=== PATIENT | male | born 1945 | race Caucasian/White ===

== ENCOUNTER 2019-04-24 16:11 | Inpatient (IN) ==
[2019-04-24] MEDS ORDERED: HYDROmorphone INJ 0.5 MG/0.5 ML SYR IV STA ×2 (16:27→18:51)
[2019-04-24 16:53] LABS: Basophils # (auto) 0.01 K/uL (0-0.2); Basophils % (auto) 0.1 %; Eosinophils # (auto) 0.07 K/uL (0-0.5); Eosinophils % (auto) 0.7 %; Hematocrit (blood only) 47.3 % (42-52); Hemoglobin 16.4 g/dL (14.0-18.0); Immature Granulocytes # (auto) 0.03 K/uL (0.00-0.02); Immature Granulocytes % (auto) 0.3 %; Lymphocytes # (auto) 2.04 K/uL (1.2-3.4); Lymphocytes % (auto) 20.6 %; Mean Corpuscular Hgb Conc 34.7 g/dL (32-36); Mean Corpuscular Volume 97.9 fL (80-100); Mean Platelet Volume 10.4 fL (7.4-10.4); Monocytes # (auto) 0.98 K/uL (0.11-0.59); Monocytes % (auto) 9.9 %; Neutrophils # (auto) 6.79 K/uL (1.4-6.5); Neutrophils % (auto) 68.4 %; Platelet Count 263 K/uL (130-400); RDW Coefficient of Variation 13.1 % (11.5-14.5); Red Blood Count 4.83 M/uL (4.7-6.1); White Blood Count 9.92 K/uL (4.8-10.8)
[2019-04-24 17:03] LABS: INR 3.4 (0.9-1.1); Prothrombin Time 32.1 Seconds (9.0-12.0)
[2019-04-24 17:20] LABS: Albumin Level 3.5 gm/dl (3.4-5.0); BUN Creatinine Ratio 12.8 (10-20); Calcium 8.7 mg/dl (8.5-10.1); Creatinine Clr Calc Pharmacy 84.3 ml/min; Est GFR (African American) 99.2; Est GFR (Non-African American) 85.6; Potassium 4.1 mmol/L (3.5-5.1)
[2019-04-24 17:25] LABS: Bilirubin,Total 0.5 mg/dl (0.2-1); Globulin 3.5 gm/dl (2.5-4.0); Troponin I 0.016 ng/ml (0-0.045)
--- NOTE | 2019-04-24 17:52 | XRay Report ---
XR ribs LT min 3V w CXR1V CLINICAL HISTORY: Left rib fractures. Left rib pain. COMPARISON STUDY: Chest CT 04/22/2019. FINDINGS: There are low lung volumes. No pneumothorax. Trace left pleural effusion. Bibasilar linear densities. The heart is mildly enlarged. The upper lung zones remain clear. Left anterior third throu gh sixth nondisplaced rib fractures are noted. IMPRESSION: 1. Left anterior third through sixth nondisplaced rib fractures are again noted. 2. No pneumothorax. 3. Trace left pleural effusion. 4. Low lung volume with bibasilar linear densities. This favors subsegmental atelectasis. Electronically signed by: Jesus Bae M.D. 04/24/2019 5:51 PM
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
[2019-04-24 20:43] LABS: Magnesium 2.2 mg/dl (1.8-2.4)
[2019-04-24] MEDS ORDERED: POLYETHYLENE (MIRALAX) 17 GM PACK PO STA (21:10)
[2019-04-24] MEDS ORDERED: NICOTINE 14 MG/24 HR PATCH TD SCH (21:15)
[2019-04-24] MEDS ORDERED: LORazepam 0.25 MG/0.5 ML VIAL IV PRN (22:13)
[2019-04-24] MEDS ORDERED: MoRPHine SULFATE 4 MG/ML 1 ML CARP\\VIAL IV PRN (22:13)
[2019-04-24] MEDS ORDERED: PROMETHAZINE HCL 12.5 MG in SODIUM CHLORIDE 0.9% 50 ML IV PRN (22:13)
[2019-04-24] MEDS ORDERED: NITROGLYCERIN SL 0.4 MG/TAB TAB SL PRN (22:13)
[2019-04-24] MEDS ORDERED: ACETAMINOPHEN 325 MG TAB PO PRN (22:13)
[2019-04-24] MEDS: LIDOCAINE 5% 1 PATCH TD SCH (22:31)
[2019-04-24] MEDS: METOPROLOL TARTRATE 50 MG TAB PO SCH (22:36)
[2019-04-24] MEDS: NICOTINE 14 MG/24 HR PATCH TD SCH (22:36)
[2019-04-24] MEDS: ATORVASTATIN 40 MG TAB PO SCH (22:37)
[2019-04-24] MEDS: DOCUSATE SODIUM/SENNA 50/8.6MG TAB PO SCH (22:38)
[2019-04-24] MEDS: CLOPIDOGREL BISULFATE 75 MG TAB PO SCH (22:38)
[2019-04-25] MEDS: OXYCODONE/ACETAMINOPHEN 5mg/325mg TAB PO PRN ×5 (00:04→20:00)
[2019-04-25 07:31] LABS: Basophils # (auto) 0.01 K/uL (0-0.2); Basophils % (auto) 0.1 %; Eosinophils # (auto) 0.12 K/uL (0-0.5); Eosinophils % (auto) 1.2 %; Hematocrit (blood only) 44.7 % (42-52); Immature Granulocytes # (auto) 0.02 K/uL (0.00-0.02); Immature Granulocytes % (auto) 0.2 %; Lymphocytes # (auto) 2.35 K/uL (1.2-3.4); Lymphocytes % (auto) 24.3 %; Mean Corpuscular Hgb Conc 33.6 g/dL (32-36); Mean Corpuscular Volume 99.3 fL (80-100); Mean Platelet Volume 10.4 fL (7.4-10.4); Monocytes % (auto) 11.4 %; Neutrophils # (auto) 6.06 K/uL (1.4-6.5); Neutrophils % (auto) 62.8 %; Platelet Count 247 K/uL (130-400); RDW Coefficient of Variation 13.3 % (11.5-14.5); RDW Standard Deviation 48.1 fL (36.4-46.3); White Blood Count 9.66 K/uL (4.8-10.8)
[2019-04-25 07:45] LABS: INR 2.8 (0.9-1.1); Prothrombin Time 26.6 Seconds (9.0-12.0)
[2019-04-25] MEDS: CEROVITE ADV FORMULA TAB PO SCH (08:03)
[2019-04-25] MEDS: PANTOprazole 40 MG TAB PO SCH (08:03)
[2019-04-25] MEDS: METOPROLOL TARTRATE 50 MG TAB PO SCH ×2 (08:04→20:34)
[2019-04-25] MEDS: LISINOPRIL 20 MG TAB PO SCH (08:04)
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
[2019-04-25] MEDS: POLYETHYLENE (MIRALAX) 17 GM PACK PO PRN (10:47)
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
[2019-04-25] MEDS ORDERED: MAGNESIUM CITRATE 296 ML/BTL PO PRN (15:17)
[2019-04-25] MEDS ORDERED: MAGNESIUM HYDROXIDE SUSP 30 ML UDC PO PRN (15:39)
[2019-04-25] MEDS ORDERED: WARFARIN SOD 5 MG TAB PO SCH (16:00)
[2019-04-25] MEDS: HYDROmorphone INJ 0.5 MG/0.5 ML SYR IV PRN (20:25)
[2019-04-25] MEDS: CLOPIDOGREL BISULFATE 75 MG TAB PO SCH (20:34)
[2019-04-25] MEDS: ATORVASTATIN 40 MG TAB PO SCH (20:34)
[2019-04-25] MEDS: LIDOCAINE 5% 1 PATCH TD SCH (20:35)
[2019-04-25] MEDS: DOCUSATE SODIUM/SENNA 50/8.6MG TAB PO SCH (20:36)
[2019-04-26] MEDS: HYDROmorphone INJ 0.5 MG/0.5 ML SYR IV PRN ×2 (01:10→05:32)
[2019-04-26] MEDS: OXYCODONE/ACETAMINOPHEN 5mg/325mg TAB PO PRN ×3 (04:54→13:00)
[2019-04-26 06:42] LABS: INR 2.8 (0.9-1.1); Prothrombin Time 26.4 Seconds (9.0-12.0)
[2019-04-26] MEDS ORDERED: DOCUSATE SODIUM 100 MG CAP PO SCH (09:00)
[2019-04-26] MEDS: NICOTINE 14 MG/24 HR PATCH TD SCH (09:07)
[2019-04-26] MEDS: METOPROLOL TARTRATE 50 MG TAB PO SCH (09:09)
[2019-04-26] MEDS: PANTOprazole 40 MG TAB PO SCH (09:09)
[2019-04-26] MEDS: LISINOPRIL 20 MG TAB PO SCH (09:09)
[2019-04-26] MEDS: CEROVITE ADV FORMULA TAB PO SCH (09:09)
[2019-04-26] MEDS: POLYETHYLENE (MIRALAX) 17 GM PACK PO PRN (09:15)
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
[2019-04-26] MEDS ORDERED: WARFARIN SOD 10 MG TAB PO SCH (16:00)
== END 2019-04-26 15:14 | disposition home or self-care (01) | DRG 185 ==
LOC: ED 16:11 → 2W 21:01

== ENCOUNTER 2020-10-16 10:19 | Inpatient (IN) ==
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
[2020-10-16 10:59] LABS: Basophils # (auto) 0.02 K/uL (0-0.2); Basophils % (auto) 0.2 %; Eosinophils # (auto) 0.07 K/uL (0-0.5); Eosinophils % (auto) 0.7 %; Hematocrit (blood only) 40.4 % (42-52); Hemoglobin 13.4 g/dL (14.0-18.0); Immature Granulocytes # (auto) 0.02 K/uL (0.00-0.02); Immature Granulocytes % (auto) 0.2 %; Lymphocytes # (auto) 0.81 K/uL (1.2-3.4); Lymphocytes % (auto) 7.5 %; Mean Corpuscular Hemoglobin 32.1 pg (25-34); Mean Corpuscular Hgb Conc 33.2 g/dL (32-36); Mean Corpuscular Volume 96.9 fL (80-100); Mean Platelet Volume 9.8 fL (7.4-10.4); Monocytes # (auto) 1.09 K/uL (0.11-0.59); Monocytes % (auto) 10.1 %; Neutrophils # (auto) 8.75 K/uL (1.4-6.5); Neutrophils % (auto) 81.3 %; Platelet Count 462 K/uL (130-400); RDW Coefficient of Variation 12.7 % (11.5-14.5); RDW Standard Deviation 44.6 fL (36.4-46.3); Red Blood Count 4.17 M/uL (4.7-6.1); White Blood Count 10.76 K/uL (4.8-10.8)
[2020-10-16 11:18] LABS: Alanine Aminotransferase 21 U/L (12-78); Albumin Level 2.6 gm/dl (3.4-5.0); Aspartate Aminotransferase 18 U/L (15-37); BUN Creatinine Ratio 11.6 (10-20); Blood Urea Nitrogen 12 mg/dl (7-18); Calcium 8.4 mg/dl (8.5-10.1); Carbon Dioxide 27 mmol/L (21-32); Chloride 106 mmol/L (98-107); Creatinine Clr Calc Pharmacy 74.6 ml/min; Est GFR (African American) 83.1; Est GFR (Non-African American) 71.7; Glucose 168 mg/dl (70-99); Lipase 76 U/L (73-393); Partial Thromboplastin Ratio 1.9; Potassium 3.7 mmol/L (3.5-5.1); Prothrombin Time 67.6 Seconds (9.0-12.0); Sodium 138 mmol/L (136-145)
[2020-10-16 11:22] LABS: INR 7.1 (0.9-1.1); Partial Thromboplastin Time 52.1 Seconds (21.0-31.0)
[2020-10-16 11:23] LABS: Albumin Globulin Ratio 0.6 (0.9-2); Alkaline Phosphatase 115 U/L (45-117); Bilirubin,Total 0.7 mg/dl (0.2-1); Creatine Kinase 78 U/L (39-308); Creatine Kinase MB 1.5 ng/ml (0.5-3.6); Globulin 4.3 gm/dl (2.5-4.0); Total Protein 6.9 gm/dl (6.4-8.2); Troponin I < 0.015 ng/ml (0-0.045)
--- NOTE | 2020-10-16 11:32 | Electrocardiogram Report ---
Test Reason : Blood Pressure : / mmHG Vent. Rate : 082 BPM Atrial Rate : 082 BPM P-R Int : 144 ms QRS Dur : 086 ms QT Int : 354 ms P-R-T Axes : 046 -02 094 degrees QTc Int : 413 ms Normal sinus rhythm Nonspecific T wave abnormality Abnormal ECG When compared with ECG of 24-APR-2019 16:36, Nonspecific T wave abnormality now evident in Inferior leads Nonspecific T wave abnormality, worse in Lateral leads Confirmed by Donald Ascencio ([id number]) on 10/16/2020 11:32:00 AM Referred By: Garry Reyes Confirmed By:Maury Ascencio
[2020-10-16] MEDS ORDERED: PHYTONADIONE 5 MG in SODIUM CHLORIDE 0.9% 50 ML IV ONE (12:05)
[2020-10-16] MEDS ORDERED: COLCHICINE 0.6 MG TAB PO STA (12:41)
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
[2020-10-16 14:14] LABS: Influenza A virus by PCR Negative (Negative); Influenza B virus by PCR Negative (Negative)
[2020-10-16] MEDS ORDERED: GLUCOSE 10 TABS/TUBE PO PRN (17:02)
[2020-10-16] MEDS ORDERED: DEXTROSE 50% 50 ML SYRINGE IV PRN (17:02)
[2020-10-16] MEDS ORDERED: GLUCAGON FOR INJ 1 MG VIAL SQ PRN (17:02)
[2020-10-16] MEDS ORDERED: GLUCOSE 40% GEL 15 GM TUBE PO PRN (17:02)
[2020-10-16] MEDS ORDERED: MAGNESIUM HYDROXIDE SUSP 30 ML UDC PO PRN (17:02)
[2020-10-16] MEDS ORDERED: ACETAMINOPHEN 325 MG TAB PO PRN (17:02)
[2020-10-16] MEDS ORDERED: ONDANSETRON INJ 2 MG/ML 2 ML VIAL IV PRN (17:02)
[2020-10-16] MEDS ORDERED: INSULIN ASPART 100 UNITS/ML 3 ML PEN SC SCH (17:02)
[2020-10-16] MEDS ORDERED: ALUMINUM/MAGNESIUM SUSP 30 ML UDC PO PRN (17:02)
[2020-10-16] MEDS ORDERED: CARBOHYDRATES FOR HYPOGLYCEMIA PO PRN (17:02)
[2020-10-16] MEDS ORDERED: POLYETHYLENE (MIRALAX) 17 GM PACK PO PRN (17:02)
[2020-10-16 18:06] LABS: Prothrombin Time 29.5 Seconds (9.0-12.0)
[2020-10-16] MEDS: ATORVASTATIN 40 MG TAB PO SCH (20:05)
[2020-10-16] MEDS: TAMSULOSIN HCL 0.4 MG CAP PO SCH (20:06)
[2020-10-16] MEDS: METOPROLOL TARTRATE 50 MG TAB PO SCH (20:06)
[2020-10-16 20:33] LABS: Appearance Urine Clear (Clear); Bacteria Urine Automated Negative (Negative); Blood Urine Negative (Negative); Color Urine Dark Yellow; Epithelial Cell Urine Auto >30 /lpf (0-5); Glucose Urine UA Negative (Negative); Ketones Urine Trace (Negative); Leukocyte Esterase Urine Negative (Negative); Nitrite Urine Negative (Negative); Protein Urine Trace (Negative); RBC Urine Automated 0-4 /hpf (0-4); Specific Gravity Urine 1.029 (1.000-1.030); Urobilinogen Urine Negative (Negative); pH Urine 5.5 (4.5-7.5)
[2020-10-16 20:59] LABS: Bilirubin Urine 1+ (Negative)
[2020-10-16 21:18] LABS: Amorphous Sediment Urine Present (None Prsent); Mucus Urine Present (None Prsent)
[2020-10-16] MEDS: COLCHICINE 0.6 MG TAB PO SCH (23:27)
[2020-10-17 05:36] LABS: Basophils # (auto) 0.01 K/uL (0-0.2); Basophils % (auto) 0.1 %; Eosinophils # (auto) 0.14 K/uL (0-0.5); Eosinophils % (auto) 1.8 %; Hematocrit (blood only) 34.7 % (42-52); Hemoglobin 11.5 g/dL (14.0-18.0); Immature Granulocytes # (auto) 0.01 K/uL (0.00-0.02); Immature Granulocytes % (auto) 0.1 %; Lymphocytes # (auto) 1.66 K/uL (1.2-3.4); Lymphocytes % (auto) 21.3 %; Mean Corpuscular Hemoglobin 32.2 pg (25-34); Mean Corpuscular Hgb Conc 33.1 g/dL (32-36); Mean Corpuscular Volume 97.2 fL (80-100); Mean Platelet Volume 9.6 fL (7.4-10.4); Monocytes # (auto) 1.19 K/uL (0.11-0.59); Monocytes % (auto) 15.3 %; Neutrophils # (auto) 4.78 K/uL (1.4-6.5); Neutrophils % (auto) 61.4 %; Platelet Count 398 K/uL (130-400); RDW Coefficient of Variation 12.5 % (11.5-14.5); RDW Standard Deviation 44.5 fL (36.4-46.3); Red Blood Count 3.57 M/uL (4.7-6.1); White Blood Count 7.79 K/uL (4.8-10.8)
[2020-10-17 05:58] LABS: INR 1.6 (0.9-1.1); Prothrombin Time 16.4 Seconds (9.0-12.0)
[2020-10-17 06:17] LABS: Albumin Level 2.3 gm/dl (3.4-5.0); BUN Creatinine Ratio 12.5 (10-20); Calcium 8.6 mg/dl (8.5-10.1); Creatinine Clr Calc Pharmacy 94.1 ml/min; Est GFR (African American) 101.7; Est GFR (Non-African American) 87.7; Magnesium 1.8 mg/dl (1.8-2.4); Potassium 3.4 mmol/L (3.5-5.1)
[2020-10-17 06:20] LABS: Albumin Globulin Ratio 0.6 (0.9-2); Bilirubin,Total 0.8 mg/dl (0.2-1); Globulin 3.7 gm/dl (2.5-4.0)
[2020-10-17] MEDS: FINASTERIDE 5 MG TAB PO SCH (08:37)
[2020-10-17] MEDS: METOPROLOL TARTRATE 50 MG TAB PO SCH ×2 (08:38→20:37)
[2020-10-17] MEDS: lisinopril 20 MG TAB PO SCH (08:38)
[2020-10-17] MEDS: COLCHICINE 0.6 MG TAB PO SCH ×2 (08:38→20:37)
[2020-10-17] MEDS: ASPIRIN 81 MG ECTAB PO SCH (08:38)
[2020-10-17] MEDS: PANTOprazole 40 MG TAB PO SCH (08:38)
[2020-10-17] MEDS ORDERED: POTASSIUM CHLORIDE CRTAB 20 MEQ TABCR PO ONE (08:45)
--- NOTE | 2020-10-17 11:25 | Cardiology Progress Note ---
Date of Service October 17, 2020 Assessment & Plan (1) Pericarditis: (2) Pericardial effusion without cardiac tamponade: (3) CAD (coronary artery disease): (4) LV (left ventricular) mural thrombus following NM: Continue colchicine 0.6 mg twice daily. Warfarin will remain on hold. INR is subtherapeutic today. Culture results pending at this time. Hold off on corticosteroid treatment for the time being. Continue telemetry monitoring. Admission and Anticipated Discharge Date Admission Date: October 16, 2020 Subjective Patient seen and examined the bedside. Denies chest pain or unusual shortness of breath. No fevers overnight. Telemetry demonstrates sinus rhythm. Denies orthopnea, PND, or edema. Describes right-sided pleuritic chest discomfort beg inning approximately 3 weeks ago. No recent chest pain or unusual shortness of breath. CT performed as an outpatient demonstrates a moderate to large circumferential pericardial effusion. Echocardiogram confirms moderate circumferential pericardial effusion without tamponade. Supratherapeutic INR noted on admission. Patient treated with vitamin K. Warfarin currently on hold. No signs/symptoms of GI/ blood loss. Blood cultures pending at this time. Review of Systems Review of Systems: All systems reviewed & are unremarkable except as noted in Subjective Physical Exam Constitutional: well nourished and + ill appearing Eyes: PERRL, conjunctivae normal, anicteric sclerae Respiratory: normal respiratory effort; no respiratory distress and no labored breathing Auscultation: lungs clear to auscultation bilaterally and + breath sounds absent; no diminished lung sounds, no crackles, no rales, no rhonchi, no wheezes and no pleural rub Cardiovascular: Rate/Rhythm: regular rate and regular rhythm Heart Sounds: normal S1 and normal S2; no murmur Vessels: no JVD and no carotid bruit Extremities: no edema Gastrointestinal (Abdomen): Inspection/Auscultation: normal bowel sounds Percussion/Palpation: abdomen soft; abdomen nontender, no guarding and abdomen not rigid Neurologic: CN's II-XI intact bilaterally; no focal motor deficits Motor/Sensory: no tremor Psychiatric: A+Ox3, euthymic affect Results & Data ([facility]) Vital Signs (Past 12 Hours) Vital Signs Temp Pulse Resp BP BP Pulse Ox 10/17/20 08:05 36.4 C L 94 H 20 137/69 97 10/17/20 04:55 36.6 C 82 22 119/74 96 10/16/20 23:26 92 (1) Pericarditis Chronicity: unspecified Pericarditis type: unspecified type Qualified Code(s): I31.9 - Disease of pericardium, unspecified
[2020-10-17 16:56] LABS: Influenza A virus by PCR Negative (Neg); Influenza B virus by PCR Negative (Neg); RSV by PCR Negative (Neg); SARS CoV2 RNA(COVID-19) InHosp NEGATIVE (Negative)
--- NOTE | 2020-10-17 18:02 | Hospitalist Progress Note ---
Date of Service October 17, 2020 Assessment & Plan (1) Pericarditis: (2) Pleural effusion: 75 yr old M who has significant PMH of Pre DM, CAD with hx of angioplasty in past, hx of LV mural thrombus on warfarin, HTN, HLD, GERD, barrets esophagus, BPH, COPD of emphysema type, hx of tobacco abuse, hx of prostate was sent to the ER for abnormal outpt testing. Mostly viral etiology CT chest showed Increased size of a moderate to large pericardial effusion with diffuse pericardial enhancement, concerning for pericarditis. ESR was 40, CRP 155 and RF 14, AGATHA < 40 and Lyme screen negative COVID 19 negative x4 Echo showed moderate size ventral pericardial effusion. No evidence of tamponad e. Cardiology on board recommended to continue colchicine 0.6mg BID and continue to hold coumadin Continue monitor in tele (3) Viral syndrome: COVID 19 negative ID on board Will check for Quantifero Gold, Coxsackie Will d/c isolation (4) Supratherapeutic INR: Received vit K INR 1.6 today Continue to hold coumadin as per cardiology (5) CAD (coronary artery disease): continue asa, statin, metoprolol, and lisinopril Stable (6) Pre-diabetes: Hba1c 6.2 on 10/15/19 novolog per protocol Continue monitor BS (7) LV (left ventricular) mural thrombus following PR: Coumadin on hold FULL CODE Dvt ppx: scd Admission and Anticipated Discharge Date Admission Date: October 16, 2020 Subjective Pt was seen and examined for follow up of pericarditis Lying in bed with no distress Pt said that he feels a lot better He said that cough improves Denies any chest pain, palpitation, dizziness and fever Physical Exam Physical Exam: General- No acute distress Head- atraumatic Eyes- PERRL, EOMI, ENT- oropharynx clear Neck- supple, no JVD Lungs- clear to auscultation Heart- regular rhythm; no murmur Abdomen- normal bowel sounds, soft, nontender Extremities- no calf tenderness Neuro- alert, oriented x 3; PERRL, EOMI; no facial palsy; no dysarthria Skin- warm & dry Results & Data Results & Data ([facility]) Vital Signs (Past 12 Hours) Vital Signs Temp Pulse Resp BP Pulse Ox 10/17/20 15:34 37.0 C 74 20 170/83 H 96 10/17/20 11:26 36.7 C 66 18 155/85 H 91 10/17/20 08:05 36.4 C L 94 H 20 137/69 97 (1) Pericarditis Chronicity: unspecified Pericarditis type: unspecified type Qualified Code(s): I31.9 - Disease of pericardium, unspecified
[2020-10-17] MEDS: ATORVASTATIN 40 MG TAB PO SCH (20:37)
[2020-10-17] MEDS: TAMSULOSIN HCL 0.4 MG CAP PO SCH (20:48)
[2020-10-18 06:42] LABS: Basophils # (auto) 0.01 K/uL (0-0.2); Basophils % (auto) 0.1 %; Eosinophils # (auto) 0.02 K/uL (0-0.5); Eosinophils % (auto) 0.2 %; Hemoglobin 11.8 g/dL (14.0-18.0); Immature Granulocytes # (auto) 0.03 K/uL (0.00-0.02); Immature Granulocytes % (auto) 0.2 %; Lymphocytes # (auto) 0.93 K/uL (1.2-3.4); Lymphocytes % (auto) 7.7 %; Mean Corpuscular Hgb Conc 32.8 g/dL (32-36); Mean Corpuscular Volume 97.6 fL (80-100); Mean Platelet Volume 9.8 fL (7.4-10.4); Monocytes # (auto) 1.45 K/uL (0.11-0.59); Monocytes % (auto) 12.1 %; Neutrophils # (auto) 9.57 K/uL (1.4-6.5); Neutrophils % (auto) 79.7 %; Platelet Count 386 K/uL (130-400); RDW Coefficient of Variation 12.6 % (11.5-14.5); RDW Standard Deviation 44.3 fL (36.4-46.3); Red Blood Count 3.69 M/uL (4.7-6.1); White Blood Count 12.01 K/uL (4.8-10.8)
[2020-10-18 06:49] LABS: INR 1.9 (0.9-1.1); Prothrombin Time 19.1 Seconds (9.0-12.0)
[2020-10-18 07:07] LABS: Albumin Level 2.3 gm/dl (3.4-5.0); BUN Creatinine Ratio 10.1 (10-20); Calcium 8.8 mg/dl (8.5-10.1); Creatinine Clr Calc Pharmacy 88.6 ml/min; Est GFR (African American) 99.2; Est GFR (Non-African American) 85.6; Potassium 3.5 mmol/L (3.5-5.1)
[2020-10-18 07:10] LABS: Albumin Globulin Ratio 0.6 (0.9-2); Bilirubin,Total 0.9 mg/dl (0.2-1); Globulin 3.7 gm/dl (2.5-4.0)
[2020-10-18] MEDS: PANTOprazole 40 MG TAB PO SCH (08:36)
[2020-10-18] MEDS: lisinopril 20 MG TAB PO SCH (08:37)
[2020-10-18] MEDS: FINASTERIDE 5 MG TAB PO SCH (08:38)
[2020-10-18] MEDS: METOPROLOL TARTRATE 50 MG TAB PO SCH ×2 (08:39→19:59)
[2020-10-18] MEDS: COLCHICINE 0.6 MG TAB PO SCH ×2 (08:39→19:59)
[2020-10-18] MEDS: ASPIRIN 81 MG ECTAB PO SCH (08:39)
--- NOTE | 2020-10-18 10:21 | Cardiology Progress Note ---
Date of Service October 18, 2020 Assessment & Plan (1) Pericarditis: (2) Pericardial effusion without cardiac tamponade: (3) CAD (coronary artery disease): (4) LV (left ventricular) mural thrombus following [place]: Coxsackie viral titer and tuberculosis testing pending at this time. Peripheral smear ordered. Appreciate infectious disease input. Blood cultures negative x24 hours. Outpatient blood and urine cultures drawn 10/15/2020 with no growth. Review of other lab studies demonstrates a negative Lyme screen and urinalysis. Rheumatoid factor borderline elevated, 14. AGATHA negative. Elevated ESR and CRP noted. Covid testing negative x3. Continue colchicine 0.6 mg twice daily. Warfarin will remain on hold. INR is subtherapeutic today, however, trending upward. Recommend slow, low-dose corticosteroid taper. Prednisone 20 mg daily tapering down to 2.5 mg daily over 4-6-weeks. Admission and Anticipated Discharge Date Admission Date: October 16, 2020 Subjective Patient seen and examined at the bedside. Low-grade fever noted overnight. Reports pleuritic upper chest discomfort with deep inspiration and cough. Feeling fatigued and weak. No orthopnea, PND, or lower extremity edema. Denies signs/symptoms of GI/ blood loss. No palpitations, lightheadedness, dizziness, syncope, or near syncope. INR trending upward. Offers no other concerns/complaints at this time. Review of Systems Review of Systems: All systems reviewed & are unremarkable except as noted in Subjective Physical Exam Constitutional: well nourished and + ill appearing Eyes: PERRL, conjunctivae normal, anicteric sclerae Respiratory: normal respiratory effort; no respiratory distress and no labored breathing Auscultation: lungs clear to auscultation bilaterally and + breath sounds absent; no diminished lung sounds, no crackles, no rales, no rhonchi, no wheezes and no pleural rub Cardiovascular: Rate/Rhythm: regular rate and regular rhythm Heart Sounds: normal S1 and normal S2; no murmur Vessels: no JVD and no carotid bruit Extremities: no edema Gastrointestinal (Abdomen): Inspection/Auscultation: normal bowel sounds Percussion/Palpation: abdomen soft; abdomen nontender, no guarding and abdomen not rigid Neurologic: CN's II-XI intact bilaterally; no focal motor deficits Motor/Sensory: no tremor Psychiatric: A+Ox3, euthymic affect Results & Data ([facility]) Vital Signs (Past 12 Hours) Vital Signs Temp Pulse Pulse Resp BP BP Pulse Ox 10/18/20 08:34 36.4 C L 86 20 118/69 93 10/18/20 04:00 36.7 C 81 20 130/78 91 10/17/20 23:31 36.6 C 81 20 113/68 95 10/17/20 23:00 76 (1) Pericarditis Chronicity: unspecified Pericarditis type: unspecified type Qualified Code(s): I31.9 - Disease of pericardium, unspecified
--- NOTE | 2020-10-18 10:22 | Electrocardiogram Report ---
Test Reason : Blood Pressure : / mmHG Vent. Rate : 095 BPM Atrial Rate : 095 BPM P-R Int : 144 ms QRS Dur : 082 ms QT Int : 348 ms P-R-T Axes : 066 019 055 degrees QTc Int : 437 ms Normal sinus rhythm Low voltage QRS Nonspecific T wave abnormality Abnormal ECG When compared with ECG of 17-OCT-2020 10:47, No significant change was found Confirmed by Donald Ascencio ([id number]) on 10/18/2020 10:21:55 AM Referred By: Garry Reyes Confirmed By:Maury Ascencio
[2020-10-18] MEDS: predniSONE 20 MG TAB PO SCH (12:10)
--- NOTE | 2020-10-18 17:39 | Hospitalist Progress Note ---
Date of Service October 18, 2020 Assessment & Plan (1) Pericarditis: (2) Pleural effusion: 75 yr old M who has significant PMH of Pre DM, CAD with hx of angioplasty in past, hx of LV mural thrombus on warfarin, HTN, HLD, GERD, barrets esophagus, BPH, COPD of emphysema type, hx of tobacco abuse, hx of prostate was sent to the ER for abnormal outpt testing. Mostly viral etiology CT chest showed Increased size of a moderate to large pericardial effusion with diffuse pericardial enhancement, concerning for pericarditis. ESR was 40, CRP 155 and RF 14, AGATHA < 40 and Lyme screen negative COVID 19 negative x4 Echo showed moderate size ventral pericardial effusion. No evidence of tamponad e. Cardiology on board recommended to continue colchicine 0.6mg BID and continue to hold coumadin Case discussed with cardiology and starting on low dose prednisone, then taper in the next 4-6 weeks Continue monitor in tele (3) Viral syndrome: COVID 19 negative ID on board Quantiferon Gold, Coxsackie ab pending Continue monitor closely (4) Supratherapeutic INR: Received vit K INR 1.9 today Continue to hold coumadin as per cardiology (5) CAD (coronary artery disease): continue asa, statin, metoprolol, and lisinopril Stable (6) Pre-diabetes: Hba1c 6.2 on 10/15/19 novolog per protocol Continue monitor BS (7) LV (left ventricular) mural thrombus following [place]: Coumadin on hold FULL CODE Dvt ppx: scd Admission and Anticipated Discharge Date Admission Date: October 16, 2020 Subjective Pt was seen and examined for follow up pericarditis Sitting in chair with no distress Pt said that head a low grade fever this morning He said that he continues to have pleuritic chest discomfort with deep breathing Continue to require oxygen supplement Denies any chest pain, palpitation, dizziness and SOB Physical Exam Physical Exam: General- No acute distress Head- atraumatic Eyes- PERRL, EOMI, ENT- oropharynx clear Neck- supple, no JVD Lungs- clear to auscultation Heart- regular rhythm; no murmur Abdomen- normal bowel sounds, soft, nontender Extremities- no calf tenderness Neuro- alert, oriented x 3; PERRL, EOMI; no facial palsy; no dysarthria Skin- warm & dry Results & Data Results & Data ([facility]) Vital Signs (Past 12 Hours) Vital Signs Temp Pulse Resp BP Pulse Ox 10/18/20 15:49 36.7 C 90 18 133/81 93 10/18/20 11:57 37 C 88 18 155/88 H 93 10/18/20 08:34 36.4 C L 86 20 118/69 93 (1) Pericarditis Chronicity: unspecified Pericarditis type: unspecified type Qualified Code(s): I31.9 - Disease of pericardium, unspecified
[2020-10-18] MEDS: ATORVASTATIN 40 MG TAB PO SCH (19:59)
[2020-10-18] MEDS: TAMSULOSIN HCL 0.4 MG CAP PO SCH (19:59)
[2020-10-19] MEDS: predniSONE 20 MG TAB PO SCH (07:51)
[2020-10-19] MEDS: ASPIRIN 81 MG ECTAB PO SCH (07:52)
[2020-10-19] MEDS: METOPROLOL TARTRATE 50 MG TAB PO SCH (07:52)
[2020-10-19] MEDS: FINASTERIDE 5 MG TAB PO SCH (07:53)
[2020-10-19] MEDS: lisinopril 20 MG TAB PO SCH (07:53)
[2020-10-19] MEDS: COLCHICINE 0.6 MG TAB PO SCH (07:54)
[2020-10-19] MEDS: PANTOprazole 40 MG TAB PO SCH (07:54)
[2020-10-19 08:54] LABS: Hemoglobin 13.5 g/dL (14.0-18.0); Mean Corpuscular Hemoglobin 32.1 pg (25-34); Mean Corpuscular Hgb Conc 32.9 g/dL (32-36); Mean Corpuscular Volume 97.4 fL (80-100); Mean Platelet Volume 9.7 fL (7.4-10.4); Platelet Count 515 K/uL (130-400); RDW Coefficient of Variation 12.7 % (11.5-14.5); RDW Standard Deviation 45.2 fL (36.4-46.3); Red Blood Count 4.21 M/uL (4.7-6.1)
[2020-10-19 09:08] LABS: Prothrombin Time 20.1 Seconds (9.0-12.0)
--- NOTE | 2020-10-19 10:02 | Cardiology Progress Note ---
Date of Service October 19, 2020 Assessment & Plan (1) Pericarditis: (2) Pericardial effusion without cardiac tamponade: (3) CAD (coronary artery disease): (4) LV (left ventricular) mural thrombus following [place]: Coxsackie viral titer and tuberculosis testing pending at this time. No evidence of atypical cell per peripheral smear. Appreciate infectious disease input. Blood cultures negative x24 hours. Outpatient blood and urine cultures drawn 10/15/2020 with no growth. Review of o ther lab studies demonstrates a negative Lyme screen and urinalysis. Rheumatoid factor borderline elevated, 14. AGATHA negative. Elevated ESR and CRP noted. Covid testing negative x3. Continue colchicine 0.6 mg twice daily. Warfarin will remain on hold until follow up in one week. INR is 2.0 today. Continue slow, low-dose corticosteroid taper. Prednisone 20 mg daily x 5 days tapering down to 2.5 mg daily over 4-6-weeks. Repeat limited echo today. If pericardial is stable, patient may be discharged with close, 1 week, hospital follow up. Admission and Anticipated Discharge Date Admission Date: October 16, 2020 Subjective Patient seen and examined at the bedside. Feeling better today. Pleuritic chest pain has resolved. Denies orthopnea, PND, or palpiations. +fatigue. No cough or SOB. Requesting discharge if possible. Review of Systems Review of Systems: All systems reviewed & are unremarkable except as noted in Subjective Physical Exam Constitutional: well nourished and + ill appearing Eyes: PERRL, conjunctivae normal, anicteric sclerae Respiratory: normal respiratory effort; no respiratory distress and no labored breathing Auscultation: lungs clear to auscultation bilaterally; no diminished lung sounds, no crackles, no rales, no rhonchi, no wheezes and no pleural rub Cardiovascular: Rate/Rhythm: regular rate and regular rhythm Heart Sounds: normal S1 and normal S2; no murmur Vessels: no JVD and no carotid bruit Extremities: no edema Gastrointestinal (Abdomen): Inspection/Auscultation: normal bowel sounds Percussion/Palpation: abdomen soft; abdomen nontender, no guarding and abdomen not rigid Neurologic: CN's II-XI intact bilaterally; no focal motor deficits Motor/Sensory: no tremor Psychiatric: A+Ox3, euthymic affect Results & Data ([facility]) Vital Signs (Past 12 Hours) Vital Signs Temp Pulse Pulse Resp BP BP Pulse Ox 10/19/20 07:48 36.9 C 88 18 129/80 93 10/19/20 04:16 36.5 C 85 20 122/63 95 10/19/20 00:22 78 10/18/20 23:35 36.9 C 75 22 112/73 93 (1) Pericarditis Chronicity: unspecified Pericarditis type: unspecified type Qualified Code(s): I31.9 - Disease of pericardium, unspecified
[2020-10-19 15:44] VITALS: PULSE 87; TEMP 98.1; O2SAT 93
--- NOTE | 2020-10-19 16:30 | Hospitalist Progress Note ---
Date of Service October 19, 2020 Assessment & Plan (1) Pericarditis: (2) Pleural effusion: 75 yr old M who has significant PMH of Pre DM, CAD with hx of angioplasty in past, hx of LV mural thrombus on warfarin, HTN, HLD, GERD, barrets esophagus, BPH, COPD of emphysema type, hx of tobacco abuse, hx of prostate was sent to the ER for abnormal outpt testing. Mostly viral etiology CT chest showed Increased size of a moderate to large pericardial effusion with diffuse pericardial enhancement, concerning for pericarditis. ESR was 40, CRP 155 and RF 14, AGATHA < 40 and Lyme screen negative COVID 19 negative x4 Echo showed moderate size ventral pericardial effusion. No evidence of tamponad e. Cardiology on board recommended to continue colchicine 0.6mg BID and continue to hold coumadin Continue low dose prednisone 20mg x 5 days then taper by 2.5 mg weekly for 4-6 weeks Repeat echo showed moderate circumferential pericardial effusion with moderate of fluid posteriorly. effusion is moderately organized in the apical and right lateral position. There are no echocardiographic indication of cardiac tamponade. Poor candidate for Pericardiocentesis due to fluid position and organization. Ok from cardiology standpoint to discharge home Follow up with cardiology next week (3) Viral syndrome: COVID 19 negative ID on board Quantiferon Gold, Coxsackie ab pending Continue monitor closely (4) Supratherapeutic INR: Received vit K INR 2 today Continue to hold coumadin until reeval by cardiology next week (5) CAD (coronary artery disease): continue asa, statin, metoprolol, and lisinopril Stable (6) Pre-diabetes: Hba1c 6.2 on 10/15/19 novolog per protocol Continue monitor BS (7) LV (left ventricular) mural thrombus following [place]: Coumadin on hold FULL CODE Dvt ppx: scd Disposition Will discharge home today Follow up with cardiology next week Admission and Anticipated Discharge Date Admission Date: October 16, 2020 Subjective Pt was seen and examined for follow up of the pericarditis Sitting in chair with no distress reading in his tablet. Pt said that he feels fine He said that he does not have any chest discomfort when he takes any deep breath he would like to go home today Denies any chest pain, palpitation, dizziness and SOB Physical Exam Physical Exam: General- No acute distress Head- atraumatic Eyes- PERRL, EOMI, ENT- oropharynx clear Neck- supple, no JVD Lungs- clear to auscultation Heart- regular rhythm; no murmur Abdomen- normal bowel sounds, soft, nontender Extremities- no calf tenderness Neuro- alert, oriented x 3; PERRL, EOMI; no facial palsy; no dysarthria Skin- warm & dry Results & Data Results & Data ([facility]) Vital Signs (Past 12 Hours) Vital Signs Temp Pulse Resp BP Pulse Ox 10/19/20 15:42 36.7 C 87 20 128/73 93 10/19/20 12:21 36.6 C 68 20 129/74 91 10/19/20 07:48 36.9 C 88 18 129/80 93 (1) Pericarditis Chronicity: unspecified Pericarditis type: unspecified type Qualified Code(s): I31.9 - Disease of pericardium, unspecified
[2020-10-19 17:35] VITALS: BP 122/63
--- NOTE | 2020-10-21 08:29 | Discharge Summary ---
Date of Service October 19, 2020 Admission HPI Per Admitting Provider This is a 75 yr old M who has significant PMH of Pre DM, CAD with hx of angioplasty in past, hx of LV mural thrombus on warfarin, HTN, HLD, GERD, barrets esophagus, BPH, COPD of emphysema type, hx of tobacco abuse, hx of prostate ca who presents to ED 2/2 to referred to ED due to abnormal outpt testing. Sx initially started 09/23 with flu like symptoms and pain with deep breathing. The chest pain would worse with deep breathing and cough and this lasted 2-3 days and resolved, but flu like sx persisted. Overall did not feel well. Had a covid screen 09/23 which was negative. Sx persisted so he saw PCP and was prescribed doxycycline w/o improvement. He had another covid screen 10/03 and again negative. 2 days ago fever 102, chills, and continuing to feel worse. Saw CHET Murphy 10/15 and sent for lab work and images. Images concerning for pericardial effusion and pericarditis and was referred to ED. He denies being tested for flu. He further complains of fatigue, BAUMAN x 1 yesterday, sinus congestion, post nasal drip, productive plegm, sob with significant exertion, decreased appetite and generalized weakness. Has lost 6 lbs in past 12 days. Denies dizziness, lightheaded, chest pain, sob at rest, orthopnea, PND, hemoptysis, n/v/d, abdominal pain, constipation, dysuria, increased urgency with urination, melena, and hematochezia. He does complain of nocturia but this is not new. Has had a TURP in past and is on medications for this. Follows Dr. Weber. In ED he has remained hemodynamically stable. He was seen and evaluated by flake miller helper Dr. Cheek. A bedside echo was performed which revealed moderate pleural effusion with out evidence of tamponade. It is felt pt experiencing sx 2/2 to Pericarditis. Despite 3 negative covid tests suspicion still remains for this airborne illness Labs reveal h/h 13.4/40.4, wbc 10.76k, plt 462, INR 7.1, bun 12, cr 1.03, glucose 168, alb 2.6. CXR 1. Moderate cardiomegaly. Pulmonary vascular congestion. 2. Trace left pleural effusion with mild left basilar opacity. He received 5mg IV vitamin K in ED as well as 0.6mg of colchicine. Admission Exam Per Admitting Provider Physical exam was unremarkable Principal Diagnosis (1) Pericarditis: (2) Pleural effusion: (3) Viral syndrome: (4) Supratherapeutic INR: (5) CAD (coronary artery disease): (6) Pre-diabetes: (7) LV (left ventricular) mural thrombus following [place]: Discharge Exam General- No acute distress Head- atraumatic Eyes- PERRL, EOMI, ENT- oropharynx clear Neck- supple, no JVD Lungs- clear to auscultation Heart- regular rhythm; no murmur Abdomen- normal bowel sounds, soft, nontender Extremities- no calf tenderness Neuro- alert, oriented x 3; PERRL, EOMI; no facial palsy; no dysarthria Skin- warm & dry Discharge Data Allergies Allergy/AdvReac Type Severity Reaction Status Date / Time No Known Allergies Allergy Verified 10/16/20 11:20 Consultations 10/16/20 12:02 Consult Cardiology Stat 10/16/20 12:39 ED Decision to Admit Stat 10/16/20 17:02 Consult Infectious Diseases Routine Ordered Studies XR chest 1V portable CLINICAL HISTORY: Chest pain. COMPARISON STUDY: Chest CT April 22, 2019. Chest radiograph April 24, 2019. FINDINGS: Moderate cardiomegaly is noted. There is pulmonary vascular congestion. Trace left pleural effusion is noted. There is no pneumothorax. No consolidation is identified. Several calcified pleural plaques are incidentally noted. IMPRESSION: 1. Moderate cardiomegaly. Pulmonary vascular congestion. 2. Trace left pleural effusion with mild left basilar opacity. ACT 112: Negative or not required by law. Electronically signed by: Janes Torres M.D. 10/16/2020 10:49 AM Dictated: 10/16/20 1045Transcribed: 10/16/20 1045 Hospital Course (1) Pericarditis: (2) Pleural effusion: 75 yr old M who has significant PMH of Pre DM, CAD with hx of angioplasty in past, hx of LV mural thrombus on warfarin, HTN, HLD, GERD, barrets esophagus, BPH, COPD of emphysema type, hx of tobacco abuse, hx of prostate was sent to the ER for abnormal outpt testing. Mostly viral etiology CT chest showed Increased size of a moderate to large pericardial effusion with diffuse pericardial enhancement, concerning for pericarditis. ESR was 40, CRP 155 and RF 14, AGATHA < 40 and Lyme screen negative COVID 19 negative x4 Echo showed moderate size ventral pericardial effusion. No evidence of tamponade. Cardiology on board recommended to continue colchicine 0.6mg BID and continue to hold coumadin Continue low dose prednisone 20mg x 5 days then taper by 2.5 mg weekly for 4-6 weeks Repeat echo showed moderate circumferential pericardial effusion with moderate of fluid posteriorly. effusion is moderately organized in the apical and right lateral position. There are no echocardiographic indication of cardiac tamponade. Poor candidate for Pericardiocentesis due to fluid position and organization. Ok from cardiology standpoint to discharge home Follow up with cardiology next week (3) Viral syndrome: COVID 19 negative ID on board Quantiferon Trisha Brown ab pending Continue monitor closely (4) Supratherapeutic INR: Received vit K INR 2 today Continue to hold coumadin until reeval by cardiology next week (5) CAD (coronary artery disease): continue asa, statin, metoprolol, and lisinopril Stable (6) Pre-diabetes: Hba1c 6.2 on 10/15/19 novolog per protocol Continue monitor BS (7) LV (left ventricular) mural thrombus following [place]: Coumadin on hold FULL CODE Dvt ppx: scd Disposition Will discharge home today Follow up with cardiology next week Total Time Total Time Spent Total Time Spent (In Minutes): 35 minutes Total Time Includes: Examination of the Patient, Discharge Planning, Medication Reconciliation, Communication With Other Providers and Other Discharge Plan Discharge Items Patient Disposition: Home - Self-Care Reason For Visit: PERICARDITIS, MODERATE PERICADIAL EFFUSION Discharge Diagnosis: (1) Pericarditis: (2) Pleural effusion: (3) Viral syndrome: (4) Supratherapeutic INR: (5) CAD (coronary artery disease): (6) Pre-diabetes: (7) LV (left ventricular) mural thrombus following GA: Activity: Resume your previous activity Non-emergency contact: Primary Care Provider and Automatic Grinding 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 Call non-emergency contact if: you have any medication questions Follow-up/Referrals: Garry Reyes MD [Primary Care Provider] - 10/24/20 12:00 pm Diet: Heart Healthy Addtl Attending Provider Instructions: Follow up with your primary care provider Dr. Reyes on 10/24/20 @ 12:00 PM Follow up with cardiology next week to evaluate for the pericarditis (Office will call you for the appointment) Follow up with the coumadin clinic once your coumadin resumes Hold coumadin for now until seeing by flake miller helper next week Continue slow prednisone taper Seek medical attention if you develop chest pain and shortness of breath Your physician will review the result of QuantiFeron and Coxsackie markers with you at your next appointment Pending Studies at Discharge: Yes Stand-Alone Forms: [facility], Smoking Cessation Medications and DC Order Prescriptions: New colchicine [Colcrys] 0.6 mg Tablet 0.6 mg PO BID 30 Days Qty: 60 RF: 0 prednisone 5 mg tablet 5 mg PO UD Qty: 90 RF: 0 Continued omeprazole 40 mg Capsule,Delayed Release(Dr/Ec) 40 mg PO QAM RF: 0 multivitamin with minerals [Men's One Daily] Tablet 1 tab PO QAM RF: 0 atorvastatin [Lipitor] 80 mg tablet 80 mg PO HS RF: 0 lisinopril [Zestril] 20 mg tablet 20 mg PO QAM RF: 0 metoprolol tartrate [Lopressor] 50 mg tablet 50 mg PO BID RF: 0 nitroglycerin [Nitrostat] 0.4 mg tablet, sublingual 0.4 mg Sublingual UD PRN (Reason: Chest Pain) RF: 0 warfarin 5 mg tablet 5 mg PO MOTUWETHFRSA RF: 0 warfarin 5 mg tablet 10 mg PO LEI RF: 0 aspirin 81 mg Tablet,Delayed Release (Dr/Ec) 81 mg PO DAILY RF: 0 tamsulosin 0.4 mg capsule 0.4 mg PO HS RF: 0 finasteride 5 mg tablet 5 mg PO QAM RF: 0 Discharge Orders: Discharge Order (Routine); Ordered 10/19/20 Ordered By: Marilee Barrow Admission Data Admit Date/Time: 10/16/20 12:46 Attending Provider: Marilee Barrow Admit Provider: Liliya Carrillo I. Primary Care Provider: Garry Reyes Other Providers: Eugene Cheek ; Liliya Carrillo I. ; Joshua Lam ; Gianfranco Bone ; Sebastian Alvarado I. ; Micah Arora II ; Deborah Wright. ; Vicente Jasso Other Interventions: Discharge Summary Assessment (RN) Last Done: 10/19/20 17:33
[2020-10-21 18:22] LABS: Coxsackie A10 <1:8; Coxsackie A16 <1:8; Coxsackie A2 <1:8; Coxsackie A4 <1:8; Coxsackie A7 <1:8; Coxsackie A9 <1:8
[2020-10-22 14:07] LABS: Quantiferon Mitogen-NIL 2.04 IU/mL; Quantiferon NIL 0.03 IU/mL; Quantiferon TB Gold Plus NEGATIVE (NEGATIVE)
== END 2020-10-19 18:41 | disposition home or self-care (01) | DRG 315 ==
LOC: ED 10:19 → 2S 12:46 → SUATTDRO 12:46 → 2S 16:33

== ENCOUNTER 2024-07-29 13:54 | Inpatient (IN) ==
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
[2024-07-29 14:34] LABS: Appearance Urine Clear (Clear); Bacteria Urine Automated None Seen (None Seen); Bilirubin Urine Negative (Negative); Blood Urine Negative (Negative); Cast Urine Automated 0-2 /lpf (0-2); Color Urine Dark Yellow; Epithelial Cell Urine Auto 0-2 /hpf (0-2); Glucose Urine UA Negative (Negative); Ketones Urine Negative (Negative); Leukocyte Esterase Urine Trace (Negative); Nitrite Urine Negative (Negative); Protein Urine Negative (Negative); RBC Urine Automated 0-2 /hpf (0-2); Specific Gravity Urine 1.018 (1.000-1.030); Urobilinogen Urine Negative (Negative); WBC Urine Automated 0-5 /hpf (0-5); pH Urine 5.5 (4.5-7.5)
[2024-07-29 14:50] LABS: Albumin Globulin Ratio 1.4 (0.9-2); Albumin Level 4.1 gm/dl (3.4-5.0); BUN Creatinine Ratio 15.2 (10-20); Bilirubin,Total 0.8 mg/dl (0.2-1.0); Calcium 9.3 mg/dl (8.6-10.3); Creatinine Clr Calc Pharmacy 70.6 ml/min; Potassium 3.5 mmol/L (3.5-5.1); Total Protein 7.1 gm/dl (6.0-8.3)
[2024-07-29 14:56] LABS: Troponin I High Sensitivity 28.1 pg/ml (0-20)
[2024-07-29 14:58] LABS: INR 1.4 (0.9-1.1)
[2024-07-29] MEDS: fentaNYL citrate PF 100 MCG/2 ML VIAL IV STA (14:59)
[2024-07-29 15:07] LABS: Basophils # (auto) 0.02 K/uL (0.00-0.20); Basophils % (auto) 0.2 %; Eosinophils % (auto) 1.2 %; Hemoglobin 14.3 g/dl (14.0-18.0); Immature Granulocytes # (auto) 0.01 K/uL (0.01-0.20); Immature Granulocytes % (auto) 0.1 %; Lymphocytes % (auto) 12.3 %; Mean Corpuscular Hemoglobin 32.6 pg (25.0-34.0); Mean Corpuscular Hgb Conc 33.3 g/dL (32.0-36.0); Mean Corpuscular Volume 98.2 fL (80.0-100.0); Mean Platelet Volume 10.5 fL (9.4-12.4); Monocytes # (auto) 0.23 K/uL (0.11-0.59); Monocytes % (auto) 2.8 %; Neutrophils # (auto) 6.76 K/uL (1.40-6.50); Neutrophils % (auto) 83.4 %; Platelet Count 269 K/uL (130-400); RDW Standard Deviation 46.8 fL (36.4-46.3); Red Blood Count 4.38 M/uL (4.70-6.10); White Blood Count 8.12 K/ul (4.8-10.8)
[2024-07-29] MEDS: OPTIRAY 320 100ml IV ONE (15:18)
--- NOTE | 2024-07-29 15:47 | CT Scan Report ---
CT OF THE ABDOMEN AND PELVIS WITH CONTRAST CLINICAL HISTORY: Diffuse abdominal pain; bridging coumadin to lovenox. COMPARISON STUDY: CT of the abdomen and pelvis April 22, 2019. TECHNIQUE: Following IV administration of 91 mL of Optiray, axial images of the abdomen and pelvis we re obtained from the lung bases to the proximal femurs. Images were reviewed in the axial, sagittal, and coronal planes. IV contrast was administered without complication. Automated exposure control wa s utilized for the study. A dose lowering technique was utilized adhering to the principles of ALARA . CT DOSE: 1364.85 mGy.cm FINDINGS: No pneumatosis, free air or portal venous gas is present. The liver, spleen, adrenal glands , kidneys and pancreas are unremarkable. There is no biliary or pancreatic ductal dilatation. There i s no hydronephrosis. No peripancreatic or pericholecystic infiltration is present. There is no eviden ce for acute appendicitis. Prominent fluid-filled small bowel loops measure up to 3.1 cm in caliber. No transition point is identified. There is extensive colonic diverticulosis. There is an inflamed di verticulum of the mid sigmoid colon. There is moderate inflammation adjacent to the mid sigmoid colon . No free air or abscess is present. There is mild wall thickening. A 6.2 cm right posterior lateral bladder diverticulum is unchanged. IMPRESSION: 1. Findings consistent with acute sigmoid diverticulitis. Moderate pericolonic inflammation with no f ree air or abscess. 2. A few loops of mildly dilated fluid-filled small bowel. This is of doubtful significance although could reflect a mild ileus related to diverticulitis. A partial small bowel obstruction is considered less likely. ACT 112: Negative or not required by law. Electronically signed by: Janes Torres M.D. 07/29/2024 3:45 PM
--- NOTE | 2024-07-29 15:48 | Electrocardiogram Report ---
Test Reason : Blood Pressure : */* mmHG Vent. Rate : 73 BPM Atrial Rate : 73 BPM P-R Int : 176 ms QRS Dur : 82 ms QT Int : 374 ms P-R-T Axes : 16 -22 23 degrees QTcB Int : 412 ms Normal sinus rhythm Poor R wave progression, consider anterior OK vs. lead placement vs. LVH Abnormal ECG When compared with ECG of 29-Aug-2023 07:11, Nonspecific T wave abnormality now evident in Inferior leads Confirmed by Markos Maldonado ([id number]) on 07/29/2024 3:48:22 PM Referred By: REFERRED SELF Confirmed By: Markos Maldonado
[2024-07-29] MEDS: PIPERACILLIN/TAZOBACTAM 4.5 GM/100 ML BAG IV ONE (16:12)
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
[2024-07-29] MEDS: ACETAMINOPHEN 1,000 MG/100 ML VIAL IV STA (17:38)
[2024-07-29] MEDS: diphenhydrAMINE 50 MG/ML VIAL IV STA ×2 (18:17→20:04)
[2024-07-29] MEDS: metroNIDAZOLE 500 MG/100 ML BAG IV SCH (18:50)
[2024-07-29] MEDS ORDERED: GLUCOSE 40% GEL 15 GM TUBE PO PRN (19:16)
[2024-07-29] MEDS ORDERED: CARBOHYDRATES FOR HYPOGLYCEMIA PO PRN (19:16)
[2024-07-29] MEDS ORDERED: DEXTROSE 50% 50 ML SYRINGE IV PRN (19:16)
[2024-07-29] MEDS ORDERED: GLUCOSE 10 TAB/TUBE PO PRN (19:16)
[2024-07-29] MEDS ORDERED: GLUCAGON FOR INJ 1 MG VIAL SQ PRN (19:16)
[2024-07-29] MEDS: CIPROFLOXACIN / D5W 400 MG/200 ML BAG IV SCH (20:02)
[2024-07-29] MEDS: WARFARIN SOD 10 MG TAB PO ONE (21:26)
[2024-07-29] MEDS: ENOXAPARIN 100 MG/1ML SYR SQ SCH (21:27)
[2024-07-29] MEDS: ATORVASTATIN 40 MG TAB PO SCH (21:28)
[2024-07-29] MEDS: carvediloL 6.25 MG TAB PO SCH (21:29)
[2024-07-29] MEDS: INSULIN ASPART PER UNIT CHARGE SC SCH (21:41)
[2024-07-29] MEDS: TAMSULOSIN HCL 0.4 MG CAP PO SCH (21:53)
[2024-07-29] MEDS: LACTATED RINGER'S 1,000 ML IV SCH (21:58)
--- OUTSIDE RECORDS SUMMARY | 2024-07-29 23:45 | External Medical Summary | Summary of Care ---
Author Name Unknown Organization [facility] Address [address] [place] [address] Phone [phone] Care Team Providers Care Shake Out Worker Name Role Phone Garry Reyes MD Primary Care Provider + Reason for Visit * Reason Comments Outpatient Testing Encounter Details Date Type Department Care Team (Late st Contact Info) Description 07/18/2024 10:50 AM EDT Laboratory Laboratory [facility] [address] [place] [address] [facility] [address] [address] BPH with obstruction/lower urinary tract symptoms; Nocturia; Retention of urine; Malignant neoplasm of prostate (HCC); Type 2 diabetes mellitus with hemoglobin A1c goal of less than 8.0% ([facility]) Allergies No known active allergiesdocumented as of this encounter (statuses as of 07/18/2024) Medications Medication Sig Dispensed Refills Start Date End Date Status Multiple Vitamins-Minerals (DAILY MULTIVITAMIN) CAPS Take 1 Tablet by mouth in the morning. Active Magnesium Hydroxide 400 MG/5ML Oral Suspension Take 30 mL by mouth daily as needed for Constipation. Active Aspirin 81 MG Tablet Take 1 Tablet by mouth every evening. Active Nitroglycerin 0.4 MG Sublingual Tablet Sublingual (Nitrostat) Place 1 Tablet under the tongue every 5 minutes as needed for Pain, Chest. 25 Tablet 2 3 Active Baclofen 10 MG Oral Tablet (Lioresal)Indicatio ns:Spasm of muscle,Spondylosis of thoracic region without myelopathy or radiculopathy,Acute right-sided thoracic back pain Take 1 Tablet by mouth 2 times a day as needed for Pain, Breakthrough. 90 Tablet 3 Active Warfarin Sodium 5 MG Oral Tablet (Coumadin)Indicatio ns:LV (left ventricular) mural thrombus following [place] (HCC) TAKE 2 TABLETS TUESDAYS & SATURDAYS, 1 TABLET ALL OTHER DAYS OR DIRECTED 120 Tablet 3 3 Active Additional Information Patient taking differently: Oral Q-1999, As directed by Anticoagulation Clinic, Informant: Spouse, Reported on 08/31/2023 CPAP Use as directed at bedtime. Active Omeprazole 40 MG Oral Capsule Delayed Release (PriLOSEC)Indicatio ns:GERD (gastroesophageal reflux disease) TAKE 1 CAPSULE BY MOUTH EVERY DAY 90 Capsule 3 4 Active Levothyroxine Sodium 175 MCG Oral Tablet (Levoxyl)Indication s:Follicular thyroid cancer (HCC),Postoperative hypothyroidism 1 tab Thursday to Thursday, half tab on Sundays. 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,LV (left ventricular) mural thrombus following [place] (HCC),HTN, goal below 140/90,Ischemic cardiomyopathy,Hist ory of TIA (transient ischemic attack),Dyslipidemi a, goal LDL below 70,Old myocardial infarct,Essential hypertension with goal blood pressure less than 140/90 TAKE 1 TABLET BY MOUTH IN THE MORNING AND BEFORE BEDTIME 180 Tablet 3 4 Active Finasteride 5 MG Oral Tablet (Proscar) TAKE 1 TABLET BY MOUTH EVERY DAY IN THE MORNING 90 Tablet 3 4 Active Tamsulosin HCl 0.4 MG Oral Capsule (Flomax) TAKE 1 CAPSULE BY MOUTH BEFORE BEDTIME 90 Capsule 2 4 Active Atorvastatin Calcium 80 MG Oral Tablet (Lipitor)Indication s:Dyslipidemia, goal LDL below 100,Old myocardial infarct Take 1 Tablet by mouth daily. 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 90 Tablet 3 4 Active Chlorthalidone 25 MG Oral Tablet (Hygroton)Indicatio ns:Hypotension due to drugs Take 0.5 Tablets by mouth in the morning. 45 Tablet 3 4 Active Dicyclomine HCl 10 MG Oral Capsule (Bentyl) Take 1 Capsule by mouth 4 times a day as needed (abdominal pain). For abdominal pain 120 Capsule 4 Active documented as of this encounter (statuses as of 07/18/2024) Active Problems Problem Noted Date Diagnosed Date Abdominal cramping 07/16/2024 Irritable bowel syndrome 07/16/2024 Follicular thyroid cancer 01/08/2024 Type 2 diabetes mellitus wit h hemoglobin A1c goal of less than 8.0% 07/02/2023 FRANCES on CPAP 07/02/2023 Carotid stenosis, non-symptomatic, bilateral History of TIA (transient ischemic attack) 05/06 Vertebral artery occlusion, right 05/06/2023 Pericardial effusion 05/15/2021 Overview: 2020 History of prostate cancer 07/03/2020 Aortic dilatation 12/12/2019 Mediastinal adenopathy 10/27/2019 History of tobacco use 08/25/2019 Monge's esophagus 05/26/2019 Coronary artery disease invo lving jena coronary artery of jena heart without angina pectoris 02/15/2019 Old myocardial infarct 08/31/2018 Presence of drug coated stent in LAD coronary ar kari 08/31/2018 LV (left ventricular) mural thrombus following M I 08/09/2018 Umbilical hernia 01/17/2015 BPH without obstruction/lower urinary tract symp toms 09/08/2013 Mixed hyperlipidemia 08/30/2009 Overview: Per Lipid Taxonomy. Essential hypertension with goal blood pressure less than 140/90 08/08/2009 Overview: Modified per HTN protocol #16. Esophageal reflux 06/13/2008 documented as of this encounter (statuses as of 07/18/2024) Resolved Problems Problem Noted Date Diagnosed Date Resolved Date Acute airway obstruction 08/29/202308/2023 Hematoma 08/29/2023 09/01/2023 Neck swelling 08/29/2023 09/01/2023 Difficulty breathing 08/29/2023 023 Post-operative complication 08/29/2023 09/01/2023 Prediabetes 07/04/2020 07/02/2023 Centrilobular emphysema 06/25/202011/20 Lung nodule 08/25/2019 01/08/2024 Overview: In Check dial performed to assess inhaler technique: 10/27/19 Name of inhaler Albuterol Pass: Yes at 60L/min. Encouraged to take deep breath and use aero chamber. Test performed by [facility] Thyroid nodule 05/26/2019 01/08/[address] elevation myocardia l infarction (STEMI) involving left anterior descending (LAD) coronary artery 08/03/2018 08/31/2018 Prostate cancer 02/26/2018 07/03/2020 Overview: t1a prostate cancer low grade, thea 3+3, <1% of chips Found incidentally at [facility] January 2018. Goiter 03/02/2007 08/25/2019 Overview: Thyroid bx 02/26/2007 Thyroid adenoma Will need repeat thyroid ultrsound 02/2008 ADVANCE DIRECTIVE INFORMATION 09/18/2005 07/02/2023 Overview: Yes, Patient instructed to provide copy of advance directive for provider to review and to be scanned into Electronic Medical Record Tobacco use disorder 09/18/2005 019 Other voice and resonance disorders 09/18/2005 04/27/2017 Overview: ENT Consult: 09/26 784.49 Voice disturbance nec (primary encounter diagnosis) PLAN: Physical exam findings were discussed with the patient. No lesions of concern are identified on todays examination. He would benefit from smoking cessation to remove irritation of the laryngeal mucosa. We also discussed CHEVY as an aggravating factor. Follow up: Return if symptoms worsen or fail to improve. CONTRACTED PALMAR FASCIA 02/02/200303/2017 SCREEN MAL NEOP-RECTUM 02/02/200304/27 Overview: Normal colonoscopy 03/27/[address] rodney--repeat 10 years Findings: 10/21/06 Multiple large-mouthed diverticula were found in the sigmoid colon. Impression: - Moderate diverticulosis. - The exam was otherwise normal to the cecum. Recommendation: - Repeat colonoscopy in 10 years for screening purposes. PURE HYPERCHOLESTEROLEM 08/21 Overview: Per Lipid Taxonomy. IMPOTENCE, ORGANIC ORIGN ASCVD 12/07/2017 HYPERTENSION NOS 08/09/2009 Overview: Modified per HTN protocol #16. Allergic rhinitis 05/12/2018 documented as of this encounter (statuses as of 07/18/2024) Immunizations Name Administration Dates Next Due COVID-19 mRNA, LNP-s, No Pre serve, 2-Dose Series (Element Robot) 05/22/2021,12/13/2020,11/15/2020 COVID-19, LNP-s, No Preserve , Yanick-sucrose, Ages 12+ (Pfizer) 12/27/2021 COVID-19, MRNA-LNP, 23-24, P F, 30 MCG/0.3 mL, 12 YRS AND ABOVE, IM (PFIZER-Comirnaty) 06/15/2023 Covid-19, Mrna, Lnp-s, Pf, B ivalent, 30 Mcg, IM, 12 yrs and above (Pfizer) 06/13/2022 Pneumococcal Conjugate Vacc, 13 Valent (Prevnar) 04/27/2017 Pneumococcal Polysaccharide PPV23 (Pneumovax) 05/12/2018,10/12/2007 RSV Vac., Bivalent, Perfusio n F, Pf,0.5 Ml (Abrysvo) 09/28/2023 Seasonal Influenza Vac., MDV , IM, 0.5 mL (Fluzone) 07/10/2014,06/04/2013,10/30/2011,10/05,12/11/2008,10/12/2007 Seasonal Influenza Virus Vac cine, Unspecified Formulation 06/08/2021,06/09/2020,06/07/2019,06/10,06/11/2017,06/11/2016,07/10/2014 ,06/04/2013,10/30/2011,10/05/2009,11/20,10/12/2007 Seasonal Influenza, High Dos e, Trivalent, PF, IM (Fluzone HD) 06/04/2024 Seasonal Influenza, PF, 6 M & above, IM , (FluLaval or Fluzone) 06/09/2020,06/07/2019,06/10/2018,06/11 Seasonal Influenza, Quadriva lent Hd (Fluzone Hd) 06/06/2023,06/07/2022,06/08/2021 Seasonal Influenza, Quadriva lent, No Preserve, IM 06/11/2016 TDAP, Age 7 and older, IM (Adacel) 12/20/2010 Zoster Vaccine Recombinant (Shingrix) 03/05/2022 documented as of this encounter Social History Tobacco Use Types Packs/Day Years Used Date Smoking Tobacco: Former Cigarettes 1 30 0 05/02/1989 - 05/02/2019 Smokeless Tobacco: Former Alcohol Use Standard Drinks/Week Comments Not Currently 0 (1 standard drink = 0.6 oz pure alcohol) heavy at one time but now occasional- rare now AUDIT-C Answer Date Recorded Frequency of Alcohol Consumption Never 05/03/2020 Average Number of Drinks Not on file 020 Frequency of Binge Drinking Not on file 04/21 PHQ-2 Answer Date Recorded PHQ Adult Total Score 0 12/17/2022 Hunger Vital Sign Answer Date Recorded Within the past 12 months, y ou worried that your food would run out before you got the money to buy more. Never true 12/18/19 23 Within the past 12 months, t he food you bought just didn't last and you didn't have money to get more. Never true 12/17/2022 Personal Safety Answer Date Recorded Do you feel unsafe or have concerns for your saf ety? No 08/26/2023 Do you have concerns for you r family's safety? (Household - for ages 0-17 years) Not on file 08/26/2023 Utilities Answer Date Recorded Do you have trouble paying y our heating, water, or electric bill? No 08/26/2023 Is your family able to pay t he heat, water, or electric bill? (Household - for ages 0-17 years) Not on file 08/26/2023 Does your family have access to good internet? (Household - for ages 0-17 years) Not on file 08/26/2023 Social Connections Answer Date Recorded How often do you feel lonely or isolated from those around you? (Adult - for ages 18 years and over) Not on file 03/08/2024 Transportation Needs Answer Date Record ed READ ONLY Do you have troubl e getting a ride to medical visits or work? Never True 08/26/2023 Does your family have a hard time getting a ride to doctors visits? (Household - for ages 0-17 years) Not on file 08/26/2023 Has lack of transportation k ept you from medical appointments, meetings, work, or from getting things needed for daily living? Check all that apply. (Adult - for ages 18 years and over) Not on file 08/26/2023 Do you (or your family) have trouble finding or paying for a ride (transportation)? (Household - for ages 0-17 years) Not on file 08/26/2023 Housing Stability Answer Date Recorded Do you currently live in a s helter or have no steady place to sleep at night? (Adult - for ages 18 years and over) Not on file 08/26/2023 READ ONLY Do you think you a re at risk of becoming homeless? No 08/26/2023 Does your family worry about paying for your home or becoming homeless? (Household - for ages 0-17 years) Not on file 1 10/27/2022 Are you homeless or worried that you might be in the future? (Adult - for ages 18 years and over) Not on file Are you (or your family) jarret eless or worried that you might be in the future? (Household - for ages 0-17 years) Not on file Food Insecurity Answer Date Recorded Do you need food for this week? No 08/26/2023 Are you able to get enough f ood for your family? (Household - for ages 0-17 years) Not on file 08/26/2023 Does your family need food t his week? (Household - for ages 0-17 years) Not on file 08/26/2023 Do you always have enough fo od for your family? (Household - for ages 0-17 years) Not on file 08/26/2023 Sex and Gender Information Value Date Recorded Sex Assigned at Male 05/03/2019 10:41 AM EDT Gender Identity Male 05/03/2019 10:41 AM EDT Sexual Orientation Straight 05/03/2019 10 :41 AM EDT Job Start Date Occupation Industry Not on file Not on file Not on file documented as of this encounter Functional Status Functional Status Response Date of Assess ment Are you deaf or do you have serious difficulty h earing? No 08/26/2023 Are you blind or do you have serious difficulty seeing, even when wearing glasses? No 08/26/2023 Do you have serious difficul ty walking or climbing stairs? (5 years old or older) No 08/26/2023 Do you have difficulty dress ing or bathing? (5 years old or older) Yes 08/26/2023 Because of a physical, menta l, or emotional condition, do you have difficulty doing errands alone such as visiting a doctor s office or shopping? (15 years old or older) No 08/26/20 Cognitive Status Response Date of Assessm ent Because of a physical, menta l, or emotional condition, do you have serious difficulty concentrating, remembering, or making decisions? (5 years old or older) No 08/26/2023 documented as of this encounter Plan of Treatment Upcoming Encounters Date Type Department Care Team (Late st Contact Info) Description 08/01/2024 8:30 AM EST Laboratory [facility] [address] [place] [phone] Baron Lockwood [address] [address] 08/02/2024 10:15 AM EST Office Visit Urology, [facility] [address] [place], [place] [address] Mac Hook MD [address] [place] [address] 08/05/2024 8:50 AM EST Anticoagulation Pharmacy, [facility] [address] [place] [address] Pharmacist1, [facility] [address] [facility] [address] [address] 08/05/2024 9:00 AM EST Office Visit General Internal Medicine [facility] [address] [facility] [place] [address] Garry Reyes MD [address], [place] [address] 10/21/2024 10:40 AM EST Telemedicine Endocrinology [address], [place] [address] Jalyn Ladd MD [address] [facility], [place] [id number] 12/29/2024 9:45 AM EDT Office Visit Dermatology [facility] [address] [place], [place] [address] Garry Ryan MD [address] [facility] [address] [place], [place] [address] 01/26/2025 8:30 AM EDT Office Visit Cardiology, [facility] [address] [facility] [place] [address] Tomasz Avelar, DO [address] [facility] [place] [address] 02/21/2025 11:20 AM EDT Office Visit Sleep Disorders [facility] [address] [facility] [place] [phone] Maris Lucero, DO [address] [place] [address] Pending Results Name Type Priority Associated Diagnoses Date /Time PSA Lab Routine BPH with obstruction/lower urinary tract symptoms Nocturia Retention of urine Malignant neoplasm of prostate (HCC) 07/18/2024 10:54 AM EDT HEMOGLOBIN A1C Lab Routine Type 2 diabetes mellitus with hemoglobin A1c goal of less than 8.0% (HCC) 07/18/2024 10:54 AM EDT Scheduled Procedures Name Priority Associated Diagnoses Date/Ti me COLONOSCOPY FLEXIBLE PROXIMAL DIAGNOSTIC Recall History of colon polyps Health Maintenance Due Date Last Done Comments Diabetic Eye Exam 1965 Diabetic Foot Exam 1965 DTap/Tdap Vaccines (2 - Td or Tdap) 12/20/2020 12/20/2010, 02/02/2003 Zoster Vaccines (2 of 2) 04/30/2022 03/05/2022 Monge's Esophagus Surveilance 06/14/2022 06/14/2019, 07/10/2016, 07/10/2016, Additional history exists Adult Wellness Visit 07/18/2022 07/18/2021 Colonoscopy 08/02/2023 08/02/2018, 07/22, 07/06/2015, Additional history exists Depression Screening 12/18/2023 12/17/2022 HbA1c 07/09/2024 01/08/2024, 0 10/2023, 06/18/2023, Additional history exists Albumin/Creatinine Ratio 01/07/2025 01/08/2024, 11/20 GFR 01/07/2025 01/08/2024, 0 10/2023, 09/01/2023, Additional history exists TSH 07/01/2025 07/01/2024, 03/21, 12/16/2023, Additional history exists Pneumococcal Vaccine: 65+ Years Completed 05/12/2018, 04/27/2017, 10/12/2007 RETIRED - COLONOSCOPY-EVERY 5 YRS AGES 18-100 Discontinued 08/02/2018, 08/02/2018, 07/06/2015, Additional history exists COVID-19 Vaccine Completed 05/21/2024, , 06/13/2022, Additional history exists Influenza Vaccine (FLU shot) Completed 06/04/2024, 06/04/2024, 06/06/2023, Additional history exists Lung Cancer Screening Completed 06/30/2024 , 06/29/2023, 06/26/2022, Additional history exists HPV (Gardasil) Vaccine Aged Out No lo nger eligible based on patient's age to complete this topic Hepatitis B Vaccine Aged Out No longe r eligible based on patient's age to complete this topic MENINGOCOCCAL (MENACTRA/MENVEO) Aged Out No longer eligible based on patient's age to complete this topic documented as of this encounter Medical Devices Implanted Type Area Forest Aide Device Identifier Shelf Expiration Date Model / Serial / Lot Hernia Patch Lrg/Providence W/Strp - [id number] Implanted:Qty: 1 on 07/17/2015 by Vicente Sandoval MD at OR [facility] N/A: Abdomen CR BARD : DAVOL 07/21/2016 [id number] / / [id number] Lens Intraoc 20.0 - [id number] - [id number] Implanted:Qty: 1 on 01/22/2021 by Lui Hardy MD at OR [facility] Left: Eye [employer] 08/20/2025 [id number] / [id number] / Lens Intraoc 20.0 - [id number] - [id number] Implanted:Qty: 1 on 02/05/2021 by Lui Hardy MD at OR [facility] Right: Eye [employer]OM[employer] 10/21/2025 [id number] / [id number] / [id number] documented as of this encounter Visit Diagnoses Diagnosis BPH with obstruction/lower urinary tract symptoms Hypertrophy of prostate with urinary obstruction and other lower urinary tract symptoms (LUTS) Nocturia Retention of urine Retention of urine, unspecified Malignant neoplasm of prostate (HCC) Malignant neoplasm of prostate Type 2 diabetes mellitus with hemoglobin A1c goal of less than 8.0% (HCC) documented in this encounter Advance Directives * Full Code (Latest Code Status on File) Date Activated Date Inactivated Comments 08/29/2023 11:07 AM 09/01/2023 7:55 PM This order reflects the patients wishes and were consensually agreed upon. Question Answer Comments Discussion of Advance Direct asim occurred with: Not Discussed due to patient's condition * Full Code Date Activated Date Inactivated Comments 08/26/2023 12:57 PM 08/27/2023 1:46 PM This order reflects the patients wishes and were consensually agreed upon. Question Answer Comments Discussion of Advance Direct asim occurred with: Not Discussed due to patient's condition * Full Code Date Activated Date Inactivated Comments 08/03/2018 2:19 AM 08/04/2018 11:16 PM This orde r reflects the patients wishes and were consensually agreed upon. Question Answer Comments Discussion of Advance Directives occurred with: Patient * Full Code Date Activated Date Inactivated Comments 01/29/2018 8:43 AM 01/29/2018 6:10 PM This order r eflects the patients wishes and were consensually agreed upon. Care Teams Shake Out Worker Relationship Specialty Start Date End Date Garry Reyes MD [address] [facility] [place] [address] PCP - General Internal Medicine 02/25/19 documented as of this encounter
--- OUTSIDE RECORDS SUMMARY | 2024-07-29 23:45 | External Medical Summary ---
Author Name Unknown Address Unknown Organization K01:[facility] - [address] [place] [address] Laboratory Report Ordering Provider Test Date Status DONNIE CAMILO 07/18/2024 10:54:17 Final Observation Date Value Abnormality Reference (Units ) Status PSA 07/18/2024 10:54:17 0.06 <4.10 (ng/ mL) Final Performing Location [facility] - [address] [place] [id number]
--- OUTSIDE RECORDS SUMMARY | 2024-07-29 23:45 | External Medical Summary | Summary of Care ---
Author Name Unknown Organization [facility] Address [address] [place] [address] Phone [phone] Care Team Providers Care Heel Seam Rubber Name Role Phone Garry Reyes MD Primary Care Provider + Reason for Visit * Reason Comments Follow Up Encounter Details Date Type Department Care Team (Late st Contact Info) Description 06/29/2024 3:30 PM EDT Office Visit [facility], [facility] [address] [facility] [place] [address] Debbi Nolan PA-C [address] [place] [address] Coronary artery disease involving [place] coronary artery of [place] heart without angina pectoris*; Old myocardial infarct; Essential hypertension with goal blood pressure less than 140/90; 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 25 Tablet 2 05/08/20 23 Active Baclofen 10 MG Oral Tablet (Lioresal)Indicati ons:Spasm of muscle,Spondylosis of thoracic region without myelopathy or radiculopathy,Acut e right-sided thoracic back pain Take 1 Tablet by mouth 2 times a day as needed for Pain, Breakthrough. 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 Active Omeprazole 40 MG Oral Capsule Delayed Release (PriLOSEC)Indicati ons:GERD (gastroesophageal reflux disease) TAKE 1 CAPSULE BY MOUTH EVERY DAY 90 Capsule 3 02/01/20 24 Active Levothyroxine Sodium 175 MCG Oral Tablet (Levoxyl)Indicatio ns:Follicular thyroid cancer (HCC),Postoperativ e hypothyroidism 1 tab Thursday to Thursday, half tab on Sundays. 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),HTN, goal below 140/90,Ischemic cardiomyopathy,His tory of TIA (transient ischemic attack),Dyslipidem ia, goal LDL below 70,Old myocardial infarct,Essential hypertension with goal blood pressure less than 140/90 TAKE 1 TABLET BY MOUTH IN THE MORNING AND BEFORE BEDTIME 180 Tablet 3 05/02/20 24 Active Finasteride 5 MG Oral Tablet (Proscar) TAKE 1 TABLET BY MOUTH EVERY DAY IN THE MORNING 90 Tablet 3 05/02/20 24 Active Tamsulosin HCl 0.4 MG Oral Capsule (Flomax) TAKE 1 CAPSULE BY MOUTH BEFORE BEDTIME 90 Capsule 2 09/06/20 24 Active Atorvastatin Calcium 80 MG Oral Tablet (Lipitor)Indicatio ns:Dyslipidemia, goal LDL below 100,Old myocardial infarct Take 1 Tablet by mouth daily. 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 90 Tablet 3 05/27/20 24 Active Chlorthalidone 25 MG Oral Tablet (Hygroton)Indicati ons:Hypotension due to drugs Take 0.5 Tablets by mouth in the morning. 45 Tablet 3 06/26/20 24 Active Erythromycin 5 MG/GM Ophthalmic Ointment Apply .25 inch ribbon to right lower eyelid incision 4 times daily for 14 days then daily at bedtime. 3.5 g 3 04/13/20 24 024 Discontinued documented as of this encounter (statuses as of 07/17/2024) Active Problems Problem Noted Date Diagnosed Date [...] esophagus 05/26/2019 Coronary artery disease invo lving [place] coronary artery of [place] heart without angina pectoris 02/15/2019 Old myocardial [...] as of this encounter (statuses as of 07/17/2024) Resolved Problems Problem Noted Date Diagnosed Date [...] use aero chamber. Test performed by [facility]DOWN PERSON CPFT Thyroid nodule 05/26/2019 01/08/[address] [...] as of this encounter (statuses as of 07/17/2024) Immunizations Name Administration Dates Next Due COVID-19 mRNA, LNP-s, No Pre serve, 2-Dose Series ([employer]) 05/22/2021,12/13/2020,11/15/2020 COVID-19, LNP-s, No Preserve , Yanick-sucrose, Ages 12+ (Pfizer) 12/27/2021 COVID-19, MRNA-LNP, 23-24, P F, 30 MCG/0.3 mL, 12 YRS AND ABOVE, IM ([facility]) 06/15/2023 Covid-19, Mrna, Lnp-s, Pf, B ivalent, 30 Mcg, IM, 12 yrs and above ([employer]) 06/13/2022 Pneumococcal Conjugate Vacc, 13 Valent (Prevnar) [...] 0 05/02/1989 - 05/02/2019 Smokeless Tobacco: Former Tobacco Cessation:Counseling Given: Not Answered Alcohol Use Standard Drinks/Week Comments Not Currently [...] on file documented as of this encounter Last Filed Vital Signs Vital Sign Reading Time Taken Comments Blood Pressure 150/82 06/29/2024 3:25 PM EDT Pulse 66 06/29/2024 3:25 PM EDT Temperature - - Respiratory Rate - - Oxygen Saturation 95% 06/29/2024 3:25 PM EDT Inhaled Oxygen Concentration - - Weight 103.9 kg (229 lb) 06/29/2024 3:25 PM EDT Height - - Body Mass Index 33.82 02/22/2024 9:48 AM EDT documented in this encounter Functional Status Functional Status Response [...] No 08/26/2023 documented as of this encounter Progress Notes * Debbi Nolan PA-C - 06/29/2024 3:48 PM EDT Cardiology Outpatient Visit Primary Data Warehousing Specialist: Dr. Avelar Past medical history: CAD with history of NSTEMI status post ESPINZOA x2 to the LAD, 08/03/2018 Recurrent NSTEMI 08/08/2018 with repeat cardiac catheterization demonstrating patent ESPINOZA to the LADand otherwise nonobstructive disease. Cardio embolic events suspected secondary to LV thrombus Laminar apical LV thrombus, resolved per echo 12/2018, 07/2019, 09/23/2021, however, substrate for recurrent thrombus (apical dyskinesis) present. Remains on warfarin Dyslipidemia with hypertriglyceridemia Hypertension History of moderate pericardial effusion secondary to presumed viral pericarditis, 09/2020. Resolved per echo 09/23/2021 Former tobacco use GERD Prostate carcinoma TIA in the setting of a subtherapeutic INR and Hypertensive crisis, 05/02/2023 ([facility]) Follicular thyroid cancer, history of neck hematoma following thyroidectomy on 10/27/2022. Patient required intubation and evacuation of the hematoma on 08/29/2024. HPI Very pleasant 79-year-old male presenting to the cardiology office today in routine follow-up. Was last evaluated approximately 6 months ago. Patient presents today feeling well. Denies acute cardiac complaints or concerns. BP controlled. Taking meds as prescribed. No interim hospitalizations. No chest pain, shortness of breath, palpitations, dizziness, syncope or near syncope. No orthopnea,PND, or increased lower extremity edema. No fever, chills, cough, hematochezia, melena, or hemoptysis. Review of Systems: See HPI for pertinent positives. All others negative, other than those noted in HPI. 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 Presence of drug coated stent in LAD coronary artery Coronary artery disease involving [place] coronary artery of [place] heart without angina pectoris Monge's esophagus History of tobacco use Mediastinal adenopathy Aortic dilatation (HCC) History of prostate cancer Pericardial effusion Carotid stenosis, non-symptomatic, bilateral History of TIA (transient ischemic attack) Vertebral artery occlusion, right Type 2 diabetes mellitus with hemoglobin A1c goal of less than 8.0% (HCC) FRANCES on CPAP Follicular thyroid cancer (HCC) Abdominal cramping Irritable bowel syndrome Social History Tobacco Use Smoking status: Former Current packs/day: 0.00 Average packs/day: 1 pack/day for 30.0 years (30.0 ttl pk-yrs) Types: Cigarettes Start date: 05/02/1989 Quit date: 05/02/2019 Years since quittin.2 Smokeless tobacco: Former Vaping Use Vaping status: Never Used Substance Use Topics Alcohol use: Not Currently Comment: heavy at one time but now occasional- rare now Drug use: No Review of patient's allergies indicates: No Known Allergies Current Outpatient Medications Medication Sig Dispense Refill Multiple Vitamins-Minerals (DAILY MULTIVITAMIN) CAPS Take 1 Tablet by mouth in the morning. Magnesium Hydroxide 400 MG/5ML Oral Suspension Take 30 mL by mouth daily as needed for Constipation. Aspirin 81 MG Tablet Take 1 Tablet by mouth every evening. Baclofen 10 MG Oral Tablet (Lioresal) Take 1 Tablet by mouth 2 times a day as needed for Pain, Breakthrough. 90 Tablet 0 Warfarin Sodium 5 MG Oral Tablet (Coumadin) TAKE 2 TABLETS TUESDAYS & SATURDAYS, 1 TABLET ALL OTHER DAYS OR DIRECTED (Patient taking differently: Take by mouth every evening. As directed by Anticoagulation Clinic) 120 Tablet 3 CPAP Use as directed at bedtime. Omeprazole 40 MG Oral Capsule Delayed Release (PriLOSEC) TAKE 1 CAPSULE BY MOUTH EVERY DAY 90 Capsule 3 Levothyroxine Sodium 175 MCG Oral Tablet (Levoxyl) 1 tab Thursday to Thursday, half tab on Sundays. (at least 30 min prior to breakfast or other meds) 90 Tablet 3 Carvedilol 6.25 MG Oral Tablet (Coreg) TAKE 1 TABLET BY MOUTH IN THE MORNING AND BEFORE BEDTIME 180Tablet 3 Finasteride 5 MG Oral Tablet (Proscar) TAKE 1 TABLET BY MOUTH EVERY DAY IN THE MORNING 90 Tablet 3 Tamsulosin HCl 0.4 MG Oral Capsule (Flomax) TAKE 1 CAPSULE BY MOUTH BEFORE BEDTIME 90 Capsule 2 Atorvastatin Calcium 80 MG Oral Tablet (Lipitor) Take 1 Tablet by mouth daily. 90 Tablet 3 Lisinopril 40 MG Oral Tablet Take 1 Tablet by mouth in the morning. 90 Tablet 3 Chlorthalidone 25 MG Oral Tablet (Hygroton) Take 0.5 Tablets by mouth in the morning. 45 Tablet 3 Nitroglycerin 0.4 MG Sublingual Tablet Sublingual (Nitrostat) Place 1 Tablet under the tongue every5 minutes as needed for Pain, Chest. (Patient not taking: Reported on 06/29/2024) 25 Tablet 2 No current facility-administered medications for this visit. Physical Exam BP 150/82 | Pulse 66 | Wt 103.9 kg (229 lb) | SpO2 95% | BMI 33.82 kg/m | BSA 2.25 m 132/72 on my repeat General: No acute distress. A+Ox3. HEENT: Normocephalic. Atraumatic. Conjunctiva and sclera clear. NECK: No carotid bruits. No JVD. Carotid upstrokes are brisk. Heart: RRR. S1 and S2 noted without murmur, rubs, gallops. PMI non displaced. Lungs: Clear to auscultation. No wheezes, rhonchi, rales. Abdomen: Normal bowel sounds. Soft. Nontender. No masses or organomegaly. No abdominal bruits. Extremities: No ankle edema. No clubbing or cyanosis. Pulses: radial=2/4, posterior tibial=2/4, dorsalis pedis = 2/4. NEURO: No focal deficits. PSYCH: Normal. Lab data/imaging study review: EKG performed today and reviewed personally: Normal sinus rhythm Normal ECG When compared with ECG of 26-Aug-2023 08:50, No significant change was found Echo report reviewed dated May 2024: Interpretation Summary The examination is adequate to evaluate the referral indication. The qualitative LV ejection fraction is 60-64% (normal). The wall thickness is mildly increased in segments with normal wall motion. There is a small, discrete apical wall motion abnormality with akinesis and mild dyskinesis of the inferior and inferoseptal apex. The left ventricular diastolic function is mildly abnormal (grade I). There is moderate mitral annular calcification. Mild aortic valve sclerosis is present. The ascending aorta is mildly enlarged, 4.0 cm. Compared to prior study of 05/13/2023, there is no significant change. Echo 05/13/2023 The examination is adequate to evaluate the referral indication. The left ventricular cavity size is normal. The wall thickness is mildly increased in segments with normal wall motion. There is a small, discrete apical wall motion abnormality with akinesis and mild dyskinesis of the inferior and inferoseptal apex The qualitative LV ejection fraction is 60-64% (normal). There is no left ventricular mural thrombus. Moderate aortic valve sclerosis is present. There is moderate mitral annular calcification. No pericardial effusion is noted. Compared to prior study of September 23, 2021, there is no significant change. Limited echo September 23, 2021: The left ventricular cavity size is normal. The wall thickness is mildly increased in segments with normal wall motion. There is a small, discrete apical wall motion abnormality with akinesis and mild dyskinesis of the inferior and inferoseptal apex The qualitative LV ejection fraction is 55-59% (normal). No pericardial effusion is noted. Constrictive phenomena are not present There is no significant valvular disease Limited echo December 25, 2020: Limited relevant views were therefore obtained. The examination is adequate to evaluate the referral indication. Small, focal anterior pericardial effusion is present with significant stranding to suggest chronicity. Tamponade physiology is absent. Limited echo report 07/2019: The qualitative LV ejection fraction is 50-54% (normal). There is no definite evidence of a left ventricular mural thrombus. Apical trabeculations are noted. There is a small sized apical wall motion abnormality with hypokinesis to dyskinesis of the segments. Probably a small diverticulum of the LV apex. 2D echocardiogram report January 03, 2019: The wall thickness is mildly increased in segments with normal wall motion. There is a small sized apical wall motion abnormality with hypokinesis to dyskinesis of the segments. Calculated LV ejection Fraction = 53% (bi-plane method of discs). There is no definite evidence a left ventricular mural thrombus. Apical trabeculations are noted. There is an echodensity adherent to the lateral wall of the right atrium in the apical 4 chamber view. This had been better visualized on the prior study dated 09/22/2018 and appears consistent with a prominent eustachian valve. There is moderate mitral annular calcification. Mitral stenosis is absent. Significant mitral regurgitation is absent. Compared to the prior study dated 09/22/2018, there has been interval subtle improvement in the overall size of the previously noted apical wall motion abnormality. The previously noted left ventricular apical mural thrombus has resolved, however substrate for recurrent thrombus remains present with focal apical wall motion abnormality noted. 2D echocardiogram report September 22, 2018: The LV wall thickness is mildly increased (concentric). There is a moderate sized apical wall motion abnormality with hypokinesis to dyskinesis of the segments. The qualitative LV ejection fraction is 50-54% (normal). There is a small laminar apical left ventricular mural thrombus. The left ventricular diastolic function is mildly abnormal (grade I). Mild mitral regurgitation is present. There is no evidence of pulmonary hypertension. The aortic root is normal sized. The proximal ascending thoracic aorta is mildly enlarged. The images of the prior study performed at [facility] on 08/08/2018 are not available for direct comparison. Impression/Plan: This is a 79 year old male who is being evaluated in the cardiology office for ongoing care/risk management for the below diagnoses. 1. Coronary artery disease involving [place] coronary artery of [place] heart without angina pectoris 2. Ischemic cardiomyopathy 3. Dyslipidemia, LDL goal below 70 -CAD with history of NSTEMI status post ESPINOZA x2 to the LAD, 08/03/2018 -Recurrent NSTEMI 08/08/2018 with repeat cardiac catheterization demonstrating patent ESPINOZA to the LAD and otherwise nonobstructive disease. Cardio embolic events suspected secondary to LV thrombus -LDL 56, controlled. 1. Continue aspirin and statin as ordered. 4. 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 Remains on warfarin -Echo dated 04/2023 with preserved LVEF (60-64%), Small discrete apical wall motion abnormality withakinesis and mild dyskinesis of the inferior inferior septal apex. No evidence of LV mural thrombus-- Stable echo compared to prior 04/2023, stable 05/2024 1. Continue Coumadin, INR goal between 2-3, follows with anticoagulation clinic 5. HTN, goal below 140/90 -elevated on arrival, improved on my repeat. Patient reports controlled readings at home 6. History of TIA (transient ischemic attack) -TIA in the setting of a subtherapeutic INR and Hypertensive crisis, 05/02/2023 ([facility]) -BP controlled on 3 drug regimen, home cuff verified and accurate. 1. Continue lisinopril 40 mg daily 2. Continue chlorthalidone 12.5 mg daily 3. Continue carvedilol 6.25 mg twice daily The patient is to continue all current medications as listed above. No changes were made at today'svisit. Patient is being evaluated in the cardiology office for ongoing care/risk management for CAD; HTN; dyslipidemia. I spent a total of 30 minutes on the date of service in preparation, delivery, and documentation ofthe care provided to Sky Peralta excluding any time spent in the performance of separately billed services. The patient agrees to the above plan and will call with additional questions or concerns. ER with all emergencies advised. Follow-up: Return in about 6 months (around 12/28/2024). | Check-out note: Dr. Avelar or Ovidio Nolan PA-C Department of Cardiology Text in this note was generated using an ambient documentation service. I discussed the use of a device to record and summarize our discussion today. All persons present during the encounter consented to its use. This chart was completed in part utilizing [employer] Speech Voice Recognition Software. Grammatical errors, random word insertions, prounoun errors, and incomplete sentences are an occasional consequence of this system due to software limitations, ambient noise, and hardware issues. Any formal questions or concerns about the content, text, or information contained within the body of this dictation should be directly addressed to the provider for clarification. documented in this encounter Procedure Notes * Vazquez Can MD - 06/29/2024 3:36 PM EDTAssociated Order(s): EKG REASON FOR STUDY: routine;routine CONCLUSIONS: Normal sinus rhythm Normal ECG When compared with ECG of 26-Aug-2023 08:50, No significant change was found Ventricular Rate: 64 Atrial Rate: 64 NV Interval: 180 QRS Duration: 88 QT/QTc: 418/431 ms P-R-T Mellen: 29 : -14 : 28 degrees documented in this encounter Nursing Notes * Ros Gruber CMA - 06/29/2024 3:24 PM EDT Examination Room: 1 Name: Sky Peralta Date of : (1945) Reason for Visit: 6m Interim Hospitalization(s): none Problems/Concerns: denied Chest Pain/SOB: denied [facility] is a way you can talk to your provider online through e-mail. Would you like to sign up? I can activate it for you? ALREADY ACTIVE Patient was instructed to not get up on the exam table until directed and assisted by their provider; patient is to remain seated in the chair/ wheelchair/ exam table for fall prevention and safety reasons. Patient is aware to have assistance to step down off exam table with personnel. Patient voiced full comprehension of instructions. documented in this encounter Plan of Treatment Upcoming Encounters Date Type Department Care Team (Late st Contact Info) Description 08/01/2024 8:30 AM EST Laboratory Laboratory [facility] [address] [place] [id number] Mandie Lab [facility] [address] [place] [address] 08/02/2024 10:15 AM EST Office Visit Urology, [facility] [address] [facility] [place] [address] Mac Hook MD [address] [place] [address] 08/05/2024 8:50 AM EST Anticoagulation Pharmacy, [facility] [place] [address] [place] [address] Pharmacist1, [facility] [address] [place] [address] 08/05/2024 9:00 AM EST Office Visit General Internal Medicine [facility] [place] [address] [place] [address] Garry Reyes MD [address] [place] [address] 10/21/2024 10:40 AM EST Telemedicine Endocrinology [address] [place] [address] Jalyn Ladd MD [address] [facility] [place] [id number] 12/29/2024 9:45 AM EDT Office Visit Dermatology [facility] [address] [place], [place] [address] Garry Ryan MD [address] [place], [place] [address] 01/26/2025 8:30 AM EDT Office Visit Cardiology, [facility] [address] [place] [address] Tomasz Avelar, DO [address] [place] [address] 02/21/2025 11:20 AM EDT Office Visit Sleep Disorders [facility] [address] [facility] [place] [phone] Maris Lucero, DO [address] [place] [address] Scheduled Procedures Name Priority Associated Diagnoses Date/Ti [...] this encounter Medical Devices Implanted Type Area Carpentry Specialist Device Identifier Shelf Expiration Date Model / Serial / Lot Hernia Patch Lrg/[place] W/Strp - [id number] Implanted:Qty: 1 on 07/17/2015 by Vicente Sandoval MD at [facility] N/A: Abdomen CR BARD : DAVOL 07/21/2016 [id number] / / [id number] Lens Intraoc 20.0 - [id number] - [id number] Implanted:Qty: 1 on 01/22/2021 by Lui Hardy MD at [facility] Left: Eye [employer] 08/20/2025 [id number] / [id number] / Lens Intraoc 20.0 - [id number] - [id number] Implanted:Qty: 1 on 02/05/2021 by Lui Hardy MD at [facility] Right: Eye [employer] 10/21/2025 [id number] / [id number] / [id number] documented as of this encounter Procedures Procedure Name Priority Date/Time Associated Diagnosis Comments NV ECG ROUTINE ECG W/LEAST 12 LDS W/I&R Routine 06/29/2024 3:36 PM EDT Old myocardial infarct Essential hypertension with goal blood pressure less than 140/90 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) Pericardial effusion documented in this encounter Results * EKG (06/29/2024 3:36 PM EDT) 06/29/2024 3:36 PM EDT Narrative Procedure Note Vazquez Can MD - 06/29/2024 3:36 PM EDT REASON FOR STUDY: routine;routine CONCLUSIONS: Normal sinus rhythm Normal ECG When compared with ECG of 26-Aug-2023 08:50, No significant change was found Ventricular Rate: 64 Atrial Rate: 64 NV Interval: 180 QRS Duration: 88 QT/QTc: 418/431 ms P-R-T Mellen: 29 : -14 : 28 degrees Debbi Nolan PA-C [facility]KG [facility] documented in this encounter Visit Diagnoses Diagnosis Coronary artery disease involving [place] coronary artery of [place] heart without angina pectoris- Primary Old myocardial infarct Old myocardial infarction Essential hypertension with goal blood pressure less than 140/90 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 Care Teams Heel Seam Rubber Relationship Specialty Start Date End Date Garry Reyes MD [address] [place] [address] PCP - General Internal Medicine 02/25/19 documented as of this encounter"
--- OUTSIDE RECORDS SUMMARY | 2024-07-29 23:45 | External Medical Summary | Summary of Care ---
Author Name Unknown Organization [facility] Address [address] [place] [address] Phone [phone] Care Team Providers Care Rubber Cutter And Shape Carver Name Role Phone Garry Reyes MD Primary Care Provider + Reason for Visit * Reason Onset Date Comments Appointment 07/17/2024 Colonosopy Encounter Details Date Type Department Care Team (Late st Contact Info) Description 07/17/2024 Telephone Gastroenterology, [place] [address] [place] [address] Jennifer Valladares No Resource [address] [place] [address] Appointment (Colonosopy ) Allergies No known active allergiesdocumented as of this encounter (statuses as of 07/19/2024) Medications Medication Sig Dispensed Refills Start Date [...] (Coumadin)Indicatio ns:LV (left ventricular) mural thrombus following [place] (HCC) TAKE 2 TABLETS TUESDAYS & SATURDAYS, [...] Oral Tablet (Coreg)Indications: Coronary artery disease involving [place] coronary artery of [place] heart without angina pectoris,LV (left ventricular) mural thrombus following [place] (HCC),HTN, goal below 140/90,Ischemic cardiomyopathy,Hist ory of [...] TabletIndications:O ld myocardial infarct,Coronary artery disease involving [place] coronary artery of [place] heart without angina pectoris,LV (left ventricular) mural thrombus following [place] (HCC),HTN, goal below 140/90,Ischemic cardiomyopathy,Hist ory of [...] as of this encounter (statuses as of 07/19/2024) Active Problems Problem Noted Date Diagnosed Date [...] esophagus 05/26/2019 Coronary artery disease invo lving [place] coronary artery of [place] heart without angina pectoris 02/15/2019 Old myocardial [...] as of this encounter (statuses as of 07/19/2024) Resolved Problems Problem Noted Date Diagnosed Date Resolved Date Acute airway obstruction 08/29/202308/2023 Hematoma 08/29/2023 09/01/2023 Neck swelling 08/29/2023 09/01/2023 Difficulty breathing 08/29/2023 023 Post-operative complication 08/29/2023 09/01/2023 Prediabetes 07/04/2020 07/02/2023 Centrilobular emphysema 06/25/2020 03/2 05/2023 Lung nodule 08/25/2019 01/08/2024 Overview: In Check dial performed to assess inhaler technique: 10/27/19 Name of inhaler Albuterol Pass: Yes at 60L/min. Encouraged to take deep breath and use aero chamber. Test performed by Celi MAMMAL KEEPER CPFT Thyroid nodule 05/26/2019 01/08/[address] [...] as of this encounter (statuses as of 07/19/2024) Immunizations Name Administration Dates Next Due COVID-19 mRNA, LNP-s, No Pre serve, 2-Dose Series ([employer]) 05/22/2021,12/13/2020,11/15/2020 COVID-19, LNP-s, No Preserve , Yanick-sucrose, Ages 12+ (Pfizer) 12/27/2021 COVID-19, MRNA-LNP, 23-24, P F, 30 MCG/0.3 mL, 12 YRS AND ABOVE, IM ([facility]) 06/15/2023 Covid-19, Mrna, Lnp-s, Pf, B ivalent, 30 Mcg, IM, 12 yrs and above ([employer]) 06/13/2022 Pneumococcal Conjugate Vacc, 13 Valent (Prevnar) [...] No 08/26/2023 documented as of this encounter Miscellaneous Notes * Telephone Encounter - Diane Dickens OSA - 07/19/2024 9:36 AM EDT Checking with PAT if pt can be done at . * Telephone Encounter - Brigette Decker OSA - 07/17/2024 6:35 PM EDT Order COLONOSCOPY, GI REFERRAL OP [[id number]] (Order [id number]) Ulises Hdez 07/16/2024 2:20 PM Office Visit Description: 79 year old male Provider: DAVID Maldonado Department: [facility] Order Information Date and Time Department Ordering/Authorizing 07/16/2024 12:18 PM [facility] Bryanna Tran Michelle Tang CRNP Order Providers Authorizing Provider Encounter Provider ([id number]) Michelle Tang CRNP ([id number]) Michelle Tang CRNP Supervision Information Encounter Supervising Provider Type of Supervision ([id number]) Marcin Méndez MD General Priority and Order Details Priority Class Within 30 days (routine) Referral Quantity Ordering Quantity 1 Collection Information Visit Disposition Dispositions Return if symptoms worsen or fail to improve. Comments ALERT: Do not order for pediatric patients (18 years or younger). Cancel off screen and order PEDS GASTROENTEROLOGY CONSULT (Type: 1 visit only-Evaluate and Treat) The following Pt. Instructions are available: - Gastro Colonoscopy Prep Instructions [81713] - Gastro Colonoscopy Prep Instructions (Bangladeshi Version) [[id number]] Go to the Pt. Instructions section within the Visit Navigator to access. Colonoscopy ASGE Guidelines: Average risk screening (begin at age 50, 10 year intervals) and Postadenoma resection: 1-2 tubular adenomas of less than 1 cm (5 yr intervals) ADDITIONAL INFORMATION 1. Is the patient on Coumadin? Yes--Coumadin can be stopped for 5 days 2. Is the patient on Pradaxa? No Order Questions Question Answer Referral Priority Within 30 days (routine) Where should this appointment be scheduled? Shayna Referral (Authorized) ID: [id number] Created on: 07/16/2024 Referred by Referred to Michelle Tang CRNP Gastroenterology Reason: Ancillary Services Required Priority: Within 30 days (routine) Type: Ancillary Services Visits Requested: 999 Decision Date: 07/16/2024 Start Date: 07/16/2024 Related Appointments None Associated Diagnoses Abdominal cramping [R10.9] - Primary Irritable bowel syndrome, unspecified type [K58.9] Encounter View Encounter Reprint Requisition COLONOSCOPY, GI REFERRAL OP (Order #[id number]) on 07/16/24 Detailed Information Priority and Order Details Reference Links Neighborly Acct Guarantor Acct Type [id number] ULISES HDEZ Personal/Family [1] [id number] Worker's Comp [101] [id number] ULISES HDEZ Personal/Family [1] Service Location Name Address Phone [address] [place] [phone] Currently Active Insurance Payor Plan Subscriber Member ID GHP GOLD GHP GOLD PREFERRED ENHANCED MP-DD ULISES HDEZ [id number] GENERIC WORKER'S COMP GENERIC WORKER'S COMP ULISES HDEZ documented in this encounter Plan of Treatment Upcoming Encounters Date Type Department Care Team (Late st Contact Info) Description 08/01/2024 8:30 AM EST Laboratory Laboratory [facility] [address] [phone] Baron Lockwood [facility] [address] [place] [address] [address] 08/02/2024 10:15 AM EST Office Visit Urology, [facility] [address] [facility] [place] [address] Mac Hook MD [address] [place] [address] 08/05/2024 8:50 AM EST Anticoagulation Pharmacy, [facility] [address] [place] [address] [address] Pharmacist1, [facility] [address] [facility] [place] [address] 08/05/2024 9:00 AM EST Office Visit General Internal Medicine [facility] [address] [place] [address] [address] Garry Reyes MD [address] [place] [address] [address] 10/21/2024 10:40 AM EST Telemedicine Endocrinology [address] [place] [place] [phone] Jalyn Ladd MD [address] [place] [facility] [address] 12/29/2024 9:45 AM EDT Office Visit Dermatology [facility] [address] [facility] [place] [address] Garry Ryan MD 200 [facility] [place] [address] 01/26/2025 8:30 AM EDT Office Visit Cardiology, [facility] [address] [facility] [place] [address] Tomasz Avelar, DO [address] [place] [address] 02/21/2025 11:20 AM EDT Office Visit Sleep Disorders Ctr [facility] [address] [place] [phone] Maris Lucero, DO [address] [place] [address] Scheduled Procedures Name Priority Associated Diagnoses Date/Ti [...] Additional history exists Depression Screening 12/18/2023 12/17/2022 Albumin/Creatinine Ratio 01/07/2025 01/08/2024, 11/20 GFR 01/07/2025 01/08/2024, 10/2023, 09/01/2023, Additional history exists HbA1c 01/16/2025 07/18/2024, 12/20, 09/22/2023, Additional history exists TSH 07/01/2025 07/01/2024, 03/21, [...] this encounter Medical Devices Implanted Type Area Sanitation Technician Device Identifier Shelf Expiration Date Model / Serial / Lot Hernia Patch Lrg/Kaw W/Strp - [id number] Implanted:Qty: 1 on 07/17/2015 by Vicente Sandoval MD at OR [facility] N/A: Abdomen CR BARD : DAVOL 07/21/2016 [id number] / / [id number] Lens Intraoc 20.0 - [id number] - [id number] Implanted:Qty: 1 on 01/22/2021 by Lui Hardy MD at OR [facility] Left: Eye BAUSCH & LOMB 08/20/2025 [id number] / [id number] / Lens Intraoc 20.0 - [id number] - [id number] Implanted:Qty: 1 on 02/05/2021 by Lui Hardy MD at OR [facility] Right: Eye BAUSCH & LOMB 10/21/2025 [id number] / [id number] / [id number] documented as of this encounter Advance Directives * Full Code [...] and were consensually agreed upon. Care Teams Rubber Cutter And Shape Carver Relationship Specialty Start Date End Date Garry Reyes MD [address] [facility] [place] [address] PCP - General Internal Medicine 02/25/19 documented as of this encounter
--- OUTSIDE RECORDS SUMMARY | 2024-07-29 23:45 | External Medical Summary | Summary of Care ---
Author Name Unknown Organization [facility] Address [address] [place] [address] Phone [phone] Care Team Providers Care State Fire Marshal Name Role Phone Garry Reyes MD Primary Care Provider + Reason for Visit * Reason Onset Date Comments Appointment 07/17/2024 Colonosopy Encounter Details Date Type Department Care Team (Late st Contact Info) Description 07/17/2024 Telephone Gastroenterology, [place] [address] [place] [address] Jennifer Valladares No Resource [address] [place] [address] Appointment (Colonosopy ) Allergies No [...] (Coumadin)Indicatio ns:LV (left ventricular) mural thrombus following [place] (HCC) TAKE 2 TABLETS TUESDAYS & SATURDAYS, [...] Oral Tablet (Coreg)Indications: Coronary artery disease involving [place] coronary artery of [place] heart without angina pectoris,LV (left ventricular) mural thrombus following [place] (HCC),HTN, goal below 140/90,Ischemic cardiomyopathy,Hist ory of [...] TabletIndications:O ld myocardial infarct,Coronary artery disease involving [place] coronary artery of [place] heart without angina pectoris,LV (left ventricular) mural thrombus following [place] (HCC),HTN, goal below 140/90,Ischemic cardiomyopathy,Hist ory of [...] esophagus 05/26/2019 Coronary artery disease invo lving [place] coronary artery of [place] heart without angina pectoris 02/15/2019 Old myocardial [...] use aero chamber. Test performed by Celi BEHAVIOR INTERVENTIONIST CPFT Thyroid nodule 05/26/2019 01/08/[address] [...] mRNA, LNP-s, No Pre serve, 2-Dose Series ([employer]) 05/22/2021,12/13/2020,11/15/2020 COVID-19, LNP-s, No Preserve , Yanick-sucrose, Ages 12+ (Pfizer) 12/27/2021 COVID-19, MRNA-LNP, 23-24, P F, 30 MCG/0.3 mL, 12 YRS AND ABOVE, IM ([facility]) 06/15/2023 Covid-19, Mrna, Lnp-s, Pf, B ivalent, 30 Mcg, IM, 12 yrs and above ([employer]) 06/13/2022 Pneumococcal Conjugate Vacc, 13 Valent (Prevnar) [...] Influenza, Quadriva lent, No Preserve, IM 06/11/2016 TD - Tetanus/Diptheria (ADULT) 02/02/2003 TDAP, Age 7 and older, IM ([employer]) [...] Dickens OSA - 07/19/2024 9:36 AM EDT Ok for GW per Opal (DARWIN). Spoke to pt, meredith'd 08/01/24. * Telephone Encounter - Brigette Decker OSA - 07/17/2024 6:35 PM EDT Order COLONOSCOPY, GI REFERRAL OP [[id number]] (Order [id number]) Ulises Hdez 07/16/2024 2:20 PM Office Visit Description: 79 year old male Provider: DAVID Maldonado Department[facility] Order Information Date and Time Department Ordering/Authorizing 07/16/2024 12:18 PM [facility] Michelle Tang CRNP Order Providers Authorizing Provider Encounter Provider ([id number]) Michelle Tang CRNP ([id number]) Michelle Tang CRNP Supervision Information Encounter Supervising [...] are available: - Gastro Colonoscopy Prep Instructions [[id number]] - Gastro Colonoscopy Prep Instructions (Slovak Version) [[id number]] Go to the Pt. Instructions section within [...] appointment be scheduled? Shayna Referral (Authorized) ID: [id number] Created on: 07/16/2024 Referred by Referred to Michelle Tang CRNP Gastroenterology Reason: Ancillary Services Required Priority: Within 30 days (routine) Type: Ancillary Services Visits Requested: 999 Decision Date: 07/16/2024 Start Date: 07/16/2024 Related Appointments None Associated Diagnoses Abdominal cramping [R10.9] - Primary Irritable bowel syndrome, unspecified type [K58.9] Encounter View Encounter Reprint Requisition COLONOSCOPY, GI REFERRAL OP (Order #[id number]) on 07/16/24 Detailed Information Priority and Order Details Reference Links Neighborly Acct Guarantor Acct Type [id number] ULISES HDEZ Anders Personal/Family [1] [id number] Worker's Comp [101] [id number] TIMBONAVYAULISES ZAVALA Personal/Family [1] Service Location Name Address Phone [address] [place] [phone] Currently Active Insurance Payor Plan Subscriber Member ID GHP GOLD GHP GOLD PREFERRED ENHANCED MP-DD LEMUELULISES Anders [id number] GENERIC WORKER'S COMP GENERIC WORKER'S COMP ULISES HDEZ documented in this encounter Plan of Treatment Upcoming Encounters Date Type Department Care Team (Latest Contact Info) Description 08/01/2024 8:00 AM EST Hospital Encounter ENDO [facility], Endoscopy Room [facility] [address] [place] [phone] Ttaiana Green, DO [facility] [place] [address] 08/01/2024 8:00 AM EST - 08/01/2024 8:30 AM EST Surgery ENDO [facility], Endoscopy Room [facility] [address] [place] [phone] Tatiana Green, DO [address] [place] [address] COLONOSCOPY FLEXIBLE PROXIMAL DIAGNOSTIC 08/01/2024 8:30 AM EST Laboratory Laboratory [facility] [address] [place] [phone] [facility] [address] [place] [address] 08/02/2024 10:15 AM EST Office Visit Urology, [facility] [address] [place] [address] Mac Hook MD [address] [place] [address] 08/05/2024 8:50 AM EST Anticoagulation Pharmacy, [facility] [address] [facility] [place] [address] Pharmacist1, [facility] [address] [facility] [place], [place] [address] 08/05/2024 9:00 AM EST Office Visit General Internal Medicine [facility] [address] [facility] [place], [place] [address] Garry Reyes MD [address] [facility] [place], [place] [address] 10/21/2024 10:40 AM EST Telemedicine Endocrinology [address] [place] [address] [place] [address] Jalyn Ladd MD [address] [place] [address] 12/29/2024 9:45 AM EDT Office Visit Dermatology [facility] [address] [facility] [place], [place] [address] Garry Ryan MD [address] [facility] [place], [place] [address] 01/26/2025 8:30 AM EDT Office Visit Cardiology, [facility] [address] [place] [address] Tomasz Avelar, DO [address] [place] [address] 02/21/2025 11:20 AM EDT Office Visit Sleep Disorders Ctr [facility] [address] [place] [phone] Maris Lucero, DO [address] [place] [address] Scheduled Procedures Name Priority Associated Diagnoses Date/Ti me COLONOSCOPY FLEXIBLE PROXIMAL DIAGNOSTIC Recall Abdominal cramping IBS (irritable bowel syndrome) History of colonic polyps 08/01/2024 8:00 AM EST Health Maintenance Due Date Last Done Comments [...] this encounter Medical Devices Implanted Type Area Library Attendant Device Identifier Shelf Expiration Date Model / Serial / Lot Hernia Patch Lrg/Mechoopda W/Strp - [id number] Implanted:Qty: 1 on 07/17/2015 by Vicente Sandoval MD at OR [facility] N/A: Abdomen CR BARD : DAVOL 07/21/2016 [id number] / / [id number] Lens Intraoc 20.0 - [id number] - [id number] Implanted:Qty: 1 on 01/22/2021 by Lui Hardy MD at OR [facility] Left: Eye BAUSCH & LOMB 08/20/2025 [id number] / [id number] / Lens Intraoc 20.0 - [id number] - [id number] Implanted:Qty: 1 on 02/05/2021 by Lui Hardy MD at OR [facility] Right: Eye BAUSCH & LOMB 10/21/2025 [id number] / [id number] / [id number] documented as of this encounter Advance Directives [...] and were consensually agreed upon. Care Teams State Fire Marshal Relationship Specialty Start Date End Date Garry Reyes MD [address] [place] [address] PCP - General Internal Medicine 02/25/19 documented as of this encounter
--- OUTSIDE RECORDS SUMMARY | 2024-07-29 23:45 | External Medical Summary ---
Author Name Unknown Address Unknown Organization K01:[facility] - [address] [place] [address] Laboratory Report Ordering Provider Test Date Status KELLY RENDON 07/01/2024 11:07:44 Final Observation Date Value Abnormality Reference (Units ) Status TSH 07/01/2024 11:07:44 0.18 Below low normal 0.2 7-4.20 (uIU/mL) Final Performing Location [facility] [place] - [address] [place] [address]
--- OUTSIDE RECORDS SUMMARY | 2024-07-29 23:45 | External Medical Summary | Summary of Care ---
Author Name Unknown Organization [facility] Address [address] [place] [address] Phone [phone] Care Team Providers Care Computer Forensic Examiner Name Role Phone Garry Reyes MD Primary Care Provider + Reason for Visit * Reason Comments Outpatient Testing Encounter Details Date Type Department Care Team (Late st Contact Info) Description 07/01/2024 11:10 AM EDT Laboratory Laboratory [facility] [address] [place] [phone] [facility] [address] [place] [address] Follicular thyroid cancer (HCC); Postoperative hypothyroidism Allergies No known active allergiesdocumented as of this encounter (statuses as of 07/01/2024) Medications Medication Sig Dispensed Refills Start Date [...] needed for Pain, Chest. 25 Tablet 2 05/08/2023 Active Additional Information Patient not taking.Informant: Spouse, Reported on 06/29/2024 Baclofen 10 MG Oral Tablet (Lioresal)Indicatio ns:Spasm of muscle,Spondylosis of thoracic region without myelopathy or radiculopathy,Acute right-sided thoracic back pain Take 1 Tablet by mouth 2 times a day as needed for Pain, Breakthrough. 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 Active Omeprazole 40 MG Oral Capsule Delayed Release (PriLOSEC)Indicatio ns:GERD (gastroesophageal reflux disease) TAKE 1 CAPSULE BY MOUTH EVERY DAY 90 Capsule 3 02/01/2024 Active Levothyroxine Sodium 175 MCG Oral Tablet (Levoxyl)Indication s:Follicular thyroid cancer (HCC),Postoperative hypothyroidism 1 tab Thursday to Thursday, half tab on Sundays. (at least 30 min prior to breakfast or other meds) 90 Tablet 3 04/04/2024 Active Carvedilol 6.25 MG Oral Tablet (Coreg)Indications: Coronary artery disease involving [place] coronary artery of [place] heart without angina pectoris,LV (left ventricular) mural thrombus following AK (HCC),HTN, goal below 140/90,Ischemic cardiomyopathy,Hist ory of TIA (transient ischemic attack),Dyslipidemi a, goal LDL below 70,Old myocardial infarct,Essential hypertension with goal blood pressure less than 140/90 TAKE 1 TABLET BY MOUTH IN THE MORNING AND BEFORE BEDTIME 180 Tablet 3 05/02/2024 Active Finasteride 5 MG Oral Tablet (Proscar) TAKE 1 TABLET BY MOUTH EVERY DAY IN THE MORNING 90 Tablet 3 05/02/2024 Active Tamsulosin HCl 0.4 MG Oral Capsule (Flomax) TAKE 1 CAPSULE BY MOUTH BEFORE BEDTIME 90 Capsule 2 05/27/2024 Active Atorvastatin Calcium 80 MG Oral Tablet (Lipitor)Indication s:Dyslipidemia, goal LDL below 100,Old myocardial infarct Take 1 Tablet by mouth daily. 90 Tablet 3 05/27/2024 Active Lisinopril 40 MG Oral TabletIndications:O ld myocardial infarct,Coronary artery disease involving [place] coronary artery of [place] heart without angina pectoris,LV (left ventricular) mural thrombus following AK (HCC),HTN, goal below 140/90,Ischemic cardiomyopathy,Hist ory of TIA (transient ischemic attack),Dyslipidemi a, goal LDL below 70,Essential hypertension with goal blood pressure less than 140/90 Take 1 Tablet by mouth in the morning. 90 Tablet 3 05/27/2024 Active Chlorthalidone 25 MG Oral Tablet (Hygroton)Indicatio ns:Hypotension due to drugs Take 0.5 Tablets by mouth in the morning. 45 Tablet 3 06/26/2024 Active documented as of this encounter (statuses as of 07/01/2024) Active Problems Problem Noted Date Diagnosed Date Follicular thyroid cancer 01/08/2024 Type 2 diabetes [...] esophagus 05/26/2019 Coronary artery disease invo lving [place] coronary artery of [place] heart without angina pectoris 02/15/2019 Old myocardial [...] as of this encounter (statuses as of 07/01/2024) Resolved Problems Problem Noted Date Diagnosed Date Resolved Date Acute airway obstruction 08/29/202308/2023 Hematoma 08/29/2023 09/01/2023 Neck swelling 08/29/2023 09/01/2023 Difficulty breathing 08/29/2023 023 Post-operative complication 08/29/2023 09/01/2023 Prediabetes 07/04/2020 07/02/2023 Centrilobular emphysema 06/25/2020/05/2023 Lung nodule 08/25/2019 01/08/2024 Overview: In Check dial performed to assess inhaler technique: 10/27/19 Name of inhaler Albuterol Pass: Yes at 60L/min. Encouraged to take deep breath and use aero chamber. Test performed by [facility] TELEMETRY REGISTERED NURSE CPFT Thyroid nodule 05/26/2019 01/08/[address] [...] disorders 09/18/2005 04/27/2017 Overview: ENT Consult: 09/26 062. Voice disturbance nec (primary encounter diagnosis) PLAN: [...] as of this encounter (statuses as of 07/01/2024) Immunizations Name Administration Dates Next Due COVID-19 mRNA, LNP-s, No Pre serve, 2-Dose Series ([employer]) 05/22/2021,12/13/2020,11/15/2020 COVID-19, LNP-s, No Preserve , Yanick-sucrose, Ages 12+ ([employer]) 12/27/2021 COVID-19, MRNA-LNP, 23-24, P F, 30 MCG/0.3 mL, 12 YRS AND ABOVE, IM ([facility]) 06/15/2023 Covid-19, Mrna, Lnp-s, Pf, B ivalent, 30 Mcg, IM, 12 yrs and above ([employer]) 06/13/2022 Pneumococcal Conjugate Vacc, 13 Valent (Prevnar) [...] Description 08/01/2024 8:30 AM EST Laboratory Laboratory [facility] [address] [place] [phone] Baron Lockwood [facility] [address] [place] [address] 08/02/2024 10:15 AM EST Office Visit Urology, [facility] [address] [facility] [place] [address] Mac Hook MD [address] [place] [address] 08/05/2024 8:50 AM EST Anticoagulation Pharmacy, [facility] 200 [facility] [place], [place] [address] Pharmacist1, [facility] 200 [facility], [place] [address] 08/05/2024 9:00 AM EST Office Visit General Internal Medicine [facility] 200 [facility] [place], [place] [address] Garry Reyes MD 200 [facility] [place] [address] 10/21/2024 10:40 AM EST Telemedicine Endocrinology [address] [place] [address] Jalyn Ladd MD [address] [facility], [place] [id number] 12/29/2024 9:45 AM EDT Office Visit Dermatology [facility] 200 [facility] [place], [place] [address] Garry Ryan MD 200 [facility] [place], [place] [address] 01/26/2025 8:30 AM EDT Office Visit Cardiology, [facility] [address] [facility] [place] [address] Tomasz Avelar, DO [address] [facility] [place] [address] 02/21/2025 11:20 AM EDT Office Visit Sleep Disorders Ctr [facility] [address] [facility] [place] [phone] Maris Lucero, DO [facility] [place] [address] Pending Results Name Type Priority Associated Diagnoses Date /Time THYROGLOBULIN AND THYROGLOBULIN ANTIBODY FOR TUMOR MONITORING Lab Routine Follicular thyroid cancer (HCC) Postoperative hypothyroidism 07/01/2024 11:07 AM EDT TSH WITH FREE T4 IF INDICATED Lab Routine Follicular thyroid cancer (HCC) Postoperative hypothyroidism 07/01/2024 11:07 AM EDT THYROGLOBULIN ANTIBODY TUMOR MONITORING Lab Routine Follicular thyroid cancer (HCC) Postoperative hypothyroidism 07/01/2024 11:07 AM EDT QN THYROGLOBULIN WITHOUT THYROGLOBULIN ANTIBODY Lab Routine Follicular thyroid cancer (HCC) Postoperative hypothyroidism 07/01/2024 11:07 AM EDT Scheduled Procedures Name Priority Associated [...] Depression Screening 12/18/2023 12/17/2022 HbA1c 07/09/2024 01/08/2024, 010 10/2023, 06/18/2023, Additional history exists Albumin/Creatinine Ratio 01/07/2025 01/08/2024, 11/20 GFR 01/07/2025 01/08/2024, 01/0 10/2023, 09/01/2023, Additional history exists TSH 04/01/2025 04/01/2024, 032 03/2024, 11/21/2023, Additional history exists Pneumococcal Vaccine: 65+ Years Completed 05/12/2018, 04/27/2017, 10/12/2007 RETIRED - COLONOSCOPY-EVERY 5 YRS AGES 18-100 Discontinued 08/02/2018, 08/02/2018, 07/06/2015, Additional history exists Lung Cancer Screening Completed 06/29/2023 , 06/26/2022, 06/25/2021, Additional history exists COVID-19 Vaccine Completed 05/21/2024, , 06/13/2022, Additional history exists Influenza Vaccine (FLU shot) Completed 06/04/2024, 06/04/2024, 06/06/2023, Additional history exists HPV (Gardasil) Vaccine Aged Out No lo nger eligible based on patient's age to complete this topic Hepatitis B Vaccine Aged Out No longe r eligible based on patient's age to complete this topic MENINGOCOCCAL (MENACTRA/MENVEO) Aged Out No longer eligible based on patient's age to complete this topic documented as of this encounter Medical Devices Implanted Type Area City Wellness Coordinator Device Identifier Shelf Expiration Date Model / Serial / Lot Hernia Patch Lrg/Kashia W/Strp - [id number] Implanted:Qty: 1 on 07/17/2015 by Vicente Sandoval MD at OR [facility] N/A: Abdomen CR BARD : DAVOL 07/21/2016 [id number] / / [id number] Lens Intraoc 20.0 - [id number] - [id number] Implanted:Qty: 1 on 01/22/2021 by Lui Hardy MD at OR [facility] Left: Eye BAUSCH [employer] LOMB 08/20/2025 [id number] / [id number] / Lens Intraoc 20.0 - [id number] - [id number] Implanted:Qty: 1 on 02/05/2021 by Lui Hardy MD at OR [facility] Right: Eye BAUSCH & LOMB 10/21/2025 [id number] / [id number] / [id number] documented as of this encounter Visit Diagnoses Diagnosis Follicular thyroid cancer (HCC) Malignant neoplasm of thyroid gland Postoperative hypothyroidism Postsurgical hypothyroidism documented in this encounter Advance Directives * [...] and were consensually agreed upon. Care Teams Computer Forensic Examiner Relationship Specialty Start Date End Date Garry Reyes MD [address] [place] [address] PCP - General Internal Medicine 02/25/19 documented as of this encounter
--- OUTSIDE RECORDS SUMMARY | 2024-07-29 23:45 | External Medical Summary | Summary of Care ---
Author Name Unknown Organization [facility] Address [address] [place] [address] Phone [phone] Care Team Providers Care Lens Polisher Hand Name Role Phone Garry Reyes MD Primary Care Provider + Reason for Visit * Reason Comments Dosage Adjustment Via Phone (anticoag Cl inic) Encounter Details Date Type Department Care Team (Late st Contact Info) Description 07/25/2024 5:10 PM EST Anticoagulation Pharmacy Hermilo Lin [address] [place] [address] Hermilo [facility] [address] [place] [address] Anticoagulation management encounter*; LV (left ventricular) mural thrombus following NM (HCC); History of TIA (transient ischemic attack) Allergies No known active allergiesdocumented as of this encounter (statuses as of 07/25/2024) Medications Medication Sig Dispensed Refills Start Date [...] Pain, Chest. 25 Tablet 2 3 Active Additional Information Patient not taking.Informant: Spouse, Reported on 07/25/2024 Baclofen 10 MG Oral Tablet (Lioresal)Indicatio ns:Spasm of muscle,Spondylosis of thoracic region without myelopathy or radiculopathy,Acute right-sided thoracic back pain Take 1 Tablet by mouth 2 times a day as needed for Pain, Breakthrough. 90 Tablet 3 Active Warfarin Sodium 5 MG Oral Tablet (Coumadin)Indicatio ns:LV (left ventricular) mural thrombus following NM (HCC) TAKE 2 TABLETS TUESDAYS & SATURDAYS, [...] Oral Tablet (Coreg)Indications: Coronary artery disease involving [place] coronary artery of [place] heart without angina pectoris,LV (left ventricular) mural thrombus following NM (HCC),HTN, goal below 140/90,Ischemic cardiomyopathy,Hist ory of [...] mouth daily. 90 Tablet 3 4 Active Additional Information Patient taking differently:80 mg OralHS, Reported on 07/25/2024 Lisinopril 40 MG Oral TabletIndications:O ld myocardial infarct,Coronary artery disease involving [place] coronary artery of [place] heart without angina pectoris,LV (left ventricular) mural thrombus following NM (HCC),HTN, goal below 140/90,Ischemic cardiomyopathy,Hist ory of [...] For abdominal pain 120 Capsule 4 Active Enoxaparin Sodium 100 MG/ML Injection Solution Prefilled Syringe (Lovenox)Indication s:Anticoagulation management encounter,LV (left ventricular) mural thrombus following NM (HCC),History of TIA (transient ischemic attack) Inject 100 mg under the skin in the morning and 100 mg before bedtime. 10 mL 4 Active documented as of this encounter (statuses as of 07/25/2024) Active Problems Problem Noted Date Diagnosed Date [...] esophagus 05/26/2019 Coronary artery disease invo lving [place] coronary artery of [place] heart without angina pectoris 02/15/2019 Old myocardial [...] as of this encounter (statuses as of 07/25/2024) Resolved Problems Problem Noted Date Diagnosed Date [...] use aero chamber. Test performed by [facility] LABOR DELIVERY RN CPFT Thyroid nodule 05/26/2019 01/08/[address] [...] as of this encounter (statuses as of 07/25/2024) Immunizations Name Administration Dates Next Due COVID-19 mRNA, LNP-s, No Pre serve, 2-Dose Series ([employer]) 05/22/2021,12/13/2020,11/15/2020 COVID-19, LNP-s, No Preserve , Yanick-sucrose, Ages 12+ ([employer]) 12/27/2021 COVID-19, MRNA-LNP, PF, 30 M CG/0.3 mL, 12 YRS AND ABOVE, IM ([employer]) 06/15/2023 Covid-19, Mrna, Lnp-s, Pf, B ivalent, [...] as of this encounter Progress Notes * Stuck, Anyi N, RPh - 07/25/2024 4:07 PM EST Images from the original note were not included. Patient is having a colonoscopy on 08/01. Patient has history of TIA and requires Lovenox bridging.Patient used Lovenox before in July for 2022. See letters section for specific lovenox bridge instructions. Patient then gave a verbal and actual demonstration of technique & 10 step process, alternationof injection site, side effects and understanding of dosing calendar, and disposal of syringes & needles. Patient self-administered own LMWH injection in clinic without incident. No ADR reported. Actual Body Weight 97.5 kg Nebo Body Weight 71 kg Adjusted Body Weight 81 kg Labs Drawn on 09/22/23 - GFR = 65, Cr - 1.2, calculated CrCl - 71 Creatinine clearance cannot be calculated (Patient's most recent lab result is older than the maximum 180 days allowed.) Hemoglobin Results: Recent Labs Units 04/01/24 0839 01/08/24 0939 09/22/23 0920 HGB g/dL 14.2 14.3 13.5* Platelets: Recent Labs Units 04/01/24 0839 01/08/24 0939 09/22/23 0920 PLT K/uL 207 174 298 Lovenox Dose: 100 mg every 12 hours Electronically sent Lovenox to [id number] [address] [facility] Sent instructions to patient via [facility] message. Patient requesting to keep INR fingerstick check on 08/05 that was previously scheduled. Anyi Carbajal RPh Clinical Pharmacist Medication Therapy Disease Management 07/25/2024, 4:07 PM documented in this encounter Plan of Treatment Upcoming Encounters Date Type Department Care Team (Latest Contact Info) Description 08/01/2024 8:00 AM EST Hospital Encounter ENDO [facility], Endoscopy Room [facility] [address] [place] [address] Tatiana Green, [address] [place] [address] 08/01/2024 8:00 AM EST - 08/01/2024 8:30 AM EST Surgery ENDO [facility], Endoscopy Room [facility] [address] [place] [phone] Tatiana Green, DO [address] [place] [address] COLONOSCOPY FLEXIBLE PROXIMAL DIAGNOSTIC 08/02/2024 10:15 AM EST Office Visit Urology, [facility] [address] [facility] [place] [address] Mac Hook MD [address] [facility] [place] [address] 08/05/2024 8:50 AM EST Anticoagulation Pharmacy, [facility] [address] [facility] [place] [address] Pharmacist1, [facility] [address] [facility] [place] [address] 08/05/2024 9:00 AM EST Office Visit General Internal Medicine [facility] [address] [facility] [place] [address] Garry Reyes MD [address] [facility] [address] [facility] [place] [address] 10/21/2024 10:40 AM EST Telemedicine Endocrinology [address] [place] [address] Jalyn Ladd MD [address] [facility] [place] [id number] 12/29/2024 9:45 AM EDT Office Visit Dermatology [facility] [address] [place] [address] Garry Ryan MD [address] [facility] [address] [facility] [place] [address] 01/26/2025 8:30 AM EDT Office Visit Cardiology, [facility] [address] [place] [address] Tomasz Avelar, DO [address] [place] [address] 02/21/2025 11:20 AM EDT Office Visit Sleep Disorders Ctr [facility] [address] [place] [phone] Maris Lucero, DO [address] [place] [address] Scheduled Procedures Name Priority Associated Diagnoses Date/Ti [...] Additional history exists Depression Screening 12/18/2023 12/17/2022 COVID-19 Vaccine ( season) 2024 05/21/2024, 06/15/2023, 06/13/2022, Additional history exists Albumin/Creatinine Ratio 01/07/2025 01/08/2024, 11/20 GFR 01/07/2025 01/08/2024, 10/2023, 09/01/2023, Additional history exists HbA1c 01/16/2025 07/18/2024, 12/20, 09/22/2023, Additional history exists TSH 07/01/2025 07/01/2024, 03/21, 12/16/2023, Additional history exists Pneumococcal Vaccine: 65+ Years Completed 05/12/2018, 04/27/2017, 10/12/2007 RETIRED - COLONOSCOPY-EVERY 5 YRS AGES 18-100 Discontinued 08/02/2018, 08/02/2018, 07/06/2015, Additional history exists Influenza Vaccine (FLU shot) [...] this encounter Medical Devices Implanted Type Area Student Counsellor Device Identifier Shelf Expiration Date Model / Serial / Lot Hernia Patch Lrg/[place] W/Strp - [id number] Implanted:Qty: 1 on 07/17/2015 by Vicente Sandoval MD at OR [facility] N/A: Abdomen CR BARD : DAVOL 07/21/2016 [id number] / / [id number] Lens Intraoc 20.0 - [id number] - [id number] Implanted:Qty: 1 on 01/22/2021 by Lui Hardy MD at OR [facility] Left: Eye BAUSCH & LOMB 08/20/2025 [id number] / [id number] / Lens Intraoc 20.0 - [id number] - [id number] Implanted:Qty: 1 on 02/05/2021 by Lui Hardy MD at OR [facility] Right: Eye BAUSCH & LOMB 10/21/2025 [id number] / [id number] / [id number] documented as of this encounter Visit Diagnoses Diagnosis Anticoagulation management encounter- Primary Encounter for therapeutic drug monitoring LV (left ventricular) mural thrombus following NM (HCC) Other certain sequelae of myocardial infarction, not elsewhere classified History of TIA (transient ischemic attack) Transient ischemic attack (TIA), and cerebral infarction without residual deficits Abdominal cramping Abdominal pain, unspecified site IBS (irritable bowel syndrome) Irritable bowel syndrome History of colonic polyps Personal history of colonic polyps documented in this encounter Advance Directives * [...] and were consensually agreed upon. Care Teams Lens Polisher Hand Relationship Specialty Start Date End Date Garry Reyes MD [address] [place] [address] PCP - General Internal Medicine 02/25/19 documented as of this encounter
--- OUTSIDE RECORDS SUMMARY | 2024-07-29 23:45 | External Medical Summary ---
Author Name Unknown Address Unknown Organization [id number]:[facility] [place] [address] [place] [address] Laboratory Report Ordering Provider Test Date Status KELLY RENDON 07/01/2024 11:07:44 Final Observation Date Value Abnormality Reference (Units ) Status T4, Free 07/01/2024 11:07:44 1.8 Above high normal 0. 9-1.7 (ng/dL) Final Performing Location LABORATORY [facility] - [address] [place] [address]
--- OUTSIDE RECORDS SUMMARY | 2024-07-29 23:45 | External Medical Summary | Summary of Care ---
Author Name Unknown Organization [facility] Address [address] [place] [address] Phone [phone] Care Team Providers Care Prenatal Teacher Name Role Phone Garry Reyes MD Primary Care Provider + Reason for Referral * Ancillary Services (Within 30 days (routine)) - Authorized Specialty Diagnoses / Procedures Referred By Mitchell vega Referred To Contact Gastroenterology Diagnoses Abdominal cramping Irritable bowel syndrome, unspecified type Michelle Tang CRNP [address] [place] [address] Referral ID Status Reason Start Date Expiration Date Visits Requested Visits Authorized [id number] Authorized Ancillary Services Required 4 [phone] Question Answer Referral Priority Within 30 days (routine) Where should this appointment be scheduled? [facility] Comments ALERT: Do not order for pediatric patients (18 years or younger). Cancel off screen and order PEDS GASTROENTEROLOGY CONSULT (Type: 1 visit only-Evaluate and Treat) The following Pt. Instructions are available: - Gastro Colonoscopy Prep Instructions [[id number]] - Gastro Colonoscopy Prep Instructions (Mauritian Version) [[id number]] Go to the Pt. Instructions section within the Visit Navigator to access. Colonoscopy ASGE Guidelines: Average risk screening (begin at age 50, 10 year intervals) and Postadenoma resection: 1-2 tubular adenomas of less than 1 cm (5 yr intervals) ADDITIONAL INFORMATION 1. Is the patient on Coumadin? Yes--Coumadin can be stopped for 5 days 2. Is the patient on Pradaxa? No Reason for Visit * Reason Comments Stomach Cramps HAS HAD STOMACH ACHE OFF/ON EVERY 6 MONTH, CAN BE ASSOCIATED WITH CONSTIPATION, SOMETIMES DIARRHEA AND SOMETIMES NAUSEA. HAD BEEN OUT OF STATE RECENTLY, DIET WAS DIFFERENT, SO THAT AGGRAVATED THINGS. Encounter Details Date Type Department Care Team (Late st Contact Info) Description 07/16/2024 2:20 PM EDT Office Visit Family Practice [facility] [address] [place] [address] Michelle Tang CRNP [address] [place] [address] Abdominal cramping*; Irritable bowel syndrome, unspecified type Allergies No known active allergiesdocumented as of this encounter (statuses as of 07/16/2024) Medications Medication Sig Dispensed Refills Start Date [...] (Coumadin)Indicatio ns:LV (left ventricular) mural thrombus following [place] (HCC) TAKE 2 TABLETS TUESDAYS & SATURDAYS, [...] Oral Tablet (Coreg)Indications: Coronary artery disease involving [place] coronary artery of [place] heart without angina pectoris,LV (left ventricular) mural thrombus following [place] (HCC),HTN, goal below 140/90,Ischemic cardiomyopathy,Hist ory of [...] TabletIndications:O ld myocardial infarct,Coronary artery disease involving [place] coronary artery of [place] heart without angina pectoris,LV (left ventricular) mural thrombus following [place] (HCC),HTN, goal below 140/90,Ischemic cardiomyopathy,Hist ory of [...] as of this encounter (statuses as of 07/16/2024) Active Problems Problem Noted Date Diagnosed Date [...] esophagus 05/26/2019 Coronary artery disease invo lving [place] coronary artery of [place] heart without angina pectoris 02/15/2019 Old myocardial [...] as of this encounter (statuses as of 07/16/2024) Resolved Problems Problem Noted Date Diagnosed Date [...] use aero chamber. Test performed by [facility] [employer] Thyroid nodule 05/26/2019 01/08/[address] [...] as of this encounter (statuses as of 07/16/2024) Immunizations Name Administration Dates Next Due COVID-19 mRNA, LNP-s, No Pre serve, 2-Dose Series ([address]) 05/22/2021,12/13/2020,11/15/2020 COVID-19, LNP-s, No Preserve , Yanick-sucrose, Ages 12+ (Pfizer) 12/27/2021 COVID-19, MRNA-LNP, 23-24, P F, 30 MCG/0.3 mL, 12 YRS AND ABOVE, IM ([employer]) 06/15/2023 Covid-19, Mrna, Lnp-s, Pf, B ivalent, 30 Mcg, IM, 12 yrs and above ([address]) 06/13/2022 Pneumococcal Conjugate Vacc, 13 Valent (Prevnar) [...] Sign Reading Time Taken Comments Blood Pressure 110/60 07/16/2024 11:46 AM EDT Pulse 81 07/16/2024 11:46 AM EDT Temperature - - Respiratory Rate - - Oxygen Saturation - - Inhaled Oxygen Concentration - - Weight 102.7 kg (226 lb 7 oz) 07/16/2024 11:46 A M EDT Height - - Body Mass Index 33.44 02/22/2024 9:48 AM EDT documented in this [...] as of this encounter Progress Notes * Michelle Tang CRNP - 07/16/2024 11:57 AM EDT Acute Family Medicine Visit CC: Chief Complaint Patient presents with Stomach Cramps HAS HAD STOMACH ACHE OFF/ON EVERY 6 MONTH, CAN BE ASSOCIATED WITH CONSTIPATION, SOMETIMES DIARRHEA AND SOMETIMES NAUSEA. HAD BEEN OUT OF STATE RECENTLY, DIET WAS DIFFERENT, SO THAT AGGRAVATED THINGS. History of Present Illness: Sky Peralta is a 79 year old male presenting for complaints with chronic abdominal pain x 4-5 years. Comes and goes every 2-3 months. Recently abdominal pain seemed worse. He has been following bland diet. The last 2 weeks he has lower abdominal pain. Feels like continuous dull ache. On Thursday he got nausea and vomiting. Denies food trigger. Denies current constipation or diarrhea. Denies blood in stool. Stools black after pepto bismol. He notes he was in [place] x 6 day trip- Got constipated. Took Milk of mag that fixed it. Last egd was reassuring. 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 Tobacco Use Smoking status: Former Current packs/day: 0.00 Average packs/day: 1 pack/day for 30.0 years (30.0 ttl pk-yrs) Types: Cigarettes Start date: 05/02/1989 Quit date: 05/02/2019 Years since quittin.2 Smokeless tobacco: Former Vaping Use Vaping status: Never Used Substance and Sexual Activity Alcohol use: Not Currently Comment: heavy at one time but now occasional- rare now Drug use: No Sexual activity: Yes Partners: Female Comment: sexual dysfunction Other Topics Concern Not on file Social History Narrative Not on file Social Determinants of Health Financial Resource Strain: Not on file Food Insecurity: No Food Insecurity (08/26/2023) Food Insecurity Do you need food for this week? (Adult - for ages 18 years and over): No Are you able to get enough food for your family? (Household - for ages 0-17 years): Not on file Does your family need food this week? (Household - for ages 0-17 years): Not on file Do you always have enough food for your family? (Household - for ages 0-17 years): Not on file Transportation Needs: No Transportation Needs (08/26/2023) Transportation Needs Do you have trouble getting a ride to medical visits or work? (Adult - for ages 18 years and over):Never True Does your family have a hard time getting a ride to doctors visits? (Household - for ages 0-17 years): Not on file Has lack of transportation kept you from medical appointments, meetings, work, or from getting things needed for daily living? Check all that apply. (Adult - for ages 18 years and over): Not on file Do you (or your family) have trouble finding or paying for a ride (transportation)? (Household - for ages 0-17 years): Not on file Social Connections: Unknown (03/08/2024) Social Connections How often do you feel lonely or isolated from those around you? (Adult - for ages 18 years and over): Not on file Housing Stability: Low Risk (08/26/2023) Housing Stability Do you currently live in a custodial or have no steady place to sleep at night? (Adult - for ages 18 years and over): Not on file Do you think you are at risk of becoming homeless? (Adult - for ages 18 years and over): No Does your family worry about paying for your home or becoming homeless? (Household - for ages 0-17 years): Not on file Are you homeless or worried that you might be in the future? (Adult - for ages 18 years and over): Not on file Are you (or your family) homeless or worried that you might be in the future? 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 08/31/2018 Prediabetes 07/04/2020 Presence of drug coated stent in LAD coronary artery 08/31/2018 Sleep apnea, obstructive TIA (transient ischemic attack) Type 2 diabetes mellitus with hemoglobin A1c goal of less than 8.0% ([facility]) 07/02/2023 Past Surgical History: Procedure Laterality Date CARDIAC ANGIOPLASTY, PERCUTANEOUS, 1 ARTERY 08/03/2018 PTCA, CARDIAC ANGIOPLASTY, PERCUTANEOUS, 1 ARTERY performed by Pavan Ridley, DO at CARDIAC [facility] CATHETERIZE LEFT HEART THRU SKIN ?2004 Cardiac Catheterization, Left Heart COLONOSCOPY 03/27/2003 normal colonoscopy--repeat 10 years COLONOSCOPY, DIAGNOSTIC (RECTUM) 07/06/2015 adenomatous polyps, diverticulosis, repeat 3 yrs/COLONOSCOPY FLEXIBLE PROXIMAL DIAGNOSTIC performedby Tatiana Green, DO at ENDOSCOPY [facility] COLONOSCOPY, DIAGNOSTIC (RECTUM) 08/02/2018 hyperplastic polyps, diverticulosis, repeat 5 yrs/COLONOSCOPY FLEXIBLE PROXIMAL DIAGNOSTIC performed by Tatiana Green, DO at ENDOSCOPY [facility] EGD, FLEXIBLE, DIAGNOSTIC 07/06/2015 reflux, repeat 1 yr/ESOPHAGOGASTRODUODENOSCOPY (EGD), FLEXIBLE, TRANSORAL, DIAGNOSTIC performed by Tatiana Green DO at ENDOSCOPY [facility] EGD, FLEXIBLE, DIAGNOSTIC 07/10/2016 Barretts, repeat 3 yrs/ESOPHAGOGASTRODUODENOSCOPY (EGD), FLEXIBLE, TRANSORAL, DIAGNOSTIC performed by Tatiana Green DO at ENDOSCOPY [facility] EGD, FLEXIBLE,W/ENDOSCOPIC US 06/14/2019 gastritis / [facility] INCISION AND DRAINAGE,HEMATOMA/SEROMA/FLUID N/A 08/29/2023 INCISION AND DRAINAGE HEMATOMA OR SEROMA performed by Meek Del Valle MD at OR [facility] MISCELLANEOUS ORDER ([facility] ONLY) left shoulder, bicep tendon and rotator cuff REMOVAL OF PROSTATE (TURP) N/A 01/29/2018 TRANSURETHRAL RESECTION PROSTATE ELECTROSURGICAL performed by Twila Weber MD at OR [facility] REMOVAL OF THYROID GLAND N/A 08/26/2023 THYROIDECTOMY COMPLETE performed by Humza Rock MD at [facility] REMOVAL OF TONSILS, UNDER AGE 12 Tonsils Removal,<12 Y/O REMOVE CATARACT, INSERT LENS PROSTH Left 01/22/2021 LEFT EXTRACAPSULAR CATARACT REMOVAL WITH INTRAOCULAR LENS performed by Lui Hardy MD at OR [facility] REMOVE CATARACT, INSERT LENS PROSTH Right 02/05/2021 RIGHT EXTRACAPSULAR CATARACT REMOVAL WITH INTRAOCULAR LENS performed by Lui Hardy MD at OR [facility] SUTURE REPAIR OF ENTROPION Right 04/13/2024 Dr. Ryan-entropion repair RLL UMBIL HERNIA REPAIR (REDUCIBLE) AGE 5+YR N/A 07/17/2015 07/17/2015 REPAIR UMBILICAL HERNIA AGE 5 AND OVER performed by Vicente Sandoval MD at OR [facility] Current Outpatient Medications Medication Sig Dispense Refill Chlorthalidone 25 MG Oral Tablet (Hygroton) Take 0.5 Tablets by mouth in the morning. 45 Tablet 3 Atorvastatin Calcium 80 MG Oral Tablet (Lipitor) Take 1 Tablet by mouth daily. 90 Tablet 3 Lisinopril 40 MG Oral Tablet Take 1 Tablet by mouth in the morning. 90 Tablet 3 Tamsulosin HCl 0.4 MG Oral Capsule (Flomax) TAKE 1 CAPSULE BY MOUTH BEFORE BEDTIME 90 Capsule 2 Carvedilol 6.25 MG Oral Tablet (Coreg) TAKE 1 TABLET BY MOUTH IN THE MORNING AND BEFORE BEDTIME 180Tablet 3 Finasteride 5 MG Oral Tablet (Proscar) TAKE 1 TABLET BY MOUTH EVERY DAY IN THE MORNING 90 Tablet 3 Levothyroxine Sodium 175 MCG Oral Tablet (Levoxyl) 1 tab Thursday to Thursday, half tab on Sundays. (at least 30 min prior to breakfast or other meds) 90 Tablet 3 Omeprazole 40 MG Oral Capsule Delayed Release (PriLOSEC) TAKE 1 CAPSULE BY MOUTH EVERY DAY 90 Capsule 3 CPAP Use as directed at bedtime. Warfarin Sodium 5 MG Oral Tablet (Coumadin) TAKE 2 TABLETS TUESDAYS & SATURDAYS, 1 TABLET ALL OTHER DAYS OR DIRECTED (Patient taking differently: Take by mouth every evening. As directed by Anticoagulation Clinic) 120 Tablet 3 Baclofen 10 MG Oral Tablet (Lioresal) Take 1 Tablet by mouth 2 times a day as needed for Pain, Breakthrough. 90 Tablet 0 Nitroglycerin 0.4 MG Sublingual Tablet Sublingual (Nitrostat) Place 1 Tablet under the tongue every5 minutes as needed for Pain, Chest. 25 Tablet 2 Aspirin 81 MG Tablet Take 1 Tablet by mouth every evening. Magnesium Hydroxide 400 MG/5ML Oral Suspension Take 30 mL by mouth daily as needed for Constipation. Multiple Vitamins-Minerals (DAILY MULTIVITAMIN) CAPS Take 1 Tablet by mouth in the morning. No current facility-administered medications for this visit. Review of patient's allergies indicates: No Known Allergies Most Recent Immunizations Administered Date(s) Administered COVID-19 mRNA, LNP-s, No Preserve, 2-Dose Series ([address]) 05/22/2021 COVID-19, LNP-s, No Preserve, Yanick-sucrose, Ages 12+ (Pfizer) 12/27/2021 COVID-19, MRNA-LNP, 23-24, PF, 30 MCG/0.3 mL, 12 YRS AND ABOVE, IM ([employer] Comirnaty) 06/15/2023 Covid-19, Mrna, Lnp-s, Pf, Bivalent, 30 Mcg, IM, 12 yrs and above (Pfizer) 06/13/2022 Pneumococcal Conjugate Vacc, 13 Valent (Prevnar) 04/27/2017 Pneumococcal Polysaccharide PPV23 (Pneumovax) 05/12/2018 RSV Vac., Bivalent, Perfusion F, Pf,0.5 Ml (Abrysvo) 09/28/2023 Seasonal Influenza Vac., MDV, IM, 0.5 mL (Fluzone) 07/10/2014 Seasonal Influenza Virus Vaccine, Unspecified Formulation 06/08/2021 Seasonal Influenza, High Dose, Trivalent, PF, IM (Fluzone HD) 06/04/2024 Seasonal Influenza, PF, 6 M & above, IM , (FluLaval or Fluzone) 06/09/2020 Seasonal Influenza, Quadrivalent Hd (Fluzone Hd) 06/06/2023 Seasonal Influenza, Quadrivalent, No Preserve, IM 06/11/2016 TD - Tetanus/Diptheria (ADULT) 02/02/2003 TDAP, Age 7 and older, IM (Adacel) 12/20/2010 Zoster Vaccine Recombinant (Shingrix) 03/05/2022 Review of Systems: Review of Systems Constitutional: Negative for appetite change, chills, diaphoresis, fatigue and fever. Respiratory: Negative for shortness of breath. Cardiovascular: Negative for chest pain. Gastrointestinal: Positive for abdominal pain, constipation, nausea and vomiting. Negative for abdominal distention and diarrhea. Genitourinary: Negative for difficulty urinating and hematuria. Musculoskeletal: Negative for back pain. Physical Exam: BP 110/60 | Pulse 81 | Wt 102.7 kg (226 lb 7 oz) | BMI 33.44 kg/m | BSA 2.24 m Physical Exam HENT: Head: Normocephalic. Cardiovascular: Rate and Rhythm: Normal rate and regular rhythm. Pulmonary: Effort: Pulmonary effort is normal. Breath sounds: Normal breath sounds. Abdominal: General: Bowel sounds are normal. Palpations: Abdomen is soft. Tenderness: There is no abdominal tenderness. Neurological: General: No focal deficit present. Mental Status: He is alert and oriented to person, place, and time. Psychiatric: Mood and Affect: Mood normal. Behavior: Behavior normal. Thought Content: Thought content normal. Judgment: Judgment normal. Assessment and Plan: 1. Abdominal cramping NO PAIN ON EXAM TODAY ADD DICYCLOMINE RECOMMEND FOLLOW UP WITH PCP IF NOT IMPROVED BLAND DIET Thyroid appears oversupplemented but endocrine is adjusting meds. 2. Irritable bowel syndrome, unspecified type SUSPECTED I have advised the patient to call our office incase of any worsening or new symptoms. I spent a total of 20-29 minutes (exact time 25 mins) on the date of service in preparation, delivery, and documentation of the care provided to Sky Peralta excluding any time spent in the performance of separately billed services. Zuleima, MSN, DAVID [facility] documented in this encounter Plan of Treatment Upcoming Encounters Date Type Department Care Team (Late st Contact Info) Description 08/01/2024 8:30 AM EST Laboratory Laboratory [facility] [address] [facility] [place] [phone] [facility] [address] [facility] [place] [id number] 08/02/2024 10:15 AM EST Office Visit Urology, [facility] [address] [facility] [place] [address] Mac Hook MD [address] [facility] [place] [address] 08/05/2024 8:50 AM EST Anticoagulation Pharmacy, [facility] [address] [facility] [place] [address] Pharmacist1, [place] [facility] [address] [facility] [place] [address] 08/05/2024 9:00 AM EST Office Visit General Internal Medicine [facility] [address] [facility] [place] [address] Garry Reyes MD [address] [facility] RE[facility] [place] [address] 10/21/2024 10:40 AM EST Telemedicine Endocrinology [address] [place] [phone] Jalyn Ladd MD [address] [facility] [place] [address] 12/29/2024 9:45 AM EDT Office Visit Dermatology [facility] [address] [facility] [place] [address] [address] Garry Ryan MD [address] [facility] [place] [address] 01/26/2025 8:30 AM EDT Office Visit Cardiology, [facility] [address] [facility] [place] [address] Tomasz Avelar, DO [address] [place] [address] 02/21/2025 11:20 AM EDT Office Visit Sleep Disorders Ctr [facility] [address] [place] [phone] Maris Lucero, DO [address] [place] [address] Scheduled Procedures Name Priority Associated Diagnoses Date/Ti me COLONOSCOPY FLEXIBLE PROXIMAL DIAGNOSTIC Recall History of colon polyps Scheduled Referrals Name Type Priority Associated Diagnoses Orde r Schedule COLONOSCOPY, GI REFERRAL OP Referral Within 30 days (routine) Abdominal cramping Irritable bowel syndrome, unspecified type Ordered: 07/16/2024 Health Maintenance Due Date Last Done Comments Diabetic Eye Exam 1965 Diabetic Foot Exam 1965 DTap/Tdap Vaccines (2 - Td or Tdap) 12/20/2020 12/20/2010, 02/02/2003 Zoster Vaccines (2 of 2) 04/30/2022 03/05/2022 Monge's Esophagus Surveilance 06/14/2022 06/14/2019, 07/10/2016, 07/10/2016, Additional history exists Adult Wellness Visit 07/18/2022 07/18/2021 Colonoscopy 08/02/2023 08/02/2018, 07/22, 07/06/2015, Additional history exists Depression Screening 12/18/2023 12/17/2022 HbA1c 07/09/2024 01/08/2024, 01/0 10/2023, 06/18/2023, Additional history exists Albumin/Creatinine Ratio 01/07/2025 01/08/2024, 11/20 GFR 01/07/2025 01/08/2024, 10/2023, 09/01/2023, Additional history exists TSH 07/01/2025 [...] this encounter Medical Devices Implanted Type Area Otm Consultant Device Identifier Shelf Expiration Date Model / Serial / Lot Hernia Patch Lrg/[place] W/Strp - [id number] Implanted:Qty: 1 on 07/17/2015 by Vicente Sandoval MD at OR [facility] N/A: Abdomen CR BARD : DAVOL 07/21/2016 [id number] / / [id number] Lens Intraoc 20.0 - [id number] - [id number] Implanted:Qty: 1 on 01/22/2021 by Lui Hardy MD at OR [facility] Left: Eye [employer]OM[employer] 08/20/2025 [id number] / [id number] / Lens Intraoc 20.0 - [id number] - [id number] Implanted:Qty: 1 on 02/05/2021 by Lui Hardy MD at OR [facility] Right: Eye [employer] 10/21/2025 [id number] / [id number] / [id number] documented as of this encounter Visit Diagnoses Diagnosis Abdominal cramping- Primary Abdominal pain, unspecified site Irritable bowel syndrome, unspecified type documented in this encounter Advance Directives * [...] and were consensually agreed upon. Care Teams Prenatal Teacher Relationship Specialty Start Date End Date Garry Reyes MD [address] [facility] [place], [place] [address] PCP - General Internal Medicine 02/25/19 documented as of this encounter"
--- OUTSIDE RECORDS SUMMARY | 2024-07-29 23:45 | External Medical Summary ---
Author Name Unknown Address Unknown Organization K01:LABORATORY [facility] - [address] [facility] [address] Laboratory Report Ordering Provider Test Date Status TAMMI ESPINAL 07/18/2024 10:54:17 Final Observation Date Value Abnormality Reference (Units ) Status HbA1C 07/18/2024 10:54:17 6.7 Above high normal 4. 0-5.6 (%) Final The use of HbA1c to monitor glycemic status is based on normal hemoglobin and HbA composition. This test should not be used in patients with abnormal hemoglobin that affects the half life of the red blood cell or the in vivo glycation rates. Glucose, estimated average 07/18/2024 10:54:17 146 Above high normal <126 (mg/dL) Cordell campo Performing Location LABORATORY [facility] - [address] [facility] [address]
--- OUTSIDE RECORDS SUMMARY | 2024-07-29 23:45 | External Medical Summary | Summary of Care ---
Author Name Unknown Organization [facility] Address [address] [place] [address] Phone [phone] Care Team Providers Care Terra Cotta Mold Maker Name Role Phone Garry Reyes MD Primary Care Provider + Reason for Visit * Reason Onset Date Comments FYI 07/25/2024 Encounter Details Date Type Department Care Team (Late st Contact Info) Description 07/25/2024 Telephone Centralized Clinical Pharmacy Services, Hesham Hoffman [address] [place] [address] [place] [address] Pharmacist1, [facility] [address] [place] [address] FYI Allergies No known active allergiesdocumented as of [...] (Coumadin)Indicatio ns:LV (left ventricular) mural thrombus following DE (HCC) TAKE 2 TABLETS TUESDAYS & SATURDAYS, [...] Oral Tablet (Coreg)Indications: Coronary artery disease involving [place] coronary artery of [place] heart without angina pectoris,LV (left ventricular) mural thrombus following DE (HCC),HTN, goal below 140/90,Ischemic cardiomyopathy,Hist ory of [...] TabletIndications:O ld myocardial infarct,Coronary artery disease involving [place] coronary artery of [place] heart without angina pectoris,LV (left ventricular) mural thrombus following DE (HCC),HTN, goal below 140/90,Ischemic cardiomyopathy,Hist ory of [...] esophagus 05/26/2019 Coronary artery disease invo lving [place] coronary artery of [place] heart without angina pectoris 02/15/2019 Old myocardial [...] use aero chamber. Test performed by Celi KEG WASHER CPFT Thyroid nodule 05/26/2019 01/08/[address] [...] mRNA, LNP-s, No Pre serve, 2-Dose Series (KOJI Drinks) 05/22/2021,12/13/2020,11/15/2020 COVID-19, LNP-s, No Preserve , Yanick-sucrose, Ages 12+ (Pfizer) 12/27/2021 COVID-19, MRNA-LNP, PF, 30 M CG/0.3 mL, 12 YRS AND ABOVE, IM (PFIZER-Comirnaty) 06/15/2023 Covid-19, Mrna, Lnp-s, Pf, B ivalent, 30 Mcg, IM, 12 yrs and above (KOJI Drinks) 06/13/2022 Pneumococcal Conjugate Vacc, 13 Valent (Prevnar) [...] encounter Miscellaneous Notes * Telephone Encounter - Anyi Carbajal RPh - 07/25/2024 4:04 PM EST Called patient to confirm procedure is scheduled on 08/01 and will send Spinomixhart message to patient with warfarin/Lovenox instructions. Patient verbalized understanding of this plan. Anyi Carbajal PharmD Clinical Pharmacist Medication Therapy Management Clinic 07/25/24, 4:05 PM * Telephone Encounter - Travelece, Marly M, control area operator - 07/25/2024 3:29 PM EST Caller's name: Sky Peralta call back number(OFFICE NUMBER FOR ): [phone] Reason for call: Patient calling in to inform [facility] he will be having a colonoscopy done on 08/01/2024. Thank you, Marly Arnett Stretcher Drier Operator Centralized Clinical Pharmacy Services ([facility]) 07/25/2024,3:29 PM documented in this encounter Plan of Treatment Upcoming Encounters Date Type Department Care Team (Latest Contact Info) Description 07/25/2024 5:10 PM EST Anticoagulation Pharmacy Hermilo Lin [address] [place] [address] Hermilo [facility] [address] [place] [address] Anticoagulation management encounter*; LV (left ventricular) mural thrombus following DE (HCC); History of TIA (transient ischemic attack) 08/01/2024 8:00 AM EST Hospital Encounter ENDO OSSC, Endoscopy Room [facility] [address] [place] [address] Tatiana Green, DO [address] [place] [address] 08/01/2024 8:00 AM EST - 08/01/2024 8:30 AM EST Surgery ENDO OSS, Endoscopy Room [facility] [address] [place] [phone] Tatiana Green, DO [address] [place] [address] COLONOSCOPY FLEXIBLE PROXIMAL DIAGNOSTIC 08/02/2024 10:15 AM EST Office Visit Urology, [facility] [address] [place] [address] Mac Hook MD [address] [place] [address] 08/05/2024 8:50 AM EST Anticoagulation Pharmacy, [facility] [address] [place] [address] Pharmacist1, [facility] 200 [facility] [place], [place] [address] 08/05/2024 9:00 AM EST Office Visit General Internal Medicine [facility] [address] [place] [address] Garry Reyes MD 200 [facility] [place] [address] 10/21/2024 10:40 AM EST Telemedicine Endocrinology [address] [place] [address] Jalyn Ladd MD [address] [place], [place] [id number] 12/29/2024 9:45 AM EDT Office Visit Dermatology [facility] [address] [place], [place] [address] Garry Ryan MD 200 [facility] [place] [address] 01/26/2025 8:30 AM EDT Office Visit Cardiology, [facility] [address] [facility] [place] [address] Tomasz Avelar, DO [address] [place] [address] 02/21/2025 11:20 AM EDT Office Visit Sleep Disorders Ctr [facility] [address] [place] [phone] Maris Lucero, DO [address] [place] [address] Scheduled Procedures Name Priority Associated Diagnoses Date/Ti [...] this encounter Medical Devices Implanted Type Area Winder Helper Device Identifier Shelf Expiration Date Model / Serial / Lot Hernia Patch Lrg/Tulalip W/Strp - [id number] Implanted:Qty: 1 on 07/17/2015 by Vicnete Sandoval MD at OR [facility] N/A: Abdomen CR BARD : DAVOL 07/21/2016 [id number] / / [id number] Lens Intraoc 20.0 - [id number] - [id number] Implanted:Qty: 1 on 01/22/2021 by Lui Hardy MD at OR [facility] Left: Eye BAUSCH & LOMB 08/20/2025 [id number] / [id number] / Lens Intraoc 20.0 - [id number] - [id number] Implanted:Qty: 1 on 02/05/2021 by Lui Hardy MD at OR [facility] Right: Eye BAUSCH & LOMB 10/21/2025 [id number] / [id number] / [id number] documented as of this encounter Visit Diagnoses Diagnosis LV (left ventricular) mural thrombus following DE (HCC)- Primary Other certain sequelae of myocardial infarction, not elsewhere classified Anticoagulation management encounter- Primary Encounter for therapeutic drug monitoring LV (left ventricular) mural thrombus following DE (HCC) Other certain sequelae of myocardial infarction, [...] and were consensually agreed upon. Care Teams Terra Cotta Mold Maker Relationship Specialty Start Date End Date Garry Reyes MD 200 [facility] [place] [address] PCP - General Internal Medicine 02/25/19 documented as of this encounter
--- OUTSIDE RECORDS SUMMARY | 2024-07-29 23:46 | External Medical Summary | Summary of Care ---
Author Name Unknown Organization [facility] Address [address] [place] [address] Phone [phone] Care Team Providers Care Basketball Player Name Role Phone Garry Reyes MD Primary Care Provider + Reason for Visit * Reason Comments Dosage Adjustment In Person (Anticoag Cl inic) Encounter Details Date Type Department Care Team (Latest Contact Info) Description 05/30/2024 8:30 AM EDT Anticoagulation Pharmacy, [facility] [address] [place] [address] Pharmacist1, [facility] [address] [place] [address] Anticoagulation management encounter*; LV (left ventricular) mural thrombus following MS (HCC); History of TIA (transient ischemic attack) Allergies No known active allergiesdocumented as of this encounter (statuses as of 05/30/2024) Medications Medication Sig Dispensed Refills Start Date [...] Pain, Chest. 25 Tablet 2 05/08/2023 Active Baclofen 10 MG Oral Tablet (Lioresal)Indicatio ns:Spasm of muscle,Spondylosis of thoracic region without myelopathy or radiculopathy,Acute right-sided thoracic back pain Take 1 Tablet by mouth 2 times a day as needed for Pain, Breakthrough. 90 Tablet 06/23/2023 Active Warfarin Sodium 5 MG Oral Tablet (Coumadin)Indicatio ns:LV (left ventricular) mural thrombus following MS (HCC) TAKE 2 TABLETS TUESDAYS & SATURDAYS, 1 TABLET ALL OTHER DAYS OR DIRECTED 120 Tablet 3 08/17/2023 Active Additional Information Patient taking differently: Oral Q-1999, As directed by Anticoagulation Clinic, Informant: Spouse, Reported on 08/31/2023 CPAP Use as directed at bedtime. Active Chlorthalidone 25 MG Oral Tablet (Hygroton)Indicatio ns:Hypotension due to drugs Take 0.5 Tablets by mouth in the morning. 09/23/2023 Active Omeprazole 40 MG Oral Capsule Delayed Release (PriLOSEC)Indicatio ns:GERD (gastroesophageal reflux disease) TAKE 1 CAPSULE BY MOUTH EVERY DAY 90 Capsule 3 02/01/2024 Active Levothyroxine Sodium 175 MCG Oral Tablet (Levoxyl)Indication s:Follicular thyroid cancer (HCC),Postoperative hypothyroidism 1 tab Thursday to Thursday, half tab on Sundays. (at least 30 min prior to breakfast or other meds) 90 Tablet 3 04/04/2024 Active Erythromycin 5 MG/GM Ophthalmic Ointment Apply .25 inch ribbon to right lower eyelid incision 4 times daily for 14 days then daily at bedtime. 3.5 g 3 04/13/2024 Active Carvedilol 6.25 MG Oral Tablet (Coreg)Indications: Coronary artery disease involving mentasta coronary artery of mentasta heart without angina pectoris,LV (left ventricular) mural thrombus following MS (HCC),HTN, goal below 140/90,Ischemic cardiomyopathy,Hist ory of [...] TabletIndications:O ld myocardial infarct,Coronary artery disease involving [place] coronary artery of [place]asta heart without angina pectoris,LV (left ventricular) mural thrombus following MS (HCC),HTN, goal below 140/90,Ischemic cardiomyopathy,Hist ory of TIA (transient ischemic attack),Dyslipidemi a, goal LDL below 70,Essential hypertension with goal blood pressure less than 140/90 Take 1 Tablet by mouth in the morning. 90 Tablet 3 05/27/2024 Active documented as of this encounter (statuses as of 05/30/2024) Active Problems Problem Noted Date Diagnosed Date [...] esophagus 05/26/2019 Coronary artery disease invo lving mentasta coronary artery of mentasta heart without angina pectoris 02/15/2019 Old myocardial [...] as of this encounter (statuses as of 05/30/2024) Resolved Problems Problem Noted Date Diagnosed Date [...] use aero chamber. Test performed by Celi HOTEL ROOM ATTENDANT CPFT Thyroid nodule 05/26/2019 01/08/[address] [...] as of this encounter (statuses as of 05/30/2024) Immunizations Name Administration Dates Next Due COVID-19 mRNA, LNP-s, No Pre serve, 2-Dose Series (ecomom) 05/22/2021,12/13/2020,11/15/2020 COVID-19, LNP-s, No Preserve , Yanick-sucrose, Ages 12+ (Pfizer) 12/27/2021 COVID-19, MRNA-LNP, 23-24, P F, 30 MCG/0.3 mL, 12 YRS AND ABOVE, IM ([facility]) 06/15/2023 Covid-19, Mrna, Lnp-s, Pf, B ivalent, 30 Mcg, IM, 12 yrs and above (ecomom) 06/13/2022 Pneumococcal Conjugate Vacc, 13 Valent (Prevnar) 04/27/2017 Pneumococcal Polysaccharide PPV23 (Pneumovax) 05/12/2018,10/12/2007 RSV Vac., Bivalent, Perfusio n F, Pf,0.5 Ml (Abrysvo) 09/28/2023 Seasonal Influenza Virus Vac cine, Unspecified Formulation 06/08/2021,06/09/2020,06/07/2019,06/10,06/11/2017,06/11/2016,07/10/2014 ,06/04/2013,10/30/2011,10/05/2009,11/20,10/12/2007 Seasonal Influenza, PF, 6 M & above, IM , (FluLaval or Fluzone) 06/09/2020,06/07/2019,06/10/2018,06/11 Seasonal Influenza, Quadriva lent Hd (Fluzone Hd) 06/06/2023,06/07/2022,06/08/2021 Seasonal Influenza, Quadriva lent, No Preserve, IM 06/11/2016 Seasonal Influenza, Trivalen t, (IIV3), with Preserv, (Fluzone) 07/10/2014,06/04/2013,10/30/2011,10/05,12/11/2008,10/12/2007 TDAP, Age 7 and older, IM (Adacel) [...] as of this encounter Progress Notes * Salvador Nance [facility] - 05/30/2024 8:33 AM EDT Images from the original note were not included. Medication Therapy Disease Management - Anticoagulation Sky Peralta 1945 Current Warfarin Dose As of 05/30/2024 Warfarin maintenance plan: 10 mg (5 mg x 2) every Mon; 5 mg (5 mg x 1) all other days Patient Findings Negatives: Signs/symptoms of thrombosis, Signs/symptoms of bleeding, Change in health, Change in alcohol use, Change in activity, Upcoming invasive procedure, Missed doses, Extra doses, Change in medications, Change in diet/appetite, Bruising INR Result As of 05/30/2024 INR goal: 2.0-3.0 INR used for dosin.4 (05/30/2024) Warfarin Plan As of 05/30/2024 Full warfarin instructions: 10 mg every Mon; 5 mg all other days Next INR check: 06/20/2024 Repeat PT/INR in 3 week(s) Weekly dose: not changed I spent a total of 10-19 minutes (exact time 16 mins) on the date of service in preparation, delivery, and documentation of the care provided to Sky Peralta excluding any time spent in the performance of separately billed services or time spent by another provider/QHP. Salvador Hough RPh, CACP, CDE Clinical Pharmacist Medication Therapy Management [facility] 05/30/2024 8:38 AM documented in this encounter Plan of Treatment Upcoming Encounters Date Type Department Care Team (Late st Contact Info) Description 05/30/2024 11:00 AM EDT Cardiac Studies Cardiac Studies, [facility] [address] [address] 06/20/2024 8:50 AM EDT Anticoagulation Pharmacy, [facility] 200 [facility] [place] [address] Pharmacist1, [facility] 200 [facility] [place] [address] 06/29/2024 3:30 PM EDT Office Visit Cardiology, [facility] [address] [place] [address] Debbi Nolan PA-C [address] [place] [address] 06/30/2024 10:00 AM EDT Imaging Radiology [facility] [address] [place] [address] 07/01/2024 9:30 AM EDT Imaging Radiology [facility] [address] [place] [address] 08/01/2024 8:30 AM EST Laboratory Laboratory [facility] [address] [place] [address] [place], [facility] [address] [place] [address] 08/02/2024 10:15 AM EST Office Visit Urology, [facility] 132 [facility] [place] [address] Mac Hook MD [address] [place] [address] 08/05/2024 9:00 AM EST Office Visit General Internal Medicine [facility] [address] [place] [address] Garry Reyes MD 200 [facility] [place] [address] 10/21/2024 10:40 AM EST Telemedicine Endocrinology [address] [place] [address] Jalyn Ladd MD [address] [place] [address] 12/29/2024 9:45 AM EDT Office Visit Dermatology [facility] [address] [place] [address] Garry Ryan MD 200 [place] [address] 02/21/2025 11:20 AM EDT Office Visit Sleep Disorders Ctr [facility] 132 [facility] [place] [phone] Maris Lucero DO 132 [facility] [place] [address] Scheduled Procedures Name Priority Associated Diagnoses Date/Ti [...] Additional history exists Depression Screening 12/18/2023 12/17/2022 Influenza Vaccine (FLU shot) (#1) 2024 06/06/2023, 06/07/2022, 06/08/2021, Additional history exists HbA1c 07/09/2024 01/08/2024, 01/0 10/2023, 06/18/2023, Additional history exists COVID-19 Vaccine (2022- season) 2024 05/21/2024, 06/15/2023, 06/13/2022, Additional history exists Albumin/Creatinine Ratio 01/07/2025 01/08/2024, 11/20 GFR 01/07/2025 01/08/2024, 010 10/2023, 09/01/2023, Additional history exists TSH 04/01/2025 04/01/2024, 11/20, 11/21/2023, Additional history exists Pneumococcal Vaccine: 65+ Years Completed 05/12/2018, 04/27/2017, 10/12/2007 RETIRED - COLONOSCOPY-EVERY 5 YRS AGES 18-100 Discontinued 08/02/2018, 08/02/2018, 07/06/2015, Additional history exists Lung Cancer Screening Completed 06/29/2023 , 06/26/2022, 06/25/2021, Additional history exists HPV (Gardasil) Vaccine Aged Out No lo nger eligible based on patient's age to complete this topic Hepatitis B Vaccine Aged Out No longe r eligible based on patient's age to complete this topic MENINGOCOCCAL (MENACTRA/MENVEO) Aged Out No longer eligible based on patient's age to complete this topic documented as of this encounter Medical Devices Implanted Type Area Marketing Campaign Analyst Device Identifier Shelf Expiration Date Model / Serial / Lot Hernia Patch Lrg/Cheesh-Na W/Strp - [id number] Implanted:Qty: 1 on 07/17/2015 by Vicente Sandoval MD at OR [facility] N/A: Abdomen CR BARD : DAVOL 07/21/2016 [id number] / / [id number] Lens Intraoc 20.0 - [id number] - [id number] Implanted:Qty: 1 on 01/22/2021 by Lui Hardy MD at OR [facility] Left: Eye BAUSCH & LOMB 08/20/2025 [id number] / [id number] / Lens Intraoc 20.0 - [id number] - [id number] Implanted:Qty: 1 on 02/05/2021 by Lui Hardy MD at OR [facility] Right: Eye BAUSCH & LOMB 10/21/2025 [id number] / [id number] / [id number] documented as of this encounter Procedures Procedure Name Priority Date/Time Associated Diagnosis Comments INR FINGERSTICK, POINT OF CARE STAT 05/30/2024 8:35 AM EDT History of TIA (transient ischemic attack) LV (left ventricular) mural thrombus following MS (HCC) Anticoagulation management encounter documented in this encounter Results * INR FINGERSTICK, POINT OF CARE (05/30/2024 8:35 AM EDT) Fingerstick INR 1.4 INR 8:36 AM EDT [facility] 56-02 Blood 05/30/2024 8:35 AM EDT 05/30/2024 8:36 AM EDT Narrative [facility] 56-02 - 05/30/2024 8:36 AM EDT Therapeutic ranges for non-operative patients: Prophylaxsis/treatment of DVT: (Range:2.0-3.0) Treatment of pulmonary embolism:(Range:2.0-3.0) Prevention of systemic embolism from: -tissue heart valves -acute myocardial infarction -valvular heart disease -atrial fibrillation (Range: 2.0-3.0) Mechanical prosthetic valves: (Range: 2.5-3.5) Salvador Hough V, [facility] LAB POINT OF CARE TE ST DOCKED DEVICE UNSOLICITED RESULTS [facility] 56-02 200 [place] [address] documented in this encounter Visit Diagnoses Diagnosis Anticoagulation management encounter- Primary Encounter for therapeutic drug monitoring LV (left ventricular) mural thrombus following MS (HCC) Other certain sequelae of myocardial infarction, not elsewhere classified History of TIA (transient ischemic attack) Transient ischemic attack (TIA), and cerebral infarction without residual deficits documented in this encounter Advance Directives * [...] and were consensually agreed upon. Care Teams Basketball Player Relationship Specialty Start Date End Date [facility]ry Reyes MD [address] [facility] [address] PCP - General Internal Medicine 02/25/19 documented as of this encounter
--- OUTSIDE RECORDS SUMMARY | 2024-07-29 23:46 | External Medical Summary ---
Author Name Unknown Address Unknown Organization : Laboratory Report Ordering Provider Test Date Status KELLY RENDON 07/01/2024 11:07:44 Final Observation Date Value Abnormality Reference (Units ) Status Thyroglobulin 07/01/2024 11:07:44 0.1 Below low normal 2.8-40.9 (ng/mL) Final Intact Thyroid: 2.8-40.9 ng/ mL
Athyrotic: <0.1 ng/mL
Note: Abnormal flagging is based upon the reference
interval for patients with intact thyroid.
This test was performed using the [employer]
chemiluminescent method. Values obtained from
different assay methods cannot be used inter-
changeably. Thyroglobulin levels, regardless
of value, should not be interpreted as absolute
evidence of the presence or absence of disease. comment 07/01/2024 11:07:44 SEE BELOW Final Thyroglobulin antibodies (TG AB) interfere with
thyroglobulin (TG) assays; therefore, TGAB assay
should always be performed in conjunction with a
TG assay.
For additional information, please refer to
https://education.[employer].com/faq/JTK272
(This link is being provided for informational/
educational purposes only.)

Test Performed at:
[facility]
[address] [facility]
[place] [address]
Jesus Summers M.D., Ph.D.,Director of Laboratories Performing Location
--- OUTSIDE RECORDS SUMMARY | 2024-07-29 23:46 | External Medical Summary ---
Author Name Unknown Address Unknown Organization K01:[facility]ATORY [facility] - [address] [place] [address] Laboratory Report Ordering Provider Test Date Status KELLY RENDON 07/01/2024 11:07:44 Final Observation Date Value Abnormality Reference (Units ) Status Thyroglobulin Ab 07/01/2024 11:07:44 11.9 <22 .0 (IU/mL) Final Performing Location LABORATORY [facility] - [address] [place] [address]
--- OUTSIDE RECORDS SUMMARY | 2024-07-29 23:46 | External Medical Summary ---
Author Name Unknown Address Unknown Organization K09:[facility] [place] [address] Laboratory Report Ordering Provider Test Date Status ANKUSH VILLALOBOS V 05/30/2024 08:35:41 Final Therapeutic ranges for non-o perative patients:
Prophylaxsis/treatment of DVT: (Range:2.0-3.0)
Treatment of pulmonary embolism:(Range:2.0-3.0)
Prevention of systemic embolism from:
-tissue heart valves
-acute myocardial infarction
-valvular heart disease
-atrial fibrillation
(Range: 2.0-3.0)
Mechanical prosthetic valves: (Range: 2.5-3.5) Observation Date Value Abnormality Reference (Units ) Status INR in Capillary blood by Coagulation assay 05/30/2024 08:35:41 1.4 (INR) Final Performing Location [facility] [place] [address]
--- OUTSIDE RECORDS SUMMARY | 2024-07-29 23:46 | External Medical Summary ---
Author Name Unknown Address Unknown Organization K09:[facility] [place] [address] Laboratory Report Ordering Provider Test Date Status ANKUSH VILLALOBOS V 06/20/2024 08:52:27 Final Therapeutic ranges for non-o perative patients:
Prophylaxsis/treatment of DVT: (Range:2.0-3.0)
Treatment of pulmonary embolism:(Range:2.0-3.0)
Prevention of systemic embolism from:
-tissue heart valves
-acute myocardial infarction
-valvular heart disease
-atrial fibrillation
(Range: 2.0-3.0)
Mechanical prosthetic valves: (Range: 2.5-3.5) Observation Date Value Abnormality Reference (Units ) Status INR in Capillary blood by Coagulation assay 06/20/2024 08:52:27 2.5 (INR) Final Performing Location [facility]ATORY [facility] [place] [address]
--- OUTSIDE RECORDS SUMMARY | 2024-07-29 23:46 | External Medical Summary | Summary of Care ---
Author Name Unknown Organization [facility] Address [address] [place] [address] Phone [phone] Care Team Providers Care Survey Research Center Director Name Role Phone Garry Reyes MD Primary Care Provider + Reason for Visit * Reason Onset Date Comments Health Maintenance 05/18/2024 Encounter Details Date Type Department Care Team (Late st Contact Info) Description 05/18/2024 Telephone General Internal Medicine [facility] [address] [place] [address] Garry Reyes MD [address] [place] [address] Health Maintenance Allergies No known active allergiesdocumented as of this encounter (statuses as of 05/18/2024) Medications Medication Sig Dispensed Refills Start Date End Date Status Multiple Vitamins-Minerals (DAILY MULTIVITAMIN) CAPS Take 1 Tablet by mouth in the morning. Active Magnesium Hydroxide 400 MG/5ML Oral Suspension Take 30 mL by mouth daily as needed for Constipation. Active Aspirin 81 MG Tablet Take 1 Tablet by mouth every evening. Active Atorvastatin Calcium 80 MG Oral Tablet (Lipitor)Indication s:Dyslipidemia, goal LDL below 100,Old myocardial infarct TAKE 1 TABLET BY MOUTH EVERY DAY IN THE AFTERNOON 90 Tablet 3 04/06/2023 Active Lisinopril 40 MG Oral TabletIndications:C oronary artery disease involving wyandotte coronary artery of wy[place]otte heart without angina pectoris,LV (left ventricular) mural thrombus following SD (HCC),HTN, goal below 140/90,Ischemic cardiomyopathy,Hist ory of TIA (transient ischemic attack),Dyslipidemi a, goal LDL below 70,Old myocardial infarct,Essential hypertension with goal blood pressure less than 140/90 Take 1 Tablet by mouth in the morning. 90 Tablet 3 05/07/2023 Active Nitroglycerin 0.4 MG Sublingual Tablet Sublingual [...] (Coumadin)Indicatio ns:LV (left ventricular) mural thrombus following SD (HCC) TAKE 2 TABLETS TUESDAYS & SATURDAYS, 1 TABLET ALL OTHER DAYS OR DIRECTED 120 Tablet 3 08/17/2023 Active Additional Information Patient taking differently: Oral QPM-1999, As directed by Anticoagulation Clinic, Informant: Spouse, Reported on 08/31/2023 CPAP Use as directed at bedtime. Active Tamsulosin HCl 0.4 MG Oral Capsule (Flomax) Take 1 Capsule by mouth in the morning. 30 Capsule 1 09/02/2023 Active Chlorthalidone 25 MG Oral Tablet (Hygroton)Indicatio [...] Oral Tablet (Coreg)Indications: Coronary artery disease involving wyandotte coronary artery of wyandotte heart without angina pectoris,LV (left ventricular) mural thrombus following SD (HCC),HTN, goal below 140/90,Ischemic cardiomyopathy,Hist ory of TIA (transient ischemic attack),Dyslipidemi a, goal LDL below 70,Old myocardial infarct,Essential hypertension with goal blood pressure less than 140/90 TAKE 1 TABLET BY MOUTH IN THE MORNING AND BEFORE BEDTIME 180 Tablet 3 05/02/2024 Active Finasteride 5 MG Oral Tablet (Proscar) TAKE 1 TABLET BY MOUTH EVERY DAY IN THE MORNING 90 Tablet 3 05/02/2024 Active documented as of this encounter (statuses as of 05/18/2024) Active Problems Problem Noted Date Diagnosed Date [...] esophagus 05/26/2019 Coronary artery disease invo lving wyandotte coronary artery of wyand[place] heart without angina pectoris 02/15/2019 Old myocardial [...] as of this encounter (statuses as of 05/18/2024) Resolved Problems Problem Noted Date Diagnosed Date [...] use aero chamber. Test performed by [facility] SENIOR INFORMATION SECURITY ENGINEER CPFT Thyroid nodule 05/26/2019 01/08/[address] [...] as of this encounter (statuses as of 05/18/2024) Immunizations Name Administration Dates Next Due COVID-19 mRNA, LNP-s, No Pre serve, 2-Dose Series ([employer]) 05/22/2021,12/13/2020,11/15/2020 COVID-19, LNP-s, No Preserve , Yanick-sucrose, Ages 12+ ([employer]) 12/27/2021 COVID-19, MRNA-LNP, 23-24, P F, 30 MCG/0.3 mL, 12 YRS AND ABOVE, IM ([facility] 06/15/2023 Covid-19, Mrna, Lnp-s, Pf, B ivalent, 30 Mcg, IM, 12 yrs and above ([employer]) 06/13/2022 Pneumococcal Conjugate Vacc, 13 Valent (Prevnar) 04/27/2017 Pneumococcal Polysaccharide PPV23 (Pneumovax) 05/12/2018,10/12/2007 RSV Vac., Bivalent, Perfusio n F, Pf,0.5 Ml (Abrysvo) 09/28/2023 Seasonal Influenza Virus Vac cine, Unspecified Formulation 06/08/2021,06/09/2020,06/07/2019,06/10,06/11/2017,06/11/2016,07/10/2014 ,06/04/2013,10/30/2011,10/05/2009,11/20,10/12/2007 Seasonal Influenza, PF, 6 M & above, IM , (FluLaval or Fluzone) 06/09/2020,06/07/2019,06/10/2018,06/11 Seasonal Influenza, Quadriva lent Hd (Fluzone Hd) 06/06/2023,06/07/2022,06/08/2021 Seasonal Influenza, Quadriva lent, No Preserve, IM 06/11/2016 Seasonal Influenza, Split, I IV3, With Preserve, Inj 07/10/2014,06/04/2013,10/30/2011,10/05,12/11/2008,10/12/2007 TDAP, Age 7 and older, IM [...] 18 years and over) Not on file 3 Are you (or your family) jarret eless [...] encounter Miscellaneous Notes * Telephone Encounter - Yaneli VarnerMARTÍNEZ - 05/18/2024 9:17 AM EDT Care Gaps Comprehensive Care Outreach Last Office/Telemedicine Visit: 01/08/2024 (in office), Visit date not found (telemedicine) Next Office Visit: 08/05/2024 Hemoglobin AIC Results: Lab Results Component Value Date/Time HEMOGLOBIN A1C - [facility] 7.0 (H) 01/08/2024 09:39 AM HEMOGLOBIN A1C - [facility] 6.3 (H) 09/22/2023 09:20 AM HEMOGLOBIN A1C - [facility] 6.6 (H) 06/18/2023 08:52 AM HEMOGLOBIN A1C - [facility] 6.2 (H) 10/15/2020 02:12 PM HEMOGLOBIN A1C - [facility] 6.4 (H) 07/04/2020 07:42 AM HEMOGLOBIN A1C - [facility] 5.7 (H) 08/03/2018 02:39 AM BP Readings from Last 1 Encounters: 02/22/24 144/78 Reviewed Health Maintenance below: Health Maintenance Topic Date Due Diabetic Eye Exam Never done Diabetic Foot Exam Never done DTap/Tdap Vaccines (2 - Td or Tdap) 12/20/2020 Zoster Vaccines (2 of 2) 04/30/2022 Monge's Esophagus Surveilance 06/14/2022 Adult Wellness Visit 07/18/2022 Colonoscopy 08/02/2023 COVID-19 Vaccine ( season) 2023 Depression Screening 12/18/2023 Influenza Vaccine (FLU shot) (1) 05/22/2024 HbA1c 07/09/2024 [facility] already scheduled Colon defer with pcp due to cancer treatment Care Gap Outreach Action Taken: Spoke to patient documented in this encounter Plan of Treatment Upcoming Encounters Date Type Department Care Team (Late st Contact Info) Description 05/30/2024 8:30 AM EDT Anticoagulation Pharmacy, [facility] 200 [facility] [place] [address] Pharmacist1, [facility] 200 [facility] [place] [address] 05/30/2024 11:00 AM EDT Cardiac Studies Cardiac Studies, [facility] 132 [facility] [place] [address] 06/06/2024 11:20 AM EDT Office Visit Ophthalmology, [facility] [address] [place] [address] Jimi Ryan T, DO 16 [facility] [place] [address] 06/29/2024 3:30 PM EDT Office Visit Cardiology, [facility] [address] [place] [address] Debbi Nolan, PAFrankyC 132 [facility] [place] [address] 06/30/2024 10:00 AM EDT Imaging Radiology [facility] 1st [facility] 132 [facility] [place] [address] 07/01/2024 9:30 AM EDT Imaging Radiology [facility] 132 [facility] [place] [address] 08/01/2024 8:30 AM EST Laboratory Laboratory [facility] [address] [place] [phone] [facility] [address] [place] [address] 08/02/2024 10:15 AM EST Office Visit Urology, [facility] 132 [facility] [place] [address] Mac Hook MD [address] [place] [address] 08/05/2024 9:00 AM EST Office Visit General Internal Medicine [facility] [address] [place] [address] Garry Reyes MD [address] [place] [address] 10/21/2024 10:40 AM EST Telemedicine Endocrinology [address] [place] [phone] Jalyn Ladd MD [address] [facility] [place] [address] 12/29/2024 9:45 AM EDT Office Visit Dermatology [facility] [address] [place] [address] Garry Ryan MD [address] [place] [address] 02/21/2025 11:20 AM EDT Office Visit Sleep Disorders Ctr [facility] [address] [place] [phone] Maris Lucero, [address] [place] [address] Scheduled Procedures Name Priority Associated Diagnoses Date/Ti [...] 08/02/2023 08/02/2018, 07/22, 07/06/2015, Additional history exists COVID-19 Vaccine (2022- season) 2023 06/15/2023, 06/13/2022, 12/27/2021, Additional history exists Depression Screening 12/18/2023 12/17/2022 Influenza Vaccine (FLU shot) (#1) 2024 06/06/2023, 06/07/2022, 06/08/2021, Additional history exists HbA1c 07/09/2024 01/08/2024, 010 10/2023, 06/18/2023, Additional [...] this encounter Medical Devices Implanted Type Area Aerospace Mechanic Device Identifier Shelf Expiration Date Model / Serial / Lot Hernia Patch Lrg/[place] W/Strp - [id number] Implanted:Qty: 1 on 07/17/2015 by Vicente Sandoval MD at OR [facility] N/A: Abdomen CR BARD : DAVOL 07/21/2016 [id number] / / [id number] Lens Intraoc 20.0 - [id number] - [id number] Implanted:Qty: 1 on 01/22/2021 by Lui Hardy MD at OR [facility] Left: Eye BAUSCH & LOMB 08/20/2025 [id number] / [id number] / Lens Intraoc 20.0 - [id number] - [id number] Implanted:Qty: 1 on 02/05/2021 by Lui Hardy MD at OR [facility] Right: Eye BAUSCH & LOMB 10/21/2025 [id number] / [id number] / [id number] documented as of this encounter Advance Directives [...] and were consensually agreed upon. Care Teams Survey Research Center Director Relationship Specialty Start Date End Date Garry Reyes MD 200 [facility] [place], [place] [address] PCP - General Internal Medicine 02/25/19 documented as of this encounter
--- OUTSIDE RECORDS SUMMARY | 2024-07-29 23:46 | External Medical Summary | Summary of Care ---
Author Name Unknown Organization [facility] Address [address] [place] [address] Phone [phone] Care Team Providers Care Detective Bowling Alley Name Role Phone Garry Reyes MD Primary Care Provider + Reason for Visit * Reason Comments Dosage Adjustment In Person (Anticoag Cl inic) Encounter Details Date Type Department Care Team (Latest Contact Info) Description 06/20/2024 8:50 AM EDT Anticoagulation Pharmacy, [facility] [address] [place] [address] Pharmacist1, [facility] [address] [place] [address] LV (left ventricular) mural thrombus following [place] (HCC)*; History of TIA (transient ischemic attack); Anticoagulation management encounter Allergies No known active allergiesdocumented as of this encounter (statuses as of 06/20/2024) Medications Medication Sig Dispensed Refills Start Date [...] (Coumadin)Indicatio ns:LV (left ventricular) mural thrombus following [place] (HCC) TAKE 2 TABLETS TUESDAYS & SATURDAYS, [...] Tablet (Coreg)Indications: Coronary artery disease involving big sandy coronary artery of big sandy heart without angina pectoris,LV (left ventricular) mural thrombus following [place] (HCC),HTN, goal below 140/90,Ischemic cardiomyopathy,Hist ory of [...] ld myocardial infarct,Coronary artery disease involving big sandy coronary artery of big sandy heart without angina pectoris,LV (left ventricular) mural thrombus following [place] (HCC),HTN, goal below 140/90,Ischemic cardiomyopathy,Hist ory of TIA (transient ischemic attack),Dyslipidemi a, goal LDL below 70,Essential hypertension with goal blood pressure less than 140/90 Take 1 Tablet by mouth in the morning. 90 Tablet 3 05/27/2024 Active documented as of this encounter (statuses as of 06/20/2024) Active Problems Problem Noted Date Diagnosed Date [...] 05/26/2019 Coronary artery disease invo lving big sandy coronary artery of big sandy heart without angina pectoris 02/15/2019 Old myocardial [...] as of this encounter (statuses as of 06/20/2024) Resolved Problems Problem Noted Date Diagnosed Date [...] use aero chamber. Test performed by Celi SORORITY MOTHER CPFT Thyroid nodule 05/26/2019 01/08/[address] [...] as of this encounter (statuses as of 06/20/2024) Immunizations Name Administration Dates Next Due COVID-19 mRNA, LNP-s, No Pre serve, 2-Dose Series ([facility]) 05/22/2021,12/13/2020,11/15/2020 COVID-19, LNP-s, No Preserve , Yanick-sucrose, Ages 12+ ([employer]) 12/27/2021 COVID-19, MRNA-LNP, 23-24, P F, 30 MCG/0.3 mL, 12 YRS AND ABOVE, IM ([facility]) 06/15/2023 Covid-19, Mrna, Lnp-s, Pf, B ivalent, 30 Mcg, IM, 12 yrs and above ([facility]) 06/13/2022 Pneumococcal Conjugate Vacc, 13 Valent (Prevnar) [...] this encounter Progress Notes * Salvador Nance RPh - 06/20/2024 8:49 AM EDT Medication Therapy Disease Management - Anticoagulation Sky Peralta 1945 Current Warfarin Dose As of 06/20/2024 Warfarin maintenance plan: 10 mg (5 mg x 2) every Mon; 5 mg (5 mg x 1) all other days Patient Findings Negatives: Signs/symptoms of thrombosis, Signs/symptoms of bleeding, Change in health, Change in alcohol use, Change in activity, Upcoming invasive procedure, Missed doses, Extra doses, Change in medications, Change in diet/appetite, Bruising INR Result As of 06/20/2024 INR goal: 2.0-3.0 INR used for dosin.5 (06/20/2024) Warfarin Plan As of 06/20/2024 Full warfarin instructions: 10 mg every Mon; 5 mg all other days No change documented: Salvador Nance RPh Next INR check: 08/05/2024 Repeat PT/INR in 6 week(s) Weekly dose: not changed I spent a total of 10-19 minutes (exact time 13 mins) on the date of service in preparation, delivery, and documentation of the care provided to Sky Peralta excluding any time spent in the performance of separately billed services or time spent by another provider/QHP. Salvador Hough RPh, CACP, CDE Clinical Pharmacist Medication Therapy Management Clinic 06/20/2024 8:54 AM documented in this encounter Plan of Treatment Upcoming Encounters Date Type Department Care Team (Late st Contact Info) Description 06/29/2024 3:30 PM EDT Office Visit Cardiology, [facility] [address] [place] [address] Debbi Nolan PA-C [address] [place] [address] 06/30/2024 10:00 AM EDT Imaging Radiology [facility] 1st [facility] [address] [place] [address] 07/01/2024 9:30 AM EDT Imaging Radiology [facility] [address] [place] [address] 08/01/2024 8:30 AM EST Laboratory Laboratory [facility] [address] [place] [address] [place], Lab Scenery [address] [facility] [place] [address] 08/02/2024 10:15 AM EST Office Visit Urology, [facility] 132 [facility] [place] [address] Mac Hook MD [address] [place] [address] 08/05/2024 8:50 AM EST Anticoagulation Pharmacy, [facility] [address] [place] [address] Pharmacist1, [facility] 200 [facility] [place] [address] 08/05/2024 9:00 AM EST Office Visit General Internal Medicine [facility] 200 [facility] [place] [address] Garry Reyes MD 200 [facility] [place] [address] 10/21/2024 10:40 AM EST Telemedicine Endocrinology [address] [place] [phone] Jalyn Ladd MD [address] [facility] [place] [address] 12/29/2024 9:45 AM EDT Office Visit Dermatology [facility] [address] [place] [address] Garry Ryan MD 200 [place] [address] 02/21/2025 11:20 AM EDT Office Visit Sleep Disorders Ctr [facility] 132 [facility] [place] [phone] Maris Lucero DO 132 [facility] [place] [address] Scheduled Procedures Name Priority Associated Diagnoses Date/Ti [...] 09/01/2023, Additional history exists TSH 04/01/2025 04/01/2024, 2 03/2024, 11/21/2023, Additional history exists Pneumococcal Vaccine: 65+ Years Completed 05/12/2018, 04/27/2017, 10/12/2007 RETIRED - COLONOSCOPY-EVERY 5 YRS AGES 18-100 Discontinued 08/02/2018, 08/02/2018, 07/06/2015, Additional history exists Lung Cancer Screening Completed 06/29/2023 , 06/26/2022, 06/25/2021, Additional history exists COVID-19 Vaccine Completed 05/21/2024, , 06/13/2022, Additional history exists Influenza Vaccine (FLU shot) Completed 06/04/2024, 06/06/2023, 06/07/2022, Additional history exists HPV (Gardasil) Vaccine Aged Out No lo nger eligible based on patient's age to complete this topic Hepatitis B Vaccine Aged Out No longe r eligible based on patient's age to complete this topic MENINGOCOCCAL (MENACTRA/MENVEO) Aged Out No longer eligible based on patient's age to complete this topic documented as of this encounter Medical Devices Implanted Type Area Contact Lens Curve Grinder Device Identifier Shelf Expiration Date Model / Serial / Lot Hernia Patch Lrg/[place] W/Strp - [id number] Implanted:Qty: 1 on 07/17/2015 by Vicente Sandoval MD at [facility] N/A: Abdomen CR BARD : DAVOL 07/21/2016 [id number] / / [id number] Lens Intraoc 20.0 - [id number] - [id number] Implanted:Qty: 1 on 01/22/2021 by Lui Hardy MD at OR [facility] Left: Eye BAUSCH & LOMB 08/20/2025 [id number] / [id number] / Lens Intraoc 20.0 - [id number] - [id number] Implanted:Qty: 1 on 02/05/2021 by Lui Hardy MD at OR [facility] Right: Eye BAUSCH & LOMB 10/21/2025 [id number] / [id number] / [id number] documented as of this encounter Procedures Procedure Name Priority Date/Time Associated Diagnosis Comments INR FINGERSTICK, POINT OF CARE STAT 06/20/2024 8:52 AM EDT History of TIA (transient ischemic attack) LV (left ventricular) mural thrombus following NH (HCC) Anticoagulation management encounter documented in this encounter Results * INR FINGERSTICK, POINT OF CARE (06/20/2024 8:52 AM EDT) Fingerstick INR 2.5 INR 8:53 AM EDT [facility] 56-02 Blood 06/20/2024 8:52 AM EDT 06/20/2024 8:53 AM EDT Narrative [facility] 56-02 - 06/20/2024 8:53 AM EDT Therapeutic ranges for non-operative patients: Prophylaxsis/treatment of DVT: (Range:2.0-3.0) Treatment of pulmonary embolism:(Range:2.0-3.0) Prevention of systemic embolism from: -tissue heart valves -acute myocardial infarction -valvular heart disease -atrial fibrillation (Range: 2.0-3.0) Mechanical prosthetic valves: (Range: 2.5-3.5) Salvador Hough V, RPh LAB POINT OF CARE TE ST DOCKED DEVICE UNSOLICITED RESULTS [facility] 56-02 [address] [place] [address] documented in this encounter Visit Diagnoses Diagnosis LV (left ventricular) mural thrombus following NH (HCC)- Primary Other certain sequelae of myocardial infarction, not elsewhere classified History of TIA (transient ischemic attack) Transient ischemic attack (TIA), and cerebral infarction without residual deficits Anticoagulation management encounter Encounter for therapeutic drug monitoring documented in this encounter Advance Directives * [...] and were consensually agreed upon. Care Teams Detective Bowling Alley Relationship Specialty Start Date End Date [facility] [address] PCP - General Internal Medicine 02/25/19 documented as of this encounter
--- OUTSIDE RECORDS SUMMARY | 2024-07-29 23:46 | External Medical Summary | Summary of Care ---
Author Name Unknown Organization [facility] Address [address] [place] [address] Phone [phone] Care Team Providers Care Well Blower Name Role Phone Garry Reyes MD Primary Care Provider + Reason for Visit * Reason Comments eRx-Medication Refill Encounter Details Date Type Department Care Team (Late st Contact Info) Description 05/27/2024 Refill Urology, [facility] [address] [place] [address] Mac Fields MD [address] [place] [address] Allergies No known active allergiesdocumented as of this encounter (statuses as of 05/27/2024) Medications Medication Sig Dispensed Refills Start Date [...] ns:Dyslipidemia, goal LDL below 100,Old myocardial infarct TAKE 1 TABLET BY MOUTH EVERY DAY IN THE AFTERNOON 90 Tablet 3 04/06/20 23 Active Lisinopril 40 MG Oral TabletIndications: 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 90 Tablet 3 05/07/20 23 Active Nitroglycerin 0.4 MG Sublingual Tablet Sublingual [...] (Coumadin)Indicati ons:LV (left ventricular) mural thrombus following [place] (HCC) TAKE 2 TABLETS TUESDAYS & SATURDAYS, 1 TABLET ALL OTHER DAYS OR DIRECTED 120 Tablet 3 08/17/20 23 Active Additional Information Patient taking differently: Oral QPM-1999, As directed by Anticoagulation Clinic, Informant: Spouse, Reported on 08/31/2023 CPAP Use as directed at bedtime. Active Chlorthalidone 25 MG Oral Tablet (Hygroton)Indicati ons:Hypotension due to drugs Take 0.5 Tablets by mouth in the morning. 09/23/19 24 Active Omeprazole 40 MG Oral Capsule Delayed [...] meds) 90 Tablet 3 04/04/20 24 Active Erythromycin 5 MG/GM Ophthalmic Ointment Apply .25 inch ribbon to right lower eyelid incision 4 times daily for 14 days then daily at bedtime. 3.5 g 3 04/13/20 24 Active Carvedilol 6.25 MG Oral Tablet (Coreg)Indications :Coronary artery disease involving grand [place] coronary artery of grand traverse heart without angina pectoris,LV (left ventricular) mural thrombus following [place] (HCC),HTN, goal below 140/90,Ischemic cardiomyopathy,His tory of [...] BY MOUTH BEFORE BEDTIME 90 Capsule 2 05/27/20 24 Active Tamsulosin HCl 0.4 MG Oral Capsule (Flomax) Take 1 Capsule by mouth in the morning. 30 Capsule 1 09/02/20 23 024 Discontinued documented as of this encounter (statuses as of 05/27/2024) Active Problems Problem Noted Date Diagnosed Date [...] esophagus 05/26/2019 Coronary artery disease invo lving grand traverse coronary artery of grand traverse heart without angina pectoris 02/15/2019 Old myocardial [...] as of this encounter (statuses as of 05/27/2024) Resolved Problems Problem Noted Date Diagnosed Date [...] use aero chamber. Test performed by Celi CHILD CARE COOK CPFT Thyroid nodule 05/26/2019 01/08/[address] [...] as of this encounter (statuses as of 05/27/2024) Immunizations Name Administration Dates Next Due COVID-19 mRNA, LNP-s, No Pre serve, 2-Dose Series (2-Observe) 05/22/2021,12/13/2020,11/15/2020 COVID-19, LNP-s, No Preserve , Yanick-sucrose, Ages 12+ (2-Observe) 12/27/2021 COVID-19, MRNA-LNP, 23-24, P F, 30 MCG/0.3 mL, 12 YRS AND ABOVE, IM ([facility]) 06/15/2023 Covid-19, Mrna, Lnp-s, Pf, B ivalent, 30 Mcg, IM, 12 yrs and above (2-Observe) 06/13/2022 Pneumococcal Conjugate Vacc, 13 Valent (Prevnar) [...] encounter Miscellaneous Notes * Telephone Encounter - Mac Fields MD - 05/27/2024 12:16 PM EDT Signed Prescriptions: Disp Refills Tamsulosin HCl 0.4 MG Oral Capsule (Flomax)90 Cap*2 Sig: TAKE 1 CAPSULE BY MOUTH BEFORE BEDTIME Authorizing Provider: MAC FIELDS * Telephone Encounter - Bernice Otoole LPN - 05/27/2024 11:52 AM EDTPending Prescriptions: Disp Refills Tamsulosin HCl 0.4 MG Oral Capsule [Pharma*90 Cap*2 Sig: TAKE 1 CAPSULE BY MOUTH BEFORE BEDTIME * Telephone Encounter - Bernice Otoole LPN - 05/27/2024 11:51 AM EDT Please refill the requested medication(s). Tamsulosin 06/02/2022 (in office), Visit date not found (telemedicine) 08/02/2024 Review of patient's allergies indicates: No Known Allergies documented in this encounter Plan of Treatment Upcoming Encounters Date Type Department Care Team (Late st Contact Info) Description 05/30/2024 8:30 AM EDT Anticoagulation Pharmacy, [facility] [address] [facility] [place] [address] Pharmacist1, [facility] 200 [facility] [place] [address] 05/30/2024 11:00 AM EDT Cardiac Studies Cardiac Studies, [facility] [address] [place] [address] 06/29/2024 3:30 PM EDT Office Visit Cardiology, [facility] [address] [place] [address] Debbi Nolan PA-C [address] [place] [address] 06/30/2024 10:00 AM EDT Imaging Radiology [facility] [address] 07/01/2024 9:30 AM EDT Imaging Radiology [facility] 132 [facility] [place] [address] 08/01/2024 8:30 AM EST Laboratory Laboratory [facility] [address] [place] [phone] [facility] [address] [facility] [place] [address] 08/02/2024 10:15 AM EST Office Visit Urology, [facility] 132 [facility] [place] [address] Mac Fields MD [address] [place] [address] [place] [address] 08/05/2024 9:00 AM EST Office Visit General Internal Medicine [facility] [address] [place] [address] Garry Reyes MD [address] [facility] [place] [address] 10/21/2024 10:40 AM EST Telemedicine Endocrinology [address] [place] [phone] Jalyn Ladd MD [address] [facility] [place] [address] 12/29/2024 9:45 AM EDT Office Visit Dermatology [facility] [address] [place] [address] Garry Ryan MD [address] [place] [address] 02/21/2025 11:20 AM EDT Office Visit Sleep Disorders Ctr [facility] [address] [place] [address] Maris Lucero, [address] [place] [address] Scheduled Procedures Name Priority Associated Diagnoses Date/Ti [...] 06/08/2021, Additional history exists HbA1c 07/09/2024 01/08/2024, 0 10/2023, 06/18/2023, Additional history exists COVID-19 Vaccine ( season) 2024 05/21/2024, 06/15/2023, 06/13/2022, Additional history exists Albumin/Creatinine Ratio 01/07/2025 01/08/2024, 11/20 GFR 01/07/2025 01/08/2024, 0 10/2023, 09/01/2023, Additional history exists TSH 04/01/2025 [...] this encounter Medical Devices Implanted Type Area Early Head Start Teacher Device Identifier Shelf Expiration Date Model / Serial / Lot Hernia Patch Lrg/[place] W/Strp - [id number] Implanted:Qty: 1 on 07/17/2015 by Vicente Sandoval MD at OR [facility] N/A: Abdomen CR BARD : DAVOL 07/21/2016 [id number] / / [id number] Lens Intraoc 20.0 - [id number] - [id number] Implanted:Qty: 1 on 01/22/2021 by Lui Hardy MD at OR [facility] Left: Eye BAUSCH & LOMB 08/20/2025 [id number] / [id number] / Lens Intraoc 20.0 - [id number] - [id number] Implanted:Qty: 1 on 02/05/2021 by Lui Hardy MD at OR [facility] Right: Eye BAUSCH & LOMB 10/21/2025 [id number] / [id number] / [id number] documented as of this encounter Advance Directives [...] and were consensually agreed upon. Care Teams Well Blower Relationship Specialty Start Date End Date Garry Reyes MD [address] [facility] [place] [address] PCP - General Internal Medicine 02/25/19 documented as of this encounter
--- OUTSIDE RECORDS SUMMARY | 2024-07-29 23:46 | External Medical Summary | Summary of Care ---
Author Name Unknown Organization [facility] Address [address] [place] [address] Phone [phone] Care Team Providers Care Health Sanitarian Name Role Phone Garry Reyes MD Primary Care Provider + Reason for Visit * Reason Comments eRx-Medication Refill Encounter Details Date Type Department Care Team (Late st Contact Info) Description 06/24/2024 Refill Cardiology, [facility] [address] [facility] [address] Brandy Loza CRNP [facility] [address] Hypotension due to drugs Allergies No known active allergiesdocumented as of this encounter (statuses as of 06/26/2024) Medications Medication Sig Dispensed Refills Start Date [...] (Coumadin)Indicati ons:LV (left ventricular) mural thrombus following [place] (HCC) [...] Oral Tablet (Coreg)Indications :Coronary artery disease involving [place] coronary artery of [place] heart without angina pectoris,LV (left ventricular) mural thrombus following [place] (HCC),HTN, goal below 140/90,Ischemic cardiomyopathy,His tory of [...] BEDTIME 90 Capsule 2 05/27/20 24 Active Atorvastatin Calcium 80 MG Oral Tablet (Lipitor)Indicatio ns:Dyslipidemia, goal LDL below 100,Old myocardial infarct Take 1 Tablet by mouth daily. 90 Tablet 3 05/27/20 24 Active Lisinopril 40 MG Oral TabletIndications: Old myocardial infarct,Coronary artery disease involving [place] coronary artery of [place] heart without angina pectoris,LV (left ventricular) mural thrombus following [place] (HCC),HTN, goal below 140/90,Ischemic cardiomyopathy,His tory of TIA (transient ischemic attack),Dyslipidem ia, goal LDL below 70,Essential hypertension with goal blood pressure less than 140/90 Take 1 Tablet by mouth in the morning. 90 Tablet 3 05/27/20 24 Active Chlorthalidone 25 MG Oral Tablet (Hygroton)Indicati ons:Hypotension due to drugs Take 0.5 Tablets by mouth in the morning. 45 Tablet 3 06/26/20 24 Active Chlorthalidone 25 MG Oral Tablet (Hygroton)Indicati ons:Hypotension due to drugs Take 0.5 Tablets by mouth in the morning. 09/23/19 24 024 Discontinued documented as of this encounter (statuses as of 06/26/2024) Active Problems Problem Noted Date Diagnosed Date [...] esophagus 05/26/2019 Coronary artery disease invo lving [place] coronary artery of [place] heart without angina pectoris 02/15/2019 Old myocardial [...] as of this encounter (statuses as of 06/26/2024) Resolved Problems Problem Noted Date Diagnosed Date [...] use aero chamber. Test performed by Celi BINDERY CUTTER OPERATOR CPFT Thyroid nodule 05/26/2019 01/08/[address] [...] as of this encounter (statuses as of 06/26/2024) Immunizations Name Administration Dates Next Due COVID-19 mRNA, LNP-s, No Pre serve, 2-Dose Series (Conductor) 05/22/2021,12/13/2020,11/15/2020 COVID-19, LNP-s, No Preserve , Yanick-sucrose, [...] encounter Miscellaneous Notes * Telephone Encounter - Roxane Chery PA-C - 06/26/2024 10:49 AM EDT Signed Prescriptions: Disp Refills Chlorthalidone 25 MG Oral Tablet (Hygroton)45 Tab*3 Sig: Take 0.5 Tablets by mouth in the morning. Authorizing Provider: ROXANE CHERY * Telephone Encounter - Елена Ceja RPh - 06/25/2024 2:30 PM EDTPending Prescriptions: Disp Refills Chlorthalidone 25 MG Oral Tablet (Hygroton)45 Tab*3 Sig: Take 0.5 Tablets by mouth in the morning. * Telephone Encounter - Елена Ceja RPh - 06/25/2024 2:23 PM EDT Medication decreased by PCP on 09/23/23 due to hypotension. Updated Rx not sent to pharmacy. Rx updated. Previous prescriber no longer at office. Upcoming apt on 06/29/24. Please approve if appropriate. BP Readings from Last 3 Encounters: 02/22/24 144/78 01/08/24 112/60 11/26/23 128/64 Thanks, Елена Ceja, PharmD Clinical Pharmacist [facility] 06/25/2024, 2:28 PM documented in this encounter Plan of Treatment Upcoming Encounters Date Type Department Care Team (Late st Contact Info) Description 06/29/2024 3:30 PM EDT Office Visit Cardiology, [facility] [address] [address] Roxane Chery PA-C [address] [address] 06/30/2024 10:00 AM EDT Imaging Radiology [facility] [address] 07/01/2024 9:30 AM EDT Imaging Radiology [facility] [address] [facility] [address] 08/01/2024 8:30 AM EST Laboratory Laboratory [facility] [address] [place] [phone] [facility] [address] [place] [address] 08/02/2024 10:15 AM EST Office Visit Urology, [facility] 132 [facility] [place] [address] Mac Hook MD [address] [place] [address] 08/05/2024 8:50 AM EST Anticoagulation Pharmacy, [facility] [address] [place] [address] Pharmacist1, [facility] [address] [facility] [place], [place] [address] 08/05/2024 9:00 AM EST Office Visit General Internal Medicine [facility] [address] [place], [place] [address] Garry Reyes MD [address] [facility] [place], [place] [address] 10/21/2024 10:40 AM EST Telemedicine Endocrinology [address] [place] [phone] Jalyn Ladd MD [address] [facility] [place] [address] 12/29/2024 9:45 AM EDT Office Visit Dermatology [facility] [address] [place] [address] Garry Ryan MD [address] [place] [address] 02/21/2025 11:20 AM EDT Office Visit [facility] Disorders Ctr [facility] [place] [address] [place] [phone] Maris Lucero DO [address] [place] [address] Scheduled Procedures Name Priority Associated Diagnoses Date/Ti [...] this encounter Medical Devices Implanted Type Area Floatman Device Identifier Shelf Expiration Date Model / Serial / Lot Hernia Patch Lrg/[place] W/Strp - [id number] Implanted:Qty: 1 on 07/17/2015 by Vicente Sandoval MD at OR [facility] N/A: Abdomen CR BARD : DAVOL 07/21/2016 [id number] / / [id number] Lens Intraoc 20.0 - [id number] - [id number] Implanted:Qty: 1 on 01/22/2021 by Lui Hardy MD at OR [facility] Left: Eye BAUSCH & LOMB 08/20/2025 [id number] / [id number] / Lens Intraoc 20.0 - [id number] - [id number] Implanted:Qty: 1 on 02/05/2021 by Lui Hardy MD at OR [facility] Right: Eye BAUSCH & LOMB 10/21/2025 [id number] / [id number] / [id number] documented as of this encounter Visit Diagnoses Diagnosis Hypotension due to drugs Other iatrogenic hypotension documented in this encounter Advance Directives * [...] and were consensually agreed upon. Care Teams Health Sanitarian Relationship Specialty Start Date End Date Garry Reyes MD 200 [facility] [place] [address] PCP - General Internal Medicine 02/25/19 documented as of this encounter
--- OUTSIDE RECORDS SUMMARY | 2024-07-29 23:46 | External Medical Summary | Summary of Care ---
Author Name Unknown Organization [facility] Address [address] [place] [address] Phone [phone] Care Team Providers Care Delinquent Tax Collection Assistant Name Role Phone Garry Reyes MD Primary Care Provider + Reason for Visit * Reason Onset Date Comments [facility]: Screening 06/03/2024 Encounter Details Date Type Department Care Team (Late st Contact Info) Description 06/03/2024 Telephone [facility], [facility] [address] [place] [address] Yani Acharya, WOODWIND REEDS CUTTER [address] [place] [address] [facility]: Screening Allergies No known active allergiesdocumented as of this encounter (statuses as of 06/03/2024) Medications Medication Sig Dispensed Refills Start Date [...] (Coumadin)Indicatio ns:LV (left ventricular) mural thrombus following [place] (HCC) TAKE 2 TABLETS TUESDAYS & SATURDAYS, [...] Oral Tablet (Coreg)Indications: Coronary artery disease involving [place] coronary artery of [place] heart without angina pectoris,LV (left ventricular) mural thrombus following [place] (HCC),HTN, goal below 140/90,Ischemic cardiomyopathy,Hist ory of [...] TabletIndications:O ld myocardial infarct,Coronary artery disease involving [place] coronary artery of [place] heart without angina pectoris,LV (left ventricular) mural thrombus following [place] (HCC),HTN, goal below 140/90,Ischemic cardiomyopathy,Hist ory of TIA (transient ischemic attack),Dyslipidemi a, goal LDL below 70,Essential hypertension with goal blood pressure less than 140/90 Take 1 Tablet by mouth in the morning. 90 Tablet 3 05/27/2024 Active documented as of this encounter (statuses as of 06/03/2024) Active Problems Problem Noted Date Diagnosed Date [...] esophagus 05/26/2019 Coronary artery disease invo lving [place] coronary artery of [place] heart without angina pectoris 02/15/2019 Old myocardial [...] as of this encounter (statuses as of 06/03/2024) Resolved Problems Problem Noted Date Diagnosed Date [...] use aero chamber. Test performed by Celi INSTRUMENTATION DESIGNER CPFT Thyroid nodule 05/26/2019 01/08/[address] [...] as of this encounter (statuses as of 06/03/2024) Immunizations Name Administration Dates Next Due COVID-19 mRNA, LNP-s, No Pre serve, 2-Dose Series ([employer]) 05/22/2021,12/13/2020,11/15/2020 COVID-19, LNP-s, No Preserve , Yanick-sucrose, Ages 12+ (Pfizer) 12/27/2021 COVID-19, MRNA-LNP, 23-24, P F, 30 MCG/0.3 mL, 12 YRS AND ABOVE, IM ([facility]) 06/15/2023 Covid-19, Mrna, Lnp-s, Pf, B ivalent, 30 Mcg, IM, 12 yrs and above ([employer]) 06/13/2022 Pneumococcal Conjugate Vacc, 13 Valent (Prevnar) [...] encounter Miscellaneous Notes * Telephone Encounter - Yani Acharya LPN - 06/03/2024 9:52 AM EDT Sky Peralta was referred as a potential candidate for enrollment for [facility]. A review of this chart was completed and: Sky does not meet criteria for enrollment into [facility]. Referral Source: Monthly Proactive Eligibility List Criteria for Ineligibility: Not Located in Service Area Referring care team was notified via : [employer] communication Patient does live in [facility] service area Pt does not have 6 or more chronic complex medical conditions documented in this encounter Plan of Treatment Upcoming Encounters Date Type Department Care Team (Late st Contact Info) Description 06/20/2024 8:50 AM EDT Anticoagulation Pharmacy, [facility] [address] [place] [address] Pharmacist1, [facility] [address] [facility] [place] [address] 06/29/2024 3:30 PM EDT Office Visit Cardiology, [facility] 132 [facility] [place] [address] Debbi Nolan PA-C 132 [facility] [place] [address] 06/30/2024 10:00 AM EDT Imaging Radiology [facility]st [facility] 132 [facility] [place] [address] 07/01/2024 9:30 AM EDT Imaging Radiology [facility] 132 [place] [address] 08/01/2024 8:30 AM EST Laboratory Laboratory [facility] [address] [place] [phone] [facility] [address] [place] [address] 08/02/2024 10:15 AM EST Office Visit Urology, [facility] [place] [address] Mac Hook MD [address] [place] [address] 08/05/2024 9:00 AM EST Office Visit General Internal Medicine [facility] [address] [place] [address] Garry Reyes MD [address] [place] [address] 10/21/2024 10:40 AM EST Telemedicine Endocrinology [address] [place] [address] Jalyn Ladd MD [address] [place] [address] 12/29/2024 9:45 AM EDT Office [facility] 200 [facility] [place] [address] Garry Ryan MD [address] [place] [address] 02/21/2025 11:20 AM EDT Office Visit Sleep Disorders Ctr [facility] [address] [place] [address] Maris Lucero DO [address] [facility] [address] Scheduled Procedures Name Priority Associated Diagnoses Date/Ti [...] 01/08/2024, 10/2023, 09/01/2023, Additional history exists TSH 04/01/2025 04/01/2024, 11/20, 11/21/2023, Additional history exists Pneumococcal Vaccine: 65+ Years Completed 05/12/2018, 04/27/2017, 10/12/2007 RETIRED - COLONOSCOPY-EVERY 5 YRS AGES 18-100 Discontinued 08/02/2018, 08/02/2018, 07/06/2015, Additional history exists Lung Cancer Screening Completed 06/29/2023 , 06/26/2022, 06/25/2021, Additional history exists COVID-19 Vaccine Completed 05/21/2024, , 06/13/2022, Additional history exists HPV (Gardasil) Vaccine Aged Out No lo nger eligible based on patient's age to complete this topic Hepatitis B Vaccine Aged Out No longe r eligible based on patient's age to complete this topic MENINGOCOCCAL (MENACTRA/MENVEO) Aged Out No longer eligible based on patient's age to complete this topic documented as of this encounter Medical Devices Implanted Type Area Peanut Sheller Device Identifier Shelf Expiration Date Model / Serial / Lot Hernia Patch Lrg/[place] W/Strp - [id number] Implanted:Qty: 1 on 07/17/2015 by Vicente Sandoval MD at OR [facility] N/A: Abdomen CR BARD : DAVOL 07/21/2016 [id number] / / [id number] Lens Intraoc 20.0 - [id number] - [id number] Implanted:Qty: 1 on 01/22/2021 by Lui Hardy MD at OR [facility] Left: Eye BAUSCH & LOMB 08/20/2025 [id number] / [id number] / Lens Intraoc 20.0 - [id number] - [id number] Implanted:Qty: 1 on 02/05/2021 by Lui Hardy MD at OR [facility] Right: Eye BAUSCH & LOMB 10/21/2025 [id number] / [id number] / [id number] documented as of this encounter Advance Directives [...] and were consensually agreed upon. Care Teams Delinquent Tax Collection Assistant Relationship Specialty Start Date End Date Garry Reyes MD 200 [place] [address] PCP - General Internal Medicine 02/25/19 documented as of this encounter
--- OUTSIDE RECORDS SUMMARY | 2024-07-29 23:46 | External Medical Summary | Summary of Care ---
Author Name Unknown Organization [facility] Address [address] [place] [address] Phone [phone] Care Team Providers Care Mechanical Lead Name Role Phone Garry Reyes MD Primary Care Provider + Encounter Details Date Type Department Care Team (Late st Contact Info) Description 06/04/2024 9:20 AM EDT Immunization Ancillary [facility] [address] [place] [address] [facility] Flu Shot Clinic [facility] [address] [place] [address] Arrived Allergies No known active allergiesdocumented as of this encounter (statuses as of 06/04/2024) Medications Medication Sig Dispensed Refills Start Date [...] (Coumadin)Indicatio ns:LV (left ventricular) mural thrombus following AL (HCC) TAKE 2 TABLETS TUESDAYS & SATURDAYS, [...] Oral Tablet (Coreg)Indications: Coronary artery disease involving [place] coronary artery of [place] heart without angina pectoris,LV (left ventricular) mural thrombus following AL (HCC),HTN, goal below 140/90,Ischemic cardiomyopathy,Hist ory of [...] TabletIndications:O ld myocardial infarct,Coronary artery disease involving [place] coronary artery of [place] heart without angina pectoris,LV (left ventricular) mural thrombus following AL (HCC),HTN, goal below 140/90,Ischemic cardiomyopathy,Hist ory of TIA (transient ischemic attack),Dyslipidemi a, goal LDL below 70,Essential hypertension with goal blood pressure less than 140/90 Take 1 Tablet by mouth in the morning. 90 Tablet 3 05/27/2024 Active documented as of this encounter (statuses as of 06/04/2024) Active Problems Problem Noted Date Diagnosed Date [...] esophagus 05/26/2019 Coronary artery disease invo lving [place] coronary artery of [place] heart without angina pectoris 02/15/2019 Old myocardial [...] as of this encounter (statuses as of 06/04/2024) Resolved Problems Problem Noted Date Diagnosed Date [...] use aero chamber. Test performed by [facility] LINE HAUL DRIVER CPFT Thyroid nodule 05/26/2019 01/08/[address] [...] disorders 09/18/2005 04/27/2017 Overview: ENT Consult: 09/26 264.49 Voice disturbance nec (primary encounter diagnosis) PLAN: [...] as of this encounter (statuses as of 06/04/2024) Immunizations Name Administration Dates Next Due COVID-19 mRNA, LNP-s, No Pre serve, 2-Dose Series (Sontra) 05/22/2021,12/13/2020,11/15/2020 COVID-19, LNP-s, No Preserve , Yanick-sucrose, Ages 12+ (Pfizer) 12/27/2021 COVID-19, MRNA-LNP, 23-24, P F, 30 MCG/0.3 mL, 12 YRS AND ABOVE, IM (PFIZER-Comirnat) 06/15/2023 Covid-19, Mrna, Lnp-s, Pf, B ivalent, 30 Mcg, IM, 12 yrs and above (Sontra) 06/13/2022 Pneumococcal Conjugate Vacc, 13 Valent (Prevnar) [...] Description 06/20/2024 8:50 AM EDT Anticoagulation Pharmacy, [facility] [address] [place] [address] Pharmacist1, [facility] [address] [facility] [place] [address] 06/29/2024 3:30 PM EDT Office Visit Cardiology, [facility] [address] [address] Debbi Nolan PA-C [address] [address] 06/30/2024 10:00 AM EDT Imaging Radiology [facility] 1st [facility] [address] [place] [address] 07/01/2024 9:30 AM EDT [address] [address] 08/01/2024 8:30 AM EST Laboratory Laboratory [facility] [address] [place] [address] [place] [address] [address] [facility] [place] [address] 08/02/2024 10:15 AM EST Office Visit Urology, [facility] [address] [place] [address] Mac Hook MD [address] [place] [address] [place] [address] 08/05/2024 9:00 AM EST Office Visit General Internal Medicine [facility] [address] [place] [place] [address] Garry Reyes MD [address] [facility] [place] [address] 10/21/2024 10:40 AM EST Telemedicine Endocrinology [address] [place] [address] Jalyn Ladd MD [address] [facility] [address] 12/29/2024 9:45 AM EDT Office Visit Dermatology [facility] [address] [place] [address] Garry Ryan MD [address] [place] [address] 02/21/2025 11:20 AM EDT Office Visit Sleep Disorders Ctr [facility] [address] [place] [address] Maris Lucero, [address] [place] [address] Scheduled Procedures Name Priority Associated Diagnoses Date/Ti [...] 12/17/2022 Influenza Vaccine (FLU shot) (#1) 2024 06/04/2024, 06/06/2023, 06/07/2022, Additional history exists HbA1c 07/09/2024 01/08/2024, 010 [...] this encounter Medical Devices Implanted Type Area Gluing 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 Device Identifier Shelf Expiration Date Model / Serial / Lot Hernia Patch Lrg/Eek W/Strp - [id number] Implanted:Qty: 1 on 07/17/2015 by Vicente Sandoval MD at OR [facility] N/A: Abdomen CR BARD : DAVOL 07/21/2016 [id number] / / [id number] Lens Intraoc 20.0 - [id number] - [id number] Implanted:Qty: 1 on 01/22/2021 by Lui Hardy MD at OR [facility] Left: Eye BAUSCH & LOMB 08/20/2025 [id number] / [id number] / Lens Intraoc 20.0 - [id number] - [id number] Implanted:Qty: 1 on 02/05/2021 by Lui Hardy MD at OR [facility] Right: Eye BAUSCH & LOMB 10/21/2025 [id number] / [id number] / [id number] documented as of this encounter Advance Directives [...] and were consensually agreed upon. Care Teams Mechanical Lead Relationship Specialty Start Date End Date Garry Reyes MD [address] [place], [place] [id number] PCP - General Internal Medicine 02/25/19 documented as of this encounter
--- OUTSIDE RECORDS SUMMARY | 2024-07-29 23:46 | External Medical Summary | Summary of Care ---
Author Name Unknown Organization [facility] Address [address] [place] [address] Phone [phone] Care Team Providers Care Finisher Machine Name Role Phone Garry Reyes MD Primary Care Provider + Reason for Visit * Reason Comments eRx-Medication Refill Encounter Details Date Type Department Care Team (Late st Contact Info) Description 05/27/2024 Refill Cardiology, [facility] [address] [place] [address] Vicente Nathan, PA-C [address] [place] [address] Dyslipidemia, goal LDL below 100; Old myocardial infarct; Coronary artery disease involving unga coronary artery of unga heart without angina pectoris; LV (left ventricular) mural thrombus following NE (HCC); HTN, goal below 140/90; Ischemic cardiomyopathy; History of TIA (transient ischemic attack); Dyslipidemia, goal LDL below 70; Essential hypertension with goal blood pressure less than 140/90 Allergies No known active allergiesdocumented as of [...] 23 Active Baclofen 10 MG Oral Tablet (Lioresal)Indicat ions:Spasm of muscle,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 90 Tablet 06/23/20 23 Active Warfarin Sodium 5 MG Oral Tablet (Coumadin)Indicat ions:LV (left ventricular) mural thrombus following NE (HCC) TAKE 2 TABLETS TUESDAYS & SATURDAYS, 1 TABLET ALL OTHER DAYS OR DIRECTED 120 Tablet 3 08/17/20 23 Active Additional Information Patient taking differently: Oral Q-1999, As directed by Anticoagulation Clinic, Informant: Spouse, Reported on 08/31/2023 CPAP Use as directed at bedtime. Active Chlorthalidone 25 MG Oral Tablet (Hygroton)Indicat ions:Hypotension due to drugs Take 0.5 Tablets by mouth in the morning. 09/23/19 24 Active Omeprazole 40 MG Oral Capsule Delayed Release (PriLOSEC)Indicat ions:GERD (gastroesophageal reflux disease) TAKE 1 CAPSULE BY MOUTH EVERY DAY 90 Capsule 3 02/01/20 24 Active Levothyroxine Sodium 175 MCG Oral Tablet (Levoxyl)Indicati ons:Follicular thyroid cancer (HCC),Postoperati ve hypothyroidism 1 tab Thursday to Thursday, half tab on Sundays. (at least 30 min prior to breakfast or other meds) 90 Tablet 3 04/04/20 24 Active Erythromycin 5 MG/GM Ophthalmic Ointment Apply .25 inch ribbon to right lower eyelid incision 4 times daily for 14 days then daily at bedtime. 3.5 g 3 04/13/20 24 Active Carvedilol 6.25 MG Oral Tablet (Coreg)Indication s:Coronary artery disease involving unga coronary artery of unga heart without angina pectoris,LV (left ventricular) mural thrombus following NE (HCC),HTN, goal below 140/90,Ischemic cardiomyopathy,Hi story of TIA (transient ischemic attack),Dyslipide devyn, goal LDL below 70,Old myocardial infarct,Essential hypertension [...] Active Atorvastatin Calcium 80 MG Oral Tablet (Lipitor)Indicati ons:Dyslipidemia, goal LDL below 100,Old myocardial infarct Take 1 Tablet by mouth daily. 90 Tablet 3 05/27/20 24 Active Lisinopril 40 MG Oral TabletIndications :Old myocardial infarct,Coronary artery disease involving unga coronary artery of unga heart without angina pectoris,LV (left ventricular) mural thrombus following NE (HCC),HTN, goal below 140/90,Ischemic cardiomyopathy,Hi story of TIA (transient ischemic attack),Dyslipide devyn, goal LDL below 70,Essential hypertension with goal blood pressure less than 140/90 Take 1 Tablet by mouth in the morning. 90 Tablet 3 05/27/20 24 Active Atorvastatin Calcium 80 MG Oral Tablet (Lipitor)Indicati ons:Dyslipidemia, goal LDL below 100,Old myocardial infarct TAKE 1 TABLET BY MOUTH EVERY DAY IN THE AFTERNOON 90 Tablet 3 04/06/20 23 024 Discontinued Lisinopril 40 MG Oral TabletIndications :Coronary artery disease involving unga coronary artery of unga heart without angina pectoris,LV (left ventricular) mural thrombus following NE (HCC),HTN, goal below 140/90,Ischemic cardiomyopathy,Hi story of TIA (transient ischemic attack),Dyslipide devyn, goal LDL below 70,Old myocardial infarct,Essential hypertension with goal blood pressure less than 140/90 Take 1 Tablet by mouth in the morning. 90 Tablet 3 05/07/20 23 024 Discontinued(Re fill) documented as of this encounter (statuses as [...] esophagus 05/26/2019 Coronary artery disease invo lving unga coronary artery of unga heart without angina pectoris 02/15/2019 Old myocardial [...] use aero chamber. Test performed by Celi HOLIDAY DETECTOR OPERATOR CPFT Thyroid nodule 05/26/2019 01/08/2024 Acute [...] mRNA, LNP-s, No Pre serve, 2-Dose Series (incuBET) 05/22/2021,12/13/2020,11/15/2020 COVID-19, LNP-s, No Preserve , Yanick-sucrose, [...] shopping? (15 years old or older) No 12/06/20 23 Cognitive Status Response Date of Assessm ent Because of a physical, menta l, or emotional condition, do you have serious difficulty concentrating, remembering, or making decisions? (5 years old or older) No 08/26/2023 documented as of this encounter Miscellaneous Notes * Telephone Encounter - Roxane Chery PA-C - 05/27/2024 1:06 PM EDT Signed Prescriptions: Disp Refills Atorvastatin Calcium 80 MG Oral Tablet (Li*90 Tab*3 Sig: Take 1 Tablet by mouth daily.Authorizing Provider: ROXANE CHERY Lisinopril 40 MG Oral Tablet 90 Tab*3 Sig: Take 1 Tablet by mouth in the morning.Authorizing Provider: ROXANE CHERY * Telephone Encounter - Katie Salinas LPN - 05/27/2024 1:03 PM EDTPending Prescriptions: Disp Refills Atorvastatin Calcium 80 MG Oral Tablet (Li*90 Tab*3 Sig: TAKE 1 TABLET BY MOUTH EVERY DAY IN THE AFTERNOON Lisinopril 40 MG Oral Tablet 90 Tab*3 Sig: Take 1 Tablet by mouth in the morning. * Telephone Encounter - Katie Salinas LPN - 05/27/2024 1:00 PM EDT Did you pend patient's preferred pharmacy and medication before forwarding? YES Pharmacy: [id number] Pending Prescriptions: Disp Refills Atorvastatin Calcium 80 MG Oral Tablet (L*90 Tab*3 Sig: TAKE 1 TABLET BY MOUTH EVERY DAY IN THE AFTERNOON Lisinopril 40 MG Oral Tablet 90 Tab*3 Sig: Take 1 Tablet by mouth in the morning. Last Visit: 11/26/2023 (in office), 12/22/2019 (telemedicine) Next Visit: 06/29/2024 If no future appointments scheduled, and last appointment is greater than a year ago, please schedule patient for a follow-up appointment Last date the medication was ordered: 04/06/23 & 05/07/2023 Is this request for a controlled substance? NO Urine Drug Screen:No results found. However, due to the size of the patient record, not all encounters were searched. Please check Results Review for a complete set of results. Patient Phone Numbers Labs: Lab Results Component Value Date/Time CREAT 1.1 01/08/2024 09:39 AM CREAT 1.2 10/15/2020 02:12 PM POTASSIUM 4.1 01/08/2024 09:39 AM POTASSIUM 4.1 10/15/2020 02:12 PM TSH 0.07 (L) 04/01/2024 08:39 AM TSH 2.95 06/06/2019 07:54 AM LDL 64 01/08/2024 09:39 AM LDL 58 07/04/2020 07:43 AM LDL NOT APPLICABLE 07/04/2020 07:43 AM ALT 25 01/08/2024 09:39 AM ALT 17 10/15/2020 02:12 PM HGBA1C 7.0 (H) 01/08/2024 09:39 AM HGBA1C 6.2 (H) 10/15/2020 02:12 PM documented in this encounter Plan of Treatment Upcoming Encounters Date Type Department Care Team (Late st Contact Info) Description 05/30/2024 8:30 AM EDT Anticoagulation Pharmacy, [facility] [address] [place] [address] Pharmacist1, [facility] [address] [place] [address] 05/30/2024 11:00 AM EDT Cardiac Studies Cardiac Studies, [facility] [address] [address] 06/29/2024 3:30 PM EDT Office Visit Cardiology, [facility] [address] [place] [address] Roxane Chery PA-C [address] [place] [address] 06/30/2024 10:00 AM EDT Imaging Radiology [facility] [address] [place] [address] 07/01/2024 9:30 AM EDT Imaging Radiology [facility] [address] [facility] [place] [address] 08/01/2024 8:30 AM EST Laboratory Laboratory [facility] [address] [place] [address] [facility] [address] [place] [address] 08/02/2024 10:15 AM EST Office Visit Urology, [facility] [address] [place] [address] Mac Hook MD [address] [place] [address] 08/05/2024 9:00 AM EST Office Visit General Internal Medicine [facility] [address] [place] [address] Garry Reyes MD [address] [place] [address] 10/21/2024 10:40 AM EST Telemedicine Endocrinology [address] [place] [address] Jalyn Ladd MD [address] [place] [address] 12/29/2024 9:45 AM EDT [facility] [address] [facility] [place] [address] Garry Ryan MD [address] [facility] [place] [address] 02/21/2025 11:20 AM EDT Office Visit Sleep Disorders Ctr [facility] [address] [place] [address] Maris Lucero DO [address] [facility], [place] [address] Scheduled Procedures Name Priority Associated Diagnoses Date/Ti me COLONOSCOPY FLEXIBLE PROXIMAL DIAGNOSTIC Recall History of colon polyps Health Maintenance Due Date Last Done Comments Diabetic Eye Exam 1965 Diabetic Foot Exam 1965 DTap/Tdap Vaccines (2 - Td or Tdap) 12/20/2020 12/20/2010, 02/02/2003 Zoster Vaccines (2 of 2) 04/30/2022 03/05/2022 Mogne's Esophagus Surveilance 06/14/2022 06/14/2019, 07/10/2016, 07/10/2016, Additional [...] this encounter Medical Devices Implanted Type Area Patent Chemist Device Identifier Shelf Expiration Date Model / Serial / Lot Hernia Patch Lrg/Lawrence W/Strp - [id number] Implanted:Qty: 1 on 07/17/2015 by Vicente Sandoval MD at OR [facility] N/A: Abdomen CR BARD : DAVOL 07/21/2016 [id number] / / [id number] Lens Intraoc 20.0 - [id number] - [id number] Implanted:Qty: 1 on 01/22/2021 by Lui Hardy MD at OR [facility] Left: Eye BAUSCH & LOMB 08/20/2025 [id number] / [id number] / Lens Intraoc 20.0 - [id number] - [id number] Implanted:Qty: 1 on 02/05/2021 by Lui Hardy MD at OR [facility] Right: Eye BAUSCH & LOMB 10/21/2025 [id number] / [id number] / [id number] documented as of this encounter Visit Diagnoses Diagnosis Dyslipidemia, goal LDL below 100 Other and unspecified hyperlipidemia Old myocardial infarct Old myocardial infarction Coronary artery disease involving unga coronary artery of unga heart without angina pectoris LV (left ventricular) mural thrombus following NE (HCC) Other certain sequelae of myocardial infarction, not elsewhere classified HTN, goal below 140/90 Unspecified essential hypertension Ischemic cardiomyopathy Other specified forms of chronic ischemic heart disease History of TIA (transient ischemic attack) Transient ischemic attack (TIA), and cerebral infarction without residual deficits Dyslipidemia, goal LDL below 70 Other and unspecified hyperlipidemia Essential hypertension with goal blood pressure less than 140/90 documented in this encounter Advance Directives * [...] and were consensually agreed upon. Care Teams Finisher Machine Relationship Specialty Start Date End Date Garry Reyes MD 200 [place] [address] PCP - General Internal Medicine 02/25/19 documented as of this encounter
--- OUTSIDE RECORDS SUMMARY | 2024-07-29 23:46 | External Medical Summary | Summary of Care ---
Author Name Unknown Organization [facility] Address [address] [place] [address] Phone [phone] Care Team Providers Care Guide Dog Instructor Name Role Phone Garry Reyes MD Primary Care Provider + Reason for Visit * Reason Comments eRx-Medication Refill Encounter Details Date Type Department Care Team (Late st Contact Info) Description 04/30/2024 Refill Cardiology, [facility] [address] [facility] [place] [address] Brandy Loza CRNP [address] [place] [address] Coronary artery disease involving aniak coronary artery of aniak heart without angina pectoris; LV (left ventricular) mural thrombus following PR (HCC); HTN, goal below 140/90; Ischemic cardiomyopathy; History of TIA (transient ischemic attack); Dyslipidemia, goal LDL below 70; Old myocardial infarct; Essential hypertension with goal blood pressure less than 140/90 Allergies No known active allergiesdocumented as of this encounter (statuses as of 05/02/2024) Medications Medication Sig Dispensed Refills Start Date [...] MG Oral TabletIndications: Coronary artery disease involving aniak coronary artery of aniak heart without angina pectoris,LV (left ventricular) mural thrombus following PR (HCC),HTN, goal below 140/90,Ischemic cardiomyopathy,His tory of [...] (Coumadin)Indicati ons:LV (left ventricular) mural thrombus following PR (HCC) TAKE 2 TABLETS TUESDAYS & SATURDAYS, [...] the morning. 30 Capsule 1 09/02/20 23 Active Chlorthalidone 25 MG Oral Tablet (Hygroton)Indicati [...] Oral Tablet (Coreg)Indications :Coronary artery disease involving aniak coronary artery of aniak heart without angina pectoris,LV (left ventricular) mural thrombus following PR (HCC),HTN, goal below 140/90,Ischemic cardiomyopathy,His tory of [...] MORNING 90 Tablet 3 05/02/20 24 Active Carvedilol 6.25 MG Oral Tablet (Coreg)Indications :Coronary artery disease involving aniak coronary artery of aniak heart without angina pectoris,LV (left ventricular) mural thrombus following PR (HCC),HTN, goal below 140/90,Ischemic cardiomyopathy,His tory of TIA (transient ischemic attack),Dyslipidem ia, goal LDL below 70,Old myocardial infarct,Essential hypertension with goal blood pressure less than 140/90 Take 1 Tablet by mouth in the morning and 1 Tablet before bedtime. 180 Tablet 3 05/07/20 23 024 Discontinued documented as of this encounter (statuses as of 05/02/2024) Active Problems Problem Noted Date Diagnosed Date [...] esophagus 05/26/2019 Coronary artery disease invo lving aniak coronary artery of aniak heart without angina pectoris 02/15/2019 Old myocardial [...] as of this encounter (statuses as of 05/02/2024) Resolved Problems Problem Noted Date Diagnosed Date [...] use aero chamber. Test performed by [facility]eli ASSEMBLY MACHINE TENDER CPFT Thyroid nodule 05/26/2019 01/08/[address] [...] as of this encounter (statuses as of 05/02/2024) Immunizations Name Administration Dates Next Due COVID-19 mRNA, LNP-s, No Pre serve, 2-Dose Series (Teqcycle) 05/22/2021,12/13/2020,11/15/2020 COVID-19, LNP-s, No Preserve , Yanick-sucrose, Ages 12+ (Teqcycle) 12/27/2021 COVID-19, MRNA-LNP, 23-24, P F, 30 [...] encounter Miscellaneous Notes * Telephone Encounter - Mulu Mckeon DO - 05/02/2024 4:21 PM EDTSigned Prescriptions: Disp Refills Carvedilol 6.25 MG Oral Tablet (Coreg) 180 Ta*3 Sig: TAKE 1 TABLET BY MOUTH IN THE MORNING AND BEFORE BEDTIME Authorizing Provider: MULU MCKEON * Telephone Encounter - Saima Pires CMA - 05/02/2024 9:54 AM EDTPending Prescriptions: Disp Refills Carvedilol 6.25 MG Oral Tablet [Pharmacy M*180 Ta*3 Sig: TAKE 1 TABLET BY MOUTH IN THE MORNING AND BEFORE BEDTIME * Telephone Encounter - Saima Pires CMA - 05/02/2024 9:54 AM EDT Did you pend patient's preferred pharmacy and medication before forwarding?yes Pharmacy: [id number] [facility] Pending Prescriptions: Disp Refills Carvedilol 6.25 MG Oral Tablet (Coreg) [P*180 Ta*3 Sig: TAKE 1 TABLET BY MOUTH IN THE MORNING AND BEFORE BEDTIME Last Visit: 11/26/2023 (in office), 12/22/2019 (telemedicine) Next Visit: 06/29/2024 If no future appointments scheduled, and last appointment is greater than a year ago, please schedule patient for a follow-up appointment Last date the medication was ordered: 05-07-2023 Is this request for a controlled substance?No Urine Drug Screen:No results found. However, due [...] 08:39 AM TSH 2.95 06/06/2019 07:54 AM LDLCALC 64 01/08/2024 09:39 AM LDLCALC 58 07/04/2020 07:43 AM LDLDIRECT 58 02/26/2022 11:08 AM LDLDIRECT NOT APPLICABLE 07/04/2020 07:43 AM ALT 25 01/08/2024 09:39 AM ALT 17 10/15/2020 02:12 PM HGBA1C 7.0 (H) 01/08/2024 09:39 AM HGBA1C 6.2 (H) 10/15/2020 02:12 PM documented in this encounter Plan of Treatment Upcoming Encounters Date Type Department Care Team (Late st Contact Info) Description 05/30/2024 8:30 AM EDT Anticoagulation Pharmacy, [facility] [place] [address] [place] [address] Pharmacist1, [facility] [address] [facility] [place] [address] 05/30/2024 11:00 AM EDT [facility] [address] [address] 06/06/2024 11:20 AM EDT [facility] [place] [address] [place] [address] Jimi Ryan, DO [address] [place], [place] [address] [address] 06/29/2024 3:30 PM EDT Office Visit Cardiology, [facility] 132 [place] [address] Debbi Nolan PA-C 132 [place] [address] 06/30/2024 10:00 AM EDT Imaging Radiology [facility] [address] [place] [address] 07/01/2024 9:30 AM EDT Imaging Radiology [address] [place] [address] 08/02/2024 10:15 AM EST Office Visit Urology, [facility] 132 [place] [address] Mac Hook MD [address] [place] [address] 08/05/2024 9:00 AM EST Office Visit General Internal Medicine [facility] [address] [place] [address] Garry Reyes MD 200 [place] [address] 10/21/2024 10:40 AM EST Telemedicine Endocrinology [address] [place] [address] Jalyn Ladd MD [address] [facility] [place] [address] 12/29/2024 9:45 AM EDT Office Visit Dermatology [facility] [address] [place] [address] Garry Ryan MD [address] [place] [address] 02/21/2025 11:20 AM EDT Office Visit Sleep Disorders Ctr [facility] [address] [place] [address] Maris Luceroaret, [address] [place] [address] Scheduled Procedures Name Priority Associated Diagnoses Date/Ti me COLONOSCOPY FLEXIBLE PROXIMAL DIAGNOSTIC Recall History of colon polyps Health Maintenance Due Date Last Done Comments Diabetic Eye Exam 1965 Diabetic Foot Exam 1965 DTaP,Tdap,and Td Vaccines (2 - Td or Tdap) 12/20/2020 12/20/2010, 02/02/2003 Zoster Vaccines (2 of 2) 04/30/2022 03/05/2022 Monge's Esophagus Surveilance 06/14/2022 06/14/2019, 07/10/2016, 07/10/2016, Additional history exists Adult Wellness Visit 07/18/2022 07/18/2021 Colonoscopy 08/02/2023 08/02/2018, 07/22, 07/06/2015, Additional history exists COVID-19 Vaccine ( season) 2023 06/15/2023, 06/13/2022, 12/27/2021, Additional history [...] this encounter Medical Devices Implanted Type Area Credit Card Clerk Device Identifier Shelf Expiration Date Model / Serial / Lot Hernia Patch Lrg/Seneca W/Strp - [id number] Implanted:Qty: 1 on 07/17/2015 by Vicente Sandoval MD at OR [facility] N/A: Abdomen CR BARD : DAVOL 07/21/2016 [id number] / / [id number] Lens Intraoc 20.0 - [id number] - [id number] Implanted:Qty: 1 on 01/22/2021 by Lui Hardy MD at OR [facility] Left: Eye BAUSCH & LOMB 08/20/2025 [id number] / [id number] / Lens Intraoc 20.0 - [id number] - [id number] Implanted:Qty: 1 on 02/05/2021 by Lui Hardy MD at OR [facility] Right: Eye BAUSCH & LOMB 10/21/2025 [id number] / [id number] / [id number] documented as of this encounter Visit Diagnoses Diagnosis Coronary artery disease involving aniak coronary artery of aniak heart without angina pectoris LV (left ventricular) mural thrombus following PR (HCC) Other certain sequelae of myocardial infarction, not elsewhere classified HTN, goal below 140/90 Unspecified essential hypertension Ischemic cardiomyopathy Other specified forms of chronic ischemic heart disease History of TIA (transient ischemic attack) Transient ischemic attack (TIA), and cerebral infarction without residual deficits Dyslipidemia, goal LDL below 70 Other and unspecified hyperlipidemia Old myocardial infarct Old myocardial infarction Essential [...] and were consensually agreed upon. Care Teams Guide Dog Instructor Relationship Specialty Start Date End Date Garry Reyes MD 200 [facility] [place], [place] [address] PCP - General Internal Medicine 02/25/19 documented as of this encounter
--- OUTSIDE RECORDS SUMMARY | 2024-07-29 23:47 | External Medical Summary | Summary of Care ---
Author Name Unknown Organization [facility] Address [address] [place] [address] Phone [phone] Care Team Providers Care Explosive Ordnance Handler Name Role Phone Garry Reyes MD Primary Care Provider + Reason for Visit * Reason Comments Procedure Encounter Details Date Type Department Care Team (Late st Contact Info) Description 04/13/2024 8:30 AM EDT Office Visit Ophthalmology, [facility] [address] [place] [address] Jimi Ryan, DO [address] [place] [address] Spastic entropion of right lower eyelid* Allergies No known active allergiesdocumented as of this encounter (statuses as of 04/13/2024) Medications Medication Sig Dispensed Refills Start Date End Date Status Multiple Vitamins-Minerals (DAILY MULTIVITAMIN) CAPS Take 1 Tablet by mouth in the morning. Active Magnesium Hydroxide 400 MG/5ML Oral Suspension Take 30 mL by mouth daily as needed for Constipation. Active Aspirin 81 MG Tablet Take 1 Tablet by mouth every evening. 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 90 Tablet 3 05/07/2023 Active Carvedilol 6.25 MG Oral Tablet (Coreg)Indications: Coronary artery disease involving tu[place]umne coronary artery of tuolumne heart without angina pectoris,LV (left ventricular) mural thrombus following SC (HCC),HTN, goal below 140/90,Ischemic cardiomyopathy,Hist ory of TIA (transient ischemic attack),Dyslipidemi a, goal LDL below 70,Old myocardial infarct,Essential hypertension with goal blood pressure less than 140/90 Take 1 Tablet by mouth in the morning and 1 Tablet before bedtime. 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 Test performed by [facility]eli SENIOR BACK END JAVA DEVELOPER CPFT Thyroid nodule 05/26/2019 01/08/[address] [...] as of this encounter (statuses as of 04/13/2024) Immunizations Name Administration Dates Next Due COVID-19 mRNA, LNP-s, No Pre serve, 2-Dose Series (Briteseed) 05/22/2021,12/13/2020,11/15/2020 COVID-19, LNP-s, No Preserve , Yanick-sucrose, Ages 12+ (Pfizer) 12/27/2021 COVID-19, MRNA-LNP, 23-24, P F, 30 MCG/0.3 mL, 12 YRS AND ABOVE, IM (PinkelStar-Comirnaty) 06/15/2023 Covid-19, Mrna, Lnp-s, Pf, B ivalent, 30 Mcg, IM, 12 yrs and above (Briteseed) 06/13/2022 Pneumococcal Conjugate Vacc, 13 Valent (Prevnar) [...] Split, I IV3, With Preserve, Inj 07/10/2014,06/04/2013,10/30/2011,10/05,12/11/2008,10/12/2007 TD - Tetanus/Diptheria (ADULT) 02/02/2003 TDAP, Age [...] as of this encounter Progress Notes * Jimi Ryan DO - 04/13/2024 8:31 AM EDT Office Procedure Note Sky Peralta 04/13/2024 Pre/Post Op Dx: Entropion of right lower eyelid Procedure: Entropion repair of right lower eyelid using lateral tarsal strip and quickert suture Surgeon: Jimi Ryan DO Assistants: Kanchan Hook PA-C Anesthesia: Local 2% Lidocaine with epinephrine Complications: None EBL: minimal Drains: None IVF: None Specimen: none Preoperative Evaluation: Patient presented with foreign body sensation and redness of his right eye. On evaluation he was noted to have an entropion of the right lower eyelid. Patient is now for an entropion repair of right lower eyelid. Operative Note: The patient was brought to the procedure room and identified as Sky Peralta andthe procedure to be performed was confirmed with the patient. After informed consent was obtained the right lateral upper and lower eyelids were infiltrated with 2% lidocaine with epinephrine. The patient was then prepped and draped in the usual sterile fashion. Attention was then turned to the lower eyelid where a lateral canthotomy and inferior cantholysis was performed. A lateral tarsal strip was then fashioned. A 4-0 double armed chromic suture was passed from the inferior fornix anteriorlyand superiorly exiting inferior to the lashes and fixated. The lateral portion of the eyelids were then approximated to the lateral orbital rim using a double armed 4-0 prolene suture. The lateral canthal angle was reformed with a 6-0 chromic suture. The skin defect in the lateral canthus was closed with the 6-0 chromic suture. Antibiotic ointment was applied. The procedure was performed without complications. The patient tolerated the procedure well. Patient was discharged in good condition. Written and verbal discharge instructions were given to the patient. Jimi Ryan DO documented in this encounter Nursing Notes * Lenore Renee LPN - 04/13/2024 8:42 AM EDT Procedure completed without incident. Patient tolerated procedure well. Instructions reviewed with patient by. Patient discharged from procedure room. * Lenore Renee LPN - 04/13/2024 8:15 AM EDT Patient admitted to procedure room at 8:15 AM and identified by full name and date of Is patient on blood thinners? yes coumadin 10 mg/aspirin 81mg ( held x 1 day). did you take you blood pressure medication today? yes. The operative team (Dr. Ryan), along with Mr. Peralta, reviewed that he presents today for ectropion repair of right lower eyelid. Mr. Peralta agrees with the procedure and operative site. The correct operative site was marked and verified by the operative team. Mr. Peralta signed the surgical consent form as witnessed by the operative team. Patient prepped and drapped by Dr. Ryan. documented in this encounter Plan of Treatment Upcoming Encounters Date Type Department Care Team (Late st Contact Info) Description 04/18/2024 8:30 AM EDT Anticoagulation Pharmacy, [facility] [place] [address] Pharmacist1, [facility] 200 [facility] [place] [address] 05/02/2024 8:00 AM EDT Office Visit Ophthalmology, [facility] 132 [facility] [place] [address] Jimi Ryan, [address] [place] [address] 05/30/2024 11:00 AM EDT Cardiac Studies Cardiac Studies, [facility] 132 [facility] [place] [address] 06/06/2024 11:20 AM EDT Office Visit Ophthalmology, [facility] 132 [facility] [place] [address] Jimi Ryan, 16 [facility] [place] [address] 06/29/2024 3:30 PM EDT Office Visit Cardiology, [facility] 132 [facility] [place] [address] Debbi Nolan PA-C 132 [facility] [place] [address] 06/30/2024 10:00 AM EDT Imaging [facility] 132 [facility] [place] [address] 07/01/2024 9:30 AM EDT Imaging Radiology [facility] 132 [facility] [place] [address] 08/02/2024 10:15 AM EST Office Visit Urology, [facility] 132 [facility] [place] [address] Mac Hook MD 27 [facility] [place] [address] 08/05/2024 9:00 AM EST Office Visit General Internal Medicine [facility] [address] [place] [address] Garry Reyes MD [address] [place], [place] [address] 10/21/2024 10:40 AM EST Telemedicine Endocrinology [facility] [address] [place] [address] [place] [address] Jalyn Ladd MD [address] [place], [place] [id number] 12/29/2024 9:45 AM EDT Office Visit Dermatology [facility] [address] [place] [address] Garry Ryan MD [address] [place] [address] 02/21/2025 11:20 AM EDT Office Visit Sleep Disorders Ctr [facility] 132 [facility] [place] [id number] Maris Lucero, DO [address] [place] [address] Scheduled Procedures Name Priority Associated Diagnoses Date/Ti me COLONOSCOPY FLEXIBLE PROXIMAL DIAGNOSTIC Recall History of colon polyps Health Maintenance Due Date Last Done Comments Diabetic Eye Exam 1965 Diabetic Foot Exam 1965 DTaP,Tdap,and Td Vaccines (2 - Td or Tdap) 12/20/2020 12/20/2010, 02/02/2003 Zoster Vaccines (2 of 2) 04/30/2022 03/05/2022 Monge's Esophagus Surveilance 06/14/2022 06/14/2019, 07/10/2016, 07/10/2016, Additional history exists Colonoscopy 08/02/2023 08/02/2018, 07/22, 07/06/2015, Additional history [...] 06/29/2023 , 06/26/2022, 06/25/2021, Additional history exists *BASELINE EKG FOR HTN Completed 08/26/2023 , 08/06/2022, 08/20/2021, Additional history exists HPV (Gardasil) Vaccine Aged Out No lo nger eligible based on patient's age to complete this topic Hepatitis B Vaccine Aged Out No longe r eligible based on patient's age to complete this topic MENINGOCOCCAL (MENACTRA/MENVEO) Aged Out No longer eligible based on patient's age to complete this topic documented as of this encounter Medical Devices Implanted Type Area Sales Associate Fishing Device Identifier Shelf Expiration Date Model / Serial / Lot Hernia Patch Lrg/[place]jas W/Strp - [id number] Implanted:Qty: 1 on 07/17/2015 by Vicente Sandoval MD at OR [facility] N/A: Abdomen CR BARD : DAVOL 07/21/2016 [id number] / / [id number] Lens Intraoc 20.0 - [id number] - [id number] Implanted:Qty: 1 on 01/22/2021 by Lui Hardy MD at OR [facility] Left: Eye BAUSCH & LOMB 08/20/2025 [id number] / [id number] / Lens Intraoc 20.0 - [id number] - [id number] Implanted:Qty: 1 on 02/05/2021 by Lui Hardy MD at OR [facility] Right: Eye BAUSCH & LOMB 10/21/2025 [id number] / [id number] / [id number] documented as of this encounter Visit Diagnoses Diagnosis 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 Care Teams Explosive Ordnance Handler Relationship Specialty Start Date End Date Garry Reyes MD [address] [place] [address] PCP - General Internal Medicine 02/25/19 documented as of this encounter
--- OUTSIDE RECORDS SUMMARY | 2024-07-29 23:47 | External Medical Summary | Summary of Care ---
Author Name Unknown Organization [facility] Address [address] [place] [address] Phone [phone] Care Team Providers Care Key Account Representative Name Role Phone Garry Reyes MD Primary Care Provider + Encounter Details Date Type Department Care Team (Late st Contact Info) Description 04/25/2024 Orders Only Outcomes Research Department [address], [place] [id number] Muna Cade CHRA [employer] Research Other*[id number] Allergies No known active allergiesdocumented as of this encounter (statuses as of 04/25/2024) Medications Medication Sig Dispensed Refills Start Date [...] MG Oral TabletIndications:C oronary artery disease involving [place] coronary artery of [place] heart without angina pectoris,LV (left ventricular) mural thrombus following MD (HCC),HTN, goal below 140/90,Ischemic cardiomyopathy,Hist ory of TIA (transient ischemic attack),Dyslipidemi a, goal LDL below 70,Old myocardial infarct,Essential hypertension with goal blood pressure less than 140/90 Take 1 Tablet by mouth in the morning. 90 Tablet 3 05/07/2023 Active Carvedilol 6.25 MG Oral Tablet (Coreg)Indications: Coronary artery disease involving [place] coronary artery of [place] heart without angina pectoris,LV (left ventricular) mural thrombus following MD (HCC),HTN, goal below 140/90,Ischemic cardiomyopathy,Hist ory of [...] (Coumadin)Indicatio ns:LV (left ventricular) mural thrombus following MD (HCC) TAKE 2 TABLETS TUESDAYS & SATURDAYS, [...] at bedtime. 3.5 g 3 04/13/2024 Active documented as of this encounter (statuses as of 04/25/2024) Active Problems Problem Noted Date Diagnosed Date [...] esophagus 05/26/2019 Coronary artery disease invo lving [place] coronary artery of [place] heart without angina pectoris 02/15/2019 Old myocardial [...] as of this encounter (statuses as of 04/25/2024) Resolved Problems Problem Noted Date Diagnosed Date [...] use aero chamber. Test performed by Celi PIE FILLING MIXER CPFT Thyroid nodule 05/26/2019 01/08/[address] [...] as of this encounter (statuses as of 04/25/2024) Immunizations Name Administration Dates Next Due COVID-19 mRNA, LNP-s, No Pre serve, 2-Dose Series (HighGround) 05/22/2021,12/13/2020,11/15/2020 COVID-19, LNP-s, No Preserve , Yanick-sucrose, Ages 12+ (Pfizer) 12/27/2021 COVID-19, MRNA-LNP, 23-24, P F, 30 MCG/0.3 mL, 12 YRS AND ABOVE, IM (UCT Coatings-Comirnat) 06/15/2023 Covid-19, Mrna, Lnp-s, Pf, B ivalent, 30 Mcg, IM, 12 yrs and above ([employer]Ground) 06/13/2022 Pneumococcal Conjugate Vacc, 13 Valent (Prevnar) [...] Care Team (Late st Contact Info) Description 05/02/2024 8:00 AM EDT Office [address], [address] [address] Jimi Ryan T, [address] [address] 05/30/2024 8:30 AM EDT Anticoagulation Pharmacy, [address] [place] [address] [place] [address] Pharmacist1, [facility] [address] [facility] [place] [address] 05/30/2024 11:00 AM EDT Cardiac Studies Cardiac Studies, [facility] [address] 06/06/2024 11:20 AM EDT Office Visit Ophthalmology, [address] [place] [address] Jimi Ryan, [address] [place] [address] 06/29/2024 3:30 PM EDT Office Visit Cardiology, [address] [place] [address] Debbi Nolan PA-C [address] [place] [address] 06/30/2024 10:00 AM EDT Imaging Radiology [place] [address] [place] [address] 07/01/2024 9:30 AM EDT Imaging Radiology [address] [place] [address] 08/02/2024 10:15 AM EST Office Visit Urology, [facility] 132 [facility] [place] [address] Mac Hook MD [address] [place] [address] 08/05/2024 9:00 AM EST Office Visit General Internal Medicine [facility] [address] [place] [address] Garry Reyes MD [address] [place] [address] 10/21/2024 10:40 AM EST Telemedicine Endocrinology [address] [place] [address] Jalyn Ladd MD [address] [facility] [id number] 12/29/2024 9:45 AM EDT Office Visit Dermatology [facility] [address] [place], [place] [address] Garry Ryan MD [address] [place], [place] [address] 02/21/2025 11:20 AM EDT [facility] [address] [place] [phone] Maris Lucero DO [address] [place] [address] Scheduled Orders Name Type Priority Associated Diagnoses Orde r Schedule MYCODE SUBSEQUENT ADULT Lab Routine MyCode Research Other*[id number] Every 6 Months for 2 Occurrences starting 04/25/2024 until 05/15/2025 Scheduled Procedures Name Priority Associated Diagnoses Date/Ti [...] this encounter Medical Devices Implanted Type Area Adolescent Specialist Device Identifier Shelf Expiration Date Model / Serial / Lot Hernia Patch Lrg/[place] W/Strp - [id number] Implanted:Qty: 1 on 07/17/2015 by Vicente Sandoval MD at OR [facility] N/A: Abdomen CR BARD : DAVOL 07/21/2016 [id number] / / [id number] Lens Intraoc 20.0 - [id number] - [id number] Implanted:Qty: 1 on 01/22/2021 by Lui Hardy MD at OR [facility] Left: Eye BAUSCH & LOMB 08/20/2025 [id number] / [id number] / Lens Intraoc 20.0 - [id number] - [id number] Implanted:Qty: 1 on 02/05/2021 by Lui Hardy MD at OR [facility] Right: Eye BAUSCH & LOMB 10/21/2025 [id number] / [id number] / [id number] documented as of this encounter Visit Diagnoses Diagnosis MyCode Research Other*[id number] documented in this encounter Advance Directives * [...] and were consensually agreed upon. Care Teams Key Account Representative Relationship Specialty Start Date End Date Garry Reyes MD 200 [facility] [place] [address] PCP - General Internal Medicine 02/25/19 documented as of this encounter
--- OUTSIDE RECORDS SUMMARY | 2024-07-29 23:47 | External Medical Summary | Summary of Care ---
Author Name Unknown Organization [facility] Address [address] [place] [address] Phone [phone] Care Team Providers Care Mechanical Engineering Manager Name Role Phone Garry Reyes MD Primary Care Provider + Reason for Visit * Reason Comments Procedure Encounter Details Date Type Department Care Team (Late st Contact Info) Description 04/13/2024 8:30 AM EDT Office Visit Ophthalmology, [facility] [address] [place] [address] Jimi Ryan, DO [address] [place] [address] Spastic entropion of right lower [...] MG Oral TabletIndications:C oronary artery disease involving [place] coronary artery of [place] heart without angina pectoris,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),HTN, goal below 140/90,Ischemic cardiomyopathy,Hist ory of TIA (transient ischemic attack),Dyslipidemi a, goal LDL below 70,Old myocardial infarct,Essential hypertension with goal blood pressure less than 140/90 Take 1 Tablet by mouth in the morning. 90 Tablet 3 05/07/2023 Active Carvedilol 6.25 MG Oral Tablet (Coreg)Indications: Coronary artery disease involving [place] coronary artery of [place] heart without angina pectoris,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),HTN, goal below 140/90,Ischemic cardiomyopathy,Hist ory of [...] (Coumadin)Indicatio ns: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) [...] Start Date End Date Status lidocaine-epinephrine 2 %-1:404926 inj 100 mgIndications:Spastic entropion of right lower [...] esophagus 05/26/2019 Coronary artery disease invo lving [place] coronary artery of [place] heart without angina pectoris 02/15/2019 Old myocardial [...] use aero chamber. Test performed by Celi DEVOPS ARCHITECT CPFT Thyroid nodule 05/26/2019 01/08/[address] [...] mRNA, LNP-s, No Pre serve, 2-Dose Series (Universal Ad) 05/22/2021,12/13/2020,11/15/2020 COVID-19, LNP-s, No Preserve , Yanick-sucrose, Ages 12+ (Pfizer) 12/27/2021 COVID-19, MRNA-LNP, 23-24, P F, 30 MCG/0.3 mL, 12 YRS AND ABOVE, IM (Boxcar-Comirnaty) 06/15/2023 Covid-19, Mrna, Lnp-s, Pf, B ivalent, 30 Mcg, IM, 12 yrs and above (Universal Ad) 06/13/2022 Pneumococcal Conjugate Vacc, 13 Valent (Prevnar) [...] EDT Anticoagulation Pharmacy, [facility] 200 [facility] [place] [address] Pharmacist1, [facility] 200 [facility] [place] [address] 05/02/2024 8:00 AM EDT Office Visit Ophthalmology, [facility] 132 [facility] [place] [address] Jimi Ryan, [address] [place] [address] 05/30/2024 11:00 AM EDT Cardiac Studies Cardiac Studies, [facility] 132 [facility] [place] [address] 06/06/2024 11:20 AM EDT Office Visit Ophthalmology, [facility] 132 [facility] [place] [address] Jimi Ryan, 16 [facility] [place] [address] 06/29/2024 3:30 PM EDT Office Visit Cardiology, [facility] 132 [facility] [place] [address] Debbi Nolan PA-C [address] [place] [address] 06/30/2024 10:00 AM EDT Imaging Rad[facility] 132 [facility] [place] [address] 07/01/2024 9:30 AM EDT Imaging Radiology [facility] 132 [facility] [place] [address] 08/02/2024 10:15 AM EST Office Visit Urology, [facility] 132 [facility] [place] [address] Mac Hook MD 27 [facility] [place] [address] 08/05/2024 9:00 AM EST Office Visit General Internal Medicine [facility] [address] [place] [address] Garry Reyes MD [address] [place], [place] [address] 10/21/2024 10:40 AM EST Telemedicine Endocrinology [facility] [place] [address] [place] [address] Jalyn Ladd MD [address] [place], [place] [address] 12/29/2024 9:45 AM EDT Office Visit Dermatology [facility] [address] [place] [address] Garry Ryan MD [address] [place] [address] 02/21/2025 11:20 AM EDT Office Visit Sleep Disorders Ctr [facility] 132 [facility] [place] [phone] Maris Lucero, DO [address] [place] [address] Scheduled Procedures Name Priority Associated Diagnoses Date/Ti [...] this encounter Medical Devices Implanted Type Area Painter Interior Finish Device Identifier Shelf Expiration Date Model / Serial / Lot Hernia Patch Lrg/[place] W/Strp - [id number] Implanted:Qty: 1 on 07/17/2015 by Vicente Sandoval MD at OR [facility] N/A: Abdomen CR BARD : DAVOL 07/21/2016 [id number] / / [id number] Lens Intraoc 20.0 - [id number] - [id number] Implanted:Qty: 1 on 01/22/2021 by Lui Hardy MD at OR [facility] Left: Eye BAUSCH & LOMB 08/20/2025 [id number] / [id number] / Lens Intraoc 20.0 - [id number] - [id number] Implanted:Qty: 1 on 02/05/2021 by Lui Hardy MD at OR [facility] Right: Eye BAUSCH & LOMB 10/21/2025 [id number] / [id number] / [id number] documented as of this encounter Visit Diagnoses [...] 8:42 AM EDT 1 g lidocaine-epinephrine 2 %-1:762667 inj 100 mg 100 mg (5 mL), [...] were consensually agreed upon. Care Teams Mechanical Engineering Manager Relationship Specialty Start Date End Date Garry Reyes MD [address] [place] [address] PCP - General Internal Medicine 02/25/19 documented as of this encounter
--- OUTSIDE RECORDS SUMMARY | 2024-07-29 23:47 | External Medical Summary | Summary of Care ---
Author Name Unknown Organization [facility] Address [address] [place] [address] Phone [phone] Care Team Providers Care Tile Mechanic Name Role Phone Garry Reyes MD Primary Care Provider + Reason for Visit * Reason Comments Dosage Adjustment In Person (Anticoag Cl inic) Encounter Details Date Type Department Care Team (Latest Contact Info) Description 04/18/2024 8:30 AM EDT Anticoagulation Pharmacy, [facility] [address] [place] [address] Pharmacist1, [facility] 200 [place] [address] Anticoagulation management encounter*; LV (left ventricular) mural thrombus following AL (HCC); History of TIA (transient ischemic attack) Allergies No known active allergiesdocumented as of this encounter (statuses as of 04/18/2024) Medications Medication Sig Dispensed Refills Start Date [...] MG Oral TabletIndications:C oronary artery disease involving [place] coronary artery of [place] heart without angina pectoris,LV (left ventricular) mural thrombus following [place] (HCC),HTN, goal below 140/90,Ischemic cardiomyopathy,Hist ory of TIA (transient ischemic attack),Dyslipidemi a, goal LDL below 70,Old myocardial infarct,Essential hypertension with goal blood pressure less than 140/90 Take 1 Tablet by mouth in the morning. 90 Tablet 3 05/07/2023 Active Carvedilol 6.25 MG Oral Tablet (Coreg)Indications: Coronary artery disease involving [place] coronary artery of [place] heart without angina pectoris,LV (left ventricular) mural [...] as of this encounter (statuses as of 04/18/2024) Active Problems Problem Noted Date Diagnosed Date [...] esophagus 05/26/2019 Coronary artery disease invo lving [place] coronary artery of [place] heart without angina pectoris 02/15/2019 Old myocardial [...] as of this encounter (statuses as of 04/18/2024) Resolved Problems Problem Noted Date Diagnosed Date Resolved Date Acute airway obstruction 08/29/202308/2023 Hematoma 08/29/2023 09/01/2023 Neck swelling 08/29/2023 09/01/2023 Difficulty breathing 08/29/2023 023 Post-operative complication 08/29/2023 09/01/2023 Prediabetes 07/04/2020 07/02/2023 Centrilobular emphysema 06/25/2020 032 05/2023 Lung nodule 08/25/2019 01/08/2024 Overview: In Check dial performed to assess inhaler technique: 10/27/19 Name of inhaler Albuterol Pass: Yes at 60L/min. Encouraged to take deep breath and use aero chamber. Test performed by Celi CHILD DEVELOPMENT ASSISTANT CPFT Thyroid nodule 05/26/2019 01/08/[address] [...] as of this encounter (statuses as of 04/18/2024) Immunizations Name Administration Dates Next Due COVID-19 mRNA, LNP-s, No Pre serve, 2-Dose Series (ApnaPaisa) 05/22/2021,12/13/2020,11/15/2020 COVID-19, LNP-s, No Preserve , Yanick-sucrose, Ages 12+ (Pfizer) 12/27/2021 COVID-19, MRNA-LNP, 23-24, P F, 30 MCG/0.3 mL, 12 YRS AND ABOVE, IM ([employer]-[facility] Care[facility]nat) 06/15/2023 Covid-19, Mrna, Lnp-s, Pf, B ivalent, 30 Mcg, IM, 12 yrs and above (ApnaPaisa) 06/13/2022 Pneumococcal Conjugate Vacc, 13 Valent (Prevnar) [...] Progress Notes * Salvador Nance RPh - 04/18/2024 8:23 AM EDT Images from the original note were not included. Medication Therapy Disease Management - Anticoagulation Sky Peralta 1945 Current Warfarin Dose As of 04/18/2024 Warfarin maintenance plan: 5 mg (5 mg x 1) every day Patient Findings Positives: Missed doses (He took 2.5mg Thursday 04/12 prior to eye surgery 04/13) Negatives: Signs/symptoms of thrombosis, Signs/symptoms of bleeding, Change in health, Change in alcohol use, Change in activity, Upcoming invasive procedure, Extra doses, Change in medications, Change in diet/appetite, Bruising INR Result As of 04/18/2024 INR goal: 2.0-3.0 INR used for dosin.7 (04/18/2024) Warfarin Plan As of 04/18/2024 Full warfarin instructions: 04/18: 7.5 mg; Otherwise 5 mg every day Next INR check: 05/30/2024 Repeat PT/INR in 6 week(s) Weekly dose: not changed Salvador Hough RPh, CACP, CDE Clinical Pharmacist Medication Therapy Management [facility] 04/18/2024 8:29 AM documented in this encounter Plan of Treatment Upcoming Encounters Date Type Department Care Team (Late st Contact Info) Description 05/02/2024 8:00 AM EDT Office Visit Ophthalmology, [facility] 132 [facility] [place] [address] Jimi yRan, DO [address] [place], [place] [phone] 05/30/2024 8:30 AM EDT Anticoagulation Pharmacy, [facility] 200 [facility] [place] [address] Pharmacist1, [facility] 200 [facility] [place] [address] 05/30/2024 11:00 AM EDT Cardiac Studies Cardiac Studies, [facility] 132 [facility] [place] [address] 06/06/2024 11:20 AM EDT Office Visit Ophthalmology, [facility] 132 [facility] [place] [address] Jimi Ryan, DO [address] [place], [place] [address] 06/29/2024 3:30 PM EDT Office Visit Cardiology, [facility] 132 [facility] [place] [address] Debbi Nolan PA-C 132 [facility] [place] [address] 06/30/2024 10:00 AM EDT Imaging Radiology [facility] [place] [address] 07/01/2024 9:30 AM EDT Imaging Radiology [facility] 132 [facility], [place] [address] 08/02/2024 10:15 AM EST Office Visit Urology, [facility] 132 [place] [address] Mac Hook MD [address] [place] [address] 08/05/2024 9:00 AM EST Office Visit General Internal Medicine [facility] [address] [place] [address] Garry Reyes MD [address] [place] [address] 10/21/2024 10:40 AM EST Telemedicine Endocrinology [address] [place] [address] Jalyn Ladd MD [address] [place] [address] 12/29/2024 9:45 AM EDT Office Visit Dermatology [facility] [address] [place] [address] Garry Ryan MD [address] [place] [address] 02/21/2025 11:20 AM EDT Office Visit [facility] Ctr [facility] [address] [facility] [place] [phone] Maris Lucero DO [address] [place], [place] [address] [address] Scheduled Procedures Name Priority Associated Diagnoses Date/Ti [...] this encounter Medical Devices Implanted Type Area Operations Program Manager Device Identifier Shelf Expiration Date Model / Serial / Lot Hernia Patch Lrg/[place] W/Strp - [id number] Implanted:Qty: 1 on 07/17/2015 by Vicente Sandoval MD at OR [facility] N/A: Abdomen CR BARD : DAVOL 07/21/2016 [id number] / / [id number] Lens Intraoc 20.0 - [id number] - [id number] Implanted:Qty: 1 on 01/22/2021 by Lui Hardy MD at OR [facility] Left: Eye BAUSCH & LOMB 08/20/2025 [id number] / [id number] / Lens Intraoc 20.0 - [id number] - [id number] Implanted:Qty: 1 on 02/05/2021 by Lui Hardy MD at OR [facility] Right: Eye BAUSCH & LOMB 10/21/2025 [id number] / [id number] / [id number] documented as of this encounter Procedures Procedure Name Priority Date/Time Associated Diagnosis Comments INR FINGERSTICK, POINT OF CARE STAT 04/18/2024 8:25 AM EDT History of TIA (transient ischemic attack) LV (left ventricular) mural thrombus following AL (HCC) Anticoagulation management encounter documented in this encounter Results * INR FINGERSTICK, POINT OF CARE (04/18/2024 8:25 AM EDT) Fingerstick INR 1.7 INR 8:27 AM EDT [facility] 56-02 Blood 04/18/2024 8:25 AM EDT 04/18/2024 8:27 AM EDT Narrative [facility] 56-02 - 04/18/2024 8:27 AM EDT Therapeutic ranges for non-operative patients: Prophylaxsis/treatment of DVT: (Range:2.0-3.0) Treatment of pulmonary embolism:(Range:2.0-3.0) Prevention of systemic embolism from: -tissue heart valves -acute myocardial infarction -valvular heart disease -atrial fibrillation (Range: 2.0-3.0) Mechanical prosthetic valves: (Range: 2.5-3.5) Salvador Hough V, [facility] LAB POINT OF CARE TE ST DOCKED DEVICE UNSOLICITED RESULTS [facility]02 [facility] [address] documented in this encounter Visit Diagnoses Diagnosis Anticoagulation management encounter- Primary Encounter for therapeutic drug monitoring LV (left ventricular) mural thrombus following AL (HCC) Other certain sequelae of myocardial infarction, [...] and were consensually agreed upon. Care Teams Tile Mechanic Relationship Specialty Start Date End Date [facility]yes MD [facility] [address] PCP - General Internal Medicine 02/25/19 documented as of this encounter
--- OUTSIDE RECORDS SUMMARY | 2024-07-29 23:47 | External Medical Summary | Summary of Care ---
Author Name Unknown Organization [facility] Address [address] [place] [address] Phone [phone] Care Team Providers Care Care Clinician Name Role Phone Garry Reyes MD Primary Care Provider + Encounter Details Date Type Department Care Team (Late st Contact Info) Description 04/04/2024 Orders Only Endocrinology [address] [place] [address] Jalyn Ladd MD [address] [place] [address] Follicular thyroid cancer (HCC); Postoperative hypothyroidism Allergies No known active allergiesdocumented as of this encounter (statuses as of 04/04/2024) Medications Medication Sig Dispensed Refills Start Date [...] DAY IN THE MORNING 90 Tablet 3 3 Active Atorvastatin Calcium 80 MG Oral Tablet (Lipitor)Indicatio ns:Dyslipidemia, goal LDL below 100,Old myocardial infarct TAKE 1 TABLET BY MOUTH EVERY DAY IN THE AFTERNOON 90 Tablet 3 3 Active Lisinopril 40 MG Oral TabletIndications: Coronary artery disease involving [place] coronary artery of [place] heart without angina pectoris,LV (left ventricular) mural thrombus following [place] (HCC),HTN, goal below 140/90,Ischemic cardiomyopathy,His tory of TIA (transient ischemic attack),Dyslipidem ia, goal LDL below 70,Old myocardial infarct,Essential hypertension with goal blood pressure less than 140/90 Take 1 Tablet by mouth in the morning. 90 Tablet 3 3 Active Carvedilol 6.25 MG Oral Tablet (Coreg)Indications :Coronary artery disease involving [place] coronary artery of [place] heart without angina pectoris,LV (left ventricular) mural thrombus following [place] (HCC),HTN, goal below 140/90,Ischemic cardiomyopathy,His tory of TIA (transient ischemic attack),Dyslipidem ia, goal LDL below 70,Old myocardial infarct,Essential hypertension with goal blood pressure less than 140/90 Take 1 Tablet by mouth in the morning and 1 Tablet before bedtime. 180 Tablet 3 3 Active Nitroglycerin 0.4 MG Sublingual Tablet Sublingual (Nitrostat) Place 1 Tablet under the tongue every 5 minutes as needed for Pain, Chest. 25 Tablet 2 3 Active Baclofen 10 MG Oral Tablet (Lioresal)Indicati ons:Spasm of muscle,Spondylosis of thoracic region without myelopathy or radiculopathy,Acut e right-sided thoracic back pain Take 1 Tablet by mouth 2 times a day as needed for Pain, Breakthrough. 90 Tablet 3 Active Warfarin Sodium 5 MG Oral Tablet (Coumadin)Indicati ons:LV (left ventricular) mural thrombus following [place] (HCC) TAKE 2 TABLETS TUESDAYS & SATURDAYS, 1 TABLET ALL OTHER DAYS OR DIRECTED 120 Tablet 3 3 Active Additional Information Patient taking differently: Oral QPM-1999, As directed by Anticoagulation Clinic, Informant: Spouse, Reported on 08/31/2023 CPAP Use as directed at bedtime. Active Tamsulosin HCl 0.4 MG Oral Capsule (Flomax) Take 1 Capsule by mouth in the morning. 30 Capsule 1 3 Active Chlorthalidone 25 MG Oral Tablet (Hygroton)Indicati ons:Hypotension due to drugs Take 0.5 Tablets by mouth in the morning. 4 Active Omeprazole 40 MG Oral Capsule Delayed Release (PriLOSEC)Indicati ons:GERD (gastroesophageal reflux disease) TAKE 1 CAPSULE BY MOUTH EVERY DAY 90 Capsule 3 4 Active Levothyroxine Sodium 175 MCG Oral Tablet (Levoxyl)Indicatio ns:Follicular thyroid cancer (HCC),Postoperativ e hypothyroidism 1 tab Thursday to Thursday, half tab on Sundays. (at least 30 min prior to breakfast or other meds) 90 Tablet 3 4 Active Levothyroxine Sodium 175 MCG Oral Tablet (Levoxyl)Indicatio ns:Follicular thyroid cancer (HCC),Postoperativ e hypothyroidism Take 1 Tablet by mouth daily first thing in the morning. (at least 30 min prior to breakfast or other meds) 90 Tablet 3 4 04/04/20 24 Discontinu ed(Refill) documented as of this encounter (statuses as of 04/04/2024) Active Problems Problem Noted Date Diagnosed Date [...] esophagus 05/26/2019 Coronary artery disease invo lving [place] coronary artery of [place] heart without angina pectoris 02/15/2019 Old myocardial [...] as of this encounter (statuses as of 04/04/2024) Resolved Problems Problem Noted Date Diagnosed Date [...] use aero chamber. Test performed by [facility]eli BLUE LINE OPERATOR CPFT Thyroid nodule 05/26/2019 01/08/2024 Acute [...] as of this encounter (statuses as of 04/04/2024) Immunizations Name Administration Dates Next Due COVID-19 mRNA, LNP-s, No Pre serve, 2-Dose Series (Swoopo) 05/22/2021,12/13/2020,11/15/2020 COVID-19, LNP-s, No Preserve , Yanick-sucrose, Ages 12+ (Swoopo) 12/27/2021 COVID-19, MRNA-LNP, 23-24, P F, 30 MCG/0.3 mL, 12 YRS AND ABOVE, IM ([facility] 06/15/2023 Covid-19, Mrna, Lnp-s, Pf, B ivalent, 30 Mcg, IM, 12 yrs and above (Swoopo) 06/13/2022 Pneumococcal Conjugate Vacc, 13 Valent (Prevnar) [...] Care Team (Late st Contact Info) Description 04/12/2024 11:00 AM EDT Office Visit [facility] [place] [address] [address] Jimi Ryan, DO [address] [address] Photographer Nixon Cueva [address] [place] [place] [address] 04/18/2024 8:30 AM EDT Anticoagulation Pharmacy, [facility] 200 [place] [address] Pharmacist1, [facility] [address] [place] [address] 05/30/2024 11:00 AM EDT Cardiac Studies Cardiac Studies, [facility] [address] [place] [address] 06/02/2024 11:00 AM EDT Office Visit Cardiology, [facility] [address] [place] [address] Brandy Loza CRNP [address] [place] [address] 07/01/2024 9:30 AM EDT Imaging Radiology [address] [address] 08/02/2024 10:15 AM EST Office Visit Urology, [address] [address] Mac Hook MD [address] [place] [address] 08/05/2024 9:00 AM EST Office Visit General Internal Medicine [facility] [address] [place] [address] Garry Reyes MD [address] [facility] [place], [place] [address] 10/21/2024 10:40 AM EST Telemedicine Endocrinology [address] [place] [address] Jalyn Ladd MD [address] [facility] [place] [id number] 12/29/2024 9:45 AM EDT Office Visit Dermatology [facility] [address] [place] [address] Garry Ryan MD 200 [place] [address] 02/21/2025 11:20 AM EDT Office Visit [facility] [place] [address] [place] [phone] Lucero Maris Godfreyt, [address] [place] [address] Scheduled Procedures Name Priority Associated Diagnoses Date/Ti [...] this encounter Medical Devices Implanted Type Area Digital Design Engineer Device Identifier Shelf Expiration Date Model / Serial / Lot Hernia Patch Lrg/[place] W/Strp - [id number] Implanted:Qty: 1 on 07/17/2015 by Vicente Sandoval MD at OR [facility] N/A: Abdomen CR BARD : DAVOL 07/21/2016 [id number] / / [id number] Lens Intraoc 20.0 - [id number] - [id number] Implanted:Qty: 1 on 01/22/2021 by Lui Hardy MD at OR [facility] Left: Eye BAUSCH & LOMB 08/20/2025 [id number] / [id number] / Lens Intraoc 20.0 - [id number] - [id number] Implanted:Qty: 1 on 02/05/2021 by Lui Hardy MD at OR [facility] Right: Eye BAUSCH & LOMB 10/21/2025 [id number] / [id number] / [id number] documented as of this encounter Visit Diagnoses [...] and were consensually agreed upon. Care Teams Care Clinician Relationship Specialty Start Date End Date Garry Reyes MD [address] [place] [address] PCP - General Internal Medicine 02/25/19 documented as of this encounter
--- OUTSIDE RECORDS SUMMARY | 2024-07-29 23:47 | External Medical Summary | Summary of Care ---
Author Name Unknown Organization [facility] Address [address] [place] [address] Phone [phone] Care Team Providers Care Product/Industry Consultant Name Role Phone Garry Reyes MD Primary Care Provider + Encounter Details Date Type Department Care Team (Late st Contact Info) Description 01/07/2024 Telephone General Internal Medicine [facility] [address] [place] [address] Garry Reyes MD [address] [place] [address] Allergies No known active allergiesdocumented as of this encounter (statuses as of 04/07/2024) Medications Medication Sig Dispensed Refills Start Date [...] 3 04/06/2023 Active Lisinopril 40 MG Oral TabletIndications: Coronary artery disease involving [place] coronary artery of [place] heart without angina pectoris,LV (left ventricular) mural thrombus following [place] (HCC),HTN, goal below 140/90,Ischemic cardiomyopathy,His tory of TIA (transient ischemic attack),Dyslipidem ia, goal LDL below 70,Old myocardial infarct,Essential hypertension with goal blood pressure less than 140/90 Take 1 Tablet by mouth in the morning. 90 Tablet 3 05/07/2023 Active Carvedilol 6.25 MG Oral Tablet (Coreg)Indications :Coronary artery disease involving [place] coronary artery of [place] heart without angina pectoris,LV (left ventricular) mural thrombus following [place] (HCC),HTN, goal below 140/90,Ischemic cardiomyopathy,His tory of [...] 05/08/2023 Active Baclofen 10 MG Oral Tablet (Lioresal)Indicati ons:Spasm of muscle,Spondylosis of thoracic region without myelopathy or radiculopathy,Acut e right-sided thoracic back pain Take 1 Tablet by mouth 2 times a day as needed for Pain, Breakthrough. 90 Tablet 06/23/2023 Active Warfarin Sodium 5 MG Oral Tablet (Coumadin)Indicati ons:LV (left ventricular) mural thrombus following [place] (HCC) TAKE 2 TABLETS TUESDAYS & SATURDAYS, [...] 09/02/2023 Active Chlorthalidone 25 MG Oral Tablet (Hygroton)Indicati ons:Hypotension due to drugs Take 0.5 Tablets by mouth in the morning. 09/23/2023 Active documented as of this encounter (statuses as of 04/07/2024) Active Problems Problem Noted Date Diagnosed Date [...] esophagus 05/26/2019 Coronary artery disease invo lving [place] coronary artery of [place] heart without angina pectoris 02/15/2019 Old myocardial [...] as of this encounter (statuses as of 04/07/2024) Resolved Problems Problem Noted Date Diagnosed Date [...] use aero chamber. Test performed by [facility]eli EXECUTIVE CASINO HOST CPFT Thyroid nodule 05/26/2019 01/08/[address] [...] disorders 09/18/2005 04/27/2017 Overview: ENT Consult: 09/26 744.49 Voice disturbance nec (primary encounter diagnosis) PLAN: [...] as of this encounter (statuses as of 04/07/2024) Immunizations Name Administration Dates Next Due COVID-19 mRNA, LNP-s, No Pre serve, 2-Dose Series (Triductor) 05/22/2021,12/13/2020,11/15/2020 COVID-19, LNP-s, No Preserve , Yanick-sucrose, Ages 12+ (Pfizer) 12/27/2021 COVID-19, MRNA-LNP, 23-24, P F, 30 MCG/0.3 mL, 12 YRS AND ABOVE, [facility] 06/15/2023 Covid-19, Mrna, Lnp-s, Pf, B ivalent, 30 Mcg, IM, 12 yrs and above (Triductor) 06/13/2022 Pneumococcal Conjugate Vacc, 13 Valent (Prevnar) [...] encounter Miscellaneous Notes * Telephone Encounter - Sky Chauhan OSA - 01/07/2024 8:43 AM EDT Patient had a thyroid ambulation a few weeks ago. Is having issues and wonders if they are side effects of the procedure. Symptoms include a lost sense of taste and a consistent runny nose/congestion. Would like a call for options documented in this encounter Plan of Treatment Upcoming Encounters Date Type Department Care Team (Late st Contact Info) Description 04/12/2024 11:00 AM EDT Office Visit [facility] [address] [address] Jimi Ryan, [address] [place] [address] Photographer Rory Dykesbine 16 [place] [address] 04/18/2024 8:30 AM EDT Anticoagulation Pharmacy, [facility] [address] [place] [address] Pharmacist1, [facility] [address] [place] [address] 05/30/2024 11:00 AM EDT [facility] 132 [facility] [place] [address] 06/02/2024 11:00 AM EDT Office Visit Cardiology, [facility] 132 [facility] [place] [address] Brandy Loza CRNP 132 [facility] [place] [address] 07/01/2024 9:30 AM EDT Imaging Radiology [facility] 132 [facility] [place] [address] 08/02/2024 10:15 AM EST Office Visit Urology, [facility] 132 [facility] [place] [address] Mac Hook MD [address] [place] [address] 08/05/2024 9:00 AM EST Office Visit General Internal Medicine [facility] [address] [place] [address] Garry Reyes MD 200 [facility] [place] [address] 10/21/2024 10:40 AM EST Telemedicine Endocrinology [address] [place] [address] Jalyn Ladd MD [address] [place], [place] [address] 12/29/2024 9:45 AM EDT Office Visit Dermatology [facility] [address] [place] [address] Garry Ryan MD 200 [facility] [place] [address] 02/21/2025 11:20 AM EDT Office Visit Sleep Disorders Ctr [facility] [address] [place] [phone] Maris Lucero, DO [address] [place] [address] Scheduled Procedures Name Priority Associated Diagnoses Date/Ti [...] this encounter Medical Devices Implanted Type Area Cycle Liaison Device Identifier Shelf Expiration Date Model / Serial / Lot Hernia Patch Lrg/[place] W/Strp - [id number] Implanted:Qty: 1 on 07/17/2015 by Vicente Sandoval MD at OR [facility] N/A: Abdomen CR BARD : DAVOL 07/21/2016 [id number] / / [id number] Lens Intraoc 20.0 - [id number] - [id number] Implanted:Qty: 1 on 01/22/2021 by Lui Hardy MD at OR [facility] Left: Eye BAUSCH & LOMB 08/20/2025 [id number] / [id number] / Lens Intraoc 20.0 - [id number] - [id number] Implanted:Qty: 1 on 02/05/2021 by Lui Hardy MD at OR [facility] Right: Eye BAUSCH & LOMB 10/21/2025 [id number] / [id number] / [id number] documented as of this encounter Advance Directives [...] and were consensually agreed upon. Care Teams Product/Industry Consultant Relationship Specialty Start Date End Date Garry Reyes MD [address] [place], [place] [phone] PCP - General Internal Medicine 02/25/19 documented as of this encounter
--- OUTSIDE RECORDS SUMMARY | 2024-07-29 23:47 | External Medical Summary | Summary of Care ---
Author Name Unknown Organization [facility] Address [address] [place] [address] Phone [phone] Care Team Providers Care Roving Teller Name Role Phone Garry Reyes MD Primary Care Provider + Reason for Visit * Reason Comments eRx-Medication Refill Encounter Details Date Type Department Care Team (Late st Contact Info) Description 04/30/2024 Refill Urology, [facility] [address] [place] [address] Mac Fields MD [address] [place] [address] Allergies No known active allergiesdocumented [...] MG Oral TabletIndications: Coronary artery disease involving [place] coronary artery of [place] heart without angina pectoris,LV (left ventricular) mural thrombus following [place] (HCC),HTN, goal below 140/90,Ischemic cardiomyopathy,His tory of TIA (transient ischemic attack),Dyslipidem ia, goal LDL below 70,Old myocardial infarct,Essential hypertension with goal blood pressure less than 140/90 Take 1 Tablet by mouth in the morning. 90 Tablet 3 05/07/20 23 Active Carvedilol 6.25 MG Oral Tablet (Coreg)Indications :Coronary artery disease involving [place] coronary artery of [place] heart without angina pectoris,LV (left ventricular) mural thrombus following [place] (HCC),HTN, goal below 140/90,Ischemic cardiomyopathy,His tory of TIA (transient ischemic attack),Dyslipidem ia, goal LDL below 70,Old myocardial infarct,Essential hypertension with goal blood pressure less than 140/90 Take 1 Tablet by mouth in the morning and 1 Tablet before bedtime. 180 Tablet 3 05/07/20 23 Active Nitroglycerin 0.4 [...] (Coumadin)Indicati ons:LV (left ventricular) mural thrombus following [place] (HCC) TAKE 2 TABLETS TUESDAYS & SATURDAYS, [...] bedtime. 3.5 g 3 04/13/20 24 Active Finasteride 5 MG Oral Tablet (Proscar) TAKE 1 TABLET BY MOUTH EVERY DAY IN THE MORNING 90 Tablet 3 05/02/20 24 Active Finasteride 5 MG Oral Tablet (Proscar) TAKE 1 TABLET BY MOUTH EVERY DAY IN THE MORNING 90 Tablet 3 04/03/20 23 024 Discontinued documented as of this [...] esophagus 05/26/2019 Coronary artery disease invo lving [place] coronary artery of [place] heart without angina pectoris 02/15/2019 Old myocardial [...] use aero chamber. Test performed by Celi DATABASE ANALYST CPFT Thyroid nodule 05/26/2019 01/08/[address] [...] mRNA, LNP-s, No Pre serve, 2-Dose Series (Touchstorm) 05/22/2021,12/13/2020,11/15/2020 COVID-19, LNP-s, No Preserve , Yanick-sucrose, Ages 12+ (Touchstorm) 12/27/2021 COVID-19, MRNA-LNP, 23-24, P F, 30 MCG/0.3 mL, 12 YRS AND ABOVE, IM ([employer]) 06/15/2023 Covid-19, Mrna, Lnp-s, Pf, B ivalent, 30 Mcg, IM, 12 yrs and above (Touchstorm) 06/13/2022 Pneumococcal Conjugate Vacc, 13 Valent (Prevnar) [...] Telephone Encounter - Mac Fields MD - 05/02/2024 9:09 AM EDTSigned Prescriptions: Disp Refills Finasteride 5 MG Oral Tablet (Proscar) 90 Tab*3 Sig: TAKE 1 TABLET BY MOUTH EVERY DAY IN THE MORNING Authorizing Provider: MAC FIELDS * Telephone Encounter - Bernice Otoole LPN - 05/02/2024 8:55 AM EDTPending Prescriptions: Disp Refills Finasteride 5 MG Oral Tablet [Pharmacy Med*90 Tab*3 Sig: TAKE 1 TABLET BY MOUTH EVERY DAY IN THE MORNING * Telephone Encounter - Bernice Otoole LPN - 05/02/2024 8:54 AM EDT Please refill the requested medication(s). Finasteride 06/02/2022 (in office), Visit date not found (telemedicine) 08/02/2024 documented in this encounter Plan of Treatment Upcoming Encounters Date Type Department Care Team (Late st Contact Info) Description 05/30/2024 8:30 AM EDT Anticoagulation Pharmacy, [facility] 200 [facility] [place] [address] Pharmacist1, [facility] 200 [facility] [place] [address] 05/30/2024 11:00 AM EDT [facility] [address] 06/06/2024 11:20 AM EDT Office Visit [facility], [facility] 132 [facility] [place] [address] Jimi Ryan, [address] [place] [address] 06/29/2024 3:30 PM EDT Office Visit Cardiology, [facility] 132 [place] [address] Debbi Nolan PA-C 132 [facility] [place] [address] 06/30/2024 10:00 AM EDT Imaging Radiology [address] 132 [place] [address] 07/01/2024 9:30 AM EDT Imaging Radiology [facility] 132 [facility] [place] [address] 08/02/2024 10:15 AM EST Office Visit Urology, [facility] 132 [place] [address] Mac Fields MD 27 [facility] [place] [address] 08/05/2024 9:00 AM EST Office Visit General Internal Medicine [facility] [address] [place] [address] Garry Reyes MD 200 [facility] [place] [address] 10/21/2024 10:40 AM EST Telemedicine Endocrinology [address] [place] [address] Jalyn Ladd MD [address] [facility] [place] [address] 12/29/2024 9:45 AM EDT Office Visit Dermatology [facility] [address] [place], [place] [address] Garry Ryan MD 200 [facility] [place] [address] 02/21/2025 11:20 AM EDT Office Visit [facility] Disorders Ctr [facility] 132 [place] [phone] Maris Lucero, [address] [place] [address] Scheduled Procedures Name Priority Associated Diagnoses Date/Ti [...] this encounter Medical Devices Implanted Type Area File 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 Device Identifier Shelf Expiration Date Model / Serial / Lot Hernia Patch Lrg/Ellerbe W/Strp - [id number] Implanted:Qty: 1 on 07/17/2015 by Vicente Sandoval MD at OR [facility] N/A: Abdomen CR BARD : DAVOL 07/21/2016 [id number] / / [id number] Lens Intraoc 20.0 - [id number] - [id number] Implanted:Qty: 1 on 01/22/2021 by Lui Hardy MD at OR [facility] Left: Eye BAUSCH & LOMB 08/20/2025 [id number] / [id number] / Lens Intraoc 20.0 - [id number] - [id number] Implanted:Qty: 1 on 02/05/2021 by Lui Hardy MD at OR [facility] Right: Eye BAUSCH & LOMB 10/21/2025 [id number] / [id number] / [id number] documented as of this encounter Advance Directives [...] and were consensually agreed upon. Care Teams Roving Teller Relationship Specialty Start Date End Date Garry Reyes MD 200 [facility] [place] [address] PCP - General Internal Medicine 02/25/19 documented as of this encounter
--- OUTSIDE RECORDS SUMMARY | 2024-07-29 23:47 | External Medical Summary | Summary of Care ---
Author Name Unknown Organization [facility] [address] [place] [address] Phone [phone] Care Team Providers Care Golf Superintendent Name Role Phone Garry Reyes MD Primary Care Provider + Reason for Visit * Reason Comments NEW PATIENT Eyelid consult * Evaluate & Treat - Unlimited Visits (Within 10 days (routine)) - Authorized Specialty Diagnoses / Procedures Referred By Mitchell vega Referred To Contact Ophthalmology Diagnoses Eye abrasion Veronika Baldwin, OD [address] [address] Referral ID Status Reason Start Date Expiration Date Visits Requested Visits Authorized [id number] Authorized Specialty Services Required 03/28/2024 [id number] Encounter Details Date Type Department Care Team (Late st Contact Info) Description 04/12/2024 11:00 AM EDT Office Visit [facility] [address] [address] Jimi Ryan, [address] [place] [address] Photographer Donis [address] [address] Spastic entropion of right lower eyelid* Allergies No known active allergiesdocumented as of this encounter (statuses as of 04/12/2024) Medications Medication Sig Dispensed Refills Start Date [...] MG Oral TabletIndications:C oronary artery disease involving inaja coronary artery of inaja heart without angina pectoris,LV (left ventricular) mural thrombus following [place] (HCC),HTN, goal below 140/90,Ischemic cardiomyopathy,Hist ory of TIA (transient ischemic attack),Dyslipidemi a, goal LDL below 70,Old myocardial infarct,Essential hypertension with goal blood pressure less than 140/90 Take 1 Tablet by mouth in the morning. 90 Tablet 3 05/07/2023 Active Carvedilol 6.25 MG Oral Tablet (Coreg)Indications: Coronary artery disease involving inaja coronary artery of inaja heart without angina pectoris,LV (left ventricular) mural [...] Active Additional Information Patient taking differently: Oral QPM-2000, As directed by Anticoagulation Clinic, Informant: Spouse, [...] other meds) 90 Tablet 3 04/04/2024 Active documented as of this encounter (statuses as of 04/12/2024) Active Problems Problem Noted Date Diagnosed Date [...] esophagus 05/26/2019 Coronary artery disease invo lving inaja coronary artery of inaja heart without angina pectoris 02/15/2019 Old myocardial [...] as of this encounter (statuses as of 04/12/2024) Resolved Problems Problem Noted Date Diagnosed Date [...] use aero chamber. Test performed by Celi PORTABLE IRRIGATION OPERATOR CPFT Thyroid nodule 05/26/2019 01/08/2024 Acute [...] as of this encounter (statuses as of 04/12/2024) Immunizations Name Administration Dates Next Due COVID-19 mRNA, LNP-s, No Pre serve, 2-Dose Series (SupplyBetter) 05/22/2021,12/13/2020,11/15/2020 COVID-19, LNP-s, No Preserve , Yanick-sucrose, Ages 12+ (Pfizer) 12/27/2021 COVID-19, MRNA-LNP, 23-24, P F, 30 MCG/0.3 mL, 12 YRS AND ABOVE, IM (First To File-Comirnaty) 06/15/2023 Covid-19, Mrna, Lnp-s, Pf, B ivalent, 30 Mcg, IM, 12 yrs and above (SupplyBetter) 06/13/2022 Pneumococcal Conjugate Vacc, 13 Valent (Prevnar) [...] of this encounter Progress Notes * Jimi Ryan, - 04/12/2024 10:58 AM EDT Sky Peralta is a 78 year old male who presents for right eye chronic irritation. 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 Patient reportshas had episodes of epilation for some time. Ophthalmology Past History: cataract extraction both eyes, glasses Ophthalmology Family History: none Ophthalmology ROS: Positive for red irritated right eye with foreign body sensation and tearing andno recent significant change in vision,no eye pain, redness, discharge,no diplopia Current Ophthalmic Medications: None EXAM: Base Eye Exam Visual Acuity (Snellen - Linear) Right Left Dist sc 20/25 +2 20/25 Neuro/Psych Oriented x3: Yes Mood/Affect: Normal Slit Lamp and Fundus Exam Slit Lamp Exam Right Left Lids/Lashes Laxity, entropion lower lid easy to reduce Laxity Conjunctiva/Sclera Trace to 1+ injection White and quiet Cornea Inferior SPK Clear Anterior Chamber Deep and quiet Deep and quiet Iris Round and reactive Round and reactive Lens PC IOL PC IOL External photos obtained demonstrating above findings IMPRESSION: 1. Spastic entropion right lower lid PLAN: 1. Photo today 2. R/B/A discussed including but not limited to pain, bleeding, scarring, infection, Loss of vision, loss of eye, need for further surgery, eye drops in the post operative period, the use of regionalor general anesthesia. 3. Patient on Coumadin last checked in February was 2.1 we will hold tonight's dose and proceed with the procedure tomorrow 4. Return tomorrow at 9:00 a.m. for lateral tarsal strip with quicker suture right lower lid 5. All questions were answered Jimi Ryan DO documented in this encounter Nursing Notes * Aria Mcintyre TECH - 04/12/2024 10:44 AM EDT External Photography done. * Angella Armando LPN - 04/12/2024 10:21 AM EDT Sky Peralta is a 78 year old male who presents for Eyelid consult. Last Visit: Visit date not found (in office), Visit date not found (telemedicine) He currently states vision in right eye is a little blurry Are you diabetic? No Current Ophthalmic Medications: Refresh Referred by: Dr. [facility] COMPREHENSIVE OCULAR HISTORY Any history in yourself or blood related family of: -Diabetes- Family -Diabetic Retinopathy- Unsure -High Blood Pressure- Self -Heart Disease- Self -Thyroid Disease- Self -Blindness- No -Macular Degeneration- No -Retinal Detachment- No -Glaucoma/Pressure in the Eye- No -Chronic Problem Headaches or Migraines- No -Have you ever had any major surgery or serious injury of or around the eyes- no -Are your eyes chronically- Itchy, Scratchy, Red, Watery/Tearing, and Seasonal Allergies -Do you smoke- No Vision, IOP, current eyeglass Rx, pupil check and dilation if done can be found in ophth exam. documented in this encounter Plan of Treatment Upcoming Encounters Date Type Department Care Team (Late st Contact Info) Description 04/13/2024 8:30 AM EDT Office Visit Ophthalmology, [address] [place] [address] Jimi Ryan, DO [address] [place] [address] 04/18/2024 8:30 AM EDT Anticoagulation Pharmacy, [facility] 200 [facility] [place] [address] Pharmacist1, [facility] 200 [facility] [place] [address] 05/02/2024 8:00 AM EDT Office [address]mology, [address] [address] Jimi Ryan, DO [address] [place] [address] 05/30/2024 11:00 AM EDT Cardiac Studies Cardiac Studies, [address] [place] [address] 06/06/2024 11:20 AM EDT Office Visit Ophthalmology, [address] [place] [address] Jimi Ryan, DO [address] [place] [address] 06/29/2024 3:30 PM EDT Office Visit Cardiology, [facility] 132 [place] [address] Debbi Nolan, [place] 132 [place] [address] 06/30/2024 10:00 AM EDT Imaging Radiology [facility] [address] [place] [address] 07/01/2024 9:30 AM EDT Imaging Radiology [address] [place] [address] 08/02/2024 10:15 AM EST Office Visit Urology, [facility] 132 [place] [address] Mac Hook MD 27 [facility] [place] [address] 08/05/2024 9:00 AM EST Office Visit General Internal Medicine [facility] [address] [place] [address] Garry Reyes MD [address] [place] [address] 10/21/2024 10:40 AM EST Telemedicine Endocrinology [address] [place] [phone] Jalyn Ladd MD 100 [address] [facility] [place] [address] 12/29/2024 9:45 AM EDT Office Visit Dermatology [facility] [address] [place] [address] Garry Ryan MD [address] [place] [address] 02/21/2025 11:20 AM EDT Office Visit [facility] [place] [address] [place] [phone] Maris Lucero DO [address] [place] [address] Scheduled Orders Name Type Priority Associated Diagnoses Orde r Schedule EXTERNAL EYE PHOTOGRAPHY Procedures Routine Spastic entropion of right lower eyelid Ordered: 04/12/2024 Scheduled Procedures Name Priority Associated Diagnoses Date/Ti [...] Additional history exists Albumin/Creatinine Ratio 01/07/2025 01/08/2024, 03/2 10/2022 GFR 01/07/2025 01/08/2024, 0 10/2023, 09/01/2023, Additional [...] this encounter Medical Devices Implanted Type Area Channel Director Device Identifier Shelf Expiration Date Model / Serial / Lot Hernia Patch Lrg/[place] W/Strp - [id number] Implanted:Qty: 1 on 07/17/2015 by Vicente Sandoval MD at OR [facility] N/A: Abdomen CR BARD : DAVOL 07/21/2016 [id number] / / [id number] Lens Intraoc 20.0 - [id number] - [id number] Implanted:Qty: 1 on 01/22/2021 by Lui Hardy MD at OR [facility] Left: Eye BAUSCH & LOMB 08/20/2025 [id number] / [id number] / Lens Intraoc 20.0 - [id number] - [id number] Implanted:Qty: 1 on 02/05/2021 by Lui Hardy MD at OR [facility] Right: Eye BAUSCH & LOMB 10/21/2025 [id number] / [id number] / [id number] documented as of this encounter Visit Diagnoses Diagnosis Spastic entropion of right lower eyelid- Primary Spastic entropion documented in this encounter Advance Directives * [...] and were consensually agreed upon. Care Teams Golf Superintendent Relationship Specialty Start Date End Date Garry Reyes MD [address] [place] [address] PCP - General Internal Medicine 02/25/19 documented as of this encounter
--- OUTSIDE RECORDS SUMMARY | 2024-07-29 23:47 | External Medical Summary ---
Author Name Unknown Address Unknown Organization K09:[facility] [place] [address] Laboratory Report Ordering Provider Test Date Status ANKUSH VILLALOBOS V 04/18/2024 08:25:35 Final Therapeutic ranges for non-o perative patients:
Prophylaxsis/treatment of DVT: (Range:2.0-3.0)
Treatment of pulmonary embolism:(Range:2.0-3.0)
Prevention of systemic embolism from:
-tissue heart valves
-acute myocardial infarction
-valvular heart disease
-atrial fibrillation
(Range: 2.0-3.0)
Mechanical prosthetic valves: (Range: 2.5-3.5) Observation Date Value Abnormality Reference (Units ) Status INR in Capillary blood by Coagulation assay 04/18/2024 08:25:35 1.7 (INR) Final Performing Location [facility] [place] [address]
--- OUTSIDE RECORDS SUMMARY | 2024-07-29 23:47 | External Medical Summary | Summary of Care ---
Author Name Unknown Organization [facility] Address [address] [place] [address] Phone [phone] Care Team Providers Care Tack Puller Machine Name Role Phone Garry Reyes MD Primary Care Provider + Reason for Visit * Reason Comments Procedure Encounter Details Date Type Department Care Team (Late st Contact Info) Description 04/13/2024 8:30 AM EDT Office Visit Ophthalmology, [facility] [address] [place] [address] Jimi Ryan, DO [address] [place] [address] Spastic entropion of right lower [...] MG Oral TabletIndications:C oronary artery disease involving chehalis coronary artery of chehalis heart without angina pectoris,LV (left ventricular) mural thrombus following [place] (HCC),HTN, goal below 140/90,Ischemic cardiomyopathy,Hist ory of TIA (transient ischemic attack),Dyslipidemi a, goal LDL below 70,Old myocardial infarct,Essential hypertension with goal blood pressure less than 140/90 Take 1 Tablet by mouth in the morning. 90 Tablet 3 05/07/2023 Active Carvedilol 6.25 MG Oral Tablet (Coreg)Indications: Coronary artery disease involving chehalis coronary artery of chehalis heart without angina pectoris,LV (left ventricular) mural thrombus following [place] (HCC),HTN, goal below 140/90,Ischemic cardiomyopathy,Hist ory of [...] (Coumadin)Indicatio ns:LV (left ventricular) mural thrombus following [place] (HCC) TAKE 2 TABLETS TUESDAYS & SATURDAYS, [...] Start Date End Date Status lidocaine-epinephrine 2 %-1:483754 inj 100 mgIndications:Spastic entropion of right lower [...] esophagus 05/26/2019 Coronary artery disease invo lving chehalis coronary artery of chehalis heart without angina pectoris 02/15/2019 Old myocardial [...] use aero chamber. Test performed by Celi BOTTLE CAPPING MACHINE OPERATOR CPFT Thyroid nodule 05/26/2019 01/08/2024 Acute [...] mRNA, LNP-s, No Pre serve, 2-Dose Series ([employer] [place]) 05/22/2021,12/13/2020,11/15/2020 COVID-19, LNP-s, No Preserve , Yanick-sucrose, Ages 12+ (Pfizer) 12/27/2021 COVID-19, MRNA-LNP, 23-24, P F, 30 MCG/0.3 mL, 12 YRS AND ABOVE, IM (ID90T-Comirnaty) 06/15/2023 Covid-19, Mrna, Lnp-s, Pf, B ivalent, 30 Mcg, IM, 12 yrs and above ([employer] [place]) 06/13/2022 Pneumococcal Conjugate Vacc, 13 Valent (Prevnar) [...] Description 04/18/2024 8:30 AM EDT Anticoagulation Pharmacy, [facility] [place] [address] Pharmacist1, [facility] 200 [facility] [place] [address] 05/02/2024 8:00 AM EDT Office Visit Ophthalmology, [facility] 132 [facility] [place] [address] Jimi Ryan, [address] [place] [address] 05/30/2024 11:00 AM EDT Cardiac Studies Cardiac Studies, [facility] 132 [facility] [place] [address] 06/06/2024 11:20 AM EDT Office Visit Ophthalmology, [facility] 132 [facility] [place] [address] Jimi Ryan, 16 [facility] [place] [address] 06/29/2024 3:30 PM EDT Office Visit Cardiology, [facility] 132 [facility] [place] [address] Debbi Nolan PA-C 132 [facility] [place] [address] 06/30/2024 10:00 AM EDT Imaging Radiology [facility] 132 [facility] [place] [place] [address] 07/01/2024 9:30 AM EDT Imaging Radiology [facility] 132 [facility] [place] [place] [address] 08/02/2024 10:15 AM EST Office Visit Urology, [facility] 132 [facility] [place] [address] Mac Hook MD 27 [facility] [place] [address] 08/05/2024 9:00 AM EST Office Visit General Internal Medicine [facility] [address] [place] [address] Garry Reyes MD [address] [place], [place] [address] 10/21/2024 10:40 AM EST Telemedicine Endocrinology [facility] [place] [address] [place] [address] Jalyn Ladd MD [address] [place], [place] [address] 12/29/2024 9:45 AM EDT Office Visit Dermatology [facility] [address] [place] [address] Garry Ryan MD [address] [place] [address] 02/21/2025 11:20 AM EDT Office Visit Sleep Disorders Ctr [facility] 132 [place] [phone] Maris Lucero, DO [address] [place] [address] Scheduled Procedures Name Priority Associated Diagnoses Date/Ti [...] this encounter Medical Devices Implanted Type Area Residency Coordinator Device Identifier Shelf Expiration Date Model / Serial / Lot Hernia Patch Lrg/[place] W/Strp - [id number] Implanted:Qty: 1 on 07/17/2015 by Vicente Sandoval MD at OR [facility] N/A: Abdomen CR BARD : DAVOL 07/21/2016 [id number] / / [id number] Lens Intraoc 20.0 - [id number] - [id number] Implanted:Qty: 1 on 01/22/2021 by Lui Hardy MD at OR [facility] Left: Eye BAUSCH & LOMB 08/20/2025 [id number] / [id number] / Lens Intraoc 20.0 - [id number] - [id number] Implanted:Qty: 1 on 02/05/2021 by Lui Hardy MD at OR [facility] Right: Eye BAUSCH & LOMB 10/21/2025 [id number] / [id number] / [id number] documented as of this encounter Visit Diagnoses [...] 8:42 AM EDT 1 g lidocaine-epinephrine 2 %-1:332567 inj 100 mg 100 mg (5 mL), [...] and were consensually agreed upon. Care Teams Tack Puller Machine Relationship Specialty Start Date End Date Garry Reyes MD [address] [place] [address] PCP - General Internal Medicine 02/25/19 documented as of this encounter
--- OUTSIDE RECORDS SUMMARY | 2024-07-29 23:47 | External Medical Summary | Summary of Care ---
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 Test performed by Celi LADIES SUIT OPERATOR CPFT Thyroid nodule 05/26/2019 01/08/2024 Acute [...] mRNA, LNP-s, No Pre serve, 2-Dose Series (Secure-24) 05/22/2021,12/13/2020,11/15/2020 COVID-19, LNP-s, No Preserve , Yanick-sucrose, Ages 12+ (Pfizer) 12/27/2021 COVID-19, MRNA-LNP, 23-24, P F, 30 MCG/0.3 mL, 12 YRS AND ABOVE, IM ([facility]) 06/15/2023 Covid-19, Mrna, Lnp-s, Pf, B ivalent, 30 Mcg, IM, 12 yrs and above (Secure-24) 06/13/2022 Pneumococcal Conjugate Vacc, 13 Valent (Prevnar) [...] Progress Notes * Jimi Ryan DO - 05/02/2024 7:51 AM EDT Sky Peralta seen for 2 weeks post entropion repair RLL. Tolerated well feeling better Base Eye Exam Visual Acuity Declined. Extraocular Movement Right Left Full Full Neuro/Psych Oriented x3: Yes . LLL: incisions intact good apposition C/S: Normal Cornea: Clear Assessment: 2 weeks S/P LTS RLL. Looks great. Plan: Erythromycin ointment QHS Return visit 6 weeks Pt. advised to RTC sooner if there are any problems. Jimi Ryan DO documented in this encounter Nursing Notes * Lenore Renee LPN - 05/02/2024 7:48 AM EDT Sky Peralta is a 78 year old male who presents for PO follow up, patient happy with outcome thus far and denies issues this visit. Last Visit: 04/13/2024 (in office), Visit date not found (telemedicine) He currently states no change in vision. Are you diabetic? No Current Ophthalmic Medications: eryth ointment [facility], IOP, current eyeglass Rx, and pupil check and dilation if needed can be found in ophth exam. documented in this encounter Plan of Treatment Upcoming Encounters Date Type Department Care Team (Late st Contact Info) Description 05/30/2024 8:30 AM EDT Anticoagulation Pharmacy, [facility] 200 [facility] [place] [address] Pharmacist1, [facility] 200 [facility] [place] [address] 05/30/2024 11:00 AM EDT Cardiac Studies Cardiac Studies, [facility] 132 [facility] [place] [address] 06/06/2024 11:20 AM EDT Office Visit Ophthalmology, [facility] 132 [facility] [place] [address] Jimi Ryan, DO [address] [place] [address] 06/29/2024 3:30 PM EDT Office Visit Cardiology, [facility] 132 [facility] [place] [address] Debbi Nolan PA-C 132 [facility] [place] [address] 06/30/2024 10:00 AM EDT Imaging Radiology [facility] [place] 132 [facility] [place] [address] 07/01/2024 9:30 AM EDT Imaging Radiology [facility] 132 [facility] [place] [address] 08/02/2024 10:15 AM EST Office Visit Urology, [facility] 132 [facility] [place] [address] Mac Hook MD [address] [place] [address] 08/05/2024 9:00 AM EST Office Visit General Internal Medicine [facility] [address] [place] [address] Garry Reyes MD 200 [facility] [place] [address] 10/21/2024 10:40 AM EST Telemedicine Endocrinology Arvind [address] [place] [address] [place] [address] Jalyn Ladd MD [address] [place], [place] [address] 12/29/2024 9:45 AM EDT Office Visit Dermatology [facility] [address] [place] [address] Garry Ryan MD 200 [facility] [place] [address] 02/21/2025 11:20 AM EDT Office Visit Sleep Disorders Ctr [facility] 132 [facility] [place] [phone] Maris Lucero DO 132 [facility] [place] [address] Scheduled Procedures Name Priority Associated Diagnoses Date/Ti [...] Additional history exists Albumin/Creatinine Ratio 01/07/2025 01/08/2024, 2 10/2022 GFR 01/07/2025 01/08/2024, 01/0 10/2023, 09/01/2023, Additional history exists TSH 04/01/2025 04/01/2024, /2 03/2024, 11/21/2023, Additional history exists Pneumococcal Vaccine: [...] this encounter Medical Devices Implanted Type Area Fashion Editor Device Identifier Shelf Expiration Date Model / Serial / Lot Hernia Patch Lrg/[place] W/Strp - [id number] Implanted:Qty: 1 on 07/17/2015 by Vicente Sandoval MD at OR [facility] N/A: Abdomen CR BARD : DAVOL 07/21/2016 [id number] / / [id number] Lens Intraoc 20.0 - [id number] - [id number] Implanted:Qty: 1 on 01/22/2021 by Lui Hardy MD at OR [facility] Left: Eye BAUSCH & LOMB 08/20/2025 [id number] / [id number] / Lens Intraoc 20.0 - [id number] - [id number] Implanted:Qty: 1 on 02/05/2021 by Lui Hardy MD at OR [facility] Right: Eye BAUSCH & LOMB 10/21/2025 [id number] / [id number] / [id number] documented as of this encounter Visit Diagnoses [...] and were consensually agreed upon. Care Teams Boner Meat Relationship Specialty Start Date End Date Garry Reyes MD 200 [facility], [place] [phone] PCP - General Internal Medicine 02/25/19 documented as of this encounter
--- OUTSIDE RECORDS SUMMARY | 2024-07-29 23:48 | External Medical Summary | Summary of Care ---
Author Name Unknown Organization [facility] Address [address] [place] [address] Phone [phone] Care Team Providers Care Optical Dispenser Name Role Phone Garry Reyes MD Primary Care Provider + Reason for Visit * Reason Onset Date Comments TRIAGE 03/22/2024 Encounter Details Date Type Department Care Team (Late st Contact Info) Description 03/22/2024 Telephone Ophthalmology, [facility] [address] [place] [address] Services, Scheduling [address] [place] [address] TRIAGE Allergies No known active allergiesdocumented as of this encounter (statuses as of 03/26/2024) Medications Medication Sig Dispensed Refills Start Date [...] MG Oral TabletIndications:C oronary artery disease involving [place] coronary artery of [place] heart without angina pectoris,LV (left ventricular) mural thrombus following [place] (HCC),HTN, goal below 140/90,Ischemic cardiomyopathy,Hist ory of TIA (transient ischemic attack),Dyslipidemi a, goal LDL below 70,Old myocardial infarct,Essential hypertension with goal blood pressure less than 140/90 Take 1 Tablet by mouth in the morning. 90 Tablet 3 05/07/2023 Active Carvedilol 6.25 MG Oral Tablet (Coreg)Indications: Coronary artery disease involving [place] coronary artery of [place] heart without angina pectoris,LV (left ventricular) mural thrombus following [place] (HCC),HTN, goal below 140/90,Ischemic cardiomyopathy,Hist ory of [...] (Coumadin)Indicatio ns:LV (left ventricular) mural thrombus following [place] (HCC) TAKE 2 TABLETS TUESDAYS & SATURDAYS, [...] by mouth in the morning. 09/23/2023 Active Levothyroxine Sodium 175 MCG Oral Tablet (Levoxyl)Indication s:Follicular thyroid cancer (HCC),Postoperative hypothyroidism Take 1 Tablet by mouth daily first thing in the morning. (at least 30 min prior to breakfast or other meds) 90 Tablet 3 10/15/2023 10/14/19 Active Omeprazole 40 MG Oral Capsule Delayed Release (PriLOSEC)Indicatio ns:GERD (gastroesophageal reflux disease) TAKE 1 CAPSULE BY MOUTH EVERY DAY 90 Capsule 3 02/01/2024 Active documented as of this encounter (statuses as of 03/26/2024) Active Problems Problem Noted Date Diagnosed Date [...] as of this encounter (statuses as of 03/26/2024) Resolved Problems Problem Noted Date Diagnosed Date [...] use aero chamber. Test performed by [facility] UNIVERSITY LECTURER CPFT Thyroid nodule 05/26/2019 01/08/[address] [...] disorders 09/18/2005 04/27/2017 Overview: ENT Consult: 09/26 932.49 Voice disturbance nec (primary encounter diagnosis) PLAN: [...] as of this encounter (statuses as of 03/26/2024) Immunizations Name Administration Dates Next Due COVID-19 mRNA, LNP-s, No Pre serve, 2-Dose Series ([employer]) 05/22/2021,12/13/2020,11/15/2020 COVID-19, LNP-s, No Preserve , Yanick-sucrose, Ages 12+ (Pfizer) 12/27/2021 COVID-19, MRNA-LNP, 23-24, P F, 30 MCG/0.3 mL, 12 YRS AND ABOVE, IM ([employer]-Comirnat) 06/15/2023 Covid-19, Mrna, Lnp-s, Pf, B ivalent, 30 Mcg, IM, 12 yrs and above ([employer]) 06/13/2022 Pneumococcal Conjugate Vacc, 13 Valent (Prevnar) [...] encounter Miscellaneous Notes * Telephone Encounter - Stefani Johnson OSA - 03/23/2024 9:37 AM EDT Pt's calling, states she believes patient should be seen for his right eye before October of ye. She is asking for a call back. Pt is not having any pain, eye is all bloodshot and is swollen of bottom lid. Pt did have cancer and is concerned. * Telephone Encounter - Екатерина Quach OSA - 03/22/2024 10:28 AM EDT Images from the original note were not included. Who is calling? Pt (willing to go to [facility] or [facility]) Best way to reach patient or person calling, if call back needed by nurse or physician: [phone] Patient complaint/concern: started 3 weeks ago with irritation- lashes pointing into eye. Pt seen 2optoms who plucked 3 or 4 lashes out, prescribed drops 4x a day. Eye is worsening. Bloodshot, tearing, burning when using drops. [facility] told him to see Dr Shelby shin and NA is Oct in [facility]. Pt willing to go to [place] to see him sooner if possible. Eyelid swollen. Pt had thyroid priscilla estela- had some side affects and unsure if that has anything to do with this. Location: Right eye How long has it been going on: 3 weeks Timing: constant Associated symptoms: redness If having pain, have patient rate pain on a scale from 0 to 10 (10 being the worst pain ever) No Characterization- irritation- not pain. / Scale- 0/10 LINE [place] ONLY: NOTIFY PATIENT: PLEASE ALLOW US UP TO 48 HOURS FOR A RESPONSE *Person filling out this form: Once form completed, please route to p [phone] (triage nurse pool) . Please let patient know you have sent symptoms for triage and someone will reach out to patient with further instruction. Physician or nurse will triage & reply with instruction to appropriate pools as listed below. Thank you! *Physicians triaging patient, please reply to: -If only instructions needed- NO appointment scheduling needed, please route to p [phone] (triage nurse pool). -If instructions AND appointment needed, please route to p [phone] (triage nurse pool) and p [phone] (legal secretary receptionist pool). [place] ONLY: Route all messages to P [phone] [facility] Ophthalmology triage pool NOTIFY PATIENT: PLEASE ALLOW US UP TO 48 HOURS FOR A RESPONSE [place]: NOTIFY PATIENT: PLEASE ALLOW US UP TO 48 HOURS FOR A RESPONSE documented in this encounter Plan of Treatment Upcoming Encounters Date Type Department Care Team (Late st Contact Info) Description 03/31/2024 10:20 AM EDT Telemedicine Endocrinology [address] [place] [phone] Jalyn Ladd MD [address] [facility] [place] [id number] 04/18/2024 8:30 AM EDT Anticoagulation Pharmacy, [facility] [address] [place] [address] Pharmacist1, [facility] [address] [facility] [place] [address] 05/30/2024 11:00 AM EDT Cardiac Studies Cardiac Studies, [facility] 132 [place] [address] 06/02/2024 10:00 AM EDT Office Visit [facility] [address] [place] [address] Jimi Ryan, 16 [place] [address] 06/02/2024 11:00 AM EDT Office Visit Cardiology, [facility] 132 [place] [address] Brandy Loza CRNP [address] [place] [address] 08/02/2024 10:15 AM EST Office Visit Urology, [facility] [address] [place] [address] Mac Hook MD [address] [place] [address] 08/05/2024 9:00 AM EST Office Visit General Internal Medicine [facility] [address] [place] [address] Garry Reyes MD [address] [facility], [place] [address] 12/29/2024 9:45 AM EDT Office Visit Dermatology [facility] [address] [place] [address] [address] Garry Ryan MD [address] [place] [address] 02/21/2025 11:20 AM EDT Office Visit Sleep Disorders Ctr [facility] [address] [place] [address] Maris Lucero, [address] [place] [address] Scheduled Procedures Name Priority Associated Diagnoses Date/Ti [...] 01/08/2024, 01/0 10/2023, 06/18/2023, Additional history exists TSH 12/15/2024 12/16/2023, 03/0 10/2023, 10/09/2023, Additional history exists Albumin/Creatinine Ratio 01/07/2025 01/08/2024, 2 10/2022 GFR 01/07/2025 01/08/2024, 01/0 10/2023, 09/01/2023, Additional history exists Pneumococcal Vaccine: 65+ Years [...] this encounter Medical Devices Implanted Type Area Inspector Assembly Device Identifier Shelf Expiration Date Model / Serial / Lot Hernia Patch Lrg/[place] W/Strp - [id number] Implanted:Qty: 1 on 07/17/2015 by Vicente Sandoval MD at OR [facility] N/A: Abdomen CR BARD : DAVOL 07/21/2016 [id number] / / [id number] Lens Intraoc 20.0 - [id number] - [id number] Implanted:Qty: 1 on 01/22/2021 by Lui Hardy MD at OR [facility] Left: Eye BAUSCH & LOMB 08/20/2025 [id number] / [id number] / Lens Intraoc 20.0 - [id number] - [id number] Implanted:Qty: 1 on 02/05/2021 by Lui Hardy MD at OR [facility] Right: Eye BAUSCH & LOMB 10/21/2025 [id number] / [id number] / [id number] documented as of this encounter Advance Directives [...] and were consensually agreed upon. Care Teams Optical Dispenser Relationship Specialty Start Date End Date Garry Reyes MD 200 [place] [address] PCP - General Internal Medicine 02/25/19 documented as of this encounter
--- OUTSIDE RECORDS SUMMARY | 2024-07-29 23:48 | External Medical Summary | Summary of Care ---
Author Name Unknown Organization [facility] Address [address] [place] [address] Phone [phone] Care Team Providers Care Life Care Planner Name Role Phone Garry Reyes MD Primary Care Provider + Reason for Visit * Reason Comments Dosage Adjustment In Person (Anticoag Cl inic) Encounter Details Date Type Department Care Team (Latest Contact Info) Description 03/07/2024 8:20 AM EDT Anticoagulation Pharmacy, [facility] [address] [place] [address] Pharmacist1, [facility] [address] [place] [address] LV (left ventricular) mural thrombus following [place] (HCC)*; History of TIA (transient ischemic attack); Anticoagulation management encounter Allergies No known active allergiesdocumented as of this encounter (statuses as of 03/07/2024) Medications Medication Sig Dispensed Refills Start Date [...] MG Oral TabletIndications:C oronary artery disease involving [place] coronary artery of [place] heart without angina pectoris,LV (left ventricular) mural thrombus following [place] (HCC),HTN, goal below 140/90,Ischemic cardiomyopathy,Hist ory of TIA (transient ischemic attack),Dyslipidemi a, goal LDL below 70,Old myocardial infarct,Essential hypertension with goal blood pressure less than 140/90 Take 1 Tablet by mouth in the morning. 90 Tablet 3 05/07/2023 Active Carvedilol 6.25 MG Oral Tablet (Coreg)Indications: Coronary artery disease involving [place] coronary artery of [place] heart without angina pectoris,LV (left ventricular) mural thrombus following [place] (HCC),HTN, goal below 140/90,Ischemic cardiomyopathy,Hist ory of [...] (Coumadin)Indicatio ns:LV (left ventricular) mural thrombus following [place] (HCC) [...] other meds) 90 Tablet 3 10/15/2023 10/14/19 25 Active Omeprazole 40 MG Oral Capsule Delayed Release (PriLOSEC)Indicatio ns:GERD (gastroesophageal reflux disease) TAKE 1 CAPSULE BY MOUTH EVERY DAY 90 Capsule 3 02/01/2024 Active documented as of this encounter (statuses as of 03/07/2024) Active Problems Problem Noted Date Diagnosed Date [...] esophagus 05/26/2019 Coronary artery disease invo lving [place] coronary artery of [place] heart without angina pectoris 02/15/2019 Old myocardial [...] as of this encounter (statuses as of 03/07/2024) Resolved Problems Problem Noted Date Diagnosed Date [...] use aero chamber. Test performed by [facility] MECHANICAL AND AUTO BODY CAR CHECKER CPFT Thyroid nodule 05/26/2019 01/08/[address] [...] disorders 09/18/2005 04/27/2017 Overview: ENT Consult: 09/26 314.49 Voice disturbance nec (primary encounter diagnosis) PLAN: [...] as of this encounter (statuses as of 03/07/2024) Immunizations Name Administration Dates Next Due COVID-19 mRNA, LNP-s, No Pre serve, 2-Dose Series ([employer]) 05/22/2021,12/13/2020,11/15/2020 COVID-19, LNP-s, No Preserve , Yanick-sucrose, Ages 12+ ([employer]) 12/27/2021 COVID-19, MRNA-LNP, 23-24, P F, 30 MCG/0.3 mL, 12 YRS AND ABOVE, IM ([employer]-Comirnat) 06/15/2023 Covid-19, Mrna, Lnp-s, Pf, B ivalent, 30 Mcg, IM, 12 yrs and above ([employer] CBOT) 06/13/2022 Pneumococcal Conjugate Vacc, 13 Valent (Prevnar) [...] money to get more. Never true 12/17/2022 Sex and Gender Information Value Date Recorded [...] Progress Notes * Salvador Nance RPh - 03/07/2024 8:17 AM EDT Medication Therapy Disease Management - Anticoagulation Sky Peralta 1945 Current Warfarin Dose As of 03/07/2024 Warfarin maintenance plan: 5 mg (5 mg x 1) every day Patient Findings Negatives: Signs/symptoms of thrombosis, Signs/symptoms of bleeding, Change in health, Change in alcohol use, Change in activity, Upcoming invasive procedure, Missed doses, Extra doses, Change in medications, Change in diet/appetite, Bruising INR Result As of 03/07/2024 INR goal: 2.0-3.0 INR used for dosin.1 (03/07/2024) Warfarin Plan As of 03/07/2024 Full warfarin instructions: 5 mg every day No change documented: Salvador Nance RPh Next INR check: 04/18/2024 Repeat PT/INR in 6 week(s) Weekly dose: not changed Salvador Hough RPh, CACP, CDE Clinical Pharmacist Medication Therapy Management Clinic 03/07/2024 8:23 AM documented in this encounter Plan of Treatment Upcoming Encounters Date Type Department Care Team (Late st Contact Info) Description 03/31/2024 10:20 AM EDT Telemedicine Endocrinology [address] [place] [phone] Jalyn Ladd MD [address] [place], [place] [id number] 04/18/2024 8:30 AM EDT Anticoagulation Pharmacy, [facility] [address] [place] [address] Pharmacist1, [facility] [address] [facility] [place] [place] [address] 05/30/2024 11:00 AM EDT Cardiac Studies Cardiac Studies, [facility] [address] [place] [address] 06/02/2024 11:00 AM EDT Office Visit Cardiology, [facility] [address] [place] [address] Brandy Loza CRNP [address] [place] [address] 08/02/2024 10:15 AM EST Office Visit Urology, [facility] [address] [place] [address] Mac Hook MD [address] [address] 08/05/2024 9:00 AM EST Office Visit General Internal Medicine [facility] [address] [facility] [address] [place] [address] Garry Reyes MD 200 [facility] [place], [place] [address] 12/29/2024 9:45 AM EDT Office Visit Dermatology [facility] [address] [facility] [address] [place] [address] Garry Ryan MD 200 [facility] [place] [address] 02/21/2025 11:20 AM EDT Office Visit Sleep Disorders Ctr [facility] [address] [place] [address] Maris Lucero, [address] [place] [address] Scheduled Procedures Name Priority Associated Diagnoses Date/Ti [...] 01/08/2024, 010 10/2023, 06/18/2023, Additional history exists TSH 12/15/2024 12/16/2023, 03/0 10/2023, 10/09/2023, Additional history exists Albumin/Creatinine Ratio 01/07/2025 01/08/2024, 03/2 10/2022 GFR 01/07/2025 01/08/2024, 01/0 10/2023, 09/01/2023, Additional history exists Pneumococcal Vaccine: 65+ Years Completed 05/12/2018, 04/27/2017, 10/12/2007 RETIRED - COLONOSCOPY-EVERY 5 YRS AGES 18-100 Discontinued 08/02/2018, 08/02/2018, 07/06/2015, Additional history exists Influenza Vaccine (FLU shot) Completed 06/06/2023, 06/07/2022, 06/08/2021, Additional history exists Lung Cancer Screening Completed 06/29/2023 , 06/26/2022, 06/25/2021, Additional history exists GARDASIL-HPV IMMUNIZATION SERIES Aged Out No longer eligible based on patient's age to complete this topic Hepatitis B Aged Out No longer eligi ble based on patient's age to complete this topic MENINGOCOCCAL (MENACTRA/MENVEO) Aged Out No longer eligible based on patient's age to complete this topic documented as of this encounter Medical Devices Implanted Type Area Valve Pipe Irrigator Device Identifier Shelf Expiration Date Model / Serial / Lot Hernia Patch Lrg/[place] W/Strp - [id number] Implanted:Qty: 1 on 07/17/2015 by Vicente Sandoval MD at OR [facility] N/A: Abdomen CR BARD : DAVOL 07/21/2016 [id number] / / [id number] Lens Intraoc 20.0 - [id number] - [id number] Implanted:Qty: 1 on 01/22/2021 by Lui Hardy MD at OR [facility] Left: Eye BAUSCH & LOMB 08/20/2025 [id number] / [id number] / Lens Intraoc 20.0 - [id number] - [id number] Implanted:Qty: 1 on 02/05/2021 by Lui Hardy MD at OR [facility] Right: Eye BAUSCH & LOMB 10/21/2025 [id number] / [id number] / [id number] documented as of this encounter Procedures Procedure Name Priority Date/Time Associated Diagnosis Comments INR FINGERSTICK, POINT OF CARE STAT 03/07/2024 8:19 AM EDT History of TIA (transient ischemic attack) LV (left ventricular) mural thrombus following PR (HCC) Anticoagulation management encounter documented in this encounter Results * INR FINGERSTICK, POINT OF CARE (03/07/2024 8:19 AM EDT) Fingerstick INR 2.1 INR 8:22 AM EDT [facility] Blood 03/07/2024 8:19 AM EDT 03/07/2024 8:22 AM EDT Narrative [facility] - 03/07/2024 8:22 AM EDT Therapeutic ranges for non-operative patients: Prophylaxsis/treatment of DVT: (Range:2.0-3.0) Treatment of pulmonary embolism:(Range:2.0-3.0) Prevention of systemic embolism from: -tissue heart valves -acute myocardial infarction -valvular heart disease -atrial fibrillation (Range: 2.0-3.0) Mechanical prosthetic valves: (Range: 2.5-3.5) Salvador Gianluca V, [facility] POINT OF CARE TE ST DOCKED DEVICE UNSOLICITED RESULTS [facility] [address] [place] [address] documented in this encounter Visit Diagnoses Diagnosis LV (left ventricular) mural thrombus following PR (HCC)- Primary Other certain sequelae of myocardial [...] and were consensually agreed upon. Care Teams Life Care Planner Relationship Specialty Start Date End Date Garry Reyes MD 200 [facility] [place] [address] PCP - General Internal Medicine 02/25/19 documented as of this encounter
--- OUTSIDE RECORDS SUMMARY | 2024-07-29 23:48 | External Medical Summary | Summary of Care ---
Author Name Unknown Organization [facility] Address [address] [place] [address] Phone [phone] Care Team Providers Care Foundation Relations Manager Name Role Phone Garry Reyes MD Primary Care Provider + Reason for Referral * Evaluate & Treat - Unlimited Visits (Within 10 days (routine)) - Authorized Specialty Diagnoses / Procedures Referred By Mitchell vega Referred To Contact Ophthalmology Diagnoses Eye abrasion Veronika Baldwin, OD [address] [address] Referral ID Status Reason Start Date Expiration Date Visits Requested Visits Authorized [id number] Authorized Specialty Services Required 03/28/[phone] Question Answer Referral Priority Within 10 days (routine) Where should this appointment be scheduled? [facility] Referring for: Ophthalmology Conditions Ophthalmology Conditions Lids/Orbit Specific Condition Eyelid lump/lesion Encounter Details Date Type Department Care Team (Late st Contact Info) Description 03/28/2024 Orders Only [facility] [place], [address] *DO NOT REMOVE THIS DEPARTMENT* [place] [address] Request, External Referral Eye abrasion* Allergies No known active allergiesdocumented as of this encounter (statuses as of 03/28/2024) Medications Medication Sig Dispensed Refills Start Date [...] MG Oral TabletIndications:C oronary artery disease involving [place] coronary artery of [place] heart without angina pectoris,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),HTN, goal below 140/90,Ischemic cardiomyopathy,Hist ory of TIA (transient ischemic attack),Dyslipidemi a, goal LDL below 70,Old myocardial infarct,Essential hypertension with goal blood pressure less than 140/90 Take 1 Tablet by mouth in the morning. 90 Tablet 3 05/07/2023 Active Carvedilol 6.25 MG Oral Tablet (Coreg)Indications: Coronary artery disease involving [place] coronary artery of [place] heart without angina pectoris,LV (left ventricular) mural [...] 05/08/2023 Active Baclofen 10 MG Oral Tablet (Lioresal)Traci ns:Spasm of muscle,Spondylosis of thoracic region without [...] as of this encounter (statuses as of 03/28/2024) Active Problems Problem Noted Date Diagnosed Date [...] esophagus 05/26/2019 Coronary artery disease invo lving [place] coronary artery of [place] heart without angina pectoris 02/15/2019 Old myocardial [...] as of this encounter (statuses as of 03/28/2024) Resolved Problems Problem Noted Date Diagnosed Date [...] use aero chamber. Test performed by Celi TRADITIONAL CHINESE HERBALIST CPFT Thyroid nodule 05/26/2019 01/08/[address] [...] as of this encounter (statuses as of 03/28/2024) Immunizations Name Administration Dates Next Due COVID-19 mRNA, LNP-s, No Pre serve, 2-Dose Series (TMS) 05/22/2021,12/13/2020,11/15/2020 COVID-19, LNP-s, No Preserve , Yanick-sucrose, Ages 12+ (Pfizer) 12/27/2021 COVID-19, MRNA-LNP, 23-24, P F, 30 MCG/0.3 mL, 12 YRS AND ABOVE, IM ([employer]-Comirnaty) 06/15/2023 Covid-19, Mrna, Lnp-s, Pf, B ivalent, 30 Mcg, IM, 12 yrs and above (TMS) 06/13/2022 Pneumococcal Conjugate Vacc, 13 Valent (Prevnar) [...] Dr. [phone] Jalyn Ladd MD [address] [facility] [place] [address] 04/12/2024 10:30 AM EDT Office Visit [facility] [address] [place] [address] Jimi Ryan DO [address] [place] [address] 04/18/2024 8:30 AM EDT Anticoagulation Pharmacy, [facility] 200 [facility] [place] [address] Pharmacist1, [facility] 200 [facility] [place] [address] 05/30/2024 11:00 AM EDT Cardiac Studies Cardiac Studies, [facility] [address] [place] [address] 06/02/2024 10:00 AM EDT Office Visit [facility] [address] [place] [address] Jimi Ryan DO [address] [place] [address] 06/02/2024 11:00 AM EDT Office Visit Cardiology, [facility] [address] [place] [address] Brandy Loza CRNP [address] [place] [address] 08/02/2024 10:15 AM EST Office Visit Urology, [facility] 132 [place] [address] Mac Hook MD [address] [place] [address] 08/05/2024 9:00 AM EST Office Visit General Internal Medicine [facility] [address] [place] [address] Garry Reyes MD 200 [facility] [place] [address] 12/29/2024 9:45 AM EDT Office [facility] [address] [place], [place] [address] Garry Ryan MD [address] [place] [address] 02/21/2025 11:20 AM EDT Office Visit Sleep Disorders Ctr [facility] [address] [place] [id number] Maris Lucero DO [address] [place] [address] Scheduled Procedures Name Priority Associated Diagnoses Date/Ti me COLONOSCOPY FLEXIBLE PROXIMAL DIAGNOSTIC Recall History of colon polyps Scheduled Referrals Name Type Priority Associated Diagnoses Orde r Schedule ADULT/PEDS OPHTHALMOLOGY/OPTOM ETRY REFERRAL OP Referral Within 10 days (routine) Eye abrasion Ordered: 03/28/2024 Health Maintenance Due Date Last Done Comments [...] 06/18/2023, Additional history exists TSH 12/15/2024 12/16/2023, 0 10/2023, 10/09/2023, Additional history exists Albumin/Creatinine Ratio 01/07/2025 01/08/2024, 11/20 GFR 01/07/2025 01/08/2024, 10/2023, 09/01/2023, Additional history exists Pneumococcal Vaccine: [...] this encounter Medical Devices Implanted Type Area Autism Motor Specialist Device Identifier Shelf Expiration Date Model / Serial / Lot Hernia Patch Lrg/[place] W/Strp - [id number] Implanted:Qty: 1 on 07/17/2015 by Vicente Sandoval MD at OR [facility] N/A: Abdomen CR BARD : DAVOL 07/21/2016 [id number] / / [id number] Lens Intraoc 20.0 - [id number] - [id number] Implanted:Qty: 1 on 01/22/2021 by Lui Hardy MD at OR [facility] Left: Eye BAUSCH & LOMB 08/20/2025 [id number] / [id number] / Lens Intraoc 20.0 - [id number] - [id number] Implanted:Qty: 1 on 02/05/2021 by Lui Hardy MD at OR [facility] Right: Eye BAUSCH & LOMB 10/21/2025 [id number] / [id number] / [id number] documented as of this encounter Visit Diagnoses Diagnosis Eye abrasion- Primary Other and unspecified superficial injuries of eye documented in this encounter Advance Directives * [...] and were consensually agreed upon. Care Teams Foundation Relations Manager Relationship Specialty Start Date End Date Garry Reyes MD 200 [facility], [place] [address] PCP - General Internal Medicine 02/25/19 documented as of this encounter
--- OUTSIDE RECORDS SUMMARY | 2024-07-29 23:48 | External Medical Summary ---
Author Name Unknown Address Unknown Organization K01:[facility] - [address] [place] [address] Laboratory Report Ordering Provider Test Date Status KELLY RENDON 04/01/2024 08:39:27 Final Observation Date Value Abnormality Reference (Units ) Status TSH 04/01/2024 08:39:27 0.07 Below low normal 0.2 7-4.20 (uIU/mL) Final Performing Location LABORATORY C - [address] [place] [address]
--- OUTSIDE RECORDS SUMMARY | 2024-07-29 23:48 | External Medical Summary ---
Author Name Unknown Address Unknown Organization K09:[facility] [place] [address] Laboratory Report Ordering Provider Test Date Status ANKUSH VILLALOBOS V 03/07/2024 08:19:57 Final Therapeutic ranges for non-o perative patients:
Prophylaxsis/treatment of DVT: (Range:2.0-3.0)
Treatment of pulmonary embolism:(Range:2.0-3.0)
Prevention of systemic embolism from:
-tissue heart valves
-acute myocardial infarction
-valvular heart disease
-atrial fibrillation
(Range: 2.0-3.0)
Mechanical prosthetic valves: (Range: 2.5-3.5) Observation Date Value Abnormality Reference (Units ) Status INR in Capillary blood by Coagulation assay 03/07/2024 08:19:57 2.1 (INR) Final Performing Location [facility] [place] [address]
--- OUTSIDE RECORDS SUMMARY | 2024-07-29 23:48 | External Medical Summary | Summary of Care ---
Author Name Unknown Organization [facility] Address [address] [place] [address] Phone [phone] Care Team Providers Care Supervisor Scouring Pads Name Role Phone Garry Reyes MD Primary Care Provider + Reason for Visit * Reason Comments Outpatient Testing Encounter Details Date Type Department Care Team (Late st Contact Info) Description 04/01/2024 8:30 AM EDT Laboratory Laboratory [facility] [address] [place] [address] [facility] Lab [facility] 200 [place] [address] Abnormal CBC; Follicular thyroid cancer (HCC); Postoperative hypothyroidism Allergies No known active allergiesdocumented as of this encounter (statuses as of 04/01/2024) Medications Medication Sig Dispensed Refills Start Date [...] MG Oral TabletIndications:C oronary artery disease involving big lagoon coronary artery of big lag[place] heart without angina pectoris,LV (left ventricular) mural thrombus following NM (HCC),HTN, goal below 140/90,Ischemic cardiomyopathy,Hist ory of TIA (transient ischemic attack),Dyslipidemi a, goal LDL below 70,Old myocardial infarct,Essential hypertension with goal blood pressure less than 140/90 Take 1 Tablet by mouth in the morning. 90 Tablet 3 05/07/2023 Active Carvedilol 6.25 MG Oral Tablet (Coreg)Indications: Coronary artery disease involving big lagoon coronary artery of big lag[place] heart without angina pectoris,LV (left ventricular) mural [...] as of this encounter (statuses as of 04/01/2024) Active Problems Problem Noted Date Diagnosed Date [...] 05/26/2019 Coronary artery disease invo lving big lagoon coronary artery of big lagoon heart without angina pectoris 02/15/2019 Old myocardial [...] as of this encounter (statuses as of 04/01/2024) Resolved Problems Problem Noted Date Diagnosed Date Resolved Date Acute airway obstruction 08/29/202308/2023 Hematoma 08/29/2023 09/01/2023 Neck swelling 08/29/2023 09/01/2023 Difficulty breathing 08/29/2023 023 Post-operative complication 08/29/2023 09/01/2023 Prediabetes 07/04/2020 07/02/2023 Centrilobular emphysema 06/25/2020 0305/2023 Lung nodule 08/25/2019 01/08/2024 Overview: In Check dial performed to assess inhaler technique: 10/27/19 Name of inhaler Albuterol Pass: Yes at 60L/min. Encouraged to take deep breath and use aero chamber. Test performed by Celi TAI CHI INSTRUCTOR CPFT Thyroid nodule 05/26/2019 01/08/[address] [...] disorders 09/18/2005 04/27/2017 Overview: ENT Consult: 09/26 254.49 Voice disturbance nec (primary encounter diagnosis) PLAN: [...] as of this encounter (statuses as of 04/01/2024) Immunizations Name Administration Dates Next Due COVID-19 mRNA, LNP-s, No Pre serve, 2-Dose Series ([employer]) 05/22/2021,12/13/2020,11/15/2020 COVID-19, LNP-s, No Preserve , Yanick-sucrose, Ages 12+ (Pfizer) 12/27/2021 COVID-19, MRNA-LNP, 23-24, P F, 30 MCG/0.3 mL, 12 YRS AND ABOVE, IM ([employer]-Comirnat) 06/15/2023 Covid-19, Mrna, Lnp-s, Pf, B ivalent, 30 Mcg, IM, 12 yrs and above (Vistronix) 06/13/2022 Pneumococcal Conjugate Vacc, 13 Valent (Prevnar) [...] Team (Late st Contact Info) Description 04/12/2024 10:30 AM EDT [facility] [place] [address] Jimi Ryan, [address] [place] [address] Photographer [place] [address] [place] [address] 04/18/2024 8:30 AM EDT Anticoagulation Pharmacy, [address] [place] [address] [place] [address] Pharmacist1, [facility] [address] [facility] [place] [address] 05/30/2024 11:00 AM EDT Cardiac Studies Cardiac Studies, [facility] 132 [facility] [place] [address] 06/02/2024 11:00 AM EDT Office Visit Cardiology, [facility] 132 [place] [address] Brandy Loza CRNP 132 [facility] [place] [address] 07/01/2024 9:30 AM EDT Imaging Radiology [facility] 132 [place] [address] 08/02/2024 10:15 AM EST Office Visit Urology, [facility] 132 [place] [address] Mac Hook MD [address] [facility] [address] 08/05/2024 9:00 AM EST Office Visit General Internal Medicine [facility] [address] [place] [address] Garry Reyes MD 200 [facility] [place] [address] 10/21/2024 10:40 AM EST Telemedicine Endocrinology [address] [place] [address] Jalyn Ladd MD [address] [facility] [place] [id number] 12/29/2024 9:45 AM EDT Office Visit Dermatology [facility] [address] [place] [address] Garry Ryan MD 200 [facility] [place] [address] 02/21/2025 11:20 AM EDT Office Visit [facility] [place] [address] Maris Luceroaret, DO [address] [place] [address] Pending Results Name Type Priority Associated Diagnoses Date /Time THYROGLOBULIN AND THYROGLOBULIN ANTIBODY FOR TUMOR MONITORING Lab Routine Follicular thyroid cancer (HCC) Postoperative hypothyroidism 04/01/2024 8:39 AM EDT TSH WITH FREE T4 IF INDICATED Lab Routine Follicular thyroid cancer (HCC) Postoperative hypothyroidism 04/01/2024 8:39 AM EDT THYROGLOBULIN ANTIBODY TUMOR MONITORING Lab Routine Follicular thyroid cancer (HCC) Postoperative hypothyroidism 04/01/2024 8:39 AM EDT QN THYROGLOBULIN WITHOUT THYROGLOBULIN ANTIBODY Lab Routine Follicular thyroid cancer (HCC) Postoperative hypothyroidism 04/01/2024 8:39 AM EDT Scheduled Procedures Name Priority Associated [...] 01/08/2024, 0 10/2023, 06/18/2023, Additional history exists TSH 12/15/2024 12/16/2023, 0 10/2023, 10/09/2023, Additional history exists Albumin/Creatinine Ratio 01/07/2025 01/08/2024, 03/2 10/2022 GFR 01/07/2025 01/08/2024, 010 10/2023, 09/01/2023, Additional history exists Pneumococcal Vaccine: [...] this encounter Medical Devices Implanted Type Area Mental Health Professional Device Identifier Shelf Expiration Date Model / Serial / Lot Hernia Patch Lrg/Nikolai W/Strp - [id number] Implanted:Qty: 1 on 07/17/2015 by Vicente Sandoval MD at OR [facility] N/A: Abdomen CR BARD : DAVOL 07/21/2016 [id number] / / [id number] Lens Intraoc 20.0 - [id number] - [id number] Implanted:Qty: 1 on 01/22/2021 by Lui Hardy MD at OR [facility] Left: Eye BAUSCH & LOMB 08/20/2025 [id number] / [id number] / Lens Intraoc 20.0 - [id number] - [id number] Implanted:Qty: 1 on 02/05/2021 by Lui Hardy MD at OR [facility] Right: Eye BAUSCH & LOMB 10/21/2025 [id number] / [id number] / [id number] documented as of this encounter Procedures Procedure Name Priority Date/Time Associated Diagnosis Comments DIFFERENTIAL, AUTOMATED Routine 04/01/2024 8:39 AM EDT Abnormal CBC CBC Routine 04/01/2024 8:39 AM EDT Abnormal CBC CBC Routine 04/01/2024 8:39 AM EDT Abnormal CBC documented in this encounter Results * (ABNORMAL) DIFFERENTIAL, AUTOMATED (04/01/2024 8:39 AM EDT) WBC 5.83 4.00 - 10.80 K/uL 04/01/2024 8:46 AM EDT [facility] 56-02 Neutrophils % 46.4 40.0 - 75.0 % 04/01/2024 8:46 AM EDT [facility] 56-02 Lymphocytes % 33.8 18.0 - 42.0 % 04/01/2024 8:46 AM EDT [facility] 56-02 Monocytes % 14.8(H) 1.0 - 11.0 % 04/01/2024 8:46 AM EDT [facility] 56-02 Eosinophils % 4.8 0.0 - 6.0 % 04/01/2024 8:46 AM EDT [facility] 56-02 Basophils % 0.2 0.0 - 2.0 % 04/01/2024 8:46 AM EDT [facility] 56-02 Absolute Neutrophils 2.71 1.80 - 7.70 K/uL 04/01/2024 8:46 AM EDT [facility] 56-02 Absolute Lymphocytes 1.97 1.00 - 4.80 K/ul 04/01/2024 8:46 AM EDT [facility] 56-02 Absolute Monocytes 0.86 0.00 - 1.10 K/uL 04/01/2024 8:46 AM EDT [facility] 56-02 Absolute Eosinophils 0.28 0.00 - 0.70 K/uL 04/01/2024 8:46 AM EDT [facility] 56-02 Absolute Basophils 0.01 0.00 - 0.20 K/uL 04/01/2024 8:46 AM EDT [facility] 56-02 Blood Venous blood specimen / Unknown Venipuncture / Unknown 04/01/2024 8:39 AM EDT 04/01/2024 8:39 AM EDT Garry Reyes MD LAB BLOOD ORDERA BLES [facility] 56 [address] [place], [place] [address] * CBC (04/01/2024 8:39 AM EDT) WBC 5.83 4.00 - 10.80 K/uL 04/01/2024 8:46 AM EDT [facility] 56 RBC 4.13 4.50 - 5.25 M/uL 04/01/2024 8:46 AM EDT [facility] 56 HGB 14.2 14.0 - 16.8 g/dL 04/01/2024 8:46 AM EDT [facility] 56 HCT 41.0 40.0 - 48.4 % 04/01/2024 8:46 AM EDT [facility] 56 MCV 99.3 82.0 - 99.5 fL 04/01/2024 8:46 AM EDT [facility] 56 MCH 34.4 27.0 - 34.0 pg 04/01/2024 8:46 AM EDT [facility] 56 MCHC 34.6 32.0 - 36.0 g/dL 04/01/2024 8:46 AM EDT [facility] 56 RDW 13.7 11.5 - 15.5 % 04/01/2024 8:46 AM EDT [facility] 56 PLT 207 140 - 400 K/uL 04/01/2024 8:46 AM EDT [facility] 56 MPV 9.9 6.6 - 11.1 fL 04/01/2024 8:46 AM EDT [facility] 56 Blood Venous blood specimen / Unknown Venipuncture / Unknown 04/01/2024 8:39 AM EDT 04/01/2024 8:39 AM EDT Garry Reyes MD LAB BLOOD ORDERA BLES [facility] 56 [address] [place], [place] [address] documented in this encounter Visit Diagnoses Diagnosis Abnormal CBC Other abnormal blood chemistry Follicular thyroid cancer (HCC) Malignant neoplasm of [...] and were consensually agreed upon. Care Teams Supervisor Scouring Pads Relationship Specialty Start Date End Date Garry Reyes MD 200 [place] [address] PCP - General Internal Medicine 02/25/19 documented as of this encounter
--- OUTSIDE RECORDS SUMMARY | 2024-07-29 23:48 | External Medical Summary ---
Author Name Unknown Address Unknown Organization K09:[facility] [place] [address] Laboratory Report Ordering Provider Test Date Status TAMMI ESPINAL 04/01/2024 08:39:27 Final Observation Date Value Abnormality Reference (Units ) Status SYNC LEUKOCYTES IN BLOOD BY AUTOMATED COUNT 04/01/2024 08:39:27 5.83 4.00-10.80 (K/uL) Final Segs 04/01/2024 08:39:27 46.4 40.0-75.0 (%) Final Lymphs % 04/01/2024 08:39:27 33.8 18.0-42.0 (%) Final Monos 04/01/2024 08:39:27 14.8 Above high normal 1.0-11.0 (%) Final Eosinophils 04/01/2024 08:39:27 4.8 0.0-6.0 (%) Final Basos 04/01/2024 08:39:27 0.2 0.0-2.0 (%) Final Absolute Segs 04/01/2024 08:39:27 2.71 1.80-7.70 (K/uL) Final Lymphs, absolute 04/01/2024 08:39:27 1.97 1.00-4.80 (K/ul) Final Monos, Abs 04/01/2024 08:39:27 0.86 0.00-1.10 (K/uL) Final Eos, Abs 04/01/2024 08:39:27 0.28 0.00-0.70 (K/uL) Final Basos, Abs 04/01/2024 08:39:27 0.01 0.00-0.20 (K/uL) Final Performing Location [facility] [place] [address]
--- OUTSIDE RECORDS SUMMARY | 2024-07-29 23:48 | External Medical Summary | Summary of Care ---
Author Name Unknown Organization [facility] Address [address] [place] [address] Phone [phone] Care Team Providers Care First Assistant Manager Name Role Phone Garry Reyes MD Primary Care Provider + Reason for Visit * Reason Onset Date Comments TRIAGE 03/22/2024 Encounter Details Date Type Department Care Team (Late st Contact Info) Description 03/22/2024 Telephone Ophthalmology, [facility] [address] [place] [address] Services, Scheduling [address] [place] [address] TRIAGE Allergies No known active allergiesdocumented as [...] MG Oral TabletIndications:C oronary artery disease involving newtok coronary artery of [place] heart without angina pectoris,LV (left ventricular) mural thrombus following [place] (HCC),HTN, goal below 140/90,Ischemic cardiomyopathy,Hist ory of TIA (transient ischemic attack),Dyslipidemi a, goal LDL below 70,Old myocardial infarct,Essential hypertension with goal blood pressure less than 140/90 Take 1 Tablet by mouth in the morning. 90 Tablet 3 05/07/2023 Active Carvedilol 6.25 MG Oral Tablet (Coreg)Indications: Coronary artery disease involving newtok coronary artery of newtok heart without angina pectoris,LV (left ventricular) mural thrombus following NC (HCC),HTN, goal below 140/90,Ischemic cardiomyopathy,Hist ory of [...] (Coumadin)Indicatio ns:LV (left ventricular) mural thrombus following NC (HCC) TAKE 2 TABLETS TUESDAYS & SATURDAYS, [...] esophagus 05/26/2019 Coronary artery disease invo lving newtok coronary artery of newtok heart without angina pectoris 02/15/2019 Old myocardial [...] use aero chamber. Test performed by Celi CHAIN MACHINE OPERATOR CPFT Thyroid nodule 05/26/2019 01/08/2024 [...] disorders 09/18/2005 04/27/2017 Overview: ENT Consult: 09/26 302.49 Voice disturbance nec (primary encounter diagnosis) PLAN: [...] mRNA, LNP-s, No Pre serve, 2-Dose Series ([employer]) 05/22/2021,12/13/2020,11/15/2020 COVID-19, LNP-s, No Preserve , Yanick-sucrose, Ages 12+ (Pfizer) 12/27/2021 COVID-19, MRNA-LNP, 23-24, P F, 30 MCG/0.3 mL, 12 YRS AND ABOVE, IM ([employer]Comirnat) 06/15/2023 Covid-19, Mrna, Lnp-s, Pf, B ivalent, 30 Mcg, IM, 12 yrs and above ([employer]) 06/13/2022 Pneumococcal Conjugate Vacc, 13 Valent [...] encounter Miscellaneous Notes * Telephone Encounter - Екатерина Quach OSA - 03/26/2024 12:42 PM EDT Pt calling in and asking for a much sooner appointment. Eye is blood shot and painful. Pt is upset and feels that the seriousness of his eye isn't being taken seriously. Pt scheduled for NA in May. I offered an Aug appt that had opened up, he declined as it wasn't soon enough. Pt said he's willing to see Dr Ryan at or [facility] or even Dr Hernandez for a sooner appt. Please advise. Thank you, FRANCES Edgar * Telephone Encounter - Stefani Johnson OSA - 03/23/2024 9:37 AM EDT Pt's calling, states she believes patient should be seen for his right eye before October of next yeat. She is asking for a call back. Pt is not having any pain, eye is all bloodshot and is swollen of bottom lid. Pt did have cancer and is concerned. * Telephone Encounter - Екатерина Quach Rachel, FRANCES - 03/22/2024 10:28 AM EDT Images from the original note were not included. Who is calling? Pt (willing to go to [facility] or [facility]) Best way to reach patient or person calling, if call back needed by nurse or physician: [phone] Patient complaint/concern: started 3 weeks ago with irritation- lashes pointing into eye. Pt seen 2optoms who plucked 3 or 4 lashes out, prescribed drops 4x a day. Eye is worsening. Bloodshot, tearing, burning when using drops. [facility] told him to see Dr Shelby shin and NA is Oct in [facility]. Pt willing to go to [place] to see him sooner if possible. Eyelid [...] Characterization- irritation- not pain. / Scale- 0/10 [place] ONLY: NOTIFY PATIENT: PLEASE ALLOW US UP TO 48 HOURS FOR A RESPONSE *Person filling out this form: Once form completed, please route to p [phone] (triage nurse pool) . Please let patient know you have sent symptoms for triage and someone will reach out to patient with further instruction. Physician or nurse will triage & reply with instruction to appropriate pools as listed below. Thank you! *Physicians triaging patient, please reply to: -If only instructions needed- NO appointment scheduling needed, please route to p [phone] (triage nurse pool). -If instructions AND appointment needed, please route to p [phone] (triage nurse pool) and p [phone] (center receptionist pool). [place] ONLY: Route all messages to P [phone] [facility] Ophthalmology triage pool NOTIFY PATIENT: PLEASE ALLOW US UP TO 48 HOURS FOR A RESPONSE [place]: NOTIFY PATIENT: PLEASE ALLOW US UP TO 48 HOURS FOR A RESPONSE documented in this encounter Plan of Treatment Upcoming Encounters Date Type Department Care Team (Late st Contact Info) Description 03/31/2024 10:20 AM EDT Telemedicine Endocrinology [address] [facility] [address] [place] [address] Jalyn Ladd MD [address] [place], [place] [phone] 04/18/2024 8:30 AM EDT Anticoagulation Pharmacy, [facility] [address] [place] [address] Pharmacist1, [facility] [address] [place] [address] 05/30/2024 11:00 AM EDT Cardiac Studies Cardiac Studies, [facility] [address] [place] [address] 06/02/2024 10:00 AM EDT Office Visit [facility] [address] [place] [address] Jimi Ryan, DO [address] [place] [address] 06/02/2024 11:00 AM EDT Office Visit Cardiology, [facility] 132 [place] [address] Brandy Loza CRNP 132 [facility] [place] [address] 08/02/2024 10:15 AM EST Office Visit Urology, [facility] 132 [place] [address] Mac Hook MD [address] [place] [address] 08/05/2024 9:00 AM EST Office Visit General Internal Medicine [facility] 200 [facility] [place], [place] [address] Garry Reyes MD [address] [facility] [address], [place] [address] 12/29/2024 9:45 AM EDT Office Visit Dermatology [facility] 200 [facility] [place], [place] [address] Garry Ryan MD 200 [facility] [place], [place] [address] 02/21/2025 11:20 AM EDT Office Visit Sleep Disorders Ctr [facility] [address] [place] [id number] Maris Lucero DO [address] [facility] [place] [address] Scheduled Procedures Name Priority Associated Diagnoses Date/Ti [...] 01/07/2025 01/08/2024, 2 10/2022 GFR 01/07/2025 01/08/2024, 0 10/2023, 09/01/2023, Additional history exists Pneumococcal Vaccine: [...] this encounter Medical Devices Implanted Type Area Plant Technician Device Identifier Shelf Expiration Date Model / Serial / Lot Hernia Patch Lrg/[place] W/Strp - [id number] Implanted:Qty: 1 on 07/17/2015 by Vicente Sandoval MD at OR [facility] N/A: Abdomen CR BARD : DAVOL 07/21/2016 [id number] / / [id number] Lens Intraoc 20.0 - [id number] - [id number] Implanted:Qty: 1 on 01/22/2021 by Lui Hardy MD at OR [facility] Left: Eye BAUSCH & LOMB 08/20/2025 [id number] / [id number] / Lens Intraoc 20.0 - [id number] - [id number] Implanted:Qty: 1 on 02/05/2021 by Lui Hardy MD at OR [facility] Right: Eye BAUSCH & LOMB 10/21/2025 [id number] / [id number] documented as of this encounter Advance Directives [...] and were consensually agreed upon. Care Teams First Assistant Manager Relationship Specialty Start Date End Date Garry Reyes MD 200 [facility] [place] [address] PCP - General Internal Medicine 02/25/19 documented as of this encounter
--- OUTSIDE RECORDS SUMMARY | 2024-07-29 23:48 | External Medical Summary ---
Author Name Unknown Address Unknown Organization : Laboratory Report Ordering Provider Test Date Status KELLY RENDON 04/01/2024 08:39:27 Final Observation Date Value Abnormality Reference (Units ) Status Thyroglobulin 04/01/2024 08:39:27 0.2 Below low normal 2.8-40.9 (ng/mL) Final Intact Thyroid: 2.8-40.9 ng/ mL
Athyrotic: <0.1 ng/mL
Note: Abnormal flagging is based upon the reference
interval for patients with intact thyroid.
This test was performed using the [employer]
chemiluminescent method. Values obtained from
different assay methods cannot be used inter-
changeably. Thyroglobulin levels, regardless
of value, should not be interpreted as absolute
evidence of the presence or absence of disease. comment 04/01/2024 08:39:27 SEE BELOW Final Thyroglobulin antibodies (TG AB) interfere with
thyroglobulin (TG) assays; therefore, TGAB assay
should always be performed in conjunction with a
TG assay.
For additional information, please refer to
https://[email or web address].naaptol/faq/SIW276
(This link is being provided for informational/
educational purposes only.)

Test Performed at:
[facility]
[address] [facility]
[place] [address]
Jesus Summers M.D., Ph.D.,Director of Laboratories Performing Location
--- OUTSIDE RECORDS SUMMARY | 2024-07-29 23:48 | External Medical Summary | Summary of Care ---
Author Name Unknown Organization [facility] Address [address] [place] [address] Phone [phone] Care Team Providers Care Machine Clerical Verifier Name Role Phone Garry Reyes MD Primary Care Provider + Reason for Visit * Reason Onset Date Comments [facility]: Screening 03/04/2024 Encounter Details Date Type Department Care Team (Late st Contact Info) Description 03/04/2024 Telephone [facility], [facility] [address] [facility] [place] [id number] [facility], Nurse [facility] [address] [facility] [address] [facility]: Screening Allergies No known active allergiesdocumented as of this encounter (statuses as of 03/04/2024) Medications Medication Sig Dispensed Refills Start Date [...] MG Oral TabletIndications:C oronary artery disease involving tazlina coronary artery of tazlina heart without angina pectoris,LV (left ventricular) mural thrombus following [place] (HCC),HTN, goal below 140/90,Ischemic cardiomyopathy,Hist ory of TIA (transient ischemic attack),Dyslipidemi a, goal LDL below 70,Old myocardial infarct,Essential hypertension with goal blood pressure less than 140/90 Take 1 Tablet by mouth in the morning. 90 Tablet 3 05/07/2023 Active Carvedilol 6.25 MG Oral Tablet (Coreg)Indications: Coronary artery disease involving tazlina coronary artery of tazlina heart without angina pectoris,LV (left ventricular) mural thrombus following ND (HCC),HTN, goal below 140/90,Ischemic cardiomyopathy,Hist ory of [...] (Coumadin)Indicatio ns:LV (left ventricular) mural thrombus following ND (HCC) TAKE 2 TABLETS TUESDAYS & SATURDAYS, [...] as of this encounter (statuses as of 03/04/2024) Active Problems Problem Noted Date Diagnosed Date [...] esophagus 05/26/2019 Coronary artery disease invo lving tazlina coronary artery of tazlina heart without angina pectoris 02/15/2019 Old myocardial [...] as of this encounter (statuses as of 03/04/2024) Resolved Problems Problem Noted Date Diagnosed Date [...] aero chamber. Test performed by Celi LINE RUNNER CPFT Thyroid nodule 05/26/2019 01/08/[address] [...] as of this encounter (statuses as of 03/04/2024) Immunizations Name Administration Dates Next Due COVID-19 mRNA, LNP-s, No Pre serve, 2-Dose Series ([employer]) 05/22/2021,12/13/2020,11/15/2020 COVID-19, LNP-s, No Preserve , Yanick-sucrose, Ages 12+ ([facility] [facility]) 12/27/2021 COVID-19, MRNA-LNP, 23-24, P F, 30 MCG/0.3 mL, 12 YRS AND ABOVE, IM ([facility]) 06/15/2023 Covid-19, Mrna, Lnp-s, Pf, B ivalent, 30 Mcg, IM, 12 yrs and above ([facility]) 06/13/2022 Pneumococcal Conjugate Vacc, 13 Valent (Prevnar) [...] (15 years old or older) No 08/26/20 23 Cognitive Status Response Date of Assessm ent Because of a physical, menta l, or emotional condition, do you have serious difficulty concentrating, remembering, or making decisions? (5 years old or older) No 08/26/2023 documented as of this encounter Miscellaneous Notes * Telephone Encounter - Kelsi Mireles LPN - 03/04/2024 4:51 PM EDT Sky Peralta was referred as a potential candidate for enrollment for [facility]. A review of this chart was completed and: Sky does not meet criteria for enrollment into [facility]. Referral Source: Monthly Proactive Eligibility List Criteria for Ineligibility: Not Located in Service Area Referring care team was notified via : [employer] communication Patient does reside in service area however does not have multiple chronic conditions required for [facility] Enrollment documented in this encounter Plan of Treatment Upcoming Encounters Date Type Department Care Team (Late st Contact Info) Description 03/07/2024 8:20 AM EDT Anticoagulation Pharmacy, [facility] [address] [place] [address] Pharmacist1, [facility] [address] [place] [address] 03/31/2024 10:20 AM EDT Telemedicine Endocrinology [address] [place] [phone] Jalyn Ladd MD [address] [facility] [place] [address] 05/30/2024 11:00 AM EDT Cardiac Studies Cardiac Studies, [facility], [place] [address] [place] [address] 06/02/2024 11:00 AM EDT Office Visit Cardiology, [facility] [address] [place] [address] Brandy Loza CRNP 132 [facility] [address] 08/02/2024 10:15 AM EST Office Visit Urology, [facility] [address] [place] [address] Mac Hook MD 27 [facility] [address] [place] [address] 08/05/2024 9:00 AM EST Office Visit General Internal Medicine [facility] [address] [facility] [place] [address] Garry Reyes MD [address] [facility] [place] [address] 12/29/2024 9:45 AM EDT Office Visit Dermatology [facility] [address] [facility] [place] [address] Garry Ryan MD [address] [facility] [place] [address] 02/21/2025 11:20 AM EDT Office Visit Sleep Disorders Ctr [facility] 132 [place] [phone] Maris Lucero DO 132 [facility] [address] Scheduled Procedures Name Priority Associated Diagnoses Date/Ti [...] this encounter Medical Devices Implanted Type Area Mobile Sales Expert Device Identifier Shelf Expiration Date Model / Serial / Lot Hernia Patch Lrg/[place] W/Strp - [id number] Implanted:Qty: 1 on 07/17/2015 by Vicente Sandoval MD at OR [facility] N/A: Abdomen CR BARD : DAVOL 07/21/2016 [id number] / / [id number] Lens Intraoc 20.0 - [id number] - [id number] Implanted:Qty: 1 on 01/22/2021 by Lui Hardy MD at OR [facility] Left: Eye BAUSCH & LOMB 08/20/2025 [id number] / [id number] / Lens Intraoc 20.0 - [id number] - [id number] Implanted:Qty: 1 on 02/05/2021 by Lui Hardy MD at OR [facility] Right: Eye BAUSCH & LOMB 10/21/2025 [id number] / [id number] / [id number] documented as of this encounter Advance Directives [...] and were consensually agreed upon. Care Teams Machine Clerical Verifier Relationship Specialty Start Date End Date Garry Reyes MD [address] [place] [address] PCP - General Internal Medicine 02/25/19 documented as of this encounter
--- OUTSIDE RECORDS SUMMARY | 2024-07-29 23:48 | External Medical Summary | Summary of Care ---
Author Name Unknown Organization [facility] Address [address] [place] [address] Phone [phone] Care Team Providers Care Visual Education Director Name Role Phone Garry Reyes MD Primary Care Provider + Reason for Referral * Evaluate & Treat - Unlimited Visits (Within 10 days (routine)) - Authorized Specialty Diagnoses / Procedures Referred By Mitchell vega Referred To Contact Fish Processor / Nutrition Services Diagnoses Type 2 diabetes mellitus with hemoglobin A1c goal of less than 8.0% ([facility]) Tari Avendano, ASHLEIGHN [address] [place] [address] Referral ID Status Reason Start Date Expiration Date Visits Requested Visits Authorized [id number] Authorized Specialty Services Required 12/11/2023 999 999 Question Answer Referral Priority Within 10 days (routine) Where should this appointment be scheduled? [facility] Reason for Referral Type 2 Diabetes Is this a newly diagnosed condition? Yes Comments This referral is for Diabetes Self-Management Training (DSMT) by a recognized [place] Diabetes Association (ADA) unit educator: Nurse (RN), Registered Dietitian Policy Change Clerk (RDN), and/or Diabetes Medical Nutrition Therapy (MNT) Management (dietitian only). Diabetes educators are responsible for assessing the participant's diabetes education needs, and providing diabetes self-management training in accordance with the standards set by the ADA for DSMT. Any adjustment in diabetes therapy will be made within the guidelines of standards of practice and [facility] approved policies and procedures. I understand that the unit educator will keep me informed. Areas of Education: Pathophysiology Nutrition Physical Activity Medications Monitoring Acute Complications Chronic Complications Psychosocial Management Promote Health/Behavior Change Participant will be offered 1:1 education training if there is a lack of classes available within 2 months. Providers can also order 1:1 training if indicated for participant for the following reasons: 1:1 Training for Insulin Initiation Participant Inappropriate for Class Setting By my electronic signature, I understand that my patient will be offered the comprehensive ADA content area above unless deemed not appropriate of I specify otherwise here: Reason for Visit * Reason Onset Date Comments Referral 12/11/2023 [facility] referral req uest Encounter Details Date Type Department Care Team (Late st Contact Info) Description 12/11/2023 Telephone Nutrition Services [facility] [address] [place] [address] Garry Reyes MD [address] [place] [id number] Referral ([facility] referral request) Allergies No known active allergiesdocumented as of this encounter (statuses as of 03/11/2024) Medications Medication Sig Dispensed Refills Start Date [...] MG Oral TabletIndications:C oronary artery disease involving stockbridge coronary artery of stockbridge heart without angina pectoris,LV (left ventricular) mural thrombus following [place] (HCC),HTN, goal below 140/90,Ischemic cardiomyopathy,Hist ory of TIA (transient ischemic attack),Dyslipidemi a, goal LDL below 70,Old myocardial infarct,Essential hypertension with goal blood pressure less than 140/90 Take 1 Tablet by mouth in the morning. 90 Tablet 3 05/07/2023 Active Carvedilol 6.25 MG Oral Tablet (Coreg)Indications: Coronary artery disease involving stockbridge coronary artery of stockbridge heart without angina pectoris,LV (left ventricular) mural [...] 90 Tablet 3 10/15/2023 10/14/19 25 Active documented as of this encounter (statuses as of 03/11/2024) Active Problems Problem Noted Date Diagnosed Date [...] esophagus 05/26/2019 Coronary artery disease invo lving stockbridge coronary artery of stockbridge heart without angina pectoris 02/15/2019 Old myocardial [...] as of this encounter (statuses as of 03/11/2024) Resolved Problems Problem Noted Date Diagnosed Date [...] use aero chamber. Test performed by Celi AEROSPACE PROJECT MANAGER CPFT Thyroid nodule 05/26/2019 01/08/[address] [...] disorders 09/18/2005 04/27/2017 Overview: ENT Consult: 09/26 474.49 Voice disturbance nec (primary encounter diagnosis) PLAN: [...] as of this encounter (statuses as of 03/11/2024) Immunizations Name Administration Dates Next Due COVID-19 mRNA, LNP-s, No Pre serve, 2-Dose Series ([employer]) 05/22/2021,12/13/2020,11/15/2020 COVID-19, LNP-s, No Preserve , Yanick-sucrose, Ages 12+ ([employer]) 12/27/2021 COVID-19, MRNA-LNP, 23-24, P F, 30 MCG/0.3 mL, 12 YRS AND ABOVE, IM ([facility]) 06/15/2023 Covid-19, Mrna, Lnp-s, Pf, B ivalent, 30 Mcg, IM, 12 yrs and above ([employer]) 06/13/2022 Pneumococcal Conjugate Vacc, 13 Valent (Prevnar) [...] encounter Miscellaneous Notes * Telephone Encounter - Anne Tsai Referral - 12/11/2023 1:46 PM EDT This participant is newly diagnosed with diabetes. Attached is a pended [place] Diabetes [employer] referral for comprehensive diabetes education. Please sign the orders if you agree to have the participant have diabetes self- management training and education with one of our educators. This list was system generated to help educate patients with diabetes early on. If you believe thispatient does not have diabetes, please decline the order. Please associate the appropriate diabetes diagnosis to this order. This is an automated user. Please do not reply. If you have questions, [place] [phone]. documented in this encounter Plan of Treatment Upcoming Encounters Date Type Department Care Team (Late st Contact Info) Description 03/31/2024 10:20 AM EDT Telemedicine Endocrinology [address] [place] [phone] Jalyn Ladd MD [address] [facility] [place] [address] 04/18/2024 8:30 AM EDT Anticoagulation Pharmacy, [facility] [address] [facility] [place] [address] Pharmacist1, [facility] 200 [facility] [place] [address] 05/30/2024 11:00 AM EDT Cardiac Studies Cardiac Studies, [facility] [address] 06/02/2024 11:00 AM EDT Office Visit Cardiology, [facility] [place] [address] Brandy Loza [facility] [address] 08/02/2024 10:15 AM EST Office Visit Urology, [facility] [address] [facility] [address] Mac Hook MD 27 [facility] [address] [place] [address] 08/05/2024 9:00 AM EST Office Visit General Internal Medicine [facility] [address] [facility] [place] [address] Garry Reyes MD [address] [facility] [place] [address] 12/29/2024 9:45 AM EDT Office Visit Dermatology [facility] [place] [address] [facility] [place] [address] Garry Ryan MD [address] [place] [address] 02/21/2025 11:20 AM EDT Office Visit [facility] Disorders Ctr [facility] [phone] Maris Lucero DO [facility] [place] [address] Scheduled Procedures Name Priority Associated Diagnoses Date/Ti me COLONOSCOPY FLEXIBLE PROXIMAL DIAGNOSTIC Recall History of colon polyps Scheduled Referrals Name Type Priority Associated Diagnoses Orde r Schedule DIABETES MANAGEMENT EDUCATION (ADA) REFERRAL Referral Within 10 days (routine) Type 2 diabetes mellitus with hemoglobin A1c goal of less than 8.0% (HCC) Ordered: 12/11/2023 Health Maintenance Due Date Last Done Comments [...] this encounter Medical Devices Implanted Type Area Drip Box Tender Device Identifier Shelf Expiration Date Model / Serial / Lot Hernia Patch Lrg/[place] W/Strp - [id number] Implanted:Qty: 1 on 07/17/2015 by Vicente Sandoval MD at OR [facility] N/A: Abdomen CR BARD : DAVOL 07/21/2016 [id number] / / [id number] Lens Intraoc 20.0 - [id number] - [id number] Implanted:Qty: 1 on 01/22/2021 by Lui Hardy MD at OR [facility] Left: Eye BAUSCH & LOMB 08/20/2025 [id number] / [id number] / Lens Intraoc 20.0 - [id number] - [id number] Implanted:Qty: 1 on 02/05/2021 by Lui Hardy MD at OR [facility] Right: Eye BAUSCH & LOMB 10/21/2025 [id number] / [id number] / [id number] documented as of this encounter Visit Diagnoses Diagnosis Type 2 diabetes mellitus with hemoglobin A1c goal of less than 8.0% ([facility])- Primary documented in this encounter Advance Directives * [...] and were consensually agreed upon. Care Teams Visual Education Director Relationship Specialty Start Date End Date Garry Reyes MD [address] [place] [address] PCP - General Internal Medicine 02/25/19 documented as of this encounter
--- OUTSIDE RECORDS SUMMARY | 2024-07-29 23:48 | External Medical Summary ---
Author Name Unknown Address Unknown Organization [id number]:[facility] [address] Laboratory Report Ordering Provider Test Date Status TAMMI ESPINAL 04/01/2024 08:39:27 Final Observation Date Value Abnormality Reference (Units ) Status WBC, Total 04/01/2024 08:39:27 5.83 4.00-10.8 0 (K/uL) Final RBC 04/01/2024 08:39:27 4.13 4.50-5.25 (M/uL) Final Hemoglobin 04/01/2024 08:39:27 14.2 14.0-16.8 (g/dL) Final HCT 04/01/2024 08:39:27 41.0 40.0-48.4 (%) Final MCV 04/01/2024 08:39:27 99.3 82.0-99.5 (fL) Final MCH 04/01/2024 08:39:27 34.4 27.0-34.0 (pg) Final MCHC 04/01/2024 08:39:27 34.6 32.0-36.0 (g/dL) Final RDW 04/01/2024 08:39:27 13.7 11.5-15.5 (%) Final Platelets 04/01/2024 08:39:27 207 140-400 (K /uL) Final MPV 04/01/2024 08:39:27 9.9 6.6-11.1 ( fL) Final Performing Location [facility] [address]
--- OUTSIDE RECORDS SUMMARY | 2024-07-29 23:48 | External Medical Summary ---
Author Name Unknown Address Unknown Organization [id number]:[facility] - [address] [place] [address] Laboratory Report Ordering Provider Test Date Status KELLY RENDON 04/01/2024 08:39:27 Final Observation Date Value Abnormality Reference (Units ) Status T4, Free 04/01/2024 08:39:27 2.0 Above high normal 0. 9-1.7 (ng/dL) Final Performing Location [facility] - [address] [place] [address]
--- OUTSIDE RECORDS SUMMARY | 2024-07-29 23:48 | External Medical Summary ---
Author Name Unknown Address Unknown Organization K01:[facility] - [address] [place] [address] Laboratory Report Ordering Provider Test Date Status KELLY RENDON 04/01/2024 08:39:27 Final Observation Date Value Abnormality Reference (Units ) Status Thyroglobulin Ab 04/01/2024 08:39:27 14.1 <22 .0 (IU/mL) Final Performing Location [facility] - [address] [place] [address]
--- OUTSIDE RECORDS SUMMARY | 2024-07-29 23:48 | External Medical Summary | Summary of Care ---
Author Name Unknown Organization [facility] Address [address] [place] [address] Phone [phone] Care Team Providers Care Corporation Officer Name Role Phone Garry Reyes MD Primary Care Provider + Reason for Visit * Reason Onset Date Comments Appointment 03/31/2024 Encounter Details Date Type Department Care Team (Late st Contact Info) Description 03/31/2024 Telephone Endocrinology, [place] [address] [place] [address] Jalyn Ladd MD [address] [place], [place] [phone] Appointment Allergies No known active allergiesdocumented as of this encounter (statuses as of 03/31/2024) Medications Medication Sig Dispensed Refills Start Date [...] MG Oral TabletIndications:C oronary artery disease involving inupiat coronary artery of inupiat heart without angina pectoris,LV (left ventricular) mural thrombus following [place] (HCC),HTN, goal below 140/90,Ischemic cardiomyopathy,Hist ory of TIA (transient ischemic attack),Dyslipidemi a, goal LDL below 70,Old myocardial infarct,Essential hypertension with goal blood pressure less than 140/90 Take 1 Tablet by mouth in the morning. 90 Tablet 3 05/07/2023 Active Carvedilol 6.25 MG Oral Tablet (Coreg)Indications: Coronary artery disease involving inupiat coronary artery of inupiat heart without angina pectoris,LV (left ventricular) mural [...] as of this encounter (statuses as of 03/31/2024) Active Problems Problem Noted Date Diagnosed Date [...] esophagus 05/26/2019 Coronary artery disease invo lving inupiat coronary artery of inupiat heart without angina pectoris 02/15/2019 Old myocardial [...] as of this encounter (statuses as of 03/31/2024) Resolved Problems Problem Noted Date Diagnosed Date [...] use aero chamber. Test performed by Celi ORTHO TECH CPFT Thyroid nodule 05/26/2019 01/08/[address] [...] as of this encounter (statuses as of 03/31/2024) Immunizations Name Administration Dates Next Due COVID-19 mRNA, LNP-s, No Pre serve, 2-Dose Series ([facility]) 05/22/2021,12/13/2020,11/15/2020 COVID-19, LNP-s, No Preserve , Yanick-sucrose, Ages 12+ ([employer]) 12/27/2021 COVID-19, MRNA-LNP, 23-24, P F, 30 MCG/0.3 mL, 12 YRS AND ABOVE, IM ([employer]) 06/15/2023 Covid-19, Mrna, Lnp-s, Pf, B ivalent, 30 Mcg, IM, 12 yrs and above ([facility]) 06/13/2022 Pneumococcal Conjugate Vacc, 13 Valent (Prevnar) [...] encounter Miscellaneous Notes * Telephone Encounter - Amber Coffey OSA - 03/31/2024 11:31 AM EDT Called pt and scheduled 6 month follow-up and ultrasound documented in this encounter Plan of Treatment Upcoming Encounters Date Type Department Care Team (Late st Contact Info) Description 04/12/2024 10:30 AM EDT Office Visit [facility] [place] [address] Jimi Ryan, [address] [place] [address] Photographer [place] [address] 04/18/2024 8:30 AM EDT Anticoagulation Pharmacy, [address] [place] [address] Pharmacist1, [facility] 200 [facility] [place] [address] 05/30/2024 11:00 AM EDT Cardiac Studies Cardiac Studies, [facility] 132 [place] [address] 06/02/2024 11:00 AM EDT Office Visit Cardiology, [facility] 132 [place] [address] Brandy Loza CRNP 132 [place] [address] 07/01/2024 9:30 AM EDT Imaging Radiology [address] [address] 08/02/2024 10:15 AM EST Office Visit Urology, [facility] 132 [facility] [place] [address] Mac Hook MD [address] [place] [address] 08/05/2024 9:00 AM EST Office Visit General Internal Medicine [facility] 200 [facility] [place] [address] Garry Reyes MD 200 [facility] [place] [address] 10/21/2024 10:40 AM EST Telemedicine Endocrinology [address] [place] [phone] Jalyn Ladd MD 100 [address] [facility] [place] [address] 12/29/2024 9:45 AM EDT Office Visit Dermatology [facility] 200 [facility] [place] [address] Grary Ryan MD 200 [facility] [place] [address] 02/21/2025 11:20 AM EDT Office Visit Sleep Disorders Ctr [facility] [address] [place] [phone] Maris Lucero DO [address] [place] [address] Scheduled Procedures Name Priority Associated Diagnoses Date/Ti [...] this encounter Medical Devices Implanted Type Area Improvement Rn Device Identifier Shelf Expiration Date Model / Serial / Lot Hernia Patch Lrg/[place] W/Strp - [id number] Implanted:Qty: 1 on 07/17/2015 by Vicente Sandoval MD at OR [facility] N/A: Abdomen CR BARD : DAVOL 07/21/2016 [id number] / / [id number] Lens Intraoc 20.0 - [id number] - [id number] Implanted:Qty: 1 on 01/22/2021 by Lui Hardy MD at OR [facility] Left: Eye BAUSCH & LOMB 08/20/2025 [id number] / [id number] / Lens Intraoc 20.0 - [id number] - [id number] Implanted:Qty: 1 on 02/05/2021 by Lui Hardy MD at OR [facility] Right: Eye BAUSCH & LOMB 10/21/2025 [id number] / [id number] / [id number] documented as of this encounter Advance Directives [...] and were consensually agreed upon. Care Teams Corporation Officer Relationship Specialty Start Date End Date Garry Reyes MD [address] [place] [address] PCP - General Internal Medicine 02/25/19 documented as of this encounter
--- OUTSIDE RECORDS SUMMARY | 2024-07-29 23:48 | External Medical Summary | Summary of Care ---
Author Name Unknown Organization [facility] Address [address] [place] [address] Phone [phone] Care Team Providers Care Camouflage Specialist Name Role Phone Garry Reyes MD Primary Care Provider + Reason for Visit * Precert (Within 30 days (routine)) - Authorized Specialty Diagnoses / Procedures Referred By Mitchell vega Referred To Contact Endocrinology Diagnoses Malignant neoplasm of thyroid gland (HCC) Procedures CA THYROTROPIN INJECTION Jalyn Ladd MD [address] [place] [address] Jalyn Ladd MD [address] [place] [address] Referral ID Status Reason Start Date Expiration Date V isits Requested Visits Authorized [id number] Authorized Precert 11/17/2023 09/20/2099 [id number] Encounter Details Date Type Department Care Team (Latest Contact Info) Description 03/31/2024 10:20 AM EDT Telemedicine Endocrinology [address] [place] [address] Jalyn Ladd MD [address] [place] [address] Follicular thyroid cancer (HCC)*; Postoperative hypothyroidism Allergies No known active allergiesdocumented [...] MG Oral TabletIndications:C oronary artery disease involving tanacross coronary artery of tanacross heart without angina pectoris,LV (left ventricular) mural thrombus following [place] (HCC),HTN, goal below 140/90,Ischemic cardiomyopathy,Hist ory of TIA (transient ischemic attack),Dyslipidemi a, goal LDL below 70,Old myocardial infarct,Essential hypertension with goal blood pressure less than 140/90 Take 1 Tablet by mouth in the morning. 90 Tablet 3 05/07/2023 Active Carvedilol 6.25 MG Oral Tablet (Coreg)Indications: Coronary artery disease involving tanacross coronary artery of tanacross heart without angina pectoris,LV (left ventricular) mural thrombus following [place] (HCC),HTN, goal below 140/90,Ischemic cardiomyopathy,Hist ory of [...] (Coumadin)Indicatio ns:LV (left ventricular) mural thrombus following [place] (HCC) TAKE 2 TABLETS TUESDAYS & SATURDAYS, [...] esophagus 05/26/2019 Coronary artery disease invo lving tanacross coronary artery of tanacross heart without angina pectoris 02/15/2019 Old myocardial [...] use aero chamber. Test performed by [facility] CLAIMS SERVICE ADJUSTOR CPFT Thyroid nodule 05/26/2019 01/08/[address] [...] mRNA, LNP-s, No Pre serve, 2-Dose Series (W[employer]era) 05/22/2021,12/13/2020,11/15/2020 COVID-19, LNP-s, No Preserve , Yanick-sucrose, Ages 12+ (Pfizer) 12/27/2021 COVID-19, MRNA-LNP, 23-24, P F, 30 MCG/0.3 mL, 12 YRS AND ABOVE, IM (PFIZER-Comirnaty) 06/15/2023 Covid-19, Mrna, Lnp-s, Pf, B ivalent, 30 Mcg, IM, 12 yrs and above ([place]era) 06/13/2022 Pneumococcal Conjugate Vacc, 13 Valent (Prevnar) [...] 18 years and over) Not on file 12/06/202 3 Are you (or your family) jarret [...] as of this encounter Progress Notes * Jalyn Ladd MD - 03/31/2024 10:56 AM EDT Images from the original note were not included. Patient location: HOME. I was in a hospital or clinic location. After connecting through televideo,patient was verified with two unique identifiers. Patient (or authorized legal manufacturer's representative) was then informed that this was a Telemedicine visit and being conducted confidentially over secure lines. Methods to assure confidentiality were taken. Patient acknowledged consent and understanding of pr ivacy and security of the Telemedicine visit. The patient agreed to participate. Follow up 78 year old male Sky Peralta was seen for follow up of follicular thyroid cancer. Patient was noted to have 2 left-sided thyroid nodule, measuring 1.9 and 4 cm. Cytology of this nodules came back as AUS. and S FM respectively, with ThyroSeq came back as high suspicion for cancer and intermediate to high suspicion respectively on July 01, 2023. Patient underwent total thyroidectomy on August 26, [address] 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 Taking levothyroxine 175 mcg daily. Off Tums, calcium has been normal. Received GONZALEZ in november 2023, stimulated TG was 2.7 for TSH >100, WBS showed activity in thyroid bed only. Today, he denies any hypo or hyperthyroid symptoms. LABS AND IMAGING TSH Results: Lab Results Component Value Date/Time TSH - [facility] >100.00 (H) 12/16/2023 10:40 AM TSH - [facility] 0.24 (L) 11/21/2023 02:43 PM TSH - [facility] 0.92 10/09/2023 09:26 AM TSH - [facility] 2.95 06/06/2019 07:54 AM TSH - [facility] 0.79 02/15/2019 10:30 AM TSH - [facility] 2.15 08/06/2018 11:45 AM ASSESSMENT AND PLAN: No diagnosis found. 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 Rock. Continue levothyroxine 175 mcg daily Check TSH/free T4, thyroglobulin and thyroglobulin antibody Q3 months until november 2024 Goal TSH 0.1-0.5 US head and neck in 3 months Return to clinic in 3 months Jalyn Ladd MD Endocrinology, [address] [address] documented in this encounter Plan of Treatment Upcoming Encounters Date Type Department Care Team (Late st Contact Info) Description 04/12/2024 10:30 AM EDT Office Visit [facility] [place], [place] [address] [place] [address] Jimi Ryan, [address] [place] [address] Donis, Release Specialist [place] [address] [place] [address] 04/18/2024 8:30 AM EDT Antico[facility], [facility] [address] [place] [address] Pharmacist1, [facility] 200 [facility] [place] [address] 05/30/2024 11:00 AM EDT Cardiac Studies Cardiac Studies, [facility] 132 [facility] [place] [address] 06/02/2024 11:00 AM EDT Office Visit Cardiology, [facility] [place] [address] Brandy Loza CRNP [facility] [place] [address] 07/01/2024 9:30 AM EDT Imaging Radiology [facility] 132 [facility] [place] [address] 08/02/2024 10:15 AM EST Office Visit Urology, [facility] 132 [facility] [place] [address] Mac Hook MD [address] [place] [address] 08/05/2024 9:00 AM EST Office Visit [facility] [address] [place] [address] Garry Reyes MD 200 [facility] [place] [place] [address] 10/21/2024 10:40 AM EST Telemedicine Endocrinology [address] [place] [phone] Jalyn Ladd MD [address] [place] [address] 12/29/2024 9:45 AM EDT Office Visit [facility] [address] [place] [address] Garry Ryan MD 200 [facility] [place] [address] 02/21/2025 11:20 AM EDT Office Visit Sleep Disorders Ctr [facility] [address] [place] [phone] Maris Lucero DO [address] [facility] [place] [address] Scheduled Orders Name Type Priority Associated Diagnoses Orde r Schedule THYROGLOBULIN AND THYROGLOBULIN ANTIBODY FOR TUMOR MONITORING Lab Routine Follicular thyroid cancer (HCC) Postoperative hypothyroidism Every 3 Months for 4 Occurrences starting 03/31/2024 until 03/31/2025 TSH WITH FREE T4 IF INDICATED Lab Routine Follicular thyroid cancer (HCC) Postoperative hypothyroidism Every 3 Months for 4 Occurrences starting 03/31/2024 until 03/31/2025 US HEAD AND NECK Medical Imaging Routine Follicular thyroid cancer (HCC) Postoperative hypothyroidism Expected: 07/01/2024, Expires: 05/01/2025 Scheduled Procedures Name Priority Associated Diagnoses Date/Ti [...] this encounter Medical Devices Implanted Type Area Projection Camera Operator Device Identifier Shelf Expiration Date Model / Serial / Lot Hernia Patch Lrg/Ambler W/Strp - [id number] Implanted:Qty: 1 on 07/17/2015 by Vicente Sandoval MD at OR [facility] N/A: Abdomen CR BARD : DAVOL 07/21/2016 [id number] / / [id number] Lens Intraoc 20.0 - [id number] - [id number] Implanted:Qty: 1 on 01/22/2021 by Lui Hardy MD at OR [facility] Left: Eye BAUSCH & LOMB 08/20/2025 [id number] / [id number] / Lens Intraoc 20.0 - [id number] - [id number] Implanted:Qty: 1 on 02/05/2021 by Lui Hardy MD at OR [facility] Right: Eye BAUSCH & LOMB 10/21/2025 [id number] / [id number] / [id number] documented as of this encounter Visit Diagnoses Diagnosis Follicular thyroid cancer (HCC)- Primary Malignant neoplasm of thyroid gland Postoperative hypothyroidism [...] and were consensually agreed upon. Care Teams Camouflage Specialist Relationship Specialty Start Date End Date Garry Reyes MD 200 [facility] [address] PCP - General Internal Medicine 02/25/19 documented as of this encounter
--- OUTSIDE RECORDS SUMMARY | 2024-07-29 23:49 | External Medical Summary | Summary of Care ---
Author Name Unknown Organization [facility] Address [address] [place] [address] Phone [phone] Care Team Providers Care Peer Counselor Name Role Phone Garry Reyes MD Primary Care Provider + Reason for Visit * Reason Comments eRx-Medication Refill Encounter Details Date Type Department Care Team (Late st Contact Info) Description 01/30/2024 Refill General Internal Medicine [facility] [address] [place] [address] Garry Reyes MD [address] [place] [address] GERD (gastroesophageal reflux disease) Allergies No known active allergiesdocumented as of this encounter (statuses as of 02/01/2024) Medications Medication Sig Dispensed Refills Start Date End Date Status Multiple Vitamins-Minerals (DAILY MULTIVITAMIN) CAPS Take 1 Tablet by mouth in the morning. 0 Active Magnesium Hydroxide 400 MG/5ML Oral Suspension Take 30 mL by mouth daily as needed for Constipation. 0 Active Aspirin 81 MG Tablet Take 1 Tablet by mouth every evening. 0 Active Finasteride 5 MG Oral Tablet (Proscar) TAKE 1 TABLET BY MOUTH EVERY DAY IN THE MORNING 90 Tablet 3 04/03/20 23 Active Atorvastatin Calcium 80 MG Oral Tablet (Lipitor)Indicatio ns:Dyslipidemia, goal LDL below 100,Old myocardial infarct TAKE 1 TABLET BY MOUTH EVERY DAY IN THE AFTERNOON 90 Tablet 3 04/06/20 23 Active Lisinopril 40 MG Oral TabletIndications: Coronary artery disease involving k[place]zebue coronary artery of [place] heart without angina pectoris,LV (left ventricular) mural thrombus following [place] (HCC),HTN, goal below 140/90,Ischemic cardiomyopathy,His tory of TIA (transient ischemic attack),Dyslipidem ia, goal LDL below 70,Old myocardial infarct,Essential hypertension with goal blood pressure less than 140/90 Take 1 Tablet by mouth in the morning. 90 Tablet 3 05/07/20 23 Active Carvedilol 6.25 MG Oral Tablet (Coreg)Indications :Coronary artery disease involving k[place]zebue coronary artery of k[place]zebue heart without angina pectoris,LV (left ventricular) mural thrombus following [place] (HCC),HTN, goal below 140/90,Ischemic cardiomyopathy,His tory of [...] needed for Pain, Breakthrough. 90 Tablet 0 06/23/20 23 Active Warfarin Sodium 5 MG Oral Tablet (Coumadin)Indicati ons:LV (left ventricular) mural thrombus following [place] (HCC) TAKE 2 TABLETS TUESDAYS & SATURDAYS, 1 TABLET ALL OTHER DAYS OR DIRECTED 120 Tablet 3 08/17/20 23 Active Additional Information Patient taking differently: Oral QPM-1999, As directed by Anticoagulation Clinic, Informant: Spouse, Reported on 08/31/2023 CPAP Use as directed at bedtime. 0 Active Tamsulosin HCl 0.4 MG Oral Capsule (Flomax) Take 1 Capsule by mouth in the morning. 30 Capsule 1 09/02/20 23 Active Chlorthalidone 25 MG Oral Tablet (Hygroton)Indicati ons:Hypotension due to drugs Take 0.5 Tablets by mouth in the morning. 0 09/23/19 24 Active Levothyroxine Sodium 175 MCG Oral Tablet (Levoxyl)Indicatio ns:Follicular thyroid cancer (HCC),Postoperativ e hypothyroidism Take 1 Tablet by mouth daily first thing in the morning. (at least 30 min prior to breakfast or other meds) 90 Tablet 3 10/15/19 24 025 Active Omeprazole 40 MG Oral Capsule Delayed Release (PriLOSEC)Indicati ons:GERD (gastroesophageal reflux disease) TAKE 1 CAPSULE BY MOUTH EVERY DAY 90 Capsule 3 02/01/20 24 Active Omeprazole 40 MG Oral Capsule Delayed Release (PriLOSEC)Indicati ons:GERD (gastroesophageal reflux disease) TAKE 1 CAPSULE BY MOUTH EVERY DAY 90 Capsule 3 01/17/20 23 024 Discontinued documented as of this encounter (statuses as of 02/01/2024) Active Problems Problem Noted Date Diagnosed Date [...] esophagus 05/26/2019 Coronary artery disease invo lving kotzebue coronary artery of kotzebue heart without angina pectoris 02/15/2019 Old myocardial [...] as of this encounter (statuses as of 02/01/2024) Resolved Problems Problem Noted Date Diagnosed Date [...] use aero chamber. Test performed by C[facility] TECHNICAL ASST CPFT Thyroid nodule 05/26/2019 01/08/[address] [...] as of this encounter (statuses as of 02/01/2024) Immunizations Name Administration Dates Next Due COVID-19 mRNA, LNP-s, No Pre serve, 2-Dose Series (OPPRTUNITY) 05/22/2021,12/13/2020,11/15/2020 COVID-19, LNP-s, No Preserve , Yanick-sucrose, Ages 12+ (Pfizer) 12/27/2021 COVID-19, MRNA-LNP, 23-24, P F, 30 MCG/0.3 mL, 12 YRS AND ABOVE, IM ([facility]) 06/15/2023 Covid-19, Mrna, Lnp-s, Pf, B ivalent, 30 Mcg, IM, 12 yrs and above (OPPRTUNITY) 06/13/2022 Pneumococcal Conjugate Vacc, 13 Valent (Prevnar) [...] Split, I IV3, With Preserve, Inj 07/10/2014,06/04/2013,10/30/2011,10/05,12/11/2008,10/12/2007 TDAP (age 11 and older)(Adacel) 12/20/2010 Zoster Vaccine Recombinant (Shingrix) 03/05/2022 documented [...] encounter Miscellaneous Notes * Telephone Encounter - Lauren Rodríguez RPh - 02/01/2024 1:31 PM EDTSigned Prescriptions: Disp Refills Omeprazole 40 MG Oral Capsule Delayed Rele*90 Cap*3 Sig: TAKE 1 CAPSULE BY MOUTH EVERY DAYAuthorizing Provider: GARRY REYES User: LAUREN RODRÍGUEZ- documented in this encounter Plan of Treatment Upcoming Encounters Date Type Department Care Team (Late st Contact Info) Description 02/22/2024 10:00 AM EDT Office Visit Sleep Disorders Ctr [facility] [address] [place] [phone] Maris Lucero DO [address] [place] [address] 03/07/2024 8:20 AM EDT Anticoagulation Pharmacy, [facility] [place] [address] [facility] [place] [address] Pharmacist1, [facility] [address] [place] [address] 03/31/2024 10:20 AM EDT Telemedicine Endocrinology, [place] [address] [place] [address] Jalyn Ladd MD [address] [place], [place] [id number] 05/30/2024 11:00 AM EDT Cardiac Studies Cardiac Studies, [facility] [address] [place] [address] 06/02/2024 11:00 AM EDT Office Visit Cardiology, [facility] [address] [place] [address] Brandy Loza CRNP [address] [place] [address] 08/02/2024 10:15 AM EST Office Visit Urology, [facility] [address] [place] [address] Mac Hook MD [address] [address] [place] [address] 08/05/2024 9:00 AM EST Office Visit General Internal Medicine [facility] [address] [place] [address] Garry Reyes MD 200 [facility] [place] [address] 12/29/2024 9:45 AM EDT Office Visit Dermatology [facility] [place] 200 [facility] [place] [address] Garry Ryan MD 200 [facility] [place] [address] Scheduled Procedures Name Priority Associated Diagnoses Date/Ti [...] Completed 06/06/2023, 06/07/2022, 06/08/2021, Additional history exists COVID-19 Vaccine Completed 06/15/2023, , 12/27/2021, Additional history exists Lung Cancer Screening Completed [...] this encounter Medical Devices Implanted Type Area P D Driver Device Identifier Shelf Expiration Date Model / Serial / Lot Hernia Patch Lrg/[place] W/Strp - [id number] Implanted:Qty: 1 on 07/17/2015 by Vicente Sandoval MD at OR [facility] N/A: Abdomen CR BARD : DAVOL 07/21/2016 [id number] / / [id number] Lens Intraoc 20.0 - [id number] - [id number] Implanted:Qty: 1 on 01/22/2021 by Lui Hardy MD at OR [facility] Left: Eye BAUSCH & LOMB 08/20/2025 [id number] / [id number] / Lens Intraoc 20.0 - [id number] - [id number] Implanted:Qty: 1 on 02/05/2021 by Lui Hardy MD at OR [facility] Right: Eye BAUSCH & LOMB 10/21/2025 [id number] / [id number] / [id number] documented as of this encounter Visit Diagnoses Diagnosis GERD (gastroesophageal reflux disease) Esophageal reflux documented in this encounter Advance Directives Latest Code Status on File Code Status Date Activated Date Inactivated Comments Full Code 08/29/2023 11:07 AM 09/01/2023 7:55 PM Thi s order reflects the patients wishes and were consensually agreed upon. Question Answer Comments Discussion of Advance Directives occurred with: Not Discussed due to patient's condition Code Status History Code Status Date Activated Date Inactivated Comments Full Code 08/26/2023 12:57 PM 08/27/2023 1:46 PM This order reflects the patients wishes and were consensually agreed upon. Question Answer Comments Discussion of Advance Directives occurred with: Not Discussed due to patient's condition Full Code 08/03/2018 2:19 AM 08/04/2018 11:16 PM Th is order reflects the patients wishes and were consensually agreed upon. Question Answer Comments Discussion of Advance Directives occurred with: Patient Full Code 01/29/2018 8:43 AM 01/29/2018 6:10 PM This order reflects the patients wishes and were consensually agreed upon. Care Teams Peer Counselor Relationship Specialty Start Date End Date Garry Reyes MD 200 [facility] [place] [address] PCP - General Internal Medicine 02/25/19 documented as of this encounter
--- OUTSIDE RECORDS SUMMARY | 2024-07-29 23:49 | External Medical Summary | Summary of Care ---
Author Name Unknown Organization [facility] Address [address] [place] [address] Phone [phone] Care Team Providers Care Him Specialists Name Role Phone Garry Reyes MD Primary Care Provider + Encounter Details Date Type Department Care Team (Late st Contact Info) Description 02/25/2024 Population Health External Data Unspecified Department Allergies No known active allergiesdocumented as of this encounter (statuses as of 02/25/2024) Medications Medication Sig Dispensed Refills Start Date [...] MG Oral TabletIndications:C oronary artery disease involving standing rock coronary artery of standing rock heart without angina pectoris,LV (left ventricular) mural thrombus following [place] (HCC),HTN, goal below 140/90,Ischemic cardiomyopathy,Hist ory of TIA (transient ischemic attack),Dyslipidemi a, goal LDL below 70,Old myocardial infarct,Essential hypertension with goal blood pressure less than 140/90 Take 1 Tablet by mouth in the morning. 90 Tablet 3 05/07/2023 Active Carvedilol 6.25 MG Oral Tablet (Coreg)Indications: Coronary artery disease involving standing rock coronary artery of standing rock heart without angina pectoris,LV (left ventricular) mural thrombus following [place] (HCC),HTN, goal below 140/90,Ischemic cardiomyopathy,Hist ory of [...] (Coumadin)Indicatio ns:LV (left ventricular) mural thrombus following [place] (HCC) TAKE 2 TABLETS TUESDAYS & SATURDAYS, [...] as of this encounter (statuses as of 02/25/2024) Active Problems Problem Noted Date Diagnosed Date [...] esophagus 05/26/2019 Coronary artery disease invo lving standing rock coronary artery of standing rock heart without angina pectoris 02/15/2019 Old myocardial [...] as of this encounter (statuses as of 02/25/2024) Resolved Problems Problem Noted Date Diagnosed Date [...] use aero chamber. Test performed by Celi AIRPLANE COVERER CPFT Thyroid nodule 05/26/2019 01/08/[address] [...] as of this encounter (statuses as of 02/25/2024) Immunizations Name Administration Dates Next Due COVID-19 mRNA, LNP-s, No Pre serve, 2-Dose Series ([employer]) 05/22/2021,12/13/2020,11/15/2020 COVID-19, LNP-s, No Preserve , Yanick-sucrose, Ages 12+ (Pfizer) 12/27/2021 COVID-19, MRNA-LNP, 23-24, P F, 30 MCG/0.3 mL, 12 YRS AND ABOVE, IM ([facility]) 06/15/2023 Covid-19, Mrna, Lnp-s, Pf, B ivalent, 30 Mcg, IM, 12 yrs and above ([employer]) 06/13/2022 Pneumococcal Conjugate Vacc, 13 Valent (Prevnar) [...] [facility] [address] [place] [address] Pharmacist1, [facility] [address] [place] [address] 03/31/2024 10:20 AM EDT Telemedicine Endocrinology, [place] [address] [place], [place] [phone] Jalyn Ladd MD [address] [place], [place] [address] 05/30/2024 11:00 AM EDT Cardiac Studies Cardiac Studies, [facility] 132 [place] [address] 06/02/2024 11:00 AM EDT Office Visit Cardiology, [facility] 132 [place] [address] Brandy Loza CRNP 132 [place] [address] 08/02/2024 10:15 AM EST Office Visit Urology, [facility] 132 [place] [address] Mac Hook MD 27 [facility] [address] [place] [address] 08/05/2024 9:00 AM EST Office Visit General Internal Medicine [facility] [address] [place] [address] Garry Reyes MD [address] [place] [address] 12/29/2024 9:45 AM EDT Office Visit Dermatology [place] [facility] [place] [address] [address] Garry Ryan MD [address] [facility] [place] [address] 02/21/2025 11:20 AM EDT Office Visit Sleep Disorders Ctr [facility], [place] [address] [place] [phone] Maris Lucero DO [address] [place] [address] Scheduled Procedures Name Priority Associated Diagnoses Date/Ti [...] Depression Screening 12/18/2023 12/17/2022 HbA1c 07/09/2024 01/08/2024, 10/2023, 06/18/2023, Additional history exists TSH 12/15/2024 12/16/2023, 10/2023, 10/09/2023, Additional history exists Albumin/Creatinine Ratio 01/07/2025 01/08/2024, 2 10/2022 GFR 01/07/2025 01/08/2024, 10/2023, 09/01/2023, Additional history [...] this encounter Medical Devices Implanted Type Area Trading Manager Device Identifier Shelf Expiration Date Model / Serial / Lot Hernia Patch Lrg/[place] W/Strp - [id number] Implanted:Qty: 1 on 07/17/2015 by Vicente Sandoval MD at OR [facility] N/A: Abdomen CR BARD : DAVOL 07/21/2016 [id number] / / [id number] Lens Intraoc 20.0 - [id number] - [id number] Implanted:Qty: 1 on 01/22/2021 by Lui Hardy MD at OR [facility] Left: Eye BAUSCH & LOMB 08/20/2025 [id number] / [id number] / Lens Intraoc 20.0 - [id number] - [id number] Implanted:Qty: 1 on 02/05/2021 by Lui Hardy MD at OR [facility] Right: Eye BAUSCH & LOMB 10/21/2025 [id number] / [id number] / [id number] documented as of this encounter Advance Directives [...] and were consensually agreed upon. Care Teams Him Specialists Relationship Specialty Start Date End Date Garry Reyes MD [address] [facility] [place] [address] PCP - General Internal Medicine 02/25/19 documented as of this encounter
--- OUTSIDE RECORDS SUMMARY | 2024-07-29 23:49 | External Medical Summary | Summary of Care ---
Author Name Unknown Organization [facility] Address [address] [place] [address] Phone [phone] Care Team Providers Care Director [place] Name Role Phone Garry Reyes MD Primary Care Provider + Encounter Details Date Type Department Care Team (Late st Contact Info) Description 02/22/2024 Telephone Pulmonary Medicine, [facility] [place] [address] Maris Lucero DO 132 [facility] [place] [address] Allergies No known active allergiesdocumented as of this encounter (statuses as of 02/22/2024) Medications Medication Sig Dispensed Refills Start Date [...] MG Oral TabletIndications:C oronary artery disease involving [place] coronary artery of [place] heart without angina pectoris,LV (left ventricular) mural thrombus following [place] (HCC),HTN, goal below 140/90,Ischemic cardiomyopathy,Hist ory of TIA (transient ischemic attack),Dyslipidemi a, goal LDL below 70,Old myocardial infarct,Essential hypertension with goal blood pressure less than 140/90 Take 1 Tablet by mouth in the morning. 90 Tablet 3 05/07/2023 Active Carvedilol 6.25 MG Oral Tablet (Coreg)Indications: Coronary artery disease involving [place] coronary artery of [place] heart without angina pectoris,LV (left ventricular) mural thrombus following [place] (HCC),HTN, goal below 140/90,Ischemic cardiomyopathy,Hist ory of [...] (Coumadin)Indicatio ns:LV (left ventricular) mural thrombus following [place] (HCC) TAKE 2 TABLETS TUESDAYS & SATURDAYS, [...] as of this encounter (statuses as of 02/22/2024) Active Problems Problem Noted Date Diagnosed Date [...] esophagus 05/26/2019 Coronary artery disease invo lving [place] coronary artery of [place] heart without angina pectoris 02/15/2019 Old myocardial [...] as of this encounter (statuses as of 02/22/2024) Resolved Problems Problem Noted Date Diagnosed Date [...] use aero chamber. Test performed by [facility] CPFT Thyroid nodule 05/26/2019 01/08/[address] [...] as of this encounter (statuses as of 02/22/2024) Immunizations Name Administration Dates Next Due COVID-19 mRNA, LNP-s, No Pre serve, 2-Dose Series (IndigoBoom) 05/22/2021,12/13/2020,11/15/2020 COVID-19, LNP-s, No Preserve , Yanick-sucrose, Ages 12+ (Pfizer) 12/27/2021 COVID-19, MRNA-LNP, 23-24, P F, 30 MCG/0.3 mL, 12 YRS AND ABOVE, IM ([facility]) 06/15/2023 Covid-19, Mrna, Lnp-s, Pf, B ivalent, 30 Mcg, IM, 12 yrs and above (IndigoBoom) 06/13/2022 Pneumococcal Conjugate Vacc, 13 Valent (Prevnar) [...] encounter Miscellaneous Notes * Telephone Encounter - Lily Dillon OSA - 02/22/2024 11:23 AM EDT CPAP supply and pressure adjustment order entered in [facility] documented in this encounter Plan of Treatment Upcoming Encounters Date Type Department Care Team (Late st Contact Info) Description 03/07/2024 8:20 AM EDT Anticoagulation Pharmacy, [facility] [address] [facility] [place] [address] Pharmacist1, [facility] 200 [facility] [place] [address] 03/31/2024 10:20 AM EDT Telemedicine Endocrinology, [place] [address] [place] [address] Jalyn Ladd MD [address] [place] [address] 05/30/2024 11:00 AM EDT Cardiac Studies Cardiac Studies, [facility] 132 [facility] [place] [address] 06/02/2024 11:00 AM EDT Office Visit Cardiology, [facility] 132 [facility] [place] [address] Brandy Loza CRNP 132 [facility] [place] [address] 08/02/2024 10:15 AM EST Office Visit Urology, [facility] [place] [address] Mac Hook MD [address] [place] [address] [place] [address] 08/05/2024 9:00 AM EST Office Visit General Internal Medicine [facility] [address] [facility] [address] Garry Reyes MD [address] [place] [address] 12/29/2024 9:45 AM EDT Office Visit Dermatology [facility] [address] [place] [address] Garry Rayn MD [address] [place] [address] 02/21/2025 11:20 AM EDT Office Visit [facility] Disorders Ctr [facility] [place] [phone] Maris Lucero DO [facility] [address] Scheduled Procedures Name Priority Associated Diagnoses Date/Ti [...] 07/22, 07/06/2015, Additional history exists COVID-19 Vaccine (7 - 2023-24 season) 2023 06/15/2023, 06/13/2022, 12/27/2021, Additional history [...] this encounter Medical Devices Implanted Type Area Batch Room Technician Device Identifier Shelf Expiration Date Model / Serial / Lot Hernia Patch Lrg/[place] W/Strp - [id number] Implanted:Qty: 1 on 07/17/2015 by Vicente Sandoval MD at OR [facility] N/A: Abdomen CR BARD : DAVOL 07/21/2016 [id number] / / [id number] Lens Intraoc 20.0 - [id number] - [id number] Implanted:Qty: 1 on 01/22/2021 by Lui Hardy MD at OR [facility] Left: Eye BAUSCH & LOMB 08/20/2025 [id number] / [id number] / Lens Intraoc 20.0 - [id number] - [id number] Implanted:Qty: 1 on 02/05/2021 by Lui Hardy MD at [facility] Right: Eye BAUSCH & LOMB 10/21/2025 [id number] / [id number] / [id number] documented as of this encounter Advance Directives [...] and were consensually agreed upon. Care Teams Director [place] Relationship Specialty Start Date End Date Garry Reyes MD [address] [place] [address] PCP - General Internal Medicine 02/25/19 documented as of this encounter
--- OUTSIDE RECORDS SUMMARY | 2024-07-29 23:49 | External Medical Summary | Summary of Care ---
Author Name Unknown Organization [facility] Address [address] [place] [address] Phone [phone] Care Team Providers Care Manager Education Name Role Phone Garry Reyes MD Primary Care Provider + Reason for Visit * Reason Onset Date Comments Advice 11/25/2023 Encounter Details Date Type Department Care Team (Late st Contact Info) Description 11/25/2023 Telephone Endocrinology, [place] [address] [place] [address] Services, [facility] [address] [place] [address] Advice Allergies No known active allergiesdocumented as of this encounter (statuses as of 02/18/2024) Medications Medication Sig Dispensed Refills Start Date [...] MG Oral TabletIndications: Coronary artery disease involving [place] coronary artery of [place] heart without angina pectoris,LV (left ventricular) mural thrombus following [place] (HCC),HTN, goal below 140/90,Ischemic cardiomyopathy,His tory of TIA (transient ischemic attack),Dyslipidem ia, goal LDL below 70,Old myocardial infarct,Essential hypertension with goal blood pressure less than 140/90 Take 1 Tablet by mouth in the morning. 90 Tablet 3 05/07/20 23 Active Carvedilol 6.25 MG Oral Tablet (Coreg)Indications :Coronary artery disease involving [place] coronary artery of [place] heart without angina pectoris,LV (left ventricular) mural thrombus following [place] (HCC),HTN, goal below 140/90,Ischemic cardiomyopathy,His tory of [...] (Coumadin)Indicati ons:LV (left ventricular) mural thrombus following [place] (HCC) [...] mouth in the morning. 09/23/19 24 Active Levothyroxine Sodium 175 MCG [...] 90 Capsule 3 01/17/20 23 024 Discontinued Hospital, Clinic, or Other Facility Administered Medication Ordered Dose Route Frequency Start Date End Date Status Thyrotropin Prem (Thyrogen) inj 0.9 mgIndications:Follicular thyroid cancer (HCC) 0.9 mg IM ONCE 12/15/2023 12/15/2023 Ende d Thyrotropin Prem (Thyrogen) inj 0.9 mgIndications:Follicular thyroid cancer (HCC) 0.9 mg IM ONCE 12/14/2023 12/14/2023 Ende d documented as of this encounter (statuses as of 02/18/2024) Active Problems Problem Noted Date Diagnosed Date [...] esophagus 05/26/2019 Coronary artery disease invo lving [place] coronary artery of [place] heart without angina pectoris 02/15/2019 Old myocardial [...] as of this encounter (statuses as of 02/18/2024) Resolved Problems Problem Noted Date Diagnosed Date [...] use aero chamber. Test performed by [facility]eli [facility]ANCHER CPFT Thyroid nodule 05/26/2019 01/08/[address] [...] as of this encounter (statuses as of 02/18/2024) Immunizations Name Administration Dates Next Due COVID-19 mRNA, LNP-s, No Pre serve, 2-Dose Series (OWM) 05/22/2021,12/13/2020,11/15/2020 COVID-19, LNP-s, No Preserve , Yanick-sucrose, Ages 12+ (OWM) 12/27/2021 COVID-19, MRNA-LNP, 23-24, P F, 30 MCG/0.3 mL, 12 YRS AND ABOVE, IM ([employer]) 06/15/2023 Covid-19, Mrna, Lnp-s, Pf, B ivalent, 30 Mcg, IM, 12 yrs and above (OWM) 06/13/2022 Pneumococcal Conjugate Vacc, 13 Valent (Prevnar) [...] encounter Miscellaneous Notes * Telephone Encounter - Shaunna Forbes OSA - 11/25/2023 11:08 AM EST Reason for patient's call: [facility] calling to check on procedure for an ablation with/for Dr Ladd. Asking for information on procedure code for the 12-14-2023 appointment. Patient was checking on his co-pay for the appointment. If you can provide the code or have quesitons, please call the patient, or [place] at the health plan. Thank you. documented in this encounter Plan of Treatment Upcoming Encounters Date Type Department Care Team (Late st Contact Info) Description 02/22/2024 10:00 AM EDT Office Visit Sleep Disorders Ctr [facility] [address] [place] [phone] Maris Lucero, [address] [place] [address] [place] [address] 03/07/2024 8:20 AM EDT Anticoagulation Pharmacy, [facility] [place] [address] Pharmacist1, [facility] [address] [place] [address] 03/31/2024 10:20 AM EDT Telemedicine Endocrinology, [place] [address] [place] [address] Jalyn Ladd MD [address] [place] [address] 05/30/2024 11:00 AM EDT Cardiac Studies Cardiac Studies, [facility] [address] [place] [address] 06/02/2024 11:00 AM EDT Office Visit Cardiology, [facility] [address] [place] [address] Brandy Loza CRNP [address] [place] [address] 08/02/2024 10:15 AM EST Office Visit Urology, [facility] [address] [place] [address] Mac Hook MD [address] [facility] [address] [place] [address] 08/05/2024 9:00 AM EST Office Visit General Internal Medicine [facility] [address] [place], [place] [address] Garry Reyes MD 200 [facility] [place], [place] [address] 12/29/2024 9:45 AM EDT Office Visit Dermatology [facility] [place] [address] [facility] [address] [place], [place] [address] Garry Ryan MD [address] [facility] [place] [address] Scheduled Procedures Name Priority Associated Diagnoses Date/Ti [...] this encounter Medical Devices Implanted Type Area Preventive Medicine Physician Device Identifier Shelf Expiration Date Model / Serial / Lot Hernia Patch Lrg/[place] W/Strp - [id number] Implanted:Qty: 1 on 07/17/2015 by Vicente Sandoval MD at OR [facility] N/A: Abdomen CR BARD : DAVOL 07/21/2016 [id number] / / [id number] Lens Intraoc 20.0 - [id number] - [id number] Implanted:Qty: 1 on 01/22/2021 by Lui Hardy MD at OR [facility] Left: Eye BAUSCH & LOMB 08/20/2025 [id number] / [id number] / Lens Intraoc 20.0 - [id number] - [id number] Implanted:Qty: 1 on 02/05/2021 by Lui Hardy MD at OR [facility] Right: Eye BAUSCH & LOMB 10/21/2025 [id number] / [id number] / [id number] documented as of this encounter Advance Directives [...] and were consensually agreed upon. Care Teams Manager Education Relationship Specialty Start Date End Date Garry Reyes MD 200 [facility], [place] [id number] PCP - General Internal Medicine 02/25/19 documented as of this encounter
--- OUTSIDE RECORDS SUMMARY | 2024-07-29 23:49 | External Medical Summary | Summary of Care ---
Author Name Unknown Organization [facility] Address [address] [place] [address] Phone [phone] Care Team Providers Care Cloth Desizing Range Operator Chief Name Role Phone Garry Reyes MD Primary Care Provider + Reason for Visit * Reason Comments Follow Up Encounter Details Date Type Department Care Team (Late st Contact Info) Description 02/22/2024 10:00 AM EDT Office Visit Sleep Disorders Ctr [facility] [address] [facility] [place] [phone] Maris Lucero DO [address] [facility] [place] [id number] Obstructive sleep apnea* Allergies No known active allergiesdocumented as of [...] MG Oral TabletIndications:C oronary artery disease involving atka coronary artery of atka heart without angina pectoris,LV (left ventricular) mural thrombus following ID (HCC),HTN, goal below 140/90,Ischemic cardiomyopathy,Hist ory of TIA (transient ischemic attack),Dyslipidemi a, goal LDL below 70,Old myocardial infarct,Essential hypertension with goal blood pressure less than 140/90 Take 1 Tablet by mouth in the morning. 90 Tablet 3 05/07/2023 Active Carvedilol 6.25 MG Oral Tablet (Coreg)Indications: Coronary artery disease involving atka coronary artery of atka heart without angina pectoris,LV (left ventricular) mural thrombus following ID (HCC),HTN, goal below 140/90,Ischemic cardiomyopathy,Hist ory of [...] (Coumadin)Indicatio ns:LV (left ventricular) mural thrombus following ID (HCC) TAKE 2 TABLETS TUESDAYS & SATURDAYS, [...] esophagus 05/26/2019 Coronary artery disease invo lving atka coronary artery of atka heart without angina pectoris 02/15/2019 Old myocardial [...] use aero chamber. Test performed by [facility] BUTADIENE CONVERTER OPERATOR CPFT Thyroid nodule 05/26/2019 01/08/2024 Acute [...] disorders 09/18/2005 04/27/2017 Overview: ENT Consult: 09/26 359.49 Voice disturbance nec (primary encounter diagnosis) PLAN: [...] mRNA, LNP-s, No Pre serve, 2-Dose Series (Promosome) 05/22/2021,12/13/2020,11/15/2020 COVID-19, LNP-s, No Preserve , Yanick-sucrose, Ages 12+ (Promosome) 12/27/2021 COVID-19, MRNA-LNP, 23-24, P F, 30 MCG/0.3 mL, 12 YRS AND ABOVE, IM ([facility]) 06/15/2023 Covid-19, Mrna, Lnp-s, Pf, B ivalent, 30 Mcg, IM, 12 yrs and above (Promosome) 06/13/2022 Pneumococcal Conjugate Vacc, 13 Valent (Prevnar) [...] Sign Reading Time Taken Comments Blood Pressure 144/78 02/22/2024 9:48 AM EDT Pulse 69 02/22/2024 9:48 AM EDT Temperature 35.9 C (96.7 F) 02/22/2024 9:48 AM ED T Respiratory Rate 20 02/22/2024 9:48 AM EDT Oxygen Saturation 96% 02/22/2024 9:48 AM EDT ra, rest Inhaled Oxygen Concentration - - Weight 100 kg (220 lb 6.4 oz) 02/22/2024 9:48 AM EDT Height 175.3 cm (5' 9") 02/22/2024 9:48 AM EDT Body Mass Index 32.55 02/22/2024 9:48 AM EDT documented in this [...] No 08/26/2023 documented as of this encounter Patient Instructions * Patient Instructions* Maris Lucero DO - 02/22/2024 10:03 AM EDT For mouth leak with nasal interface: 1) Chin strap 2) Mouth tape -- a strip of tape vertically across the center of your lips is often sufficient. PAP-MD or hostage tape 3) SomnoSeal -- a flexible piece of silicone to sit inside the lips to block air leak ([email or web address]) 4) Changing to a lower-profile/hybrid mask which allows for mouth-breathing with CPAP use documented in this encounter Progress Notes * Maris Lucero, DO - 02/22/2024 9:53 AM EDT Sleep Medicine Follow-Up HISTORY: Sky Peralta is a 78 year old male for follow up of severe FRANCES. Initially seen 08/20/2021 with nocturia (x3-5), loud snoring, afternoon fatigue/dozing off reading.[place] 8, FOSQ 38. Hx HTN, CAD s/p ID & ESPINOZA, TIA. HST 08/06/22 (weight 232 lbs): JEZ 50.3, SpO2 roxane 80%, time <89% 21.6 min. Using CPAP 10-13 cmH2O. Currently takes him an hour to get to sleep with the CPAP. He does not enjoy using the CPAP, but hedoes feel he sleeps better with it overall. After 3-4 hours he wakes up feeling not able to breathe very wel, then moves to the recliner, mightsleep an hour or two or three there or some nights does not sleep there. He thinks he needs a little more pressure. Changed to nasal pillows since last appt, but he mouth-breathes with that. Tried chin strap, but would still mouth-breathe. Got a difference chin strap, but did not tolerate. Using the FFM now, but would like to try nasal pillows again. Using breathe-rite strip to counteract the pinching-closed of his nose from the FFM. Subjective PAP adherence: good Sleep refreshing on PAP: yes Snoring on PAP: no Daytime sleepiness: no Daytime napping: not often now (used to prior to CPAP). Drowsy driving: none Interface: FFM and may try nasal pillows again. Mask leak: not usually bothersome Aerophagia: no Morning headaches: no [place] Sleepiness Scale: 3 Travel Screening Question 02/22/2024 9:41 AM EDT - Filed by Patient Do you have any of the following new or worsening symptoms? None of these Have you recently been in contact with someone who was sick? No / Unsure [place] Sleepiness Scale Question 02/22/2024 9:50 AM EDT - Filed by Kalli Joseph LPN What is the chance you will doze off in the following situation? Sitting and reading Slight chance of dozing Watching TV No chance of dozing Sitting inactive in a public place, such as a theater or meeting No chance of dozing As a passenger in a car for an hour without a break Moderate chance of dozing Lying down to rest in the afternoon when circumstances permit No chance of dozing When sitting and talking to someone No chance of dozing When sitting quietly after lunch without alcohol No chance of dozing In a car, while stopped for a few minutes in traffic No chance of dozing Score (range: 0 - 24) 3 CPAP Compliance: Report date: 02/17/24 % total days used: 100% % days used > 4 hours: 97% Average hours per day used: 7h 6m Large leak: occasional AHI: 1.1 /hr Median pressure: 11 cmH2O 95%ile pressure: 12.6 cmH2O Pressure settin-13 cmH2O Equipment: DME Provider is [facility] Uses a Flicstart 10 w/ SD card. Additional changes in health in the interim of care: Had thyroidectomy, then ablation for thyroid CA TIA Patient Active Problem List Diagnosis Esophageal reflux Essential hypertension with goal blood pressure less than 140/90 Mixed hyperlipidemia BPH without obstruction/lower urinary tract symptoms Umbilical hernia LV (left ventricular) mural thrombus following ID (HCC) Old myocardial infarct Presence of drug coated stent in LAD coronary artery Coronary artery disease involving atka coronary artery of atka heart without angina pectoris Monge's esophagus History of tobacco use Mediastinal adenopathy Aortic dilatation (HCC) History of prostate cancer Pericardial effusion Carotid stenosis, non-symptomatic, bilateral History of TIA (transient ischemic attack) Vertebral artery occlusion, right Type 2 diabetes mellitus with hemoglobin A1c goal of less than 8.0% (HCC) FRANCES on CPAP Follicular thyroid cancer (HCC) Current Outpatient Medications Medication Sig Dispense Refill Omeprazole 40 MG Oral Capsule Delayed Release (PriLOSEC) TAKE 1 CAPSULE BY MOUTH EVERY DAY 90 Capsule 3 Levothyroxine Sodium 175 MCG Oral Tablet (Levoxyl) Take 1 Tablet by mouth daily first thing in the morning. (at least 30 min prior to breakfast or other meds) 90 Tablet 3 Chlorthalidone 25 MG Oral Tablet (Hygroton) Take 0.5 Tablets by mouth in the morning. Tamsulosin HCl 0.4 MG Oral Capsule (Flomax) Take 1 Capsule by mouth in the morning. 30 Capsule 1 CPAP Use as directed at bedtime. Warfarin [...] needed for Pain, Chest. 25 Tablet 2 Carvedilol 6.25 MG Oral Tablet (Coreg) Take 1 Tablet by mouth in the morning and 1 Tablet before bedtime. 180 Tablet 3 Lisinopril 40 MG Oral Tablet Take 1 Tablet by mouth in the morning. 90 Tablet 3 Atorvastatin Calcium 80 MG Oral Tablet (Lipitor) TAKE 1 TABLET BY MOUTH EVERY DAY IN THE AFTERNOON 90 Tablet 3 Finasteride 5 MG Oral Tablet (Proscar) TAKE 1 TABLET BY MOUTH EVERY DAY IN THE MORNING 90 Tablet 3 Aspirin 81 MG Tablet Take 1 Tablet by mouth every evening. Magnesium Hydroxide 400 MG/5ML Oral Suspension Take 30 mL by mouth daily as needed for Constipation. Multiple Vitamins-Minerals (DAILY MULTIVITAMIN) CAPS Take 1 Tablet by mouth in the morning. No current facility-administered medications for this visit. PHYSICAL EXAM: Filed Vitals: 02/22/24 0948 BP: 144/78 Pulse: 69 Resp: 20 Temp: 35.9 C (96.7 F) TempSrc: Tympanic SpO2: 96% Weight: 100 kg (220 lb 6.4 oz) Height: 1.753 m (5' 9") Body mass index is 32.55 kg/m. General: alert, no acute distress Head: NC/AT Lungs: normal respiratory effort Neuro: speech clear and appropriate ASSESSMENT/PLAN: Obstructive sleep apnea - excellent adherence; encourage continued use of CPAP with all sleep - good efficacy of therapy; adjust PAP to 12-15 cmH2O due to patient sometimes feeling pressure is insufficient. - discussed strategies to address mouth leak with nasal interface; consider mask fitting for lower-profile FFM (he would prefer to use what he already has at home for now). - DME: [facility] - Routine cleaning and change of supplies as needed. - Continue to avoid driving when feeling sleepy/drowsy. Follow-up with Sleep Medicine in 1 year. Maris Lucero DO documented in this encounter Nursing Notes * Kalli Joseph LPN - 02/22/2024 9:44 AM EDT Pt for f/u FRANCES on CPAP. [facility] [place] Sleepiness Scale Question 02/22/2024 9:50 AM EDT - Filed by Kalli Joseph LPN What is the chance you will doze off in the following situation? Sitting and reading Slight chance of dozing Watching TV No chance of dozing Sitting inactive in a public place, such as a theater or meeting No chance of dozing As a passenger in a car for an hour without a break Moderate chance of dozing Lying down to rest in the afternoon when circumstances permit No chance of dozing When sitting and talking to someone No chance of dozing When sitting quietly after lunch without alcohol No chance of dozing In a car, while stopped for a few minutes in traffic No chance of dozing Score (range: 0 - 24) 3 documented in this encounter Plan of Treatment Upcoming Encounters Date Type Department Care Team (Late st Contact Info) Description 03/07/2024 8:20 AM EDT Anticoagulation Pharmacy, [facility] [address] [facility] [place] [address] Pharmacist1, [facility] [address] [facility] [place] [address] 03/31/2024 10:20 AM EDT Telemedicine Endocrinology, [facility] [address] [place] [address] Jalyn Ladd MD [address] [facility] [place] [address] 05/30/2024 11:00 AM EDT Cardiac Studies [facility], [facility] [place] [address] 06/02/2024 11:00 AM EDT Office Visit Cardiology, [facility] [address] [facility] [place] [address] Brandy Loza CRNP [address] [place] [address] 08/02/2024 10:15 AM EST Office Visit Urology, [facility] [address] [place] [address] Mac Hook MD [address] [facility] [place] [address] [facility] [place] [place] [address] 08/05/2024 9:00 AM EST Office Visit General Internal Medicine [facility] [address] [facility] [place] [address] Garry Reyes MD [address] [facility] [place] [address] 12/29/2024 9:45 AM EDT Office Visit Dermatology [facility] [address] [facility] [place] [address] Garry Ryan MD [address] [place] [address] 02/21/2025 11:20 AM EDT Office Visit [facility] [phone] Maris Lucero DO [address] [facility] [place] [address] Scheduled Procedures Name Priority Associated Diagnoses Date/Ti [...] this encounter Medical Devices Implanted Type Area Manager Of Enterprise Device Identifier Shelf Expiration Date Model / Serial / Lot Hernia Patch Lrg/[place] W/Strp - [id number] Implanted:Qty: 1 on 07/17/2015 by Vicente Sandoval MD at [facility] N/A: Abdomen CR BARD : DAVOL 07/21/2016 [id number] / / [id number] Lens Intraoc 20.0 - [id number] - [id number] Implanted:Qty: 1 on 01/22/2021 by Lui Hardy MD at [facility] Left: Eye [employer]CH [employer] LOMB 08/20/2025 [id number] / [id number] / Lens Intraoc 20.0 - [id number] - [id number] Implanted:Qty: 1 on 02/05/2021 by Lui Hardy MD at [facility] Right: Eye [employer]OMB 10/21/2025 [id number] / [id number] / [id number] documented as of this encounter Visit Diagnoses Diagnosis Obstructive sleep apnea- Primary Obstructive sleep apnea (adult) (pediatric) documented in this encounter Advance Directives * [...] and were consensually agreed upon. Care Teams Cloth Desizing Range Operator Chief Relationship Specialty Start Date End Date Garry Reyes MD [address] [place] [address] PCP - General Internal Medicine 02/25/19 documented as of this encounter
[2024-07-30] MEDS: BACLOFEN 10 MG TAB PO PRN (03:26)
[2024-07-30] MEDS: LEVOTHYROXINE SODIUM 175 MCG TABLET PO SCH (05:33)
[2024-07-30 07:36] LABS: Hematocrit (blood only) 39.2 % (42.0-52.0); Hemoglobin 13.4 g/dl (14.0-18.0); Mean Corpuscular Hemoglobin 33.3 pg (25.0-34.0); Mean Corpuscular Hgb Conc 34.2 g/dL (32.0-36.0); Mean Corpuscular Volume 97.3 fL (80.0-100.0); Mean Platelet Volume 10.2 fL (9.4-12.4); Platelet Count 221 K/uL (130-400); RDW Coefficient of Variation 12.9 % (11.5-14.5); RDW Standard Deviation 46.4 fL (36.4-46.3); Red Blood Count 4.03 M/uL (4.70-6.10); White Blood Count 9.59 K/ul (4.8-10.8)
[2024-07-30 08:02] LABS: BUN Creatinine Ratio 14.9 (10-20); Calcium 8.7 mg/dl (8.6-10.3); Potassium 3.1 mmol/L (3.5-5.1)
[2024-07-30 08:04] LABS: INR 1.5 (0.9-1.1); Prothrombin Time 15.6 Seconds (9.0-12.0)
[2024-07-30] MEDS: lisinopril 40 MG TAB PO SCH (09:17)
[2024-07-30] MEDS: CEROVITE ADV FORMULA TAB PO SCH (09:17)
[2024-07-30] MEDS: ASPIRIN 81 MG ECTAB PO SCH (09:17)
[2024-07-30] MEDS: CHLORTHALIDONE 25 MG TAB PO SCH (09:17)
[2024-07-30] MEDS: PANTOprazole 40 MG TAB PO SCH (09:18)
[2024-07-30] MEDS: FINASTERIDE 5 MG TAB PO SCH (09:18)
--- NOTE | 2024-07-30 11:44 | Hospitalist Progress Note ---
Date of Service July 30, 2024 Assessment & Plan (1) Sigmoid diverticulitis: (2) Abdominal pain: (3) Hypertension: (4) Dyslipidemia: (5) GERD (gastroesophageal reflux disease): Plan Sigmoid diverticulitis Abdominal pain, nausea GERD History of Monge's esophagus Patient presented with abdominal pain for couple of weeks No leukocytosis CT abdomen pelvis shows findings consistent of acute sigmoid diverticulitis; moderate pericolic inflammation. Blood culture pending Was given Zosyn in the ED; developed redness and flushing. Switch over to Ceftriaxone and Flagyl. Will advance diet to clear liquid diet Outpatient colonoscopy with Dr. Green to be rescheduled 6 to 8 weeks. CAD, Hx of NSTEMI status post ESPINOZA x 2 in the LAD -Placed in August 03, 2018 with recurrent NSTEMI 08/08 with repeat cardiac cath, cardioembolic event suspected secondary to LV thrombus Left ventricular thrombus resolved per echo in 2018 however substrate for recurrent thrombus with apical dyskinesis present and was maintained on warfarin HLD per triglyceridemia HTN -May continue carvedilol, lisinopril, atorvastatin as per home medications DM II - A1C 6.7 on 07/18/24, not on medication - Diet and exercise to be encouraged - ISS with accuchecks achs while here FRANCES on CPAP -Will order HS History of prostate cancer - monitoring per PCP with PSA History of follicular thyroid cancer -history of neck hematoma following thyroidectomy on 08/26/2023, required intubation and evacuation of the hematoma on 08/29/23 History of TIA -In the setting of f subtherapeutic INR and hypertensive crisis in April 2023 DVT ppx: lovenox, coumadin Lines: PIV x 1 FEN/GI: clear liquid diet CODE: Full code Dispo: From home, likely to remain in the hospital x 1-2 days. Needs to be closely monitoring patient for acute sigmoid diverticulitis. Time spent evaluating patient, direct bedside care, chart review, placing orders, interpretation of diagnostic studies, discussion with consultants, patient, and family members, as well as other required patient management activities is 50 minutes Please note the above document was generated using voice recognition software. It may contain grammatical, syntax or spelling errors. Any formal questions or concerns about the content, text or information contained within the body of this dictation should be directly addressed to the provider for clarification Admission and Anticipated Discharge Date Admission Date: July 29, 2024 Subjective Patient seen and examined at bedside. He reports that his pain has resolved. He reports that he did not get much sleep. Afebrile overnight Review of Systems Review of Systems: All systems reviewed & are unremarkable except as noted in Subjective Physical Exam Physical Exam: General: awake, alert, no apparent distress, obese white male, appears red on his head and face slightly, skin is warm to touch Head: Normocephalic, atraumatic ENT: PERRL, EOMI, no pharyngeal exudate, mucous membranes moist Chest: Clear to auscultation, on room air, no adventitious breath sounds Cardiac: Regular rate and rhythm, heart rate in mid 90s, no JVD, normal peripheral pulses, good capillary refill Abdominal: Hypoactive BS x 4 quadrants, soft, non-tender Extremities: Normal inspection, no peripheral edema or erythema, calfs nontender to palpation Psych: Normal mood and affect Neuro: AAO x 3, strength intact bilaterally and rated 5/5, no motor deficits, speech is clear, no peripheral sensory deficits Results & Data Results & Data Vital Signs (Past 12 Hours) Vital Signs Temp Pulse Pulse Resp BP Pulse Ox O2 Del Method 07/30/24 08:00 Room Air 07/30/24 08:00 80 07/30/24 07:34 37.0 C 76 20 124/63 97 Room Air 07/30/24 03:54 36.8 C 86 18 127/67 93 Room Air 07/30/24 01:33 66 07/30/24 01:12 66 07/29/24 23:59 36.8 C 81 18 161/75 H 94 Room Air (3) Hypertension Hypertension type: unspecified Qualified Code(s): I10 - Essential (primary) hypertension
[2024-07-30] MEDS: ACETAMINOPHEN 325 MG TAB PO PRN (12:47)
[2024-07-30] MEDS: POTASSIUM CHLORIDE PWD 20 MEQ PACK PO SCH (12:47)
[2024-07-30] MEDS: oxyCODONE HCL IR 5 MG TAB (IMMEDIATE RELEASE) PO PRN (12:48)
[2024-07-30] MEDS ORDERED: Nursing to Pharmacy Communication SCH (15:30)
[2024-07-30] MEDS: cefTRIAXone SODIUM 2,000 MG/50 ML BAG IV SCH (15:40)
[2024-07-30] MEDS: POTASSIUM CHLORIDE CRTAB 20 MEQ TABCR PO SCH (15:43)
[2024-07-30] MEDS: WARFARIN SOD 5 MG TAB PO SCH (15:44)
[2024-07-30] MEDS: ONDANSETRON INJ 2 MG/ML 2 ML VIAL IV PRN (16:44)
[2024-07-30] MEDS: DICYCLOMINE HCL 10 MG CAP PO PRN (18:05)
[2024-07-31 06:29] LABS: Basophils # (auto) 0.01 K/uL (0.00-0.20); Basophils % (auto) 0.1 %; Hematocrit (blood only) 34.8 % (42.0-52.0); Hemoglobin 12.3 g/dl (14.0-18.0); Immature Granulocytes # (auto) 0.01 K/uL (0.01-0.20); Immature Granulocytes % (auto) 0.1 %; Lymphocytes # (auto) 0.71 K/uL (1.20-3.40); Mean Corpuscular Hemoglobin 33.2 pg (25.0-34.0); Mean Corpuscular Hgb Conc 35.3 g/dL (32.0-36.0); Mean Corpuscular Volume 94.1 fL (80.0-100.0); Monocytes # (auto) 0.54 K/uL (0.11-0.59); Monocytes % (auto) 7.6 %; Neutrophils # (auto) 5.81 K/uL (1.40-6.50); Neutrophils % (auto) 82.2 %; Platelet Count 183 K/uL (130-400); RDW Standard Deviation 44.9 fL (36.4-46.3); White Blood Count 7.08 K/ul (4.8-10.8)
[2024-07-31 06:58] LABS: BUN Creatinine Ratio 14.6 (10-20); Creatinine Clr Calc Pharmacy 77.7 ml/min; Potassium 3.1 mmol/L (3.5-5.1)
[2024-07-31 07:06] LABS: INR 2.3 (0.9-1.1); Prothrombin Time 23.5 Seconds (9.0-12.0)
--- NOTE | 2024-07-31 11:24 | Hospitalist Progress Note ---
Date of Service July 31, 2024 Assessment & Plan (1) Sigmoid diverticulitis: (2) Abdominal pain: (3) Hypertension: (4) Dyslipidemia: (5) GERD (gastroesophageal reflux disease): Plan Sigmoid diverticulitis History of Monge's esophagus Patient presented with abdominal pain for couple of weeks No leukocytosis on admission CT abdomen pelvis shows findings consistent of acute sigmoid diverticulitis; moderate pericolic inflammation. Blood culture - NGTD Was given Zosyn in the ED; developed redness and flushing. Switch over to Ceftriaxone and Flagyl. Continue on clear liquid diet Outpatient colonoscopy with Dr. Green to be rescheduled 6 to 8 weeks. CAD, Hx of NSTEMI status post ESPINOZA x 2 in the LAD -Placed in August 03, 2018 with recurrent NSTEMI 08/08 with repeat cardiac cath, cardioembolic event suspected secondary to LV thrombus Left ventricular thrombus resolved per echo in 2018 however substrate for recurrent thrombus with apical dyskinesis present and was maintained on warfarin -currently on coumadin, conitnue HLD per triglyceridemia HTN -continue carvedilol, lisinopril, atorvastatin as per home medications DM II - A1C 6.7 on 07/18/24, not on medication - Diet and exercise to be encouraged - ISS with accuchecks achs while here FRANCES on CPAP -ordered HS History of prostate cancer - monitoring per PCP with PSA History of follicular thyroid cancer -history of neck hematoma following thyroidectomy on 08/26/2023, required intubation and evacuation of the hematoma on 08/29/23 History of TIA -In the setting of f subtherapeutic INR and hypertensive crisis in April 2023 DVT ppx: coumadin Lines: PIV x 1 FEN/GI: clear liquid diet CODE: Full code Dispo:Needs to be closely monitoring inpatient for acute sigmoid diverticulitis. PT/OT recommends home after resolution of medical issues. Time spent evaluating patient, direct bedside care, chart review, placing orders, interpretation of diagnostic studies, discussion with consultants, patient, and family members, as well as other required patient management activities is 50 minutes Please note the above document was generated using voice recognition software. It may contain grammatical, syntax or spelling errors. Any formal questions or concerns about the content, text or information contained within the body of this dictation should be directly addressed to the provider for clarification Admission and Anticipated Discharge Date Admission Date: July 29, 2024 Subjective Patient seen and examined at bedside. He reports that he is feeling much better compared to previous day. He was able to sleep throughout the night. He does not have much appetite. He denies any abdominal pain or discomfort Review of Systems Review of Systems: All systems reviewed & are unremarkable except as noted in Subjective Physical Exam Physical Exam: General: awake, alert, no apparent distress, Head: Normocephalic, atraumatic ENT: PERRL, EOMI, no pharyngeal exudate, mucous membranes moist Chest: Clear to auscultation, on room air, no adventitious breath sounds Cardiac: Regular rate and rhythm, no JVD, normal peripheral pulses, good capillary refill Abdominal: Hypoactive BS x 4 quadrants, soft, non-tender Extremities: Normal inspection, no peripheral edema or erythema, calfs nontender to palpation Psych: Normal mood and affect Neuro: AAO x 3, strength intact bilaterally and rated 5/5, no motor deficits, speech is clear, no peripheral sensory deficits Results & Data Results & Data Vital Signs (Past 12 Hours) Vital Signs Temp Pulse Pulse Resp BP BP Pulse Ox 07/31/24 10:00 37.8 C H 07/31/24 08:52 37.3 C 81 20 130/66 90 07/31/24 02:49 37.5 C 86 18 112/63 94 07/30/24 23:46 07/30/24 23:45 63 07/30/24 23:32 37.0 C 70 18 116/60 95 O2 Del Method 07/31/24 10:00 07/31/24 08:52 Room Air 07/31/24 02:49 Room Air 07/30/24 23:46 Room Air 07/30/24 23:45 07/30/24 23:32 Room Air (3) Hypertension Hypertension type: unspecified Qualified Code(s): I10 - Essential (primary) hypertension
[2024-07-31] MEDS: LACTATED RINGER'S 500 ML IV ONE (12:05)
[2024-07-31] MEDS: LACTATED RINGER'S 1,000 ML IV SCH (12:11)
[2024-08-01 00:08] VITALS: RESP 18
[2024-08-01 06:54] LABS: Basophils # (auto) 0.01 K/uL (0.00-0.20); Basophils % (auto) 0.2 %; Eosinophils # (auto) 0.02 K/uL (0.00-0.50); Eosinophils % (auto) 0.4 %; Hematocrit (blood only) 32.3 % (42.0-52.0); Hemoglobin 11.2 g/dl (14.0-18.0); Immature Granulocytes # (auto) 0.02 K/uL (0.01-0.20); Immature Granulocytes % (auto) 0.4 %; Lymphocytes % (auto) 19.5 %; Mean Corpuscular Hemoglobin 32.8 pg (25.0-34.0); Mean Corpuscular Hgb Conc 34.7 g/dL (32.0-36.0); Mean Corpuscular Volume 94.7 fL (80.0-100.0); Mean Platelet Volume 10.3 fL (9.4-12.4); Monocytes # (auto) 0.67 K/uL (0.11-0.59); Monocytes % (auto) 14.5 %; Neutrophils # (auto) 2.99 K/uL (1.40-6.50); Platelet Count 173 K/uL (130-400); RDW Coefficient of Variation 13.3 % (11.5-14.5); RDW Standard Deviation 46.1 fL (36.4-46.3); Red Blood Count 3.41 M/uL (4.70-6.10); White Blood Count 4.61 K/ul (4.8-10.8)
[2024-08-01 07:16] LABS: BUN Creatinine Ratio 13.3 (10-20); Calcium 7.8 mg/dl (8.6-10.3); Creatinine Clr Calc Pharmacy 75.7 ml/min; Potassium 3.2 mmol/L (3.5-5.1)
[2024-08-01 07:30] LABS: INR 3.2 (0.9-1.1); Prothrombin Time 31.4 Seconds (9.0-12.0)
[2024-08-01 11:19] VITALS: PULSE 62; TEMP 97.9; O2SAT 94
[2024-08-01] MEDS: AMOXICILLIN/CLAVULANATE 875 MG TAB PO SCH (12:52)
--- NOTE | 2024-08-01 13:06 | Discharge Summary ---
Date of Service August 01, 2024 Admission HPI Per Admitting Provider This is a 79-year-old male with PMHx of CAD, ESPINOZA x 2 in LAD, history of MD, history of left mural thrombus following heart attack, history of right vertebral artery occlusion, HTN, HLD, DM type II, Monge's esophagus, history of prostate cancer and follicular thyroid cancer, history of TIA, irritable bowel syndrome, abdominal cramping, and FRANCES on CPAP. Patient was initially seen by PCP on 07/16/2024 for worsening on and off stomach pain associated with constipation, nausea, diarrhea. Abdominal pain has been much exacerbated in the last month since coming home from a trip where they were in [place] x 1 week. He states that today he had significant increase in abdominal cramping and was convinced by his and son who are present at bedside to come to the ER for evaluation. He denies any fevers, but does admit to having chills and shakes earlier today. Reports issues with constipation chronically, last normal bowel movement was about 3 to 4 days ago, but passed a small amount of stool this morning. He feels bloated in his stomach. He denies any bloody bowel movements or melanotic appearing stool. Patient is anticoagulated on Coumadin, which he stopped 3 days ago on 07/26 to switch over to Lovenox bridging prior to having colonoscopy which is scheduled on 08/[address] Green as an outpatient. Pt is taking lovenox 100 mg Q12H and last dose was this morning. We discussed that this coloscopy will need to be rescheduled for at least 6-8 weeks with acute diverticulitis today. Isaak expressed understanding and have already sent message through the [employer]. Last colonoscopy was done in 2018 which showed internal hemorrhoids and moderate diverticulosis. Last EGD and endoscopic US was done 06/14/2019 which was negative for acute findings or significant pathology. Admission Exam Per Admitting Provider General: awake, alert, no apparent distress, obese white male, appears red on his head and face slightly, skin is warm to touch Head: Normocephalic, atraumatic ENT: PERRL, EOMI, no pharyngeal exudate, mucous membranes moist Chest: Clear to auscultation, on room air, no adventitious breath sounds Cardiac: Regular rate and rhythm, heart rate in mid 90s, no JVD, normal peripheral pulses, good capillary refill Abdominal: Hypoactive BS x 4 quadrants, soft, + obtuse, + mildly distended, +tender to palpation in LLQ, no rebound or guarding Extremities: Normal inspection, no peripheral edema or erythema, calfs nontender to palpation Psych: Normal mood and affect Neuro: AAO x 3, strength intact bilaterally and rated 5/5, no motor deficits, speech is clear, no peripheral sensory deficits Principal Diagnosis Acute sigmoid diverticulitis Discharge Exam General: awake, alert, no apparent distress, Head: Normocephalic, atraumatic ENT: PERRL, EOMI, no pharyngeal exudate, mucous membranes moist Chest: Clear to auscultation, on room air, no adventitious breath sounds Cardiac: Regular rate and rhythm, no JVD, normal peripheral pulses, good capillary refill Abdominal: Hypoactive BS x 4 quadrants, soft, non-tender Extremities: Normal inspection, no peripheral edema or erythema, calfs nontender to palpation Psych: Normal mood and affect Neuro: AAO x 3, strength intact bilaterally and rated 5/5, no motor deficits, speech is clear, no peripheral sensory deficits Discharge Data Allergies Allergy/AdvReac Type Severity Reaction Status Date / Time piperacillin [From Zosyn] Allergy Intermediate Redness of Verified 07/29/24 17:58 Skin tazobactam [From Zosyn] Allergy Intermediate Redness of Verified 07/29/24 17:58 Skin Consultations 07/29/24 16:36 ED Decision to Admit Stat Ordered Studies 07/29/24 14:19 CT Abd and Pelvis [CT abd pelvis IV con only] Stat Hospital Course (1) Sigmoid diverticulitis: (2) Abdominal pain: (3) Hypertension: (4) Dyslipidemia: (5) GERD (gastroesophageal reflux disease): Plan Acute Sigmoid diverticulitis Patient presented with abdominal discomfort, fever for several days CT abdomen and pelvis showed acute sigmoid diverticulitis with moderate pericolic inflammation. Patient did not have leukocytosis on admission. Blood culture obtained on admission was negative. Patient was admitted to telemetry floor; started on supportive care with bowel rest, IV fluids, pain management and antibiotics. Patient reported improvement in abdominal pain during the hospitalization. He was afebrile in last 24 hours prior to discharge. Patient was prescribed Augmentin for 1 more week to complete the antibiotic course. Patient to follow-up with PCP and obtain colonoscopy in 6 to 8 weeks. Patient's antihypertensives were kept on hold at the time of the discharge; recommended to gradually restart them at home. Please note the above document was generated using voice recognition software. It may contain grammatical, syntax or spelling errors. Any formal questions or concerns about the content, text or information contained within the body of this dictation should be directly addressed to the provider for clarification Total Time Total Time Spent Total Time Spent (In Minutes): 45 Total Time Includes: Examination of the Patient, Discharge Planning, Medication Reconciliation, Communication With Other Providers and Other Discharge Plan Discharge Items Patient Disposition: Home - Self-Care Reason For Visit: SIGMOID DIVERTICULOSIS Discharge Diagnosis: Acute sigmoid diverticulitis Activity: Resume your previous activity Non-emergency contact: Primary Care Provider Call non-emergency contact if: you have any medication questions and your symptoms worsen Follow-up/Referrals: Garry Reyes MD [Primary Care Provider] - (Date & Time 08/05/2024 9:00 AM Provider Garry Reyes MD Department General Internal Medicine [facility] ) Tatiana Green DO [Physician] - (Please contact the GI office to reschedule your colonoscopy.) Diet: Full liquid Addtl Attending Provider Instructions: You were admitted to the hospital due to acute sigmoid diverticulitis. You are treated in the hospital with antibiotics. Please follow the instructions below: 1) Take Augmentin twice a day for 7 days to complete the antibiotic course. 2) Take Tylenol 500 mg every 6 hours as needed for pain. If your pain does not get resolved with Tylenol after half hour; you can take oxycodone 2.5 mg as needed. 3) Eat a liquid diet for next 2 days. After that, you can get started on low fiber food. You need to be on low fiber food for at least 2 weeks; then you can gradually add fiber to your diet. Your blood pressure pills (Lisinopril and chlorthalidone) are currently on hold as your blood pressure is on lower side due to infection. Measure your blood pressure daily; start taking chlorthalidone first if your blood pressure is noted to be greater than 130/80. You can start taking lisinopril for blood pressure continues to be high( greater than 130/80) while you are chlorthalidone. You can stop taking Lovenox. Your INR is therapeutic. You will need a colonoscopy in 6 to 8 weeks after your bowels. Pending Studies at Discharge: No Stand-Alone Forms: My [facility], Smoking Cessation Medications and DC Order Prescriptions: New amoxicillin-pot clavulanate 875-125 mg Tablet 1 tab PO BIDM 7 Days Qty: 14 0RF oxycodone 5 mg Tablet 2.5 mg PO Q6H PRN (Reason: pain) Qty: 5 0RF Continued omeprazole 40 mg Capsule,Delayed Release(Dr/Ec) 40 mg PO QAM Men's One Daily Tablet 1 tab PO QAM atorvastatin [Lipitor] 80 mg tablet 80 mg PO HS nitroglycerin [Nitrostat] 0.4 mg tablet, sublingual 0.4 mg Sublingual UD PRN (Reason: Chest Pain) Patient Comments: NOT TAKEN FOR MANY MANY MONTHS warfarin 5 mg tablet 5 mg PO UD Patient Comments: TAKE IN EVENING AFTER DINNER Rx Instructions: 10 mg on Mondays, 5 mg on all other days aspirin 81 mg Tablet,Delayed Release (Dr/Ec) 81 mg PO DAILY tamsulosin 0.4 mg capsule 0.4 mg PO HS finasteride 5 mg tablet 5 mg PO QAM levothyroxine 175 mcg tablet 175 mcg PO QAM carvedilol 6.25 mg tablet 6.25 mg PO BID dicyclomine 10 mg capsule 10 mg PO QID PRN (Reason: Abdominal Pain) baclofen 10 mg Tablet 10 mg PO BID PRN (Reason: Breakthrough Pain) Held lisinopril [Zestril] 20 mg tablet 40 mg PO QAM Hold Instructions: Resume on 08/05/24. chlorthalidone 25 mg tablet 12.5 mg PO QAM Hold Instructions: Resume on 08/03/24. Discontinued enoxaparin 100 mg/mL syringe 100 mg subcut BID Discharge Orders: Discharge Order (Routine); Ordered 08/01/24 Ordered By: Alex Hummel Admission Data Admit Date/Time: 07/29/24 16:58 Attending Provider: Alex Hummel Admit Provider: Khushi Awan Primary Care Provider: Garry Reyes Other Providers: Khushi Awan
[2024-08-01 14:14] VITALS: BP 107/65
== END 2024-08-01 14:42 | disposition home or self-care (01) | DRG 392 ==
LOC: ED 13:54 → EDINP 16:58 → SUATTDRO 16:58 → EDINP 19:16 → 2N 20:51